=== PATIENT | female | born 1990 | race Hispanic/Latino ===

== ENCOUNTER 2018-01-01 11:51 | Emergency (ER) | payer OTHER, SELFPAY ==
--- NOTE | 2018-01-01 12:35 | EDPHYS ---
Physician Documentation [facility] Name: Gretel Nguyen Age: 27 yrs Sex: Female : 1990 Arrival Date: 01/01/2018 Time: 11:53 Bed 11 Private MD: None, None ED Physician Ganesh Pelaez HPI: 01/01 12:31 This 27 yrs old Female presents to ER via Ambulatory with complaints of Ear snw Pain. 12:31 The patient presents with pain, tenderness. The complaints affect the right ear. Onset: snw The symptoms/episode began/occurred suddenly, yesterday. Associated signs and symptoms: Pertinent positives: ear pain, sore throat. Severity of symptoms: At their worst the symptoms were moderate. The patient has not experienced similar symptoms in the past, but family has similar symptoms, daughter. The patient has not recently seen a physician. 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 - Social history:: Smoking status: unknown. - Ebola Screening: : Patient negative for fever greater than or equal to 101.5 degrees Fahrenheit, and additional compatible Ebola Virus Disease symptoms Patient denies exposure to infectious person Patient denies travel to an Ebola-affected area in the 21 days before illness onset No symptoms or risks identified at this time. ROS: 12:31 Constitutional: Negative for fever, chills, and weight loss, Eyes: Negative for injury, snw pain, redness, and discharge, Neck: Negative for injury, pain, and swelling, Cardiovascular: Negative for chest pain, palpitations, and edema, Respiratory: Negative for shortness of breath, cough, wheezing, and pleuritic chest pain, Abdomen/GI: Negative for abdominal pain, nausea, vomiting, diarrhea, and constipation, Back: Negative for injury and pain, : Negative for injury, bleeding, discharge, and swelling, MS/Extremity: Negative for injury and deformity, Skin: Negative for injury, rash, and discoloration, Neuro: Negative for headache, weakness, numbness, tingling, and seizure. 12:31 ENT: Positive for ear pain, sore throat. Exam: 12:29 Constitutional: This is a well developed, well nourished patient who is awake, alert, snw and in no acute distress. Head/Face: Normocephalic, atraumatic. Eyes: Pupils equal round and reactive to light, extra-ocular motions intact. Lids and lashes normal. Conjunctiva and sclera are non-icteric and not injected. Cornea within normal limits. Periorbital areas with no swelling, redness, or edema. Chest/axilla: Normal chest wall appearance and motion. Nontender with no deformity. No lesions are appreciated. Cardiovascular: Regular rate and rhythm with a normal S1 and S2. No gallops, murmurs, or rubs. Normal PMI, no JVD. No pulse deficits. Respiratory: Lungs have equal breath sounds bilaterally, clear to auscultation and percussion. No rales, rhonchi or wheezes noted. No increased work of breathing, no retractions or nasal flaring. Abdomen/GI: Soft, non-tender, with normal bowel sounds. No distension or tympany. No guarding or rebound. No evidence of tenderness throughout. Back: No spinal tenderness. No costovertebral tenderness. Full range of motion. Skin: Warm, dry with normal turgor. Normal color with no rashes, no lesions, and no evidence of cellulitis. MS/ Extremity: Pulses equal, no cyanosis. Neurovascular intact. Full, normal range of motion. Neuro: Awake and alert, GCS 15, oriented to person, place, time, and situation. Cranial nerves II-XII grossly intact. Motor strength 5/5 in all extremities. Sensory grossly intact. Cerebellar exam normal. Normal gait. 12:29 Psych: Awake, alert, with orientation to person, place and time. Behavior, mood, and affect are within normal limits. 12:29 ENT: Ear canal(s): are normal, TM's: are normal, Nose: is normal, Mouth: is normal, Posterior pharynx: Airway: normal, Tonsils: enlarged on the right, no trismus, Voice: is normal. 12:29 Neck: External neck: is normal, ROM/movement: pain, that is moderate, palpation of anterior cervical lymph nodes. limited range of motion, is not appreciated, Lymph nodes: lymphadenopathy is appreciated, anterior cervical nodes. Vital Signs: 11:55 BP 135 / 70; Pulse 92; Resp 16; Temp 98.9; Pulse Ox 99% on R/A; Weight 104.33 kg (R); sg Pain 6/10; MDM: 12:09 Patient medically screened. snw 12:35 Data reviewed: vital signs, nurses notes. Data interpreted: Pulse oximetry: on room air snw is 99 %. Interpretation: normal. Counseling: I had a detailed discussion with the patient and/or guardian regarding: the historical points, exam findings, and any diagnostic results supporting the discharge/admit diagnosis, the need for outpatient follow up, to return to the emergency department if symptoms worsen or persist or if there are any questions or concerns that arise at home. Special discussion: Based on the history and exam findings, there is no indication for further emergent testing or inpatient evaluation. I discussed with the patient/guardian the need to see the primary care provider for further evaluation of the symptoms. 01/01 12:29 Order name: Strep snw Administered Medications: 12:46 Drug: Decadron - Dexamethasone 10 mg {Note: PO.} Route: IVP; Site: Other; sg 12:47 Drug: Rocephin (cefTRIAXone) 1 grams {Note: L ventroglueteal.} Route: IM; Site: Other; 12:47 Drug: Benadryl 12.5 mg Route: PO; sg Disposition: 15:20 Co-signature as Attending Physician, Ganesh Pelaez MD I agree with the assessment and papo plan of care. Disposition: 01/01/18 12:34 Discharged to Home. Impression: Acute pharyngitis, unspecified. - Condition is Stable. - Discharge Instructions: Pharyngitis. - Prescriptions for Zithromax 500 mg Oral Tablet - take 1 tablet by ORAL route once daily for 5 days; 5 tablet. - Work release form, Medication Reconciliation Form, Thank You Letter, Antibiotic Education, Prescription Opioid Use form. - Follow up: Private Physician; When: 2 - 3 days; Reason: Recheck today's complaints, Continuance of care, Re-evaluation by your physician. Follow up: Emergency Department; When: As needed; Reason: Worsening of condition. Signatures: Dispatcher [employer] EDBebeto Reddy RN RN sg Anderson, Corey, MD MD papo German, Lorena, SECURITY OPERATIONS ANALYST-C SECURITY OPERATIONS ANALYST-Csnw Priti Nails RN RN ss Denise Vincent RN RN Corrections: (The following items were deleted from the chart) 12:52 12:34 01/01/2018 12:34 Discharged to Home. Impression: Acute pharyngitis, unspecified. ss Condition is Stable. Forms are Medication Reconciliation Form, Thank You Letter, Antibiotic Education, Prescription Opioid Use. Follow up: Private Physician; When: 2 - 3 days; Reason: Recheck today's complaints, Continuance of care, Re-evaluation by your physician. Follow up: Emergency Department; When: As needed; Reason: Worsening of condition. snw
--- NOTE | 2018-01-01 12:35 | ER ---
Nurse's Notes [facility] Name: Gretel Nguyen Age: 27 yrs Sex: Female : 1990 Arrival Date: 01/01/2018 Time: 11:53 Bed 11 Private MD: None, None Diagnosis: Acute pharyngitis, unspecified Presentation: 01/01 11:58 Transition of care: patient was not received from another setting of care. Onset of hb symptoms was January 01, 2018. Risk Assessment: Do you want to hurt yourself or someone else? Patient reports no desire to harm self or others. Initial Sepsis Screen: Does the patient meet any 2 criteria? No. Patient's initial sepsis screen is negative. Does the patient have a suspected source of infection? No. Patient's initial sepsis screen is negative. Care prior to arrival: None. 11:58 Acuity: DEREK 5 hb 11:58 Method Of Arrival: Ambulatory hb 12:09 Presenting complaint: Patient states: R ear pain that started yesterday, worsened over sg night, now reports pain in L ear as well with a sore throat, denies N/V/D or fever. Triage Assessment: 11:55 General: Appears in no apparent distress. comfortable, well groomed, well developed, sg well nourished, Behavior is calm, cooperative, appropriate for age. 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 - Social history:: Smoking status: unknown. - Ebola Screening: : Patient negative for fever greater than or equal to 101.5 degrees Fahrenheit, and additional compatible Ebola Virus Disease symptoms Patient denies exposure to infectious person Patient denies travel to an Ebola-affected area in the 21 days before illness onset No symptoms or risks identified at this time. Screenin:55 Abuse screen: Denies threats or abuse. Denies injuries from another. Nutritional sg screening: No deficits noted. Tuberculosis screening: No symptoms or risk factors identified. Never had TB. Fall Risk None identified. Assessment: 12:00 General: Appears in no apparent distress. comfortable, well groomed, well developed, sg well nourished, Behavior is calm, cooperative, appropriate for age. Pain: Complains of pain in right ear, left ear Quality of pain is described as aching. Neuro: Level of Consciousness is awake, alert, obeys commands, Oriented to person, place, time, Safety Leader are equal bilaterally Moves all extremities. Full function Gait is steady, Speech is normal. Cardiovascular: No deficits noted. Denies chest pain, diaphoresis, fatigue, lightheadedness, nausea, palpitations, shortness of breath, syncope, vomiting. Respiratory: Airway is patent Respiratory effort is even, unlabored, Respiratory pattern is regular, symmetrical. GI: No signs and/or symptoms were reported involving the gastrointestinal system. : No signs and/or symptoms were reported regarding the genitourinary system. EENT: Oral mucosa is moist. Good dentition noted. Throat is pink Reports pain in right ear, in left ear, sore throat. Derm: Skin is pink, warm \T\ dry. Musculoskeletal: No signs and/or symptoms reported regarding the musculoskeletal system. Vital Signs: 11:55 BP 135 / 70; Pulse 92; Resp 16; Temp 98.9; Pulse Ox 99% on R/A; Weight 104.33 kg (R); sg Pain 6/10; ED Course: 11:53 Patient arrived in ED. sb2 11:53 None, None is Private Physician. sb2 11:58 Arm band placed on. hb 11:59 Triage completed. hb 12:00 Patient has correct armband on for positive identification. Pulse ox on. NIBP on. sg 12:08 Lorena Porter FNP-C is PHCP. snw 12:08 Ganesh Pelaez MD is Attending Physician. snw 12:09 Bebeto Hassan RN is Primary Nurse. sg 12:45 No provider procedures requiring assistance completed. Patient did not have IV access sg during this emergency room visit. Administered Medications: 12:46 Drug: Decadron - Dexamethasone 10 mg {Note: PO.} Route: IVP; Site: Other; sg 12:47 Drug: Rocephin (cefTRIAXone) 1 grams {Note: L ventroglueteal.} Route: IM; Site: Other; sg 12:47 Drug: Benadryl 12.5 mg Route: PO; Outcome: 12:34 Discharge ordered by . snmyke 12:45 Discharged to home ambulatory, with family. 12:45 Condition: good 12:45 Discharge instructions given to patient, Instructed on discharge instructions, follow up and referral plans. no drinking with medication, medication usage, safety practices, Demonstrated understanding of instructions, follow-up care, medications, Prescriptions given X 1. 12:52 Patient left the ED. Signatures: Bebeto Hassan RN RN Lorena Porter, VIRTUAL CLASSROOM MANAGER-C VIRTUAL CLASSROOM MANAGER-Gunjanw Priti Nails RN RN Denise Vincent RN RN Karen Crenshaw sb2
[2018-01-01] MEDS ORDERED: LIDOCAINE 1% MPF 5 ML VIAL ONE (12:38)
[2018-01-01] MEDS ORDERED: DIPHENHYDRAMINE 12.5MG/5ML LIQ ONE (12:38)
[2018-01-01] MEDS ORDERED: CEFTRIAXONE 1000 MG/VIAL ONE (12:38)
[2018-01-01] MEDS ORDERED: DEXAMETHASONE 10 MG/ML VIAL ONE (12:38)
[2018-01-01 13:03] VITALS: BP 135/70; TEMP 98.9; O2SAT 99
== END 2018-01-01 12:52 | disposition home or self-care (01) ==
LOC: ER 11:51
DX: J02.9 Acute pharyngitis, unspecified (principal)
CPT/HCPCS: 87070; 87081; 96372; 96374; 99283; J1100

== ENCOUNTER 2018-10-14 07:12 | Emergency (ER) | payer SELFPAY ==
--- OUTSIDE RECORDS SUMMARY | 2018-10-14 07:15 | XMS REPORT ---
:1990 [facility] Address [address] [place] [address] [address] [place] [address] Care Team Providers Name Role Phone Unavailable Unavailable Unavailable Problems This patient has no known problems. Allergies, Adverse Reactions, Alerts This patient has no known allergies or adverse reactions. Medications This patient has no known medications.
[2018-10-14] MEDS ORDERED: NA CHLORIDE 0.9% 1,000 ML ONE (07:46)
[2018-10-14 08:10] LABS: Absolute Lymphocytes (CBC) 1.2 K/uL (0.7-4.9); Absolute Monocytes 0.6 K/uL (0.1-1.3); Absolute Neutrophil 8.9 K/uL (1.8-8.0); Basophils % 0.3 % (0-1.3); Eosinophils % 1.3 % (0-4.4); Hematocrit 38.2 % (36.0-45.0); Lymphocytes % 10.7 % (15.3-44.8); MPV 10.8 fL (7.6-11.3); Monocytes % 5.7 % (3.3-12.3); RBC Red Blood Cell Count 4.77 M/uL (3.86-4.86)
[2018-10-14 08:20] LABS: ALT/SGPT 21 U/L (12-78); AST/SGOT 9 U/L (15-37); Albumin 3.6 g/dL (3.4-5.0); Alkaline Phosphatase 82 U/L (45-117); BUN Blood Urea Nitrogen 13 mg/dL (7-18); Bicarbonate 22 mmol/L (21-32); Bilirubin Direct 0.1 mg/dL (0-0.2); Bilirubin Total 0.5 mg/dL (0.2-1.0); Glucose Level 101 mg/dL (74-106); Lipase 65 U/L (73-393); Potassium 3.9 mmol/L (3.5-5.1); Protein, Total 7.2 g/dL (6.4-8.2); Sodium Level 139 mmol/L (136-145)
[2018-10-14 09:23] LABS: Urine Blood NEGATIVE (NEG); Urine Glucose NEGATIVE (NEG); Urine Protein NEGATIVE (NEG); Urine Specific Gravity 1.025 (1.005-1.030); Urine pH 5.5 (5.0-7.0)
--- NOTE | 2018-10-14 09:45 | EDPHYS ---
Physician Documentation [facility] Name: Gretel Nguyen Age: 28 yrs Sex: Female : 1990 Arrival Date: 10/14/2018 Time: 07:15 Bed 14 Private MD: None, None ED Physician Ganesh Pelaez HPI: 10/14 08:25 This 28 yrs old Female presents to ER via Ambulatory with complaints of papo Abdominal Pain. 08:25 The patient presents with pelvic pain. Onset: The symptoms/episode began/occurred 2 papo day(s) ago. Modifying factors: The symptoms are alleviated by. Associated signs and symptoms: The patient has no apparent associated signs or symptoms. Severity of symptoms: At their worst the symptoms were. The estimated gestational age is 5 weeks. 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 - Social history:: Smoking status: Patient uses tobacco products, smokes one-half pack cigarettes per day. - Ebola Screening: : Patient denies exposure to infectious person Patient denies travel to an Ebola-affected area in the 21 days before illness onset. - Family history:: not pertinent. ROS: 08:25 Constitutional: Negative for fever, chills, and weight loss, Eyes: Negative for injury, papo pain, redness, and discharge, ENT: Negative for injury, pain, and discharge, Neck: Negative for injury, pain, and swelling, Cardiovascular: Negative for chest pain, palpitations, and edema, Respiratory: Negative for shortness of breath, cough, wheezing, and pleuritic chest pain, Back: Negative for injury and pain, : Negative for injury, bleeding, discharge, and swelling, MS/Extremity: Negative for injury and deformity, Skin: Negative for injury, rash, and discoloration, Neuro: Negative for headache, weakness, numbness, tingling, and seizure, Psych: Negative for depression, anxiety, suicide ideation, homicidal ideation, and hallucinations, Allergy/Immunology: Negative for hives, rash, and allergies, Endocrine: Negative for neck swelling, polydipsia, polyuria, polyphagia, and marked weight changes, Hematologic/Lymphatic: Negative for swollen nodes, abnormal bleeding, and unusual bruising. 08:25 Abdomen/GI: Positive for abdominal pain, of the right lower quadrant and left lower quadrant. Exam: 08:25 Constitutional: This is a well developed, well nourished patient who is awake, alert, papo and in no acute distress. Head/Face: Normocephalic, atraumatic. Eyes: Pupils equal round and reactive to light, extra-ocular motions intact. Lids and lashes normal. Conjunctiva and sclera are non-icteric and not injected. Cornea within normal limits. Periorbital areas with no swelling, redness, or edema. ENT: Nares patent. No nasal discharge, no septal abnormalities noted. Tympanic membranes are normal and external auditory canals are clear. Oropharynx with no redness, swelling, or masses, exudates, or evidence of obstruction, uvula midline. Mucous membranes moist. Neck: Trachea midline, no thyromegaly or masses palpated, and no cervical lymphadenopathy. Supple, full range of motion without nuchal rigidity, or vertebral point tenderness. No Meningismus. Chest/axilla: Normal chest wall appearance and motion. Nontender with no deformity. No lesions are appreciated. Cardiovascular: Regular rate and rhythm with a normal S1 and S2. No gallops, murmurs, or rubs. Normal PMI, no JVD. No pulse deficits. Respiratory: Lungs have equal breath sounds bilaterally, clear to auscultation and percussion. No rales, rhonchi or wheezes noted. No increased work of breathing, no retractions or nasal flaring. Back: No spinal tenderness. No costovertebral tenderness. Full range of motion. Skin: Warm, dry with normal turgor. Normal color with no rashes, no lesions, and no evidence of cellulitis. MS/ Extremity: Pulses equal, no cyanosis. Neurovascular intact. Full, normal range of motion. Neuro: Awake and alert, GCS 15, oriented to person, place, time, and situation. Cranial nerves II-XII grossly intact. Motor strength 5/5 in all extremities. Sensory grossly intact. Cerebellar exam normal. Normal gait. Psych: Awake, alert, with orientation to person, place and time. Behavior, mood, and affect are within normal limits. 08:25 Abdomen/GI: Inspection: abdomen appears normal, Bowel sounds: normal, Palpation: abdomen is soft and non-tender, Liver: no appreciated palpable abnormalities, Hernia: not appreciated. Vital Signs: 07:22 BP 125 / 73; Pulse 92; Resp 15; Temp 98.1(TE); Pulse Ox 98% on R/A; Weight 79.38 kg; ss Height 5 ft. 1 in. (154.94 cm); Pain 6/10; 08:22 BP 110 / 61; Pulse 91; Resp 16; Temp 98.(O); Pulse Ox 98% ; Pain 5/10; rb1 09:05 BP 105 / 62; Pulse 96; Resp 17; Temp 98.3(O); Pulse Ox 99% ; Pain 5/10; rb1 09:54 BP 102 / 65; Pulse 85; Resp 18; Temp 98.0(O); Pulse Ox 99% on R/A; Pain 4/10; rb1 07:22 Body Mass Index 33.07 (79.38 kg, 154.94 cm) ss MDM: 07:17 Patient medically screened. [facility] 08:27 Data reviewed: vital signs, nurses notes, lab test result(s), radiologic studies, papo ultrasound. 10/14 07:18 Order name: Basic Metabolic Panel; Complete Time: 08:23 [facility] 10/14 07:18 Order name: CBC with Diff; Complete Time: 08:23 [facility] 10/14 07:18 Order name: Creatinine for Radiology; Complete Time: 08:23 [facility] 10/14 07:18 Order name: Hepatic Function; Complete Time: 08:23 [facility] 10/14 07:18 Order name: Lipase; Complete Time: 08:23 [facility] 10/14 08:14 Order name: Urine Dipstick--Ancillary (enter results); Complete Time: 09:40 10/14 07:18 Order name: IV Saline Lock; Complete Time: 07:54 [facility] 10/14 07:18 Order name: Labs collected and sent; Complete Time: 07:54 [facility] 10/14 07:18 Order name: Urine Dipstick-Ancillary (obtain specimen); Complete Time: 08:24 [facility] 10/14 08:14 Order name: Urine --Ancillary (enter results); Complete Time: 09:40 10/14 08:23 Order name: Abo/rh Typing [facility] 10/14 08:23 Order name: HCG-Quantitative; Complete Time: 09:40 [facility] 10/14 08:23 Order name: US Transvaginal Ob [facility] 10/14 07:18 Order name: Urine Test (obtain specimen); Complete Time: 08:24 [facility] 10/14 08:23 Order name: NPO; Complete Time: 08:24 [facility] Administered Medications: 07:43 Drug: NS 0.9% 1000 ml Route: IV; Rate: 1 bolus; Site: right antecubital; rb1 09:02 Follow up: IV Status: Completed infusion rb1 Disposition: 10/14/18 09:44 Discharged to Home. Impression: related conditions, unspecified, first trimester, Abdominal tenderness. - Condition is Stable. - Discharge Instructions: Abdominal Pain During , First Trimester of , [id number], First Trimester of , Abdominal Pain During , [id number], Pelvic Rest. - Prescriptions for Vitamin 27- 0.8 mg Oral Tablet - take 1 tablet by ORAL route once daily; 30 tablet. - Medication Reconciliation Form, Thank You Letter, Antibiotic Education, Prescription Opioid Use, Family Work Release form. - Follow up: Private Physician; When: 2 - 3 days; Reason: Recheck today's complaints, Continuance of care, Re-evaluation by your physician. Follow up: Mini Rekhi; When: 2 - 3 days; Reason: Recheck today's complaints, Re-evaluation by your physician. - Problem is new. - Symptoms have improved. Signatures: Dispatcher [employer] EDMS Ganesh Pelaez MD MD cha Smirch, Shelby, RN RN ss Barber, Rebecca, RN RN rb1 Corrections: (The following items were deleted from the chart) 10:24 09:44 10/14/2018 09:44 Discharged to Home. Impression: related conditions, rb1 unspecified, first trimester; Abdominal tenderness. Condition is Stable. Discharge Instructions: Abdominal Pain During , First Trimester of , [id number], First Trimester of , Abdominal Pain During , [id number], Pelvic Rest. Prescriptions for Vitamin 27-0.8 mg Oral Tablet - take 1 tablet by ORAL route once daily; 30 tablet. and Forms are Medication Reconciliation Form, Thank You Letter, Antibiotic Education, Prescription Opioid Use. Follow up: Private Physician; When: 2 - 3 days; Reason: Recheck today's complaints, Continuance of care, Re-evaluation by your physician. Follow up: Crystal Jacinto; When: 2 - 3 days; Reason: Recheck today's complaints, Re-evaluation by your physician. Problem is new. Symptoms have improved. papo
--- NOTE | 2018-10-14 09:45 | ER ---
Nurse's Notes [facility] Name: Gretle Nguyen Age: 28 yrs Sex: Female : 1990 Arrival Date: 10/14/2018 Time: 07:15 Bed 14 Private MD: None, None Diagnosis: related conditions, unspecified, first trimester;Abdominal tenderness Presentation: 10/14 07:22 Presenting complaint: Patient states: lower abd pain that began yesterday with nausea ss and diarrhea. Transition of care: patient was not received from another setting of care. Onset of symptoms was October 13, 2018. Risk Assessment: Do you want to hurt yourself or someone else? Patient reports no desire to harm self or others. Initial Sepsis Screen: Does the patient meet any 2 criteria? No. Patient's initial sepsis screen is negative. Does the patient have a suspected source of infection? No. Patient's initial sepsis screen is negative. Care prior to arrival: None. 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 - Social history:: Smoking status: Patient uses tobacco products, smokes one-half pack cigarettes per day. - Ebola Screening: : Patient denies exposure to infectious person Patient denies travel to an Ebola-affected area in the 21 days before illness onset. - Family history:: not pertinent. Screenin:16 Abuse screen: Denies threats or abuse. Nutritional screening: No deficits noted. rb1 Tuberculosis screening: No symptoms or risk factors identified. Fall Risk None identified. Assessment: 07:16 General: Appears in no apparent distress. comfortable, Behavior is calm, cooperative, rb1 Reports chills for Denies fever. Pain: Complains of pain in abdomen Pain currently is 6 out of 10 on a pain scale. Neuro: Level of Consciousness is awake, alert, obeys commands, Oriented to person, place, time, situation. Cardiovascular: Capillary refill < 3 seconds is brisk in bilateral fingers. Respiratory: Airway is patent Respiratory effort is even, unlabored, Respiratory pattern is regular, symmetrical. GI: Bowel sounds present X 4 quads. Abd is soft Reports diarrhea, nausea. : No signs and/or symptoms were reported regarding the genitourinary system. Derm: Skin is pink, warm \T\ dry. 08:16 Reassessment: Patient appears in no apparent distress at this time. No changes from rb1 previously documented assessment. 09:03 Reassessment: Patient appears in no apparent distress at this time. Patient and/or rb1 family updated on plan of care and expected duration. Pain level reassessed. Patient is alert, oriented x 3, equal unlabored respirations, skin warm/dry/pink. Pt. just returned from US. Reminded pt. to not eat or drink anything at this time. 09:54 Reassessment: Patient appears in no apparent distress at this time. No changes from rb1 previously documented assessment. 09:58 Reassessment: Discharge pending due to the provider needing to speak with the pt. rb1 10:10 Reassessment: Provider waiting for final report on the US so he can speak with the pt. rb1 Vital Signs: 07:22 BP 125 / 73; Pulse 92; Resp 15; Temp 98.1(TE); Pulse Ox 98% on R/A; Weight 79.38 kg; ss Height 5 ft. 1 in. (154.94 cm); Pain 6/10; 08:22 BP 110 / 61; Pulse 91; Resp 16; Temp 98.(O); Pulse Ox 98% ; Pain 5/10; rb1 09:05 BP 105 / 62; Pulse 96; Resp 17; Temp 98.3(O); Pulse Ox 99% ; Pain 5/10; rb1 09:54 BP 102 / 65; Pulse 85; Resp 18; Temp 98.0(O); Pulse Ox 99% on R/A; Pain 4/10; rb1 07:22 Body Mass Index 33.07 (79.38 kg, 154.94 cm) ED Course: 07:15 Patient arrived in ED. mr 07:15 None, None is Private Physician. mr 07:16 Patient has correct armband on for positive identification. Bed in low position. Call rb1 light in reach. Side rails up X 1. Pulse ox on. NIBP on. 07:17 Ganesh Pelaez MD is Attending Physician. papo 07:22 Arm band placed on right wrist. ss 07:23 Triage completed. ss 07:30 Lakisha Leahy, RN is Primary Nurse. rb1 07:41 Inserted saline lock: 22 gauge in right antecubital area, using aseptic technique. rb1 Blood collected. 08:30 Radiology exam delayed due to lab results not completed at this time. (HCG). aa4 09:04 US Transvaginal Ob In Process Unspecified. EDMS 09:40 Crystal Jacinto MD is Referral Physician. papo 10:21 IV discontinued, intact, bleeding controlled, No redness/swelling at site. Pressure em1 dressing applied. 10:23 No provider procedures requiring assistance completed. rb1 10:23 IV discontinued, By DAVID Manning Tech. rb1 Administered Medications: 07:43 Drug: NS 0.9% 1000 ml Route: IV; Rate: 1 bolus; Site: right antecubital; rb1 09:02 Follow up: IV Status: Completed infusion rb1 Outcome: 09:44 Discharge ordered by . papo 10:23 Discharged to home ambulatory, with family. rb1 10:23 Condition: stable 10:23 Discharge instructions given to patient, Instructed on discharge instructions, follow up and referral plans. medication usage, Demonstrated understanding of instructions, follow-up care, medications, Prescriptions given X 1. 10:24 Patient left the ED. rb1 Signatures: Dispatcher [employer] [facility] Ganesh Pelaez MD MD cha Rivera, Veena mr Samson, Shira aaNigel Waters em1 Priti Nails, ANISA RN Lakisha Leahy, RN RN rb1
--- NOTE | 2018-10-14 10:33 | RAD REPORT ---
EXAM DESCRIPTION: US - Transvaginal OB - 10/14/2018 9:04 am CLINICAL HISTORY: Abdominal pain, pelvic pain, COMPARISON: None. FINDINGS: Mildly complex nabothian cysts are present not regarded as significant. Uterus measures 8. 0 x 4.4 x 4.4 cm. No myometrial mass. Endometrium is somewhat heterogeneous. No normal gestational sa c identified. No hematoma or discrete mass within the endometrial cavity. Right ovary is normal size. Doppler evaluation shows normal blood flow within the ovarian stroma. An 11 millimeter right ovarian or paraovarian cyst identified. No adnexal mass on the right. No fallopia n tube dilatation. Left ovary is more heterogeneous in appearance. Doppler evaluation shows blood flow within the stroma . No definitive left-sided ectopic or left adnexal mass. No left-sided fallopian tube dilat ation. IMPRESSION: No normal intrauterine gestational sac or sac remnant identifiable. No focal endometrial mass or hematoma. No ectopic is identifiable. No suspicious adnexal finding.
[2018-10-14 16:47] VITALS: O2SAT 99
[2018-10-14 16:48] VITALS: BP 102/65; TEMP 98
== END 2018-10-14 10:24 | disposition home or self-care (01) ==
LOC: ER 07:12
DX: O26.891 Other specified pregnancy related conditions, first trimester (principal); R10.2 Pelvic and perineal pain; Z3A.00 Weeks of gestation of pregnancy not specified; F17.210 Nicotine dependence, cigarettes, uncomplicated
CPT/HCPCS: 36415; 76817; 80048; 80076; 81003; 81025; 83690; 84702; 85025; 86900; 86901; 96360; 99284; J7030

== ENCOUNTER 2019-05-29 01:06 | Inpatient (IN) | payer OTHER ==
--- OUTSIDE RECORDS SUMMARY | 2019-05-29 01:09 | XMS REPORT ---
:1990 [facility] Address [address] [place] [address] Dr. Snell [address] [place] [id number] Care Team Providers Name Role Phone Unavailable Unavailable Unavailable Problems This patient has no known problems. Allergies, Adverse Reactions, Alerts This patient has no known allergies or adverse reactions. Medications This patient has no known medications.
[2019-05-29] MEDS ORDERED: BUTORPHANOL 1 MG/ML INJ IV PRN (02:07)
[2019-05-29] MEDS ORDERED: PROMETHAZINE INJ 25 MG/ML AMP IM PRN (02:07)
[2019-05-29] MEDS ORDERED: Ringers Lactate 1,000 ML IV PRN (02:07)
[2019-05-29 02:35] VITALS: BMI 36.1
[2019-05-29 02:37] LABS: Absolute Lymphocytes (CBC) 2.7 K/uL (0.7-4.9); Basophils % 0.2 % (0-1.3); Hematocrit 25.8 % (36.0-45.0); Lymphocytes % 27.3 % (15.3-44.8); MPV 10.5 fL (7.6-11.3); RBC Red Blood Cell Count 3.56 M/uL (3.86-4.86)
[2019-05-29 02:39] LABS: Urine Appearance CLOUDY; Urine Bilirubin NEGATIVE (NEG); Urine Blood 3+ (NEG); Urine Color YELLOW; Urine Glucose NEGATIVE (NEG); Urine Protein NEGATIVE (NEG); Urine Specific Gravity <=1.005 (1.005-1.030); Urine Urobilinogen 0.2 mg/dL (0.2-1.0)
[2019-05-29 02:57] LABS: Urine Microscopic Reflex ORDER UMIC
[2019-05-29 02:58] LABS: Urine Amorphous Sediment 1+ /HPF (NONE SEEN); Urine Bacteria 20-50 /HPF (<20); Urine Culture Reflex Order REFLEXED; Urine Mucus 1+ /HPF (NONE SEEN); Urine RBC 20-50 /HPF (NONE SEEN)
[2019-05-29] MEDS ORDERED: Ringers Lactate 1,000 ML IV SCH (03:00)
[2019-05-29] MEDS ORDERED: OXYTOCIN/LR 20 UNIT/1,000 ML BAG IV SCH (05:00)
[2019-05-29] MEDS ORDERED: LIDOCAINE 1% MPF 30 ML VIAL ONE (05:12)
--- NOTE | 2019-05-29 05:36 | PREOPHP ---
Date of Admission: 05/29/2019 28-year-old 4, para 2, 37 weeks. Has a history of premature labor with the last delivery at 35 weeks and 3-4 days. Had Celestone during this . Comes into Labor and Delivery in active labor. Was 4 cm on admission, is now 6.5 to 7 cm, 90% effaced, vertex, -1 station. Norma reg ularly. FHT is normal, reactive. Rupture of membranes, clear fluid. Rh positive, immune to Rubella . Negative beta strep screen. Anticipate delivery relatively soon. Full labor talk given. PILY/MODFina Voice ID: [id number]
[2019-05-29] MEDS ORDERED: DOCUSATE NA/SENNA CONC 1 TAB PO PRN ×2 (06:27→07:35)
[2019-05-29] MEDS ORDERED: ONDANSETRON 4 MG/2 ML VIAL IV PRN (06:27)
[2019-05-29] MEDS ORDERED: METHYLERGONOVINE 0.2MG/ML AMP IM PRN (06:27)
[2019-05-29] MEDS ORDERED: IBUPROFEN 200 MG TAB PO PRN (06:27)
[2019-05-29] MEDS ORDERED: Oxycodone HCl/Acetaminophen 1 TAB TAB PO PRN ×4 (06:27→07:35)
[2019-05-29] MEDS ORDERED: ACETAMINOPHEN 500 MG TAB PO PRN ×2 (06:27→07:35)
[2019-05-29] MEDS ORDERED: BISACODYL 10 MG RECTAL SUPP RECT PRN (07:35)
[2019-05-29] MEDS ORDERED: IBUPROFEN 600 MG TAB PO PRN (07:35)
[2019-05-29] MEDS ORDERED: DIPHENHYDRAMINE 25 MG TAB/CAP PO PRN (07:35)
[2019-05-29] MEDS ORDERED: INFLUENZA VACCINE (for 3y+) 0.5 ML DOSE IMVAC ONE (08:00)
--- NOTE | 2019-05-29 08:41 | OP ---
Surgeon: Dany Nguyễn MD A 28-year-old 4, para 2, AB1, 37 weeks. History of premature labor. Had received Celestone during this . Came in at 4 cm, went rapidly to complete. Second stage of 5 minutes. Spont aneous vaginal delivery of an estimated 6-pound male . Nuchal cord x2. Apgars 9 and 9. No ep isiotomy. No laceration. Schultze delivery of the placenta, which was inspected and noted to be int act and normal. 300 cc to 325 cc blood loss. Tolerated all procedures well. Final Diagnoses: Intrauterine , 37 weeks. Spontaneous labor. Vaginal delivery. Previous administration of Celestone. PILY/KARENL Voice ID: [id number] Report ID: [id number]
--- NOTE | 2019-05-29 08:44 | PN ---
Patient is doing quite well this morning. Lochia is normal. She is taking no analgesics. She will begin ambulation. Full talk given. She has had her Tdap shot already. Patient was not c ompliant during the as far as taking her vitamins and iron, was anemic during the and the anemia has apparently worsened. This is discussed with the patient. She can make an attemp t to take more iron in the period, but she did not do it antepartum, so we will see. We w ill check her hematocrit at the 6 weeks check. Full discussion. No complaints or problem s. PILY/MODL Voice ID: [id number] Report ID: [id number]
[2019-05-29] MEDS ORDERED: Ringers Lactate 1,000 ML IV ONE (16:39)
[2019-05-30 03:44] LABS: RPR (Rapid Plasma Reagin) NON-REACT (NON-REACT)
[2019-05-30 04:46] VITALS: TEMP 96
[2019-05-30 07:35] VITALS: BP 115/60
[2019-05-30] MEDS ORDERED: INFLUENZA VACCINE (for 3y+) 0.5 ML DOSE IMVAC ONE (07:45)
[2019-05-31 19:30] LABS: HBsAG Nonreactive (Nonreactive)
--- NOTE | 2019-06-01 09:41 | DS ---
Date of Discharge: 05/30/2019 28-year-old multiparous female, at 37 weeks' gestation, history of previous premature delivery, last had Celestone, during this , came in 4 cm and in early labor. Went into a more ac tive phase of labor and received Stadol IV, Phenergan IM. Spontaneous vaginal delivery of 6 pounds a nd 10 ounce male . Nuchal cord x2 loosely. Apgars 9 and 9. No episiotomy. No laceration. S chultze delivery of the placenta, which was inspected and noted to be intact and normal. 300 to 325 cc blood loss. Rh positive, immune to Rubella. Negative beta strep screen. She has had her Tdap im munizations during her . Dismissed and requires no analgesics. To report back to my office in 6 weeks for followup, to report any temperature elevation of 100 degrees or greater, severe pain, heavy bleeding, or any other type of abnormalities. She has been offered flu shots during the pregn keyla and again today. She has been anemic through the entire and has not been really compl iant in taking her iron, this is again discussed today. Final Diagnoses: Term intrauterine 37 weeks. Vaginal delivery. Pre-existing anemia. PILY/KARENL Voice ID: [id number] Report ID: [id number]
== END 2019-05-30 08:30 | disposition home or self-care (01) | DRG 807 ==
LOC: L&D 01:06 → 2ND-WCNRSY 01:55 → 2ND-WC 01:55 → UNDOADMIN 01:55 → 2ND-WCNRSY 05:20
PROVIDERS: ADMIT Specialist; ATTEND Specialist
PROC: 10E0XZZ Delivery of Products of Conception, External Approach (ICD-10-PCS; principal; 2019-05-29)
DX: O80 Encounter for full-term uncomplicated delivery (principal); Z37.0 Single live birth; Z3A.37 37 weeks gestation of pregnancy
CPT/HCPCS: 36415; 81003; 81015; 85025; 86592; 86901; 87086; 87088; 87340; 90471; J0595; J2550; J2590; J7120; Q2035

== ENCOUNTER 2023-09-30 18:56 | Emergency (ER) | payer OTHER ==
--- OUTSIDE RECORDS SUMMARY | 2023-09-30 19:03 | XMS REPORT | Continuity of Care Document ---
Author Name Unknown Address [address] [facility] [address] [place] [address] [facility] thconnect Address [address] 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 Name Role Phone Jacinda King Primary Care Physician + [phone] DEEPAK GIANG Attending Clinician Unavailab Dilia Bravo MD Attending Clinician [phone] LOKESH SERNA Attending Clinician Unavailable Lokesh Serna MD Attending Clinician [phone] DILIA ESCOBAR Attending Clinician Unavailable Terri Cuevas Attending Clinician + [phone] Scott Verde Attending Clinician [phone] SCOTT JOSEPH Attending Clinician Unavailable JACINDA BUI Attending Clinician Unavailable Shira Frazier MD Attending Clinician +[phone] SHIRA FRAZIER Attending Clinician Unavailable Unknown, Attending Attending Clinician Unavailab SHERRIE Salter Attending Clinician Unavailable SHERRIE CASILLAS Attending Clinician Unavailable 2, [facility] Attending Clinician Unavailable Jacinda King Attending Clinician [phone] Avis LANGE, Paola Ndiaye Attending Clinician Unavail able KHALIF RITTER Attending Clinician Unavailable Gregory Davila MD Attending Clinician [phone] Doctor Unassigned, [place] Attending Clinician U DONELL Rowley Attending Clinician Unavailable Arabella Larose MD Attending Clinician [phone] Donell Brunson PA-C Attending Clinician [phone] ILANA WARD Attending Clinician ILANA Hinkle Attending Clinician Danilo Roberts MD Attending Clinician [phone], [facility] Attending Clinician Unavailable Jorge Estrada Attending Clinician + [phone] Ultrasound, [facility] Attending Clinician Unavaila kayleigh Solo MD, Jesse Clifford Attending Clinician + JESSE SOLO Attending Clinician Unav ailable ARABELLA LAROSE Attending Clinician Unavailable Paola Wolf DO Attending Clinician [phone] Jeremiah Mcdaniel Attending Clinician [phone] JEREMIAH WOLF Attending Clinician UnavailMiguel Danielle MD Attending Clinician [phone] Risk, Tnq-Mwhik-Pa/High Attending Clinician Unav ailable Cheli Serrano Attending Clinician [phone] CHELI DONOHUE Attending Clinician UnavailJOSELYN Campos Attending Clinician Unavaila ble Provider, Ang-[facility] Temp Attending Clinician Miracle Joselyn Barry CNM Attending Clinician [phone] REGINALDO VASQUEZ Attending Clinician Unavailable REGINALDO VASQUEZ Attending Clinician Unavailable Benja Ahn MD Attending Clinician + [phone] Reginaldo Vasquez MD Attending Clinician [phone], [facility] Attending Clinician Unavaila ble Risk, Pea-Rmchp Provider/High Attending Clinicia n Unavailable Akinjose f Zach GOODEN Attending Clinician + ZACH CLARK Attending Clinician Unavail able NÉSTOR MORGAN Attending Clinician Unavailable NÉSTOR MORGAN Attending Clinician Unavailable ILANA WARD Admitting Clinician DILIA Parikh Admitting Clinician Unavailable BENJA AHN Admitting Clinician UnavailREGINALDO Duran Admitting Clinician Unavailable KHALIF RITTER Admitting Clinician Unavailable Arabella Larose MD Admitting Clinician [phone] ARABELLA LAROSE Admitting Clinician Unavailable Dilia Escobar MD Admitting Clinician Miguel Garcia MD Admitting Clinician MIGUEL GARCIA Admitting Clinician Unavailable Benja Ahn MD Admitting Clinician Payers Payer Name Policy Type Policy Number Effective Date Expirati on Date Source [facility] [id number] 2022 00:00:00 [place] [id number] 2018 00:00:00 [employer] 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 ON 9 [id number] 2023 00:00:00 [facility] [id number] 2022 00:00:00 MEDICAID PENDING PENDING 2020 00:00:00 Problems Condition Name Condition Details Condition Category Status Onset Date Resolution Date Last Treatment Date Treating Clinician Comments Source Acute recurrent frontal sinusitis Acute recurrent frontal sinusitis Disease Active 08-13 00:00: 00 Talya Seybold - Externa l Seasonal allergies Seasonal allergies Disease Active 08-13 00:00: 00 Talya Seybold - Externa l Splenomega ly Splenomega ly Disease Active 08-02 00:00: 00 [facility] Hyperbilir ubinemia Hyperbilir ubinemia Disease Active 08-02 00:00: 00 [facility] Acute biliary pancreatit is Acute biliary pancreatit is Disease Active 08-01 00:00: 00 [facility] Calculus of gallbladde r without biliary obstructio n Calculus of gallbladde r without biliary obstructio n Disease Active 3-01 00:00: 00 [facility] Nexplanon in place Nexplanon in place Disease Active 1-25 00:00: 00 [facility] Normal labor Normal labor Disease Active 1-03 00:00: 00 [facility] 37 weeks gestation of 37 weeks gestation of Disease Active 1-03 00:00: 00 [facility] Grand multiparit y in labor and delivery Grand multiparit y in labor and delivery Disease Active 1-03 00:00: 00 [facility] Liveborn , of sosa , born in hospital by vaginal delivery Liveborn , of sosa , born in hospital by vaginal delivery Disease Active 1-03 00:00: 00 [facility] contractio ns contractio ns Disease Active 1- 00:00: 00 [facility] Encounter for supervisio n of high risk with insufficie nt care, antepartum Encounter for supervisio n of high risk with insufficie nt care, antepartum Disease Active 9- 00:00: 00 [facility] H/O delivery, currently , third trimester H/O delivery, currently , third trimester Disease Active 2020-06 2-08 00:00: 00 [facility] Obesity in Obesity in Disease Active 2020-06 2-08 00:00: 00 [facility] Obesity (BMI 30-39.9) Obesity (BMI 30-39.9) Disease Active 2020-06 1-12 00:00: 00 [facility] Anemia of mother in , antepartum Anemia of mother in , antepartum Disease Active 8-24 00:00: 00 [facility] ASCUS of cervix with negative high risk HPV ASCUS of cervix with negative high risk HPV Disease Active 5-11 00:00: 00 [facility] Rubella non-immune status, antepartum Rubella non-immune status, antepartum Disease Active 10-20 00:00: 00 Overview: Formattin g of this note might be different from the original. Address [facility] Allergies, Adverse Reactions, Alerts Allergy Name Allergy Type Status Severity Reaction(s) Onset Date Inactive Date Treating Clinician Comments Source NO KNOWN ALLERGIE S Drug Class Active [facility] Social History Social Habit Start Date Stop Date Quantity Comments Source ASSERTION 2021-10-03 00:00:00 [facility] History SDOH Social Connections Get Together [facility] History SDOH Social Connections Alevism [facility] History SDOH Social Connections Membership [facility] History SDOH Social Connections Meetings [facility] Gender identity [facility] History of tobacco use Cigarette Smoker Talya lozoya - External Sexual orientation Armin Elkins - External History of Social function 2023-08-14 00:00:00 2023-08-14 00:00:00 Talya Elkins - External Alcohol intake 2023-07-23 00:00:00 2023-07-23 00:00:00 0 /d [facility] Exposure to SARS-CoV-2 (event) 2022-09-07 00:00:00 2022-09-17 10:45:00 Not sure [facility] History SDOH Alcohol Frequency 2022-08-02 00:00:00 2022-08-02 00:00:00 1 [facility] History SDOH Alcohol Std Drinks 2022-08-02 00:00:00 2022-08-02 00:00:00 0 [facility] History SDOH Alcohol Binge 2022-08-02 00:00:00 2022-08-02 00:00:00 1 [facility] History SDOH Social Connections Phone 2022-08-02 00:00:00 2022-08-02 00:00:00 5 [facility] History SDOH Social Connections Living 2022-08-02 00:00:00 2022-08-02 00:00:00 8 [facility] History SDOH Physical Activity DPW 2022-08-02 00:00:00 2022-08-02 00:00:00 0 [facility] History SDOH Physical Activity MPS 2022-08-02 00:00:00 2022-08-02 00:00:00 0 [facility] History SDOH Financial 2022-08-02 00:00:00 2022-08-02 00:00:00 5 [facility] History SDOH Food Worry 2022-08-02 00:00:00 2022-08-02 00:00:00 1 [facility] History SDOH Food Scarcity 2022-08-02 00:00:00 2022-08-02 00:00:00 1 [facility] History SDOH Transport Med 2022-08-02 00:00:00 2022-08-02 00:00:00 2 [facility] History SDOH Transport Non-Med 2022-08-02 00:00:00 2022-08-02 00:00:00 2 [facility] Cigarettes smoked current (pack per day) - Reported 2022-08-02 00:00:00 2022-08-02 00:00:00 [facility] Tobacco use and exposure 2022-08-02 00:00:00 2022-08-02 00:00:00 Smokeless tobacco non-user [facility] Sex Assigned At 1990 00:00:00 1990 00:00:00 Talya Ardon Smoking Status Start Date Stop Date Source Ex-smoker 2023-08-14 00:00:00 2023-08-14 00:00:00 Talya Ardon Occasional tobacco smoker 2022-08-02 00:00:00 [facility] Medications Ordered Medication Name Filled Medication Name Start Date Stop Date Current Medication? Ordering Clinician Indication Dosage Frequency Signature (SIG) Comments Components Source Cetirizine HCl 10 MG oral Capsule 08-13 00:00: 00 Yes [id number] 10mg Take 1 capsule (10 mg total) by mouth daily. Talya ndiaye Azithromyci n 250 MG oral Tablet 08-13 00:00: 00 08-19 04:59 :00 Yes [id number] Take 2 tablets by mouth on day 1 then 1 tablet by mouth daily for 4 days thereafter .. Talya Seybold - Externa l diclofenac 75 mg EC tablet 07-23 00:00: 00 Yes [id number] 75mg Take 1 tablet by mouth in the morning and 1 tablet in the evening. Take with meals. [facility] acetaminoph en (TYLENOL ARTHRITIS PAIN) 650 mg CR tablet 07-23 00:00: 00 Yes [id number] 650mg Take 1 tablet by mouth every 8 (eight) hours as needed for Pain. [facility] predniSONE 20 mg tablet 07-23 00:00: 00 Yes [id number] Take 2 tablets PO daily [facility] gabapentin (NEURONTIN) 100 mg capsule 07-23 00:00: 00 Yes [id number] 100mg Take 1 capsule by mouth in the morning and 1 capsule at noon and 1 capsule in the evening. [facility] tiZANidine 2 mg capsule 09-17 00:00: 00 Yes [id number] 2mg Take 1 capsule by mouth in the morning and 1 capsule at noon and 1 capsule in the evening. [facility] ibuprofen 600 mg tablet 09-17 00:00: 00 Yes [id number] 600mg Take 1 tablet by mouth every 6 (six) hours as needed for Pain (scale 4-6) or Pain (scale 1-3). [facility] benzonatate 100 mg capsule -14 00:00: 00 09-17 00:00 :00 No [id number] 200mg Take 2 capsules by mouth every 8 (eight) hours as needed for Cough. [facility] HYDROcodone -acetaminop hen (NORCO 5) 5-325 mg tablet 1 tablet - 00:06: 19 08-04 22:08 :20 No 1{tbl} 1 tablet, Oral, Q6HPRN, Starting on Sat08/03/22 at 1806, Until 08/04/22 at 1608, Routine, Pain (scale 4-6) [facility] HYDROcodone -acetaminop hen 5-325 mg tablet -04 00:00: 00 08-10 05:59 :00 No [id number] 1{tbl} Take 1 tablet by mouth every 6 (six) hours as needed for Pain (scale 4-6) for up to 5 days. Indication s: acute pain [facility] morpHINE (4 mg/mL) injection 4 mg 08-03 21:36: 38 08-04 22:08 :20 No 4mg 4 mg, Slow IV Push, Q2HPRN, Starting on Sat08/03/22 at 1536, Until 08/04/22 at 1608, Routine, Pain (scale 7-10) [facility] ketorolac (TORADOL) tablet 10 mg 08-03 21:36: 05 08-04 22:08 :20 No 10mg 10 mg, Oral, Q6HPRN, Starting on Sat08/03/22 at 1536, Until 08/04/22 at 1608, Routine, Pain (scale 1-3) [facility] iohexoL (OMNIPAQUE 300-50 mL)) injection 08-03 18:32: 00 08-03 22:34 :52 No PRN, Starting on Sat08/03/22 at 1232, Until Sat08/03/22 at 1634, Routine, Intra-op [facility] bupivacaine (preserv free) (SENSORCAIN E MPF) 0.25 % (2.5 mg/mL) injection 08-03 18:14: 00 08-03 22:34 :52 No PRN, Starting on Sat08/03/22 at 1214, Until Sat08/03/22 at 1634, Routine, Intra-op [facility] sodium chloride 0.9 % irrigation solution 08-03 18:14: 00 08-03 22:34 :52 No PRN, Starting on Sat08/03/22 at 1214, Until Sat08/03/22 at 1634, Intra-op [facility] magnesium sulfate in water 2 gram/50 mL (4 %) infusion 2 g 08-03 16:00: 00 08-03 17:07 :00 No 2g 2 g, IV Piggyback, Administer over 60 Minutes, ONCE, 1 dose, On Sat08/03/22 at 1000, Routine [facility] enoxaparin (LOVENOX) injection 40 mg 08-02 23:00: 00 08-04 22:08 :20 No 40mg 40 mg, Subcutaneo us, DAILY, First dose on Sat08/02/22 at 1700, Until Discontinu ed, Routine [facility] KCL (KLOR-CON M20) tablet 40 mEq 08-02 22:15: 00 08-02 21:32 :00 No 40meq 40 mEq, Oral, ONCE, 1 dose, On Sat08/02/22 at 1615, Routine [facility] lactated ringers IV infusion 1,000 mL 08-02 18:15: 00 08-03 21:38 :13 No 1000mL at 150 mL/hr, 1,000 mL, IV Infusion, CONTINUOUS , Starting on Sat08/02/22 at 1215, Until Sat08/03/22 at 1538, Routine [facility] calcium gluconate 2 g in NaCl 100 mL (ISO-OSM) RTU IV infusion 2 g 08-02 18:00: 00 08-02 19:37 :00 No 2g 2 g, IV Infusion, at 200 mL/hr Administer over 30 Minutes, ONCE, 1 dose, On Sat08/02/22 at 1200, Routine [facility] diphenhydrA MINE (BENADRYL) injection 25 mg 08-02 16:58: 41 08-04 22:08 :20 No 25mg 25 mg, Intravenou s, Q6HPRN, Starting on Sat08/02/22 at 1058, Until 08/04/22 at 1608, Routine, Itching [facility] D5W 0.9% NaCl (NS) IV infusion 1,000 mL 08-02 07:30: 00 08-02 13:26 :00 No 1000mL at 125 mL/hr, 1,000 mL, IV Infusion, ONCE, 1 dose, On Sat08/02/22 at 0130, Routine [facility] diphenhydrA MINE (BENADRYL) injection 12.5 mg 08-02 06:32: 58 08-02 16:58 :53 No 12.5mg 12.5 mg, Intravenou s, Q6HPRN, Starting on Sat08/02/22 at 0032, Until Sat08/02/22 at 1058, Routine, Itching [facility] ondansetron (ZOFRAN (PF)) injection 4 mg 08-02 06:29: 30 08-04 22:08 :20 No 4mg 4 mg, Slow IV Push, Q6HPRN, Starting on Xin 08/02/22 at 0029, Until 08/04/22 at 1608, Routine, Nausea and Vomiting (N/V) [facility] morpHINE (4 mg/mL) injection 4 mg 08-02 06:29: 25 08-03 06:28 :25 No 4mg 4 mg, Slow IV Push, Q4HPRN, Starting on Xin 08/02/22 at 0029, Until Sat08/03/22 at 0028, Routine, Pain (scale 7-10) [facility] ondansetron (ZOFRAN (PF)) injection 4 mg 08-02 05:30: 00 08-02 05:29 :00 No 4mg 4 mg, Slow IV Push, ONCE, 1 dose, On Sat08/01/22 at 2330, WEN [facility] morpHINE (4 mg/mL) injection 4 mg 08-02 05:30: 00 08-02 05:30 :00 No 4mg 4 mg, Slow IV Push, ONCE, 1 dose, On Sat08/01/22 at 2330, STAT [facility] piperacilli n-tazobacta m (ZOSYN) 3.375 g in NaCl 0.9% (NS) 100 mL MINI-BAG 08-02 03:45: 00 08-02 04:44 :00 No 3.375g 3.375 g, IV Piggyback, ONCE, 1 dose, On Sat08/01/22 at 2145, Administer over 30 Minutes, 100 mL
Reas on for Anti-Infec tive: Documented Infection< br>Documen lex Infection Site: Abdominal< br>Duratio n of Therapy: Other (see Comments) [facility] iopamidol (ISOVUE 370-500 mL) injection 80 mL 08-02 03:45: 00 08-02 03:45 :00 No [id number] 80mL 80 mL, Intravenou s, ONCE, 1 dose, On Sat08/01/22 at 2145, Routine [facility] FENTanyl PF (SUBLIMAZE (PF)) injection 75 mcg 08-02 02:45: 00 08-02 02:00 :00 No 75ug 75 mcg, Slow IV Push, ONCE, 1 dose, On Sat08/01/22 at 2045, STAT [facility] ondansetron (ZOFRAN (PF)) injection 4 mg 08-02 02:45: 00 08-02 01:59 :00 No 4mg 4 mg, Slow IV Push, ONCE, 1 dose, On Sat08/01/22 at 2045, WEN [facility] etonogestre L (NEXPLANON) implant 68 mg 06-27 19:45: 00 06-27 18:53 :00 No [id number] 68mg [facility] vitamin w/FA tablet 06-06 00:00: 00 09-17 00:00 :00 No [id number] 09 1{tbl} Take 1 tablet by mouth in the morning. [facility] ferrous sulfate 325 mg (65 mg iron) tablet 06-06 00:00: 00 09-17 00:00 :00 No [id number] 09 325mg Take 1 tablet by mouth in the morning and 1 tablet in the evening. [facility] docusate 100 mg capsule 06-06 00:00: 00 06-27 00:00 :00 No [id number] 09 200mg Take 2 capsules by mouth once daily as needed for Constipati on. [facility] ibuprofen 600 mg tablet 06-06 00:00: 00 06-27 00:00 :00 No [id number] 09 600mg Take 1 tablet by mouth every 6 (six) hours as needed (Pain). Take with food or milk. [facility] HYDROcodone -acetaminop hen (NORCO 5) 5-325 mg tablet 1 tablet 06-05 23:15: 04 Yes 1{tbl} 1 tablet, Oral, Q6HPRN, Starting on Sat06/05/22 at 1715, Until Discontinu ed, Routine, Pain (scale 7-10) [facility] ibuprofen (IBU) tablet 600 mg 06-05 23:15: 04 Yes 600mg 600 mg, Oral, Q6HPRN, Starting on Sat06/05/22 at 1715, Until Discontinu ed, Routine, Pain (scale 4-6) [facility] acetaminoph en (TYLENOL) tablet 650 mg 06-05 23:15: 04 Yes 650mg 650 mg, Oral, Q6HPRN, Starting on Sat06/05/22 at 1715, Until Discontinu ed, Routine, Pain (scale 1-3) [facility] diphenhydrA MINE (BENADRYL) tablet 25 mg 06-05 23:15: 04 Yes 25mg 25 mg, Oral, Q6HPRN, Starting on Sat06/05/22 at 1715, Until Discontinu ed, Routine, Sleep, Itching [facility] ondansetron (ZOFRAN (PF)) injection 4 mg 06-05 23:15: 04 Yes 4mg 4 mg, Slow IV Push, Q8HPRN, Starting on Sat06/05/22 at 1715, Until Discontinu ed, Routine, Nausea and Vomiting (N/V) [facility] simethicone (GAS RELIEF (SIMETHICON E)) chewable tablet 160 mg 06-05 23:15: 04 Yes 160mg 160 mg, Oral, PC+HSPRN, Starting on Sat06/05/22 at 1715, Until Discontinu ed, Routine, Gas [facility] docusate (COLACE) capsule 200 mg 06-05 23:15: 04 Yes 200mg 200 mg, Oral, QDAILYPRN, Starting on Sat06/05/22 at 1715, Until Discontinu ed, Routine, Constipati on [facility] magnesium hydroxide (MILK OF MAGNESIA) 400 mg/5 mL suspension 30 mL 06-05 23:15: 03 Yes 30mL 30 mL, Oral, QDAILYPRN, Starting on Sat06/05/22 at 1715, Until Discontinu ed, Routine, Constipati on [facility] benzocaine- menthol (DERMOPLAST ) 20-0.5 % topical spray 06-05 23:15: 03 Yes Topical, PRN, Starting on Sat06/05/22 at 1715, Until Discontinu ed, Routine, Perineum discomfort [facility] oxytocin (PITOCIN) 30 units in NS 500 mL IV infusion 06-05 18:42: 53 06-05 23:17 :04 No 2mU/min at 2-40 mL/hr, IV Infusion, TITRATE, Starting on Sat06/05/22 at 1242, Until Sat06/05/22 at 1717, Routine [facility] ondansetron (ZOFRAN (PF)) injection 4 mg 06-05 17:46: 06 06-05 23:17 :04 No 4mg 4 mg, Slow IV Push, Q6HPRN, Starting on Sat06/05/22 at 1146, Until Sat06/05/22 at 1717, Routine, Nausea and Vomiting (N/V) [facility] FENTanyl PF (SUBLIMAZE (PF)) injection 100 mcg 06-05 17:45: 57 06-05 23:17 :04 No 100ug 100 mcg, Slow IV Push, Q1HPRN, Starting on Sat06/05/22 at 1145, Until Sat06/05/22 at 1717, Routine, Pain (scale 4-6), Pain (scale 7-10) [facility] lactated ringers IV infusion 500 mL 06-05 17:42: 52 06-05 23:17 :04 No 500mL at 999 mL/hr, 500 mL, IV Infusion, PRN - SEE INSTRUCTIO NS, Starting on Sat06/05/22 at 1142, Until Sat06/05/22 at 1717, Routine [facility] D5W-LR IV infusion 1,000 mL 06-05 17:42: 52 06-05 23:17 :04 No 1000mL at 1-125 mL/hr, IV Infusion, TITRATE, Starting on Sat06/05/22 at 1142, Until Sat06/05/22 at 171, Routine [facility] fluconazole 200 mg tablet 06-04 00:00: 00 06-05 00:00 :00 No [id number] 200mg Take 1 tablet by mouth in the morning for 1 day. [facility] iron sucrose (VENOFER) 300 mg in NaCl 0.9% (NS) 250 mL infusion 2021-06 16:00: 00 04-18 18:07 :00 No 300mg 300 mg, IV Infusion, ONCE, Administer over 2.5 Hours, On Sat04/18/22 at 1000, For 1 dose [facility] acetaminoph en (TYLENOL) tablet 650 mg 2021-06 15:06: 40 Yes 650mg 650 mg, Oral, Q6HPRN, Starting on Sat04/18/22 at 0906, Until Discontinu ed, Routine, Pain (scale 1-3), Pain (scale 4-6) [facility] acetaminoph en (TYLENOL) tablet 650 mg 2021-06 20:27: 32 04-11 20:37 :00 No 650mg 650 mg, Oral, Q6HPRN, 1 dose, Starting on Sat04/11/22 at 1427, Until Sat04/11/22 at 1437, Routine, Pain (scale 4-6) [facility] iron sucrose (VENOFER) 300 mg in NaCl 0.9% (NS) 250 mL infusion 2021-06 15:45: 00 04-11 18:03 :00 No 300mg 300 mg, IV Infusion, ONCE, Administer over 2.5 Hours, On Sat04/11/22 at 0945, For 1 dose [facility] acetaminoph en (TYLENOL) tablet 650 mg 2021-06 00:45: 00 04-05 01:03 :00 No 650mg 650 mg, Oral, ONCE, 1 dose, On Sat04/04/22 at 1945, WEN [facility] iron sucrose (VENOFER) 300 mg in NaCl 0.9% (NS) 250 mL infusion 2021-06 15:45: 00 04-04 19:03 :00 No 300mg 300 mg, IV Infusion, ONCE, Administer over 2.5 Hours, On Sat04/04/22 at 1045, For 1 dose [facility] acetaminoph en (TYLENOL) tablet 650 mg 2021-06 0-16 04:00: 00 03-18 03:40 :00 No 650mg 650 mg, Oral, ONCE, 1 dose, On 03/17/22 at 2300, Routine [facility] acetaminoph en (TYLENOL) tablet 1,000 mg 02-18 02:00: 00 02-18 02:11 :00 No 1000mg 1,000 mg, Oral, ONCE NOW, 1 dose, On 02/17/22 at 2100, Routine [facility] ferrous sulfate (IRON, FERROUS SULFATE,) 325 mg (65 mg iron) tablet 02-02 00:00: 00 06-06 00:00 :00 No [id number] 325mg Take 1 tablet by mouth in the morning and 1 tablet in the evening. [facility] vitamin w/FA tablet 2020-06 00:00: 00 06-06 00:00 :00 No [id number] 1{tbl} Take 1 tablet by mouth daily. [facility] ferrous sulfate 325 mg (65 mg iron) tablet 2021-1 1-14 00:00: 00 04-19 00:00 :00 No [id number] 325mg Take 1 tablet by mouth 2 (two) times daily. [facility] Immunizations Ordered Immunization Name Filled Immunization Name Date Status Comments Source TD 2022-04-19 00:00:00 Completed [facility] TDAP 2022-04-19 00:00:00 Completed [facility] TDAP 2022-04-19 00:00:00 Completed [facility] TDAP 2022-04-19 00:00:00 Completed [facility] TDAP 2022-04-19 00:00:00 Completed [facility] TDAP 2022-04-19 00:00:00 Completed [facility] TDAP 2022-04-19 00:00:00 Completed [facility] TDAP 2022-04-19 00:00:00 Completed [facility] TDAP 2022-04-19 00:00:00 Completed [facility] TDAP 2022-04-19 00:00:00 Completed [facility] TDAP 2022-04-19 00:00:00 Completed [facility] TDAP 2022-04-19 00:00:00 Completed [facility] TDAP 2022-04-19 00:00:00 Completed [facility] TDAP 2022-04-19 00:00:00 Completed [facility] TDAP 2022-04-19 00:00:00 Completed [facility] TDAP 2022-04-19 00:00:00 Completed [facility] TDAP 2022-04-19 00:00:00 Completed [facility] TDAP 2022-04-19 00:00:00 Completed [facility] TDAP 2022-04-19 00:00:00 Completed [facility] TDAP 2022-04-19 00:00:00 Completed [facility] TDAP 2022-04-19 00:00:00 Completed [facility] TDAP 2022-04-19 00:00:00 Completed [facility] TDAP 2022-04-19 00:00:00 Completed [facility] TDAP 2022-04-19 00:00:00 Completed [facility] TDAP 2022-04-19 00:00:00 Completed [facility] TDAP 2022-04-19 00:00:00 Completed [facility] TDAP 2022-04-19 00:00:00 Completed [facility] TDAP 2022-04-19 00:00:00 Completed [facility] TDAP 2022-04-19 00:00:00 Completed [facility] TDAP 2022-04-19 00:00:00 Completed [facility] TDAP 2022-04-19 00:00:00 Completed [facility] TDAP 2022-04-19 00:00:00 Completed [facility] TDAP 2021-02-09 00:00:00 Completed [facility] TDAP 2021-02-09 00:00:00 Completed [facility] TDAP 2021-02-09 00:00:00 Completed [facility] TDAP 2021-02-09 00:00:00 Completed [facility] TDAP 2021-02-09 00:00:00 Completed [facility] TDAP 2021-02-09 00:00:00 Completed [facility] TDAP 2021-02-09 00:00:00 Completed [facility] TDAP 2021-02-09 00:00:00 Completed [facility] TDAP 2021-02-09 00:00:00 Completed [facility] TDAP 2021-02-09 00:00:00 Completed [facility] TDAP 2021-02-09 00:00:00 Completed [facility] TDAP 2021-02-09 00:00:00 Completed [facility] TDAP 2021-02-09 00:00:00 Completed [facility] TDAP 2021-02-09 00:00:00 Completed [facility] TDAP 2021-02-09 00:00:00 Completed [facility] TDAP 2021-02-09 00:00:00 Completed [facility] TDAP 2021-02-09 00:00:00 Completed [facility] TDAP 2021-02-09 00:00:00 Completed [facility] TDAP 2021-02-09 00:00:00 Completed [facility] TDAP 2021-02-09 00:00:00 Completed [facility] TDAP 2021-02-09 00:00:00 Completed [facility] TDAP 2021-02-09 00:00:00 Completed [facility] TDAP 2021-02-09 00:00:00 Completed [facility] TDAP 2021-02-09 00:00:00 Completed [facility] TDAP 2021-02-09 00:00:00 Completed [facility] TDAP 2021-02-09 00:00:00 Completed [facility] TDAP 2021-02-09 00:00:00 Completed [facility] TDAP 2021-02-09 00:00:00 Completed [facility] TDAP 2021-02-09 00:00:00 Completed [facility] TDAP 2021-02-09 00:00:00 Completed [facility] TDAP 2021-02-09 00:00:00 Completed [facility] TDAP 2021-02-09 00:00:00 Completed [facility] TDAP 2021-02-09 00:00:00 Completed [facility] TDAP 2021-02-09 00:00:00 Completed [facility] TDAP 2021-02-09 00:00:00 Completed [facility] TDAP 2021-02-09 00:00:00 Completed [facility] TDAP 2021-02-09 00:00:00 Completed [facility] TDAP 2021-02-09 00:00:00 Completed [facility] TDAP 2021-02-09 00:00:00 Completed [facility] TDAP 2021-02-09 00:00:00 Completed [facility] TDAP 2021-02-09 00:00:00 Completed [facility] TDAP 2021-02-09 00:00:00 Completed [facility] TDAP 2021-02-09 00:00:00 Completed [facility] TDAP 2021-02-09 00:00:00 Completed [facility] TDAP 2021-02-09 00:00:00 Completed [facility] TDAP 2021-02-09 00:00:00 Completed [facility] TDAP 2021-02-09 00:00:00 Completed [facility] TDAP 2021-02-09 00:00:00 Completed [facility] TDAP 2021-02-09 00:00:00 Completed [facility] TDAP 2021-02-09 00:00:00 Completed [facility] TDAP 2021-02-09 00:00:00 Completed [facility] TDAP 2021-02-09 00:00:00 Completed [facility] TDAP 2021-02-09 00:00:00 Completed [facility] TDAP 2021-02-09 00:00:00 Completed [facility] TDAP 2021-02-09 00:00:00 Completed [facility] TDAP 2021-02-09 00:00:00 Completed [facility] TDAP 2021-02-09 00:00:00 Completed [facility] TDAP 2013-01-01 00:00:00 Completed [facility] TDAP 2013-01-01 00:00:00 Completed [facility] TDAP 2013-01-01 00:00:00 Completed [facility] TDAP 2013-01-01 00:00:00 Completed [facility] TDAP 2013-01-01 00:00:00 Completed [facility] TDAP 2013-01-01 00:00:00 Completed [facility] TDAP 2013-01-01 00:00:00 Completed [facility] TDAP 2013-01-01 00:00:00 Completed [facility] TDAP 2013-01-01 00:00:00 Completed [facility] TDAP 2013-01-01 00:00:00 Completed [facility] TDAP 2013-01-01 00:00:00 Completed [facility] TDAP 2013-01-01 00:00:00 Completed [facility] TDAP 2013-01-01 00:00:00 Completed [facility] TDAP 2013-01-01 00:00:00 Completed [facility] TDAP 2013-01-01 00:00:00 Completed [facility] TDAP 2013-01-01 00:00:00 Completed [facility] TDAP 2013-01-01 00:00:00 Completed [facility] TDAP 2013-01-01 00:00:00 Completed [facility] TDAP 2013-01-01 00:00:00 Completed [facility] TDAP 2013-01-01 00:00:00 Completed [facility] TDAP 2013-01-01 00:00:00 Completed [facility] TDAP 2013-01-01 00:00:00 Completed [facility] TDAP 2013-01-01 00:00:00 Completed [facility] TDAP 2013-01-01 00:00:00 Completed [facility] TDAP 2013-01-01 00:00:00 Completed [facility] TDAP 2013-01-01 00:00:00 Completed [facility] TDAP 2013-01-01 00:00:00 Completed [facility] TDAP 2013-01-01 00:00:00 Completed [facility] TDAP 2013-01-01 00:00:00 Completed [facility] TDAP 2013-01-01 00:00:00 Completed [facility] TDAP 2013-01-01 00:00:00 Completed [facility] TDAP 2013-01-01 00:00:00 Completed [facility] TDAP 2013-01-01 00:00:00 Completed [facility] TDAP 2013-01-01 00:00:00 Completed [facility] TDAP 2013-01-01 00:00:00 Completed [facility] TDAP 2013-01-01 00:00:00 Completed [facility] TDAP 2013-01-01 00:00:00 Completed [facility] TDAP 2013-01-01 00:00:00 Completed [facility] TDAP 2013-01-01 00:00:00 Completed [facility] TDAP 2013-01-01 00:00:00 Completed [facility] TDAP 2013-01-01 00:00:00 Completed [facility] TDAP 2013-01-01 00:00:00 Completed [facility] TDAP 2013-01-01 00:00:00 Completed [facility] TDAP 2013-01-01 00:00:00 Completed [facility] TDAP 2013-01-01 00:00:00 Completed [facility] TDAP 2013-01-01 00:00:00 Completed [facility] TDAP 2013-01-01 00:00:00 Completed [facility] TDAP 2013-01-01 00:00:00 Completed [facility] TDAP 2013-01-01 00:00:00 Completed [facility] TDAP 2013-01-01 00:00:00 Completed [facility] TDAP 2013-01-01 00:00:00 Completed [facility] TDAP 2013-01-01 00:00:00 Completed [facility] TDAP 2013-01-01 00:00:00 Completed [facility] TDAP 2013-01-01 00:00:00 Completed [facility] TDAP 2013-01-01 00:00:00 Completed [facility] TDAP 2013-01-01 00:00:00 Completed [facility] TDAP 2013-01-01 00:00:00 Completed [facility] 2012-08-13 00:00:00 Completed [facility] 2012-08-13 00:00:00 Completed [facility] 2012-08-13 00:00:00 Completed [facility] 2012-08-13 00:00:00 Completed [facility] 2012-08-13 00:00:00 Completed [facility] 2012-08-13 00:00:00 Completed [facility] 2012-08-13 00:00:00 Completed [facility] 2012-08-13 00:00:00 Completed [facility] 2012-08-13 00:00:00 Completed [facility] 2012-08-13 00:00:00 Completed [facility] 2012-08-13 00:00:00 Completed [facility] 2012-08-13 00:00:00 Completed [facility] 2012-08-13 00:00:00 Completed [facility] 2012-08-13 00:00:00 Completed [facility] 2012-08-13 00:00:00 Completed [facility] 2012-08-13 00:00:00 Completed [facility] 2012-08-13 00:00:00 Completed [facility] 2012-08-13 00:00:00 Completed [facility] 2012-08-13 00:00:00 Completed [facility] 2012-08-13 00:00:00 Completed [facility] 2012-08-13 00:00:00 Completed [facility] 2012-08-13 00:00:00 Completed [facility] 2012-08-13 00:00:00 Completed [facility] 2012-08-13 00:00:00 Completed [facility] 2012-08-13 00:00:00 Completed [facility] 2012-08-13 00:00:00 Completed [facility] 2012-08-13 00:00:00 Completed [facility] 2012-08-13 00:00:00 Completed [facility] 2012-08-13 00:00:00 Completed [facility] 2012-08-13 00:00:00 Completed [facility] 2012-08-13 00:00:00 Completed [facility] 2012-08-13 00:00:00 Completed [facility] 2012-08-13 00:00:00 Completed [facility] 2012-08-13 00:00:00 Completed [facility] 2012-08-13 00:00:00 Completed [facility] 2012-08-13 00:00:00 Completed [facility] 2012-08-13 00:00:00 Completed [facility] 2012-08-13 00:00:00 Completed [facility] 2012-08-13 00:00:00 Completed [facility] 2012-08-13 00:00:00 Completed [facility] 2012-08-13 00:00:00 Completed [facility] 2012-08-13 00:00:00 Completed [facility] 2012-08-13 00:00:00 Completed [facility] 2012-08-13 00:00:00 Completed [facility] 2012-08-13 00:00:00 Completed [facility] 2012-08-13 00:00:00 Completed [facility] 2012-08-13 00:00:00 Completed [facility] 2012-08-13 00:00:00 Completed [facility] 2012-08-13 00:00:00 Completed [facility] 2012-08-13 00:00:00 Completed [facility] 2012-08-13 00:00:00 Completed [facility] 2012-08-13 00:00:00 Completed [facility] 2012-08-13 00:00:00 Completed [facility] 2012-08-13 00:00:00 Completed [facility] 2012-08-13 00:00:00 Completed [facility] 2012-08-13 00:00:00 Completed [facility] 2012-08-13 00:00:00 Completed [facility] Unknown Completed [facility] TDAP Unknown Completed [facility] TDAP Unknown Completed [facility] TDAP Unknown Completed [facility] Unknown Completed [facility] TDAP Unknown Completed [facility] TDAP Unknown Completed [facility] TDAP Unknown Completed [facility] Unknown Completed [facility] TDAP Unknown Completed [facility] TDAP Unknown Completed [facility] TDAP Unknown Completed [facility] Unknown Completed Talya Mcgrath bold - External Tdap- (Boostrix, Adacel) Unknown Completed Talya Seybold - External Tdap- (Boostrix, Adacel) Unknown Completed Talya Seybold - External Tdap- (Boostrix, Adacel) Unknown Completed Talya Seybold - External Vital Signs Vital Name Observation Time Observation Value Comments S ource Systolic blood pressure 2023-08-14 19:06:00 110 mm[Hg] Talya Rockwello ld - External Diastolic blood pressure 2023-08-14 19:06:00 64 mm[Hg] Talya Hartleyybo ld - External Heart rate 2023-08-14 19:06:00 78 /min Deanna y Seybold - External Body temperature 2023-08-14 19:06:00 36.56 Ness Talya Hartleyybold - External Respiratory rate 2023-08-14 19:06:00 16 /min Talya Hartleyybold - External Body height 2023-08-14 19:06:00 154.9 cm Casandra bean Seybold - External Body weight 2023-08-14 19:06:00 95.255 kg Casandra ey Seybold - External BMI 2023-08-14 19:06:00 39.68 kg/m2 Casandra ey Seybold - External Systolic blood pressure 2023-07-24 02:43:00 125 mm[Hg] [facility] Diastolic blood pressure 2023-07-24 02:43:00 80 mm[Hg] [facility] Heart rate 2023-07-24 02:43:00 86 /min [facility] Body temperature 2023-07-24 02:43:00 37 Ness [facility] Respiratory rate 2023-07-24 02:43:00 18 /min [facility] Body height 2023-07-24 02:43:00 154.9 cm [facility] Body weight 2023-07-24 02:43:00 97.07 kg [facility] BMI 2023-07-24 02:43:00 40.43 kg/m2 [facility] Oxygen saturation in Arterial blood by Pulse oximetry 2023-07-24 02:43:00 98 /min [facility] Systolic blood pressure 2022-12-23 21:00:00 106 mm[Hg] [facility] Diastolic blood pressure 2022-12-23 21:00:00 75 mm[Hg] [facility] Heart rate 2022-12-23 21:00:00 86 /min [facility] Body temperature 2022-12-23 21:00:00 36.89 Ness [facility] Respiratory rate 2022-12-23 21:00:00 14 /min [facility] Body height 2022-12-23 21:00:00 154.9 cm [facility] Body weight 2022-12-23 21:00:00 89.631 kg [facility] BMI 2022-12-23 21:00:00 37.34 kg/m2 [facility] Oxygen saturation in Arterial blood by Pulse oximetry 2022-12-23 21:00:00 96 /min [facility] Systolic blood pressure 2022-09-17 15:56:00 110 mm[Hg] [facility] Diastolic blood pressure 2022-09-17 15:56:00 73 mm[Hg] [facility] Heart rate 2022-09-17 15:56:00 67 /min Un[facility] Body temperature 2022-09-17 15:56:00 35.56 Ness [facility] Body height 2022-09-17 15:56:00 154.9 cm [facility] Body weight 2022-09-17 15:56:00 88.542 kg [facility] BMI 2022-09-17 15:56:00 36.88 kg/m2 [facility] Oxygen saturation in Arterial blood by Pulse oximetry 2022-09-17 15:56:00 99 /min [facility] Systolic blood pressure 2022-09-15 01:10:00 124 mm[Hg] [facility] Diastolic blood pressure 2022-09-15 01:10:00 86 mm[Hg] [facility] Heart rate 2022-09-15 01:10:00 85 /min Unive [facility] Body temperature 2022-09-15 01:10:00 37 Ness [facility] Respiratory rate 2022-09-15 01:10:00 18 /min [facility] Body height 2022-09-15 01:10:00 154.9 cm [facility] Body weight 2022-09-15 01:10:00 89.018 kg [facility] BMI 2022-09-15 01:10:00 37.08 kg/m2 [facility] Oxygen saturation in Arterial blood by Pulse oximetry 2022-09-15 01:10:00 98 /min [facility] Systolic blood pressure 2022-08-13 14:43:00 127 mm[Hg] [facility] Diastolic blood pressure 2022-08-13 14:43:00 69 mm[Hg] [facility] Heart rate 2022-08-13 14:43:00 71 /min Unive [facility] Body temperature 2022-08-13 14:43:00 36.72 Ness [facility] Respiratory rate 2022-08-13 14:43:00 18 /min [facility] Body height 2022-08-13 14:43:00 154.9 cm [facility] Body weight 2022-08-13 14:43:00 86.183 kg [facility] BMI 2022-08-13 14:43:00 35.90 kg/m2 [facility] Oxygen saturation in Arterial blood by Pulse oximetry 2022-08-13 14:43:00 95 /min [facility] Systolic blood pressure 2022-08-04 17:16:00 130 mm[Hg] [facility] Diastolic blood pressure 2022-08-04 17:16:00 75 mm[Hg] [facility] Body temperature 2022-08-04 17:16:00 36.44 Ness [facility] Respiratory rate 2022-08-04 17:16:00 20 /min [facility] Oxygen saturation in Arterial blood by Pulse oximetry 2022-08-04 17:16:00 100 /min [facility] Heart rate 2022-08-04 10:00:00 85 /min Un[facility] Body weight 2022-08-04 10:00:00 86.637 kg [facility] BMI 2022-08-04 10:00:00 36.09 kg/[facility]2 [facility] 2022-08-02 06:52:00 154.9 cm [facility] Systolic blood pressure 2022-08-03 21:16:00 106 mm[Hg] [facility] Diastolic blood pressure 2022-08-03 21:16:00 50 mm[Hg] [facility] Heart rate 2022-08-03 21:16:00 84 /min Un[facility] Respiratory rate 2022-08-03 21:16:00 13 /min [facility] Oxygen saturation in Arterial blood by Pulse oximetry 2022-08-03 21:16:00 95 /min [facility] Body temperature 2022-08-03 21:11:00 36.56 Ness [facility] Body weight 2022-08-03 09:58:00 86.637 kg [facility] BMI 2022-08-03 09:58:00 36.09 kg/m2 [facility] Body height 2022-08-02 06:52:00 154.9 cm [facility] Systolic blood pressure 2022-06-27 17:35:00 115 mm[Hg] [facility] Diastolic blood pressure 2022-06-27 17:35:00 70 mm[Hg] [facility] Heart rate 2022-06-27 17:35:00 75 /min Un[facility] Body temperature 2022-06-27 17:35:00 36.5 Ness [facility] Body height 2022-06-27 17:35:00 154.9 cm [facility] Body weight 2022-06-27 17:35:00 81.557 kg [facility] BMI 2022-06-27 17:35:00 33.97 kg/m2 [facility] Systolic blood pressure 2022-06-06 13:45:00 115 mm[Hg] [facility] Diastolic blood pressure 2022-06-06 13:45:00 74 mm[Hg] [facility] Heart rate 2022-06-06 13:45:00 76 /min Un[facility] Body temperature 2022-06-06 13:45:00 36.56 Ness [facility] Respiratory rate 2022-06-06 13:45:00 17 /min [facility] Oxygen saturation in Arterial blood by Pulse oximetry 2022-06-05 23:45:00 97 /min [facility] Body height 2022-06-05 18:06:00 154.9 cm [facility] Body weight 2022-06-05 18:06:00 85.276 kg [facility] BMI 2022-06-05 18:06:00 35.52 kg/m2 [facility] Systolic blood pressure 2022-06-04 22:00:00 115 mm[Hg] [facility] Diastolic blood pressure 2022-06-04 22:00:00 75 mm[Hg] [facility] Heart rate 2022-06-04 22:00:00 80 /min [facility] Body temperature 2022-06-04 22:00:00 36.78 Ness [facility] Respiratory rate 2022-06-04 22:00:00 18 /min [facility] Body height 2022-06-04 22:00:00 154.9 cm [facility] Body weight 2022-06-04 22:00:00 85.276 kg [facility] BMI 2022-06-04 22:00:00 35.52 kg/m2 [facility] Heart rate 2022-06-03 22:39:00 84 /min [facility] Oxygen saturation in Arterial blood by Pulse oximetry 2022-06-03 22:39:00 100 /min [facility] Systolic blood pressure 2022-06-03 22:24:00 108 mm[Hg] [facility] Diastolic blood pressure 2022-06-03 22:24:00 64 mm[Hg] [facility] Body temperature 2022-06-03 22:24:00 36.94 Ness [facility] Respiratory rate 2022-06-03 22:24:00 18 /min [facility] Body height 2022-06-03 22:24:00 154.9 cm [facility] Body weight 2022-06-03 22:24:00 85.276 kg [facility] BMI 2022-06-03 22:24:00 35.52 kg/m2 [facility] Heart rate 2022-06-03 04:30:00 85 /min [facility] Oxygen saturation in Arterial blood by Pulse oximetry 2022-06-03 04:30:00 98 /min [facility] Systolic blood pressure 2022-06-03 03:40:00 126 mm[Hg] [facility] Diastolic blood pressure 2022-06-03 03:40:00 68 mm[Hg] [facility] Body temperature 2022-06-03 03:40:00 36.61 Ness [facility] Body height 2022-06-03 03:40:00 154.9 cm [facility] Body weight 2022-06-03 03:40:00 86.093 kg [facility] BMI 2022-06-03 03:40:00 35.86 kg/m2 [facility] Systolic blood pressure 2022-05-31 22:11:00 118 mm[Hg] [facility] Diastolic blood pressure 2022-05-31 22:11:00 73 mm[Hg] [facility] Heart rate 2022-05-31 22:11:00 66 /min [facility] Body temperature 2022-05-31 22:11:00 36.56 Ness [facility] Respiratory rate 2022-05-31 22:11:00 18 /min [facility] Body height 2022-05-31 22:11:00 154.9 cm [facility] Body weight 2022-05-31 22:11:00 86.183 kg [facility] BMI 2022-05-31 22:11:00 35.90 kg/m2 [facility] Systolic blood pressure 2022-05-17 22:24:00 105 mm[Hg] [facility] Diastolic blood pressure 2022-05-17 22:24:00 68 mm[Hg] [facility] Heart rate 2022-05-17 22:24:00 76 /min Un[facility] Body temperature 2022-05-17 22:24:00 37.06 Ness [facility] Body height 2022-05-17 22:24:00 154.9 cm [facility] Body weight 2022-05-17 22:24:00 85.367 kg [facility] BMI 2022-05-17 22:24:00 35.56 kg/m2 [facility] Heart rate 2022-05-06 03:00:00 82 /min [facility] Body temperature 2022-05-06 03:00:00 37 Ness [facility] Respiratory rate 2022-05-06 03:00:00 18 /min [facility] Body height 2022-05-06 03:00:00 154.9 cm [facility] Body weight 2022-05-06 03:00:00 85.095 kg [facility] BMI 2022-05-06 03:00:00 35.45 kg/m2 [facility] Oxygen saturation in Arterial blood by Pulse oximetry 2022-05-06 03:00:00 100 /min [facility] Systolic blood pressure 2022-05-03 16:43:00 108 mm[Hg] [facility] Diastolic blood pressure 2022-05-03 16:43:00 69 mm[Hg] [facility] Heart rate 2022-05-03 16:43:00 80 /min Unive [facility] Body temperature 2022-05-03 16:43:00 36.44 Ness [facility] Respiratory rate 2022-05-03 16:43:00 18 /min [facility] Body height 2022-05-03 16:43:00 154.9 cm [facility] Body weight 2022-05-03 16:43:00 84.278 kg [facility] BMI 2022-05-03 16:43:00 35.11 kg/m2 [facility] Systolic blood pressure 2022-04-19 19:13:00 110 mm[Hg] [facility] Diastolic blood pressure 2022-04-19 19:13:00 62 mm[Hg] [facility] Heart rate 2022-04-19 19:13:00 98 /min Unive [facility] Body temperature 2022-04-19 19:13:00 36.83 Ness [facility] Respiratory rate 2022-04-19 19:13:00 18 /min [facility] Body height 2022-04-19 19:13:00 154.9 cm [facility] Body weight 2022-04-19 19:13:00 84.369 kg [facility] BMI 2022-04-19 19:13:00 35.14 kg/m2 [facility] Systolic blood pressure 2022-04-18 18:00:00 112 mm[Hg] [facility] Diastolic blood pressure 2022-04-18 18:00:00 61 mm[Hg] [facility] Heart rate 2022-04-18 18:00:00 84 /min Unive [facility] Oxygen saturation in Arterial blood by Pulse oximetry 2022-04-18 18:00:00 99 /min [facility] Body temperature 2022-04-18 15:20:00 36.83 Ness [facility] Respiratory rate 2022-04-18 15:20:00 18 /min [facility] Body weight 2022-04-18 15:08:00 83.915 kg [facility] BMI 2022-04-18 15:08:00 34.96 kg/m2 [facility] Systolic blood pressure 2022-04-11 20:30:00 126 mm[Hg] [facility] Diastolic blood pressure 2022-04-11 20:30:00 71 mm[Hg] [facility] Heart rate 2022-04-11 20:30:00 94 /min Unive [facility] Respiratory rate 2022-04-11 20:30:00 18 /min [facility] Oxygen saturation in Arterial blood by Pulse oximetry 2022-04-11 20:30:00 99 /min [facility] Body temperature 2022-04-11 15:00:00 36.72 Ness [facility] Heart rate 2022-04-05 02:30:00 82 /min Unive [facility] Oxygen saturation in Arterial blood by Pulse oximetry 2022-04-05 02:30:00 100 /min [facility] Systolic blood pressure 2022-04-05 02:00:00 105 mm[Hg] [facility] Diastolic blood pressure 2022-04-05 02:00:00 51 mm[Hg] [facility] Body temperature 2022-04-05 02:00:00 36.83 Ness [facility] Respiratory rate 2022-04-05 02:00:00 18 /min [facility] Systolic blood pressure 2022-04-05 01:00:00 110 mm[Hg] [facility] Diastolic blood pressure 2022-04-05 01:00:00 73 mm[Hg] [facility] Heart rate 2022-04-05 01:00:00 89 /min Unive [facility] Respiratory rate 2022-04-05 01:00:00 23 /min [facility] Oxygen saturation in Arterial blood by Pulse oximetry 2022-04-05 01:00:00 98 /min [facility] Body temperature 2022-04-05 00:04:00 36.83 Ness [facility] Body height 2022-04-05 00:04:00 154.9 cm [facility] Body weight 2022-04-05 00:04:00 82.101 kg [facility] BMI 2022-04-05 00:04:00 34.20 kg/m2 [facility] Systolic blood pressure 2022-04-04 20:15:00 118 mm[Hg] [facility] Diastolic blood pressure 2022-04-04 20:15:00 64 mm[Hg] [facility] Heart rate 2022-04-04 19:30:00 87 /min Unive [facility] Oxygen saturation in Arterial blood by Pulse oximetry 2022-04-04 19:30:00 98 /min [facility] Body temperature 2022-04-04 14:30:00 36.44 Ness [facility] Respiratory rate 2022-04-04 14:30:00 18 /min [facility] Body height 2022-04-04 14:10:00 154.9 cm [facility] Body weight 2022-04-04 14:10:00 82.373 kg [facility] BMI 2022-04-04 14:10:00 34.31 kg/m2 [facility] Systolic blood pressure 2022-03-29 15:35:00 106 mm[Hg] [facility] Diastolic blood pressure 2022-03-29 15:35:00 69 mm[Hg] [facility] Heart rate 2022-03-29 15:35:00 75 /min Unive [facility] Body temperature 2022-03-29 15:35:00 36.61 Ness [facility] Respiratory rate 2022-03-29 15:35:00 18 /min [facility] Body height 2022-03-29 15:35:00 154.9 cm [facility] Body weight 2022-03-29 15:35:00 82.827 kg [facility] BMI 2022-03-29 15:35:00 34.50 kg/m2 [facility] Systolic blood pressure 2022-03-18 02:13:00 111 mm[Hg] [facility] Diastolic blood pressure 2022-03-18 02:13:00 56 mm[Hg] [facility] Heart rate 2022-03-18 02:13:00 82 /min Unive [facility] Body temperature 2022-03-18 02:13:00 36.89 Ness [facility] Respiratory rate 2022-03-18 02:13:00 18 /min [facility] Body weight 2022-03-18 02:13:00 82.872 kg [facility] BMI 2022-03-18 02:13:00 34.52 kg/m2 [facility] Oxygen saturation in Arterial blood by Pulse oximetry 2022-03-18 02:13:00 99 /min [facility] Body height 2022-03-18 01:54:00 154.9 cm [facility] Systolic blood pressure 2022-03-01 16:14:00 99 mm[Hg] [facility] Diastolic blood pressure 2022-03-01 16:14:00 66 mm[Hg] [facility] Heart rate 2022-03-01 16:14:00 82 /min [facility] Body temperature 2022-03-01 16:14:00 36.78 Ness [facility] Respiratory rate 2022-03-01 16:14:00 18 /min [facility] Body height 2022-03-01 16:14:00 154.9 cm [facility] Body weight 2022-03-01 16:14:00 80.559 kg [facility] BMI 2022-03-01 16:14:00 33.58 kg/m2 [facility] Systolic blood pressure 2022-02-18 02:58:00 103 mm[Hg] [facility] Diastolic blood pressure 2022-02-18 02:58:00 70 mm[Hg] [facility] Heart rate 2022-02-18 02:58:00 83 /min [facility] Body temperature 2022-02-18 02:58:00 36.94 Ness [facility] Respiratory rate 2022-02-18 02:58:00 16 /min [facility] Oxygen saturation in Arterial blood by Pulse oximetry 2022-02-18 02:58:00 100 /min [facility] Body height 2022-02-18 01:10:00 154.9 cm 5' 1" [facility] Body weight 2022-02-18 01:10:00 80.468 kg 177lb 6.4oz [facility] BMI 2022-02-18 01:10:00 33.54 kg/m2 [facility] Procedures Procedure Date / Time Performed Performing Clinician Source NOTICE OF PRIVACY PRACTICES 2023-07-24 02:35:29 Doctor Unassigned, [place] [facility] CONSENT/REFUSAL FOR DIAGNOSIS AND TREATMENT 2023-07-24 02:35:09 Doctor Unassigned, [place] [facility] POCT MOLECULAR STREP 2022-12-23 21:07:00 Scott Joseph [facility] XR SHOULDER 2+ VW LEFT 2022-09-17 16:40:00 Maribel Frazier [facility] XR SHOULDER 2+ VW LEFT 2022-09-17 16:40:00 Maribel Frazier [facility] POCT SARS-COV-2 ANTIGEN (BINAX NOW) 2022-09-15 01:24:00 Radha Cordova [facility] POCT MOLECULAR FLU 2022-09-15 01:23:00 Unknown, Attend ing [facility] POCT MOLECULAR STREP 2022-09-15 01:19:00 Unknown, Atte radha [facility] MAGNESIUM 2022-08-04 10:39:00 Leonard Moore [facility] HEPATIC FUNCTION PANEL (57667) (ALB,T.PRO,BILI T,BU/BC,ALT,AST,ALK PHOS) 2022-08-04 10:39:00 Oscar [facility] BASIC METABOLIC PANEL (NA, K, CL, CO2, GLUCOSE, BUN, CREATININE, CA) 2022-08-04 10:39:00 Oscar [facility] CBC WITH DIFF 2022-08-04 10:39:00 [place] [facility] 2022-08-04 10:39:00 [place] [facility] LIPASE 2022-08-04 10:39:00 Khalif Ritter [facility] MAGNESIUM 2022-08-04 10:39:00 Oscar [facility] HEPATIC FUNCTION PANEL (33215) (ALB,T.PRO,BILI T,BU/BC,ALT,AST,ALK PHOS) 2022-08-04 10:39:00 Oscar [facility] BASIC METABOLIC PANEL (NA, K, CL, CO2, GLUCOSE, BUN, CREATININE, CA) 2022-08-04 10:39:00 Oscar [facility] CBC WITH DIFF 2022-08-04 10:39:00 Oscar [place] [facility] PHOSPHORUS 2022-08-04 10:39:00 Oscar [facility] LIPASE 2022-08-04 10:39:00 Khalif Ritter [facility] FL TIME OR (NON-REPORTABLE) 2022-08-03 20:15:00 Sherrie Casillas [facility] FL TIME OR (NON-REPORTABLE) 2022-08-03 20:15:00 Casillas, [facility] LAPAROSCOPIC CHOLECYSTECTOMY 2022-08-03 17:30:00 Casillas, [facility] INTRAOPERATIVE CHOLANGIOGRAM 2022-08-03 17:30:00 Casillas, [facility] PHOSPHORUS 2022-08-03 09:56:00 Oscar [facility] LACTATE DEHYDROGENASE 2022-08-03 09:56:00 Tra Moore [facility] MAGNESIUM 2022-08-03 09:56:00 Oscar [facility] HEPATIC FUNCTION PANEL (67714) (ALB,T.PRO,BILI T,BU/BC,ALT,AST,ALK PHOS) 2022-08-03 09:56:00 Oscar [facility] BASIC METABOLIC PANEL (NA, K, CL, CO2, GLUCOSE, BUN, CREATININE, CA) 2022-08-03 09:56:00 Oscar [facility] CBC WITH DIFF 2022-08-03 09:56:00 Leonard Moore [facility] PHOSPHORUS 2022-08-03 09:56:00 Leonard Moore [facility] LACTATE DEHYDROGENASE 2022-08-03 09:56:00 Tra Moore [facility] MAGNESIUM 2022-08-03 09:56:00 Oscar [facility] HEPATIC FUNCTION PANEL (64601) (ALB,T.PRO,BILI T,BU/BC,ALT,AST,ALK PHOS) 2022-08-03 09:56:00 Oscar [facility] BASIC METABOLIC PANEL (NA, K, CL, CO2, GLUCOSE, BUN, CREATININE, CA) 2022-08-03 09:56:00 Oscar [facility] CBC WITH DIFF 2022-08-03 09:56:00 Oscar [facility] LIPASE 2022-08-03 09:52:00 Khalif Ritter [facility] LIPID PANEL (35392)(TOTAL CHOLESTEROL, TRIGLYCERIDES, HDL) 2022-08-03 09:52:00 Khalif Ritter [facility] LIPASE 2022-08-03 09:52:00 Khalif Ritter [facility] LIPID PANEL (16147)(TOTAL CHOLESTEROL, TRIGLYCERIDES, HDL) 2022-08-03 09:52:00 Stone [facility] LIPASE 2022-08-02 10:57:00 Khalif Ritter [facility] MAGNESIUM 2022-08-02 10:57:00 [facility] COMP. METABOLIC PANEL (85042) 2022-08-02 10:57:00 Stone [facility] LIPASE 2022-08-02 10:57:00 Khalif Ritter [facility] MAGNESIUM 2022-08-02 10:57:00 Flaco [facility] COMP. METABOLIC PANEL (29909) 2022-08-02 10:57:00 Khalif Ritter [facility] US GALL BLADDER 2022-08-02 05:07:27 [facility] 2022-08-02 05:07:27 [facility] ABDOMEN PELVIS W CONTRAST 2022-08-02 02:52:26 Gregory Davila [facility] CT ABDOMEN PELVIS W CONTRAST 2022-08-02 02:52:26 Gregory Davila [facility] POCT TEST 2022-08-02 02:09:00 Karen Davila [facility] POCT TEST 2022-08-02 02:09:00 Karen Davila [facility] LIPASE 2022-08-02 01:53:00 Gregory Davila [facility] BILI UNCONJUGATED/BILI CONJUG 2022-08-02 01:53:00 Yeni [facility] TROPONIN I 2022-08-02 01:53:00 Gregory Davila [facility] COMP. METABOLIC PANEL ([id number]) 2022-08-02 01:53:00 Gregory Davila [facility] SALICYLATE 2022-08-02 01:53:00 Gregory Davila [facility] CBC WITH DIFF 2022-08-02 01:53:00 Gregory Davila [facility] PROTHROMBIN TIME / INR 2022-08-02 01:53:00 Teodoro Davila [facility] ACTIVATED PARTIAL THRMPLAS LESLEY 2022-08-02 01:53:00 Gregory Davila [facility] URINALYSIS 2022-08-02 01:53:00 [facility] N-TERMINAL PRO-BNP 2022-08-02 01:53:00 [facility] (IMMUNOASSAY) - COMPREHENSIVE DRUG SCREEN W/O REFLEX 2022-08-02 01:53:00 Gregory Davila [facility] LIPASE 2022-08-02 01:53:00 Gregory Davila [facility] BILI UNCONJUGATED/BILI CONJUG 2022-08-02 01:53:00 Yeni [facility] TROPONIN I 2022-08-02 01:53:00 Gregory Davila [facility] COMP. METABOLIC PANEL (56576) 2022-08-02 01:53:00 Gregory Davila [facility] SALICYLATE 2022-08-02 01:53:00 Gregory [facility] CBC WITH DIFF 2022-08-02 01:53:00 Gregory Davila [facility] PROTHROMBIN TIME / INR 2022-08-02 01:53:00 Teodoro Davila [facility] ACTIVATED PARTIAL THRMPLAS LESLEY 2022-08-02 01:53:00 [facility] 2022-08-02 01:53:00 Gregory [facility] N-TERMINAL PRO-BNP 2022-08-02 01:53:00 [facility] (IMMUNOASSAY) - COMPREHENSIVE DRUG SCREEN W/O REFLEX 2022-08-02 01:53:00 [facility] AC PANEL 21 + LACTIC ACID 2022-08-02 01:51:00 [facility]EL 21 + LACTIC ACID 2022-08-02 01:51:00 Gregory Davila [facility] NOTICE OF PRIVACY PRACTICES 2022-08-02 00:48:43 Doctor Unassigned, [place] [facility] NOTICE OF PRIVACY PRACTICES 2022-08-02 00:48:43 Doctor Unassigned, [place] [facility] HOSPITAL ADMISSION 2022-08-01 06:01:00 Doctor Un assigned, [place] [facility] DISABILITY/FMLA 2022-07-27 06:01:00 Doctor Unass igned, [place] [facility] CONSENT FOR CONTRACEPTION 2022-06-27 06:01:00 Do ctor Unassigned, [place] [facility] POCT TEST 2022-06-27 00:00:00 Dilia Escobar [facility] DISABILITY/FMLA 2022-06-08 06:01:00 Doctor Unass igned, [place] [facility] CBC WITH DIFF 2022-06-06 09:47:00 Adum, Arabella Solano [facility] CBC WITH DIFF 2022-06-05 18:12:00 Adum, Arabella Solano [facility] HEPATITIS B SURFACE ANTIGEN 2022-06-05 18:12:00 Adum, Arabella Ndiaye [facility] ADC OR TATYANA ONLY - RPR 2022-06-05 18:12:00 Adum, Samir Ndiaye [facility] HIV 1/2 AG-AB WITH REFLEX 2022-06-05 18:12:00 Adum, Samir Ndiaye [facility] HB ABO GROUPING 2022-06-05 18:08:00 Adum, Arabella Philip [facility] ASSIGNMENT OF BENEFITS 2022-06-05 16:59:34 Docto r Unassigned, [place] [facility] CONSENT/REFUSAL FOR DIAGNOSIS AND TREATMENT 2022-06-03 21:55:56 Doctor Unassigned, [place] [facility] ASSIGNMENT OF BENEFITS 2022-06-03 03:25:22 Docto r Unassigned, [place] [facility] ASSIGNMENT OF BENEFITS 2022-05-31 23:02:03 Docto r Unassigned, [place] [facility] CONSENT/REFUSAL FOR DIAGNOSIS AND TREATMENT 2022-05-31 23:01:51 Doctor Unassigned, [place] [facility] >14 WEEKS US LIMITED 2022-05-31 22:53:41 Dilia Escobar [facility] POCT URINALYSIS W/O SPECIFIC GRAVITY 2022-05-31 00:00:00 Dilia Escobar [facility] POCT URINALYSIS W/O SPECIFIC GRAVITY 2022-05-17 00:00:00 Dilia Escobar [facility] URINALYSIS 2022-05-06 04:33:00 Ilana Ward [facility] ADC CLC OR LCC ONLY - WET PREP 2022-05-06 03:27:00 Shauna Wardsol [facility] ASSIGNMENT OF BENEFITS 2022-05-06 02:47:09 Docto r Unassigned, [place] [facility] CONSENT/REFUSAL FOR DIAGNOSIS AND TREATMENT 2022-05-06 02:45:20 Doctor Unassigned, [place] [facility] POCT URINALYSIS W/O SPECIFIC GRAVITY 2022-05-03 00:00:00 Donell Brunson [facility] TDAP VACCINE, >11 YRS, IM 2022-04-19 19:19:11 Nagi Escobar [facility] POCT URINALYSIS W/O SPECIFIC GRAVITY 2022-04-19 19:15:00 Dilia Escobar [facility] 1 HR GLUCOSE TOLERANCE TEST 2022-04-05 14:26:00 Dilia Escobar [facility] GLUCOSE FASTING 2022-04-05 13:19:00 Dilia Escobar [facility] CBC WITH DIFF 2022-04-05 13:19:00 Jeremiah Wolf [facility] CONSENT/REFUSAL FOR DIAGNOSIS AND TREATMENT 2022-04-04 23:41:16 Doctor Unassigned, [place] [facility] IRON PANEL 2022-04-04 15:23:00 Dilia Escobar [facility] STERILIZATION CONSENT FORM 2022-03-29 05:01:00 D ted Unassigned, [place] [facility] POCT URINALYSIS W/O SPECIFIC GRAVITY 2022-03-29 00:00:00 Dilia Escobar [facility] URINALYSIS 2022-03-18 03:24:00 Dilia Escobar [facility] ADC CLC OR LCC ONLY - WET PREP 2022-03-18 03:24:00 Dilia Escobar [facility] NOTICE OF PRIVACY PRACTICES 2022-03-18 01:50:59 Doctor Unassigned, [place] [facility] ASSIGNMENT OF BENEFITS 2022-03-18 01:50:20 Docto r Unassigned, [place] [facility] POCT URINALYSIS W/O SPECIFIC GRAVITY 2022-03-01 16:25:00 Donell Brunson [facility] INSURANCE CORRESPONDENCE 2022-03-01 05:01:00 Doc tor Unassigned, [place] [facility] EMERGENCY DEPARTMENT DOCUMENTS 2022-02-17 05:01:00 Doctor Unassigned, [place] [facility] L&D VISIT (NON-DELIVERED) 2022-02-17 05:01:00 Do ctor Unassigned, [place] [facility] Encounters Start Date/Time End Date/Time Encounter Type Admission Type Attending Clinicians Care Facility Care Department Encounter ID Source 2022-06-02 23:00:50 Outpatient X [facility] [id number] [facility] 2022-04-04 15:33:04 Outpatient P [facility] [id number] [facility] 2021-04-04 09:36:18 Emergency [facility] [id number] [facility] 2021-04-03 17:23:54 Outpatient X [facility] [id number] [facility] 2021-04-03 05:42:59 Outpatient X [facility] [id number] [facility] 2021-04-03 05:10:21 Emergency [facility] [id number] [facility] 2021-03-30 22:[id number] 2023-10-03 16:00:00 2023-10-03 16:00:00 Outpatient DEEPAK GIANG [id number] [facility] 2023-09-30 00:00:00 2023-09-30 00:00:00 Telephone Dilia Escobar [facility] [id number] 350.1.13.10 4.2.7.2.686 [id number] [facility] 2023-09-10 00:00:00 2023-09-10 00:00:00 Outpatient DEEPAK GIANG TALYA BUTLER [id number] [facility] 2023-08-14 14:00:00 2023-08-14 14:00:00 Outpatient RAHAT DEEPAK BUTLER [id number] [facility] 2023-07-23 20:48:00 2023-07-23 21:07:00 Emergency X STEVIE LOKESH [facility] ERT [id number] [facility] 2023-07-23 20:48:00 2023-07-23 21:07:00 Emergency Gabriel Sernas [facility] [id number] 350.1.13.10 4.2.7.2.686 [id number] [facility] 2023-02-18 13:30:00 2023-02-18 13:30:00 Outpatient Bradford LUZ DILIA [facility] [id number] [facility] 2022-12-23 15:40:00 2022-12-23 16:00:00 Urgent Care [facility] [id number] 350.1.13.10 4.2.7.2.686 [id number] [facility] 2022-12-23 15:40:00 2022-12-23 15:40:00 Outpatient SCOTT LOUISE [facility] [id number] [facility] 2022-11-13 10:00:00 2022-11-13 10:00:00 Outpatient JACINDA SNEED [facility] [id number] [facility] 2022-09-17 11:11:23 2022-09-17 23:59:00 Hospital Encounter Shira Frazier [facility] [id number] 350.1.13.10 4.2.7.2.686 [id number] [facility] 2022-09-17 11:11:23 2022-09-17 23:59:00 Hospital En[facility] [id number] 350.1.13.10 4.2.7.2.686 [id number] [facility] 2022-09-17 11:11:22 2022-09-17 23:59:00 Outpatient R FREDDIE SHIRA [facility] [id number] [facility] 2022-09-17 11:11:22 2022-09-17 23:59:00 [facility] 1.840.114 350.1.13.10 4.2.7.2.686 [id number] [facility] 2022-09-17 11:00:00 2022-09-17 11:20:00 Urgent Care [facility] 1..840.114 350.1.13.10 4.2.7.2.686 [id number] [facility] 2022-09-17 00:00:00 2022-09-17 00:00:00 Letter (Out) Shira Frazier [facility] [id number] 350.1.13.10 4.2.7.2.686 [id number] [facility] 2022-09-14 20:20:00 2022-09-14 20:43:08 Outpatient R SHIRA FRAZIER [facility] [id number] [facility] 2022-09-14 20:20:00 2022-09-14 20:40:00 Urgent Care Shira Frazier Unknown, Attending [facility] 1..840.114 350.1.13.10 4.2.7.2.686 [id number] [facility] 2022-08-27 13:45:00 2022-08-27 13:45:00 [facility] [id number] [facility] 2022-08-20 15:30:00 2022-08-20 15:30:00 Outpatient R SHERRIE CASILLAS [facility] [id number] [facility] 2022-08-20 13:30:00 2022-08-20 13:30:00 Outpatient R [facility] [id number] [facility] 2022-08-13 10:30:00 2022-08-13 10:45:00 Web Producer Visit 2, Ad[facility] Josette Buissica [facility] 1..840.114 350.1.13.10 4.2.7.2.686 [id number] [facility] 2022-08-13 09:30:00 2022-08-13 10:29:02 Outpatient R JOSETTE BUISSICA [facility] [id number] [facility] 2022-08-13 09:30:00 2022-08-13 10:29:02 [facility]..840.114 350.1.13.10 4.2.7.2.686 [id number] [id number] [facility] 2022-08-07 00:00:00 2022-08-07 00:00:00 Transition of Care Paola Albarran 1..840.114 350.1.13.10 4.2.7.2.686 [id number] [facility] 2022-08-01 19:12:00 2022-08-04 14:08:00 Inpatient X KHALIF RITTER [facility] PRATEEK [id number] [facility] 2022-08-01 19:12:00 2022-08-04 14:08:00 Hospital Encounter Gregory Davila Joseph [facility] 1.2.840.114 350.1.13.10 4.2.7.2.686 [id number] [id number] [facility] 2022-08-03 12:14:00 2022-08-03 15:16:00 Surgery Sherrie Casillas [facility] 1.2.840.114 350.1.13.10 4.2.7.2.686 [id number] [facility] 2022-08-02 00:00:00 2022-08-02 00:00:00 Patient Secure Msg Doctor Unassigned, [place] [facility] 1.2.840.114 350.1.13.10 4.2.7.2.686 [id number] [facility] 2022-07-31 00:00:00 2022-07-31 00:00:00 Telephone Dilia Escobar [facility] 1.2.840.114 350.1.13.10 4.2.7.2.686 [id number] [facility] 2022-07-27 00:00:00 2022-07-27 00:00:00 Orders Only Doctor Unassigned, [place] [facility] 1.2.840.114 350.1.13.10 4.2.7.2.686 [id number] [id number] [facility] 2022-07-20 00:00:00 2022-07-20 00:00:00 Telephone Dilia Escobar [facility] 1.2840.114 350.1.13.10 4.2.7.2.686 [id number] 134 [id number] [facility] 2022-06-27 11:15:00 2022-06-27 12:14:57 Outpatient R DILIA ESCOBAR [facility] [id number] [facility] 2022-06-27 11:15:00 2022-06-27 12:14:57 Routine Visit Dilia Escobar [facility] 1.2.840.114 350.1.13.10 4.2.7.2.686 [id number] 134 [id number] [facility] 2022-06-27 00:00:00 2022-06-27 00:00:00 Orders Only Doctor Unassigned, [place] [facility] 1.2.840.114 350.1.13.10 4.2.7.2.686 [id number] [id number] [facility] 2022-06-08 00:00:00 2022-06-08 00:00:00 Orders Only Doctor Unassigned, [place] [facility] 1.2.840.114 350.1.13.10 4.2.7.2.686 [id number] [facility] 2022-06-07 10:00:00 2022-06-07 10:00:00 Outpatient DONELL DUMONT [facility] [id number] [facility] 2022-06-05 11:02:00 2022-06-06 19:55:00 Hospital Encounter Dilia Escobar Arabella Larose [facility] 1.2.840.114 350.1.13.10 4.2.7.2.686 [id number] 083 [id number] [facility] 2022-06-05 00:00:00 2022-06-05 00:00:00 Orders Only Doctor Unassigned, [place] [facility] 1..114 350.1.13.10 4.2.7.2.686 [id number] [facility] 2022-06-04 15:45:00 2022-06-04 16:11:05 Outpatient DONELL DUMONT [facility] [id number] [facility] 2022-06-04 15:45:00 2022-06-04 16:11:05 Routine Visit Donell Brunson [facility] 1..114 350.1.13.10 4.2.7.2.686 [id number] 134 [id number] [facility] 2022-06-04 15:45:00 2022-06-04 16:11:05 Outpatient Bradford BRUNSON [facility] ALTAGRACIA [id number] [facility] 2022-06-03 16:08:00 2022-06-03 17:50:00 Outpatient X RICHARD-MALCOM S, ILANA RICHARD-MALCOM S, ILANA [facility] ALTAGRACIA [id number] [facility] 2022-06-03 16:08:00 2022-06-03 17:50:00 Emergency Danilo Diallo E Richard-Malcom s, Ilana [facility] 1..114 350.1.13.10 4.2.7.2.686 [id number] [facility] 2022-06-02 21:28:00 2022-06-02 22:39:00 Outpatient X RICHARD-MALCOM S, ILANA RICHARD-MALCOM S, ILANA [facility] ALTAGRACIA [id number] [facility] 2022-06-02 21:28:00 2022-06-02 22:39:00 Emergency Richard-Malcom s, Ilana [facility] 1..114 350.1.13.10 4.2.7.2.686 [id number] 083 [id number] [facility] 2022-05-31 16:00:00 2022-05-31 16:48:49 Outpatient R DILIA ESCOBAR [facility] [id number] [facility] 2022-05-31 16:00:00 2022-05-31 16:48:49 Routine Visit Dilia Escobar [facility] 1.2.840.114 350.1.13.10 4.2.7.2.686 [id number] 134 [id number] [facility] 2022-05-31 10:15:00 2022-05-31 10:30:00 Web Producer Visit 1, Adc Lab Dilia Escobar [facility] 1.2.840.114 350.1.13.10 4.2.7.2.686 [id number] [facility] 2022-05-31 00:00:00 2022-05-31 00:00:00 Orders Only Doctor Unassigned, [place] [facility] 1.2840.114 350.1.13.10 4.2.7.2.686 [id number] 009 [id number] [facility] 2022-05-17 16:15:00 2022-05-17 16:36:14 Outpatient R DILIA ESCOBAR [facility] [id number] [facility] 2022-05-17 16:15:00 2022-05-17 16:36:14 Routine Visit Dilia Escobar [facility] BUILDING 1.2.840.114 350.1.13.10 4.2.7.2.686 [id number] 134 [id number] [facility] 2022-05-05 20:52:00 2022-05-05 23:05:00 Outpatient P RICHARD-MALCOM S, ILANA RICHARD-MALCOM S, ILANA [facility] ALTAGRACIA [id number] [facility] 2022-05-05 20:52:00 2022-05-05 23:05:00 Hospital Encounter Ilana Hill [facility] 1.20.114 350.1.13.10 4.2.7.2.686 [id number] [facility] 2022-05-03 11:00:00 2022-05-03 11:00:00 Routine Visit [facility] 1.20.114 350.1.13.10 4.2.7.2.686 [id number] 134 [id number] [facility] 2022-05-03 11:00:00 2022-05-03 10:57:45 [facility] [id number] [facility] 2022-04-19 13:15:00 2022-04-19 13:22:27 Outpatient R ESCOBARDILIA [facility] [id number] [facility] 2022-04-19 13:15:00 2022-04-19 13:22:27 Routine Visit Dilia Escobar [facility] 1.284.114 350.1.13.10 4.2.7.2.686 [id number] [facility] 2022-04-18 08:59:00 2022-04-18 14:40:00 [facility] [id number] [facility] 2022-04-18 08:59:00 2022-04-18 14:40:00 Hospital Encounter Dilia Escobar [facility] 1.2.114 350.1.13.10 4.2.7.2.686 [id number] [facility] 2022-04-13 00:00:00 2022-04-13 00:00:00 Telephone Dilia Escobar [facility] 1.2840.114 350.1.13.10 4.2.7.2.686 [id number] 134 [id number] [facility] 2022-04-11 08:48:00 2022-04-11 14:55:00 Outpatient P DILIA ESCOBAR [facility] ALTAGRACIA [id number] [facility] 2022-04-11 08:48:00 2022-04-11 14:55:00 Hospital Encounter Dilia Escobar [facility] 1.84.114 350.1.13.10 4.2.7.2.686 [id number] [id number] [facility] 2022-04-05 08:30:00 2022-04-05 08:45:00 Web Producer Visit 2, Adc Lab Dilia Escobar [facility] 1.84.114 350.1.13.10 4.2.7.2.686 [id number] [facility] 2022-04-05 08:30:00 2022-04-05 08:30:00 Outpatient R DILIA ESCOBAR [facility] [id number] [facility] 2022-04-04 19:14:00 2022-04-04 21:37:00 Outpatient X DILIA ESCOBAR [facility] ALTAGRACIA [id number] [facility] 2022-04-04 19:14:00 2022-04-04 21:37:00 Emergency [place], Jorge Diallo, Danilo Christianson Dilia Escobar [facility] 1.2840.114 350.1.13.10 4.2.7.2.686 [id number] [facility] 2022-04-04 09:02:00 2022-04-04 15:30:00 Outpatient P DILIA ESCOBAR [facility] ALTAGRACIA [id number] [facility] 2022-04-04 09:02:00 2022-04-04 15:30:00 Hospital Encounter Dilia Escobar [facility] 1.2840.114 350.1.13.10 4.2.7.2.686 [id number] [facility] 2022-04-02 00:00:00 2022-04-02 00:00:00 Telephone Dilia Escobar [facility] 1.2.840.114 350.1.13.10 4.2.7.2.686 [id number] 134 [id number] [facility] 2022-03-30 08:30:00 2022-03-30 08:45:00 Web Producer Visit 2, Adc Lab Dilia Escobar [facility] BUILDING 1.284.114 350.1.13.10 4.2.7.2.686 [id number] [facility] 2022-03-30 08:30:00 2022-03-30 08:30:00 Outpatient R DILIA ESCOBAR [facility] [id number] [facility] 2022-03-30 00:00:00 2022-03-30 00:00:00 Case Management Dilia Escobar [facility]ILDING 1.284.114 350.1.13.10 4.2.7.2.686 [id number] 134 [id number] [facility] 2022-03-29 10:45:00 2022-03-29 11:19:40 Outpatient R DILIA ESCOBAR [facility] [id number] [facility] 2022-03-29 10:45:00 2022-03-29 11:19:40 Routine Visit Dilia Escobar [facility]ILDING 1.284.114 350.1.13.10 4.2.7.2.686 [id number] 134 [id number] [facility] 2022-03-29 00:00:00 2022-03-29 00:00:00 Orders Only Doctor Unassigned, [place] [facility] 1.2.840.114 350.1.13.10 4.2.7.2.686 [id number] [facility] 2022-03-17 20:58:00 2022-03-18 00:00:00 Outpatient X SAMIR ESCOBAREN [facility] ALTAGRACIA [id number] [facility] 2022-03-17 20:58:00 2022-03-18 00:00:00 Emergency Dilia Escobar [facility] 1.2.840.114 350.1.13.10 4.2.7.2.686 [id number] [facility] 2022-03-17 00:00:00 2022-03-17 00:00:00 Orders Only Doctor Unassigned, [place] [facility] 1.2840.114 350.1.13.10 4.2.7.2.686 [id number] [facility] 2022-03-08 11:00:00 2022-03-08 12:00:00 Web Producer Visit Ultrasound, Jesse Davis [facility] [employer] [facility] 1.2840.114 350.1.13.10 4.2.7.2.686 [id number] [facility] 2022-03-08 11:00:00 2022-03-08 11:00:00 Outpatient P [facility] [id number] [facility] 2022-03-08 11:00:00 2022-03-08 11:00:00 Outpatient P JESSE SOLO [facility] [id number] [facility] 2022-03-02 11:00:00 2022-03-02 11:00:00 Outpatient P [facility] [id number] [facility] 2022-03-02 11:00:00 2022-03-02 11:00:00 Outpatient P [facility] [id number] [facility] 2022-03-02 00:00:00 2022-03-02 00:00:00 Telephone Dilia Escobar [facility] 1.2.840.114 350.1.13.10 4.2.7.2.686 [id number] 134 [id number] [facility] 2022-03-01 11:15:00 2022-03-01 11:43:49 Outpatient R JACKELINHEATHERSHANE DAVENPORTCY [facility] [id number] [facility] 2022-03-01 11:15:00 2022-03-01 11:43:49 Routine Visit Donell Brunson [facility] 1.2.840.114 350.1.13.10 4.2.7.2.686 [id number] 134 [id number] [facility] 2022-03-01 00:00:00 2022-03-01 00:00:00 Telephone Dilia Escobar [facility] 1.2.840.114 350.1.13.10 4.2.7.2.686 [id number] 134 [id number] [facility] 2022-03-01 00:00:00 2022-03-01 00:00:00 Orders Only Doctor Unassigned, [place] [facility] 1.2.840.114 350.1.13.10 4.2.7.2.686 [id number] [facility] 2022-02-26 00:00:00 2022-02-26 00:00:00 Telephone Arabella Larose [facility] 1.2.840.114 350.1.13.10 4.2.7.2.686 [id number] 134 [id number] [facility] 2022-02-17 19:48:00 2022-02-17 22:10:00 Outpatient X ARABELLA LAROSE [facility] ALTAGRACIA [id number] [facility] 2022-02-17 19:48:00 2022-02-17 22:10:00 Emergency Paola Wolf Vivian L [facility] 1.2.840.114 350.1.13.10 4.2.7.2.686 [id number] [facility] 2022-02-16 00:00:00 2022-02-16 00:00:00 Telephone Donell Brunson [facility] 1.2.840.114 350.1.13.10 4.2.7.2.686 [id number] 134 [id number] [facility] 2022-02-16 00:00:00 2022-02-16 00:00:00 Telephone Donell Brunson [facility] 1.2.840.114 350.1.13.10 4.2.7.2.686 [id number] 134 [id number] [facility] 2022-02-13 00:00:00 2022-02-13 00:00:00 Telephone Dilia Escobar [facility] 1.2.840.114 350.1.13.10 4.2.7.2.686 [id number] 134 [id number] [facility] 2022-02-13 00:00:00 2022-02-13 00:00:00 Telephone Dilia Escobar [facility] 1.2.840.114 350.1.13.10 4.2.7.2.686 [id number] 134 [id number] [facility] 2022-02-08 00:00:00 2022-02-08 00:00:00 Telephone Donell Brunson [facility] 1.2.840.114 350.1.13.10 4.2.7.2.686 [id number] 134 [id number] [facility] 2022-02-07 00:00:00 2022-02-07 00:00:00 Jeremiah Carranza [facility] [employer] [facility] 1.2840.114 350.1.13.10 4.2.7.2.686 [id number] [facility] 2022-02-06 00:00:00 2022-02-06 00:00:00 Case Management Boy Donell [facility] 1.2840.114 350.1.13.10 4.2.7.2.686 [id number] 134 [id number] [facility] 2022-02-03 00:00:00 2022-02-03 00:00:00 Case Management Donell Brun[facility] 1.2840.114 350.1.13.10 4.2.7.2.686 [id number] [facility] 2022-02-02 08:45:00 2022-02-02 09:00:00 Web Producer Visit 2, Adc Lab Dilia Escobar [facility] 1.2840.114 350.1.13.10 4.2.7.2.686 [id number] [facility] 2022-02-02 08:45:00 2022-02-02 08:45:00 Outpatient R DILIA ESCOBAR [facility] [id number] [facility] 2022-02-02 00:00:00 2022-02-02 00:00:00 Case Management EscobarDilia [facility] 1.2840.114 350.1.13.10 4.2.7.2.686 [id number] 134 [id number] [facility] 2022-02-01 14:00:00 2022-02-01 15:00:03 Initial Visit Dilia Escobar [facility]ILD[facility] 1.2840.114 350.1.13.10 4.2.7.2.686 [id number] 134 [id number] [facility] 2022-02-01 14:00:00 2022-02-01 15:00:03 Outpatient R DILIA ESCOBAR [facility] [id number] [facility] 2022-02-01 00:00:00 2022-02-01 00:00:00 Orders Only Doctor Unassigned, [place] [facility] 1.2840.114 350.1.13.10 4.2.7.2.686 [id number] [facility] 2021-05-30 10:15:00 2021-05-30 10:15:00 Outpatient R JEREMIAH WOLF [facility] [id number] [facility] 2021-05-10 00:00:00 2021-05-10 00:00:00 Orders Only Doctor Unassigned, [place] [facility] 1.2840.114 350.1.13.10 4.2.7.2.686 [id number] [facility] 2021-05-05 11:00:00 2021-05-05 11:37:32 Outpatient R JEREMIAH WOLF [facility] [id number] [facility] 2021-05-05 10:53:11 2021-05-05 11:37:32 Routine Visit Jeremiah Wolf [facility] [employer] [facility] 1.840.114 350.1.13.10 4.2.7.2.686 [id number] 107 [id number] [facility] 2021-04-14 21:03:00 2021-04-16 19:10:00 Hospital Encounter JoseMiguel [facility] 1..114 350.1.13.10 4.2.7.2.686 [id number] 134 [id number] [facility] 2021-04-13 10:01:27 2021-04-13 16:30:59 Routine Visit Risk, Ang-Rmchp-N p/High Cheli Donohue [facility] [employer] [facility] MATERNAL & CHILD [facility] 1..840.114 350.1.13.10 4.2.7.2.686 [id number] 107 [id number] [facility] 2021-04-13 10:00:00 2021-04-13 16:30:59 Outpatient R DONOHUEJENNY MORENOEN [facility] ALTAGRACIA [id number] [facility] 2021-04-13 10:00:00 2021-04-13 10:00:00 Outpatient R [facility] [id number] [facility] 2021-04-13 10:00:00 2021-04-13 10:00:00 Outpatient R DONOHUE, CHELI [facility] [id number] [facility] 2021-04-07 19:02:00 2021-04-07 20:36:00 Outpatient X YUMIKOARABELLA GIFFORD [facility] ALTAGRACIA [id number] [facility] 2021-04-07 19:02:00 2021-04-07 20:36:00 Hospital Encounter Arabella Larose [facility] 1..840.114 350.1.13.10 4.2.7.2.686 [id number] [facility] 2021-04-06 09:15:00 2021-04-06 09:31:52 Outpatient R JOSELYN WATKINS [facility] [id number] [facility] 2021-04-06 08:52:24 2021-04-06 09:31:52 Routine Visit Provider, Jarred-Rmchp Joselyn Cates [facility] [employer] [facility]NAL [facility]ILD [facility] 1..840.114 350.1.13.10 4.2.7.2.686 [id number] 107 [id number] [facility] 2021-04-01 19:08:00 2021-04-03 17:20:00 Inpatient X REGINALDO VASQUEZ SANGEETA [facility] ALTAGRACIA [id number] [facility] 2021-04-01 19:08:00 2021-04-03 17:20:00 Hospital Encounter Miguel Garcia, Benja Vasquez, Reginaldo [facility] 1..114 350.1.13.10 4.2.7.2.686 [id number] 135 [id number] [facility] 2021-04-03 13:49:47 2021-04-03 14:19:47 Web Producer Visit 5, [facility] Us Room Víctordameonjenna, Benja Solo, [facility] 1.114 350.1.13.10 4.2.7.2.686 [id number] [facility] 2021-04-03 11:00:00 2021-04-03 11:00:00 Outpatient P [facility] [id number] [facility] 2021-04-01 00:00:00 2021-04-01 00:00:00 Orders Only Doctor Unassigned, [place] [facility] 1.114 350.1.13.10 4.2.7.2.686 [id number] [facility] 2021-03-31 09:45:00 2021-03-31 11:21:03 Outpatient CHELI MENDEZ [facility] [id number] [facility] 2021-03-31 09:45:00 2021-03-31 11:21:03 Outpatient CHELI MENDEZ [facility] [id number] [facility] 2021-03-31 09:24:13 2021-03-31 11:21:03 Routine Visit Risk, Pea-Rmchp Provider/Hi Cheli Figueroa [facility] [employer] [facility] 1..114 350.1.13.10 4.2.7.2.686 [id number] [facility] 2021-03-27 19:37:00 2021-03-27 22:24:00 Emergency Escobar, Dilia Ricketts [facility] 1.2840.114 350.1.13.10 4.2.7.2.686 [id number] [facility] 2021-03-24 00:00:00 2021-03-24 00:00:00 Orders Only Doctor Unassigned, [place] [facility] 1.2840.114 350.1.13.10 4.2.7.2.686 [id number] [facility] 2021-03-23 15:50:59 2021-03-23 16:13:30 Routine Visit Jeremiah Wolf [facility] [employer] [place] [facility] 1.840.114 350.1.13.10 4.2.7.2.686 [id number] 107 [id number] [facility] 2021-03-23 16:00:00 2021-03-23 16:00:00 Outpatient R JEREMIAH WOLF [facility] [id number] [facility] 2021-03-10 09:53:16 2021-03-10 10:14:28 Routine Visit Jeremiah Wolf [facility] [employer] [facility] MATERNAL & CHILD [facility] 1.840.114 350.1.13.10 4.2.7.2.686 [id number] 107 [id number] [facility] 2021-03-10 09:30:00 2021-03-10 09:30:00 Outpatient R JEREMIAH WOLF [facility] [id number] [facility] 2021-02-23 10:29:34 2021-02-23 10:58:40 Routine Visit Jeremiah Wolf [facility] [employer] [place] [facility] 1.840.114 350.1.13.10 4.2.7.2.686 [id number] 107 [id number] [facility] 2021-02-23 10:45:00 2021-02-23 10:45:00 Outpatient R JEREMIAH WOLF [facility] [id number] [facility] 2021-02-09 07:58:58 2021-02-09 09:03:46 Routine Visit Zach Clark [facility] [employer] [facility] MATERNAL & CHILD [facility] 1.2.840.114 350.1.13.10 4.2.7.2.686 [id number] 107 [id number] [facility] 2021-02-09 08:00:00 2021-02-09 08:00:00 Outpatient R ZACH CLARK [facility] [id number] [facility] 2021-01-24 00:00:00 2021-01-24 00:00:00 Telephone Jeremiah Wolf [facility] [employer] [place] [facility] [id number] [facility] 2021-01-23 16:00:00 2021-01-23 16:00:00 Outpatient R ZACH [facility] [id number] [facility] 2021-01-17 14:30:00 2021-01-17 14:30:00 Outpatient R [facility] [id number] [facility] 2021-01-10 10:45:00 2021-01-10 10:45:00 Outpatient R ZACH CLARK [facility] [id number] [facility] 2021-01-04 10:30:00 2021-01-04 10:30:00 Outpatient R [facility] [id number] [facility] 2020-12-28 10:00:00 2020-12-28 10:00:00 Outpatient R [facility] [id number] [facility] 2020-12-26 08:30:00 2020-12-26 08:30:00 Outpatient P [facility] [id number] [facility] 2020-12-21 09:30:00 2020-12-21 09:30:00 Outpatient R [facility] [id number] [facility] 2020-12-20 11:00:00 2020-12-20 11:00:00 Outpatient R JEREMIAH WOLF [facility] [id number] [facility] 2020-12-14 13:30:00 2020-12-14 13:30:00 Outpatient R [facility] [id number] [facility] 2020-12-13 15:30:00 2020-12-13 15:30:00 Outpatient R ZACH CLARK [facility] [id number] [facility] 2020-12-06 13:30:00 2020-12-06 13:30:00 Outpatient R [facility] [id number] [facility] 2020-11-30 08:00:00 2020-11-30 08:00:00 Outpatient R [facility] [id number] [facility] 2020-11-23 10:00:00 2020-11-23 10:00:00 Outpatient P [facility] [id number] [facility] 2020-11-22 10:45:00 2020-11-22 10:45:00 Outpatient R JEREMIAH WOLF [facility] [id number] [facility] 2020-11-16 10:00:00 2020-11-16 10:00:00 Outpatient P [facility] [id number] [facility] 2020-11-09 11:30:00 2020-11-09 11:30:00 Outpatient R NÉSTOR MORGAN SHANNON [facility] [id number] [facility] 2020-10-25 11:00:00 2020-10-25 11:00:00 Outpatient R JEREMIAH WOLF [facility] [id number] [facility] 2020-10-20 09:30:00 2020-10-20 09:30:00 Outpatient JEREMIAH MEANS [facility] [id number] [facility] 2020-09-20 14:00:00 2020-09-20 14:00:00 Outpatient JEREMIAH MEANS [facility] [id number] [facility] Results Test Description Test Time Test Comments Results Result Co mments Source [facility] MOLECULAR [id number] 21:15:18* Test Item Value Reference Range Interpretation Comme nts POCT Molecular Strep (test c ode = 83193-0) Negative Negative Lab Interpretation (test cod e = 56103-8) Normal [facility] MOLECULAR [id number] 01:34:47* Test Item Value Reference Range Interpretation Comme nts POCT Molecular FluA (test co de = 53761-1) Negative Negative POCT Molecular FluB (test co de = 04960-0) Negative Negative Lab Interpretation (test cod e = 78817-4) Normal [facility] MOLECULAR [id number] 01:27:22* Test Item Value Reference Range Interpretation Comme nts POCT Molecular Strep (test c ode = 38008-4) Negative Negative Lab Interpretation (test cod e = 88061-1) Normal [facility] SARS-COV-2 ANTIGEN (BINAX NOW)2022-09-15 01:24:00* Test Item Value Reference Range Interpretation Comme nts POCT SARS-COV-2 ANTIGEN (test code = 54064-2) Not Detected Not Detected On board controls acceptable with C Line (test code = 3574) Yes ADDIE (test code = ADDIE) accurate developme nt and interpretation of all internal controls Lab Interpretation (test code = 06684-9) Normal [facility] UNCONJUGATED/BILI [id number] 04:04:10* Test Item Value Reference Range Interpretation Comme nts BILI CONJ (test code = 0602882556) 2.0 mg/dL 0.0-0.3 H BILI UNCON (test code = 9245699515) 1.1 mg/dL 0.1-1.1 Lab Interpretation (test cod e = 30951-8) Abnormal [facility] UNCONJUGATED/BILI [id number] 04:04:10* Test Item Value Reference Range Interpretation Comme nts BILI CONJ (test code = 4126981888) 2.0 mg/dL 0.0-0.3 H BILI UNCON (test code = 6820435718) 1.1 mg/dL 0.1-1.1 Lab Interpretation (test cod e = 55109-1) [facility]* Test Item Value Reference Range Interpretation Comme nts LIPASE (test code = 7140784501) 0-220 H Lab Interpretation (test cod e = 01891-5) [facility] 03:17:08* Test Item Value Reference Range Interpretation Comme nts LIPASE (test code = 8100403680) 0-220 H Lab Interpretation (test cod e = 46809-7) [facility]normal [facility]AL[facility]ATE20[facility]-02 02:52:18 SALICYLATE<10mg/L08/01/2022 8:52 PM [facility]: ? Analgesic and Antipyretic Use ? 20- 100 mg/L ? ? Anti-Inflammatory Use ? 100-250 mg/L Toxic Range: ? Greater than 300 mg/[facility]SALICYLATE2023-03-02 02:52:18SALICYLATE<10mg/L08/01/2022 8:52 PM [facility]: ? Analgesic and Antipyretic Use ? 20-100 mg/L ? ? Anti-Inflammatory Use ? 100-250 mg/L Toxic Range: ? Greater than 300 mg/L [facility]ACETAMINOPHEN2023-03-02 02:52:08* Test Item Value Reference Range Interpretation Comme nts ACETAMINOP (test code = 4967406060) 10.0-30.0 L ADDIE (test code = ADDIE) Toxic: Greater huey n 200 ug/mL @ 4 hour post ingestion or greater than 50 ug/mL @ 12 hour post ingestion Lab Interpretation (test code = 42821-1) [facility]normal [facility]ACET[facility]INOPHEN2023-03-02 02:52:08* Test Item Value Reference Range Interpretation Comme nts ACETAMINOP (test code = 6268002103) 10.0-30.0 L ADDIE (test code = ADDIE) Toxic: Greater huey n 200 ug/mL @ 4 hour post ingestion or greater than 50 ug/mL @ 12 hour post ingestion Lab Interpretation (test code = 31115-3) Abnormal [facility] [id number] 02:37:39* Test Item Value Reference Range Interpretation Comme nts TROPONIN I (test code = 5095779527) 0.003 ng/mL <=0.034 ADDIE (test code = ADDIE) Reference (Normal) Range (defined by the 99th percentile reference limit): <= 0.034 ng/mL Note: Cardiac troponin begins to rise 3-4 hours after the onset of ischemia. Repeat in 4-6 hours if the sample was drawn within 3-4 hours of the onset of the symptom and found normal. Diagnosis of myocardial injury is made with acute changes in cTn concentrations with at least one serial sample above the 99th percentile upper reference limit (URL), taken together with the patient's clinical presentation. Biotin has been reported to cause a negative bias, interpret results relative to patient's use of biotin. Lab Interpretation (test code = 71257-9) Normal [facility] [id number] 02:37:39* Test Item Value Reference Range Interpretation Comme nts TROPONIN I (test code = 6130319421) 0.003 ng/mL <=0.034 ADDIE (test code = ADDIE) Reference (Normal) Range (defined by the 99th percentile reference limit): <= 0.034 ng/mL Note: Cardiac troponin begins to rise 3-4 hours after the onset of ischemia. Repeat in 4-6 hours if the sample was drawn within 3-4 hours of the onset of the symptom and found normal. Diagnosis of myocardial injury is made with acute changes in cTn concentrations with at least one serial sample above the 99th percentile upper reference limit (URL), taken together with the patient's clinical presentation. Biotin has been reported to cause a negative bias, interpret results relative to patient's use of biotin. Lab Interpretation (test code = 40735-2) Normal [facility] [id number] 02:34:00* Test Item Value Reference Range Interpretation Comme nts NT-proBNP (test code = 9109679097) 75 pg/mL <=125 ADDIE (test code = ADDIE) Biotin has been reported to cause a negative bias, interpret results relative to patient's use of biotin. Lab Interpretation (test code = 87762-4) Normal [facility]MINAL [id number] 02:34:00* Test Item Value Reference Range Interpretation Comme nts NT-proBNP (test code = 4471838487) 75 pg/mL <=125 ADDIE (test code = ADDIE) Biotin has been reported to cause a negative bias, interpret results relative to patient's use of biotin. Lab Interpretation (test code = 36479-1) Normal [facility] CenterACTIV[facility] PARTIAL THRMPLAS [id number] 02:30:38* Test Item Value Reference Range Interpretation Comme nts APTT Patient (test code = 3173-2) 27 See_Comment [Automated message] The system which generated this result transmitted reference range: 23 - 38 Seconds. The reference range was not used to interpret this result as normal/abnormal. ADDIE (test code = ADDIE) The [facility] patient population mean normal value for aPTT is 30 seconds. Lab Interpretation (test code = 00085-5) Normal [facility] CenterACT[facility] THRMPLAS [id number] 02:30:38* Test Item Value Reference Range Interpretation Comme nts APTT Patient (test code = 3173-2) 27 See_Comment [Automated message] The system which generated this result transmitted reference range: 23 - 38 Seconds. The reference range was not used to interpret this result as normal/abnormal. ADDIE (test code = ADDIE) The [facility] patient population mean normal value for aPTT is 30 seconds. Lab Interpretation (test code = 68987-8) Normal [facility] CenterPROTHROMBIN TIME / [id number] 02:28:42* Test Item Value Reference Range Interpretation Comme nts PROTIME PATIENT (test code = 5964-2) 12.8 See_Comment [Automated InfraSearcha ge] The system which generated this result transmitted reference range: 12.0 - 14.7 Seconds. The reference range was not used to interpret this result as normal/abnormal. INR (test code = 6301-6) 1.0 Normal INR <1.1; Warfarin Therapeutic range 2.0 to 3.0 or 2.5 to 3.5, depending upon the indications. Lab Interpretation (test code = 28843-0) Normal [facility] CenterPROTHROMBIN TIME / [id number] 02:28:42* Test Item Value Reference Range Interpretation Comme nts PROTIME PATIENT (test code = 5964-2) 12.8 See_Comment [Automated InfraSearcha ge] The system which generated this result transmitted reference range: 12.0 - 14.7 Seconds. The reference range was not used to interpret this result as normal/abnormal. INR (test code = 6301-6) 1.0 Normal INR <1.1; Warfarin Therapeutic range 2.0 to 3.0 or 2.5 to 3.5, depending upon the indications. Lab Interpretation (test code = 11828-3) Normal [facility] CenterCOMP. METABOLIC PANEL (23782)2022-08-02 02:25:20* Test Item Value Reference Range Interpretation Comme nts NA (test code = 9937129371) 140 mmol/L 135-145 K (test code = 6844267018) 3.8 mmol/L 3.5-5.0 CL (test code = 9691123142) 103 mmol/L 98-108 CO2 TOTAL (test code = 1778459252) 27 mmol/L 23-31 AGAP (test code = 2844283755) 10 2-16 BUN (test code = 9024931590) 10 mg/dL 7-23 GLUCOSE (test code = 0958298912) 89 mg/dL 70-110 CREATININE (test code = 2123679974) 0.73 mg/dL 0.50-1.04 TOTAL BILI (test code = 2977718749) 4.9 mg/dL 0.1-1.1 H CALCIUM (test code = 7737073233) 8.2 mg/dL 8.6-10.6 L T PROTEIN (test code = 2942847239) 7.0 g/dL 6.3-8.2 ALBUMIN (test code = 7799435238) 4.1 g/dL 3.5-5.0 ALK PHOS (test code = 1386180370) 270 U/L 34-122 H ALTv (test code = 1742-6) 204 U/L 5-35 H AST(SGOT) (test code = 2621549941) 93 U/L 13-40 H eGFR (test code = 6291481221) 94.3 mL/min/1.73m2 ADDIE (test code = ADDIE) Association of Glomerular Filtration Rate (GFR) and Staging of Kidney Disease* + --+ --+ ------+| GFR (mL/min/1.73 m2) ?| With Kidney Damage ?| ?Without Kidney Damage+ --------+ --------+ +| ?>90 ?| ?Stage one ?| ? Normal ?+ ---+ ---+ -------+| ?60-89 ?| ?Stage two ?| ? Decreased GFR ? + --+ --+ ------+| ?30-59 ?| ?Stage three ?| ? Stage three ? + --+ --+ ------+| ?15-29 ?| ?Stage four ? | ? Stage four ?+ ---+ ---+ -------+| ?<15 (or dialysis) ? ?| ?Stage five ? | ? Stage five ?+ ---+ ---+ -------+ *Each stage assumes the associated GFR level has been in effect for at least three months. ?Stages 1 to 5, with or without kidney disease, indicate chronic kidney disease. Notes: Determination of stages one and two (with eGFR >59mL/min/1.73 m2) requires estimation of kidney damage for at least three months as defined by structural or functional abnormalities of the kidney, manifested by either:Pathological abnormalities or Markers of kidney damage (including abnormalities in the composition of the blood or urine or abnormalities in imaging tests). Lab Interpretation (test code = 31614-2) Abnormal [facility]. METABOLIC PANEL (17513)2022-08-02 02:25:20* Test Item Value Reference Range Interpretation Comme nts NA (test code = 8987729073) 140 mmol/L 135-145 K (test code = 4020739040) 3.8 mmol/L 3.5-5.0 CL (test code = 9960707798) 103 mmol/L 98-108 CO2 TOTAL (test code = 1860731493) 27 mmol/L 23-31 AGAP (test code = 2309174250) 10 2-16 BUN (test code = 8842028011) 10 mg/dL 7-23 GLUCOSE (test code = 1939848579) 89 mg/dL 70-110 CREATININE (test code = 0445312996) 0.73 mg/dL 0.50-1.04 TOTAL BILI (test code = 1357649743) 4.9 mg/dL 0.1-1.1 H CALCIUM (test code = 8484638263) 8.2 mg/dL 8.6-10.6 L T PROTEIN (test code = 1219080110) 7.0 g/dL 6.3-8.2 ALBUMIN (test code = 6305017790) 4.1 g/dL 3.5-5.0 ALK PHOS (test code = 0078030387) 270 U/L 34-122 H ALTv (test code = 1742-6) 204 U/L 5-35 H AST(SGOT) (test code = 3008194077) 93 U/L 13-40 H eGFR (test code = 8923024152) 94.3 mL/min/1.73m2 ADDIE (test code = ADDIE) Association of Glomerular Filtration Rate (GFR) and Staging of Kidney Disease* + --+ --+ ------+| GFR (mL/min/1.73 m2) ?| With Kidney Damage ?| ?Without Kidney Damage+ --------+ --------+ +| ?>90 ?| ?Stage one ?| ? Normal ?+ ---+ ---+ -------+| ?60-89 ?| ?Stage two ?| ? Decreased GFR ? + --+ --+ ------+| ?30-59 ?| ?Stage three ?| ? Stage three ? + --+ --+ ------+| ?15-29 ?| ?Stage four ? | ? Stage four ?+ ---+ ---+ -------+| ?<15 (or dialysis) ? ?| ?Stage five ? | ? Stage five ?+ ---+ ---+ -------+ *Each stage assumes the associated GFR level has been in effect for at least three months. ?Stages 1 to 5, with or without kidney disease, indicate chronic kidney disease. Notes: Determination of stages one and two (with eGFR >59mL/min/1.73 m2) requires estimation of kidney damage for at least three months as defined by structural or functional abnormalities of the kidney, manifested by either:Pathological abnormalities or Markers of kidney damage (including abnormalities in the composition of the blood or urine or abnormalities in imaging tests). Lab Interpretation (test code = 09602-5) Abnormal [facility] WITH [id number] 02:10:40* Test Item Value Reference Range Interpretation Comme nts WBC (test code = 6690-2) 7.08 See_Comment [Automated InfraSearcha ge] The system which generated this result transmitted reference range: 4.30 - 11.10 10*3/?L. The reference range was not used to interpret this result as normal/abnormal. RBC (test code = 789-8) 4.31 See_Comment [Automated InfraSearcha ge] The system which generated this result transmitted reference range: 3.93 - 5.25 10*6/?L. The reference range was not used to interpret this result as normal/abnormal. HGB (test code = 718-7) 11.8 g/dL 11.6-15.0 HCT (test code = 4544-3) 36.1 % 35.7-45.2 MCV (test code = 787-2) 83.8 fL 80.6-95.5 MCH (test code = 785-6) 27.4 pg 25.9-32.8 MCHC (test code = 786-4) 32.7 g/dL 31.6-35.1 RDW-SD (test code = 58187-8) 49.3 fL 39.0-49.9 RDW-CV (test code = 788-0) 16.2 % 12.0-15.5 H PLT (test code = 777-3) 249 See_Comment [Automated InfraSearcha ge] The system which generated this result transmitted reference range: 166 - 358 10*3/?L. The reference range was not used to interpret this result as normal/abnormal. MPV (test code = 53822-3) 11.9 fL 9.5-12.9 NRBC/100 WBC (test code = 0074576377) 0.0 See_Comment [Automated Visible Measures ssage] The system which generated this result transmitted reference range: 0.0 - 10.0 /100 WBCs. The reference range was not used to interpret this result as normal/abnormal. NRBC x10^3 (test code = 5409957066) See_Comment [Automated messa ge] The system which generated this result transmitted reference range: 10*3/?L. The reference range was not used to interpret this result as normal/abnormal. GRAN MAT (NEUT) % (test code = 770-8) 65.1 % IMM GRAN % (test code = 8699613954) 0.10 % LYMPH % (test code = 736-9) 24.0 % MONO % (test code = 5905-5) 5.5 % EOS % (test code = 713-8) 4.7 % BASO % (test code = 706-2) 0.6 % GRAN MAT x10^3(ANC) (test code = 7299653041) 4.61 10*3/uL 1.88-7.09 IMM GRAN x10^3 (test code = 1171709470) 0.00-0.06 LYMPH x10^3 (test code = 731-0) 1.70 10*3/uL 1.32-3.29 MONO x10^3 (test code = 742-7) 0.39 10*3/uL 0.33-0.92 EOS x10^3 (test code = 711-2) 0.33 10*3/uL 0.03-0.39 BASO x10^3 (test code = 704-7) 0.04 10*3/uL 0.01-0.07 Lab Interpretation (test code = 24386-5) Abnormal [facility] WITH [id number] 02:10:40* Test Item Value Reference Range Interpretation Comme nts WBC (test code = 6690-2) 7.08 See_Comment [Automated messa ge] The system which generated this result transmitted reference range: 4.30 - 11.10 10*3/?L. The reference range was not used to interpret this result as normal/abnormal. RBC (test code = 789-8) 4.31 See_Comment [Automated messa ge] The system which generated this result transmitted reference range: 3.93 - 5.25 10*6/?L. The reference range was not used to interpret this result as normal/abnormal. HGB (test code = 718-7) 11.8 g/dL 11.6-15.0 HCT (test code = 4544-3) 36.1 % 35.7-45.2 MCV (test code = 787-2) 83.8 fL 80.6-95.5 MCH (test code = 785-6) 27.4 pg 25.9-32.8 MCHC (test code = 786-4) 32.7 g/dL 31.6-35.1 RDW-SD (test code = 43221-9) 49.3 fL 39.0-49.9 RDW-CV (test code = 788-0) 16.2 % 12.0-15.5 H PLT (test code = 777-3) 249 See_Comment [Automated messa ge] The system which generated this result transmitted reference range: 166 - 358 10*3/?L. The reference range was not used to interpret this result as normal/abnormal. MPV (test code = 50979-5) 11.9 fL 9.5-12.9 NRBC/100 WBC (test code = 8449736919) 0.0 See_Comment [Automated Visible Measures ssage] The system which generated this result transmitted reference range: 0.0 - 10.0 /100 WBCs. The reference range was not used to interpret this result as normal/abnormal. NRBC x10^3 (test code = 4227931011) See_Comment [Automated messa ge] The system which generated this result transmitted reference range: 10*3/?L. The reference range was not used to interpret this result as normal/abnormal. GRAN MAT (NEUT) % (test code = 770-8) 65.1 % IMM GRAN % (test code = 4283107522) 0.10 % LYMPH % (test code = 736-9) 24.0 % MONO % (test code = 5905-5) 5.5 % EOS % (test code = 713-8) 4.7 % BASO % (test code = 706-2) 0.6 % GRAN MAT x10^3(ANC) (test code = 6669914156) 4.61 10*3/uL 1.88-7.09 IMM GRAN x10^3 (test code = 8537848151) 0.00-0.06 LYMPH x10^3 (test code = 731-0) 1.70 10*3/uL 1.32-3.29 MONO x10^3 (test code = 742-7) 0.39 10*3/uL 0.33-0.92 EOS x10^3 (test code = 711-2) 0.33 10*3/uL 0.03-0.39 BASO x10^3 (test code = 704-7) 0.04 10*3/uL 0.01-0.07 Lab Interpretation (test code = 82903-3) Abnormal [facility] [id number] 02:09:00* Test Item Value Reference Range Interpretation Comme nts POCT PREG (test code = 1605) negative On board controls acceptable with C Line (test code = 3574) present POCT PREG LOT # (test code = 3575) [id number] POCT PREG TEST DATE ( test code = 3576) 2023-09-01 Lab Interpretation (test cod e = 87260-6) Normal [facility] [id number] 02:09:00* Test Item Value Reference Range Interpretation Comme nts POCT PREG (test code = 1605) negative On board controls acceptable with C Line (test code = 3574) present POCT PREG LOT # (test code = 3575) [id number] POCT PREG TEST DATE ( test code = 3576) 2023-09-01 Lab Interpretation (test cod e = 79629-7) Normal [facility] [id number] 19:04:00* Test Item Value Reference Range Interpretation Comme nts POCT PREG (test code = 1605) Negative On board controls acceptable with C Line (test code = 3574) Yes POCT PREG LOT # (test code = 3575) POCT PREG TEST DATE ( test code = 3576) [facility] with Kxpopfqeibfw5415-43-03 11:28:52* Test Item Value Reference Range Interpretation Comme nts WBC (test code = 6690-2) See_Comment H [Automated messa ge] The system which generated this result transmitted reference range: 4.30 - 11.10 10*3/?L. The reference range was not used to interpret this result as normal/abnormal. RBC (test code = 789-8) See_Comment L [Automated InfraSearcha ge] The system which generated this result transmitted reference range: 3.93 - 5.25 10*6/?L. The reference range was not used to interpret this result as normal/abnormal. HGB (test code = 718-7) 9.2 g/dL 11.6-15.0 L HCT (test code = 4544-3) 29.6 % 35.7-45.2 L MCV (test code = 787-2) 84.3 fL 80.6-95.5 MCH (test code = 785-6) 26.2 pg 25.9-32.8 MCHC (test code = 786-4) 31.1 g/dL 31.6-35.1 L RDW-SD (test code = 12827-3) 61.5 fL 39.0-49.9 H RDW-CV (test code = 788-0) 20.1 % 12.0-15.5 H PLT (test code = 777-3) See_Comment L [Automated InfraSearcha ge] The system which generated this result transmitted reference range: 166 - 358 10*3/?L. The reference range was not used to interpret this result as normal/abnormal. MPV (test code = 05237-8) 12.3 fL 9.5-12.9 IPF % (test code = 7928524298) 10.3 % 1.3-7.7 H Platelet count measured by fluorescence method. NRBC/100 WBC (test code = 0120804533) See_Comment [Automated Visible Measures ssage] The system which generated this result transmitted reference range: 0.0 - 10.0 /100 WBCs. The reference range was not used to interpret this result as normal/abnormal. NRBC x10^3 (test code = 6538749759) See_Comment [Automated InfraSearcha ge] The system which generated this result transmitted reference range: 10*3/?L. The reference range was not used to interpret this result as normal/abnormal. GRAN MAT (NEUT) % (test code = 770-8) 73.1 % IMM GRAN % (test code = 3915018404) 0.60 % LYMPH % (test code = 736-9) 17.3 % MONO % (test code = 5905-5) 7.5 % EOS % (test code = 713-8) 1.1 % BASO % (test code = 706-2) 0.4 % GRAN MAT x10^3(ANC) (test code = 4924282838) 9.02 10*3/uL 1.88-7.09 H IMM GRAN x10^3 (test code = 2930993841) 0.07 10*3/uL 0.00-0.06 H LYMPH x10^3 (test code = 731-0) 2.14 10*3/uL 1.32-3.29 MONO x10^3 (test code = 742-7) 0.93 10*3/uL 0.33-0.92 H EOS x10^3 (test code = 711-2) 0.13 10*3/uL 0.03-0.39 BASO x10^3 (test code = 704-7) 0.05 10*3/uL 0.01-0.07 Lab Interpretation (test code = 13846-7) [facility] - [id number] 07:46:31* Test Item Value Reference Range Interpretation Comme nts RPR (Qualitative) (test code = 23444-3) Nonreactive Nonreactive Lab Interpretation (test cod e = 58293-0) Normal [facility] CenterHepatitis B Surface [id number] 21:40:59 * Test Item Value Reference Range Interpretation Comme nts HBsAg Semi-Quantitative (rashad t code = 5195-3) Negative Negative [facility] AG-AB WITH [id number] 20:00:41* Test Item Value Reference Range Interpretation Comme nts HIV Semi-quantitative (test code = 45151-2) Negative Negative ADDIE (test code = ADDIE) Non-reactive for HIV-1 antigen and HIV-1/HIV-2 antibodies. ?No laboratory evidence of HIV infection. ?Repeat in 2-4 weeks if acute HIV infection is suspected. [facility] CenterType and Screen - ONCE [id number] 19:34:10 * Test Item Value Reference Range Interpretation Comme nts ABO & RH (test code = 20) A Positive Performed at [facility] Laboratory [facility] Blood [address] [id number] Free: [phone] No. [id number] IAT (test code = 1185) Negative Performed at [facility] Laboratory [facility] Blood [address] [id number] Free: [phone] No. [id number] [facility] CenterCBC with Tglyswlkduqb7766-84-53 18:52:59* Test Item Value Reference Range Interpretation Comme nts WBC (test code = 6690-2) See_Comment H [Automated messa ge] The system which generated this result transmitted reference range: 4.30 - 11.10 10*3/?L. The reference range was not used to interpret this result as normal/abnormal. RBC (test code = 789-8) See_Comment [Automated messa ge] The system which generated this result transmitted reference range: 3.93 - 5.25 10*6/?L. The reference range was not used to interpret this result as normal/abnormal. HGB (test code = 718-7) 10.4 g/dL 11.6-15.0 L HCT (test code = 4544-3) 32.7 % 35.7-45.2 L MCV (test code = 787-2) 82.8 fL 80.6-95.5 MCH (test code = 785-6) 26.3 pg 25.9-32.8 MCHC (test code = 786-4) 31.8 g/dL 31.6-35.1 RDW-SD (test code = 34624-0) 59.7 fL 39.0-49.9 H RDW-CV (test code = 788-0) 20.1 % 12.0-15.5 H PLT (test code = 777-3) See_Comment [Automated messa ge] The system which generated this result transmitted reference range: 166 - 358 10*3/?L. The reference range was not used to interpret this result as normal/abnormal. MPV (test code = 57733-6) 11.9 fL 9.5-12.9 IPF % (test code = 7147987544) 10.1 % 1.3-7.7 H Platelet count measured by fluorescence method. NRBC/100 WBC (test code = 6806774034) See_Comment [Automated me ssage] The system which generated this result transmitted reference range: 0.0 - 10.0 /100 WBCs. The reference range was not used to interpret this result as normal/abnormal. NRBC x10^3 (test code = 4684232465) See_Comment [Automated messa ge] The system which generated this result transmitted reference range: 10*3/?L. The reference range was not used to interpret this result as normal/abnormal. GRAN MAT (NEUT) % (test code = 770-8) 77.5 % IMM GRAN % (test code = 6729625634) 0.50 % LYMPH % (test code = 736-9) 13.6 % MONO % (test code = 5905-5) 6.7 % EOS % (test code = 713-8) 1.4 % BASO % (test code = 706-2) 0.3 % GRAN MAT x10^3(ANC) (test code = 7409848321) 9.78 10*3/uL 1.88-7.09 H IMM GRAN x10^3 (test code = 8604362763) 0.06 10*3/uL 0.00-0.06 LYMPH x10^3 (test code = 731-0) 1.71 10*3/uL 1.32-3.29 MONO x10^3 (test code = 742-7) 0.84 10*3/uL 0.33-0.92 EOS x10^3 (test code = 711-2) 0.18 10*3/uL 0.03-0.39 BASO x10^3 (test code = 704-7) 0.04 10*3/uL 0.01-0.07 Lab Interpretation (test code = 13487-7) Abnormal [facility] URINALYSIS W/O SPECIFIC [id number] 22:08:00* Test Item Value Reference Range Interpretation Comme nts POCT PH U (test code = 3254) n/a 5-8 POCT U LEUK EST (test code = 3263) n/a Negative - Negative POCT U NIT (test code = 3262) n/a Negative - Negati ve POCT U PROT (test code = 3259) negative Negative - Negat shell POCT U GLU (test code = 3256) negative Negative - Negati ve POCT U KETONE (test code = 3258) n/a Negative - Neg ative POCT U BLD (test code = 3257) n/a Negative - Negati ve [facility] URINALYSIS W/O SPECIFIC [id number] 22:22:00* Test Item Value Reference Range Interpretation Comme nts POCT PH U (test code = 3254) 5 mg/dl 5-8 POCT U LEUK EST (test code = 3263) Negative Negative - Negative POCT U NIT (test code = 3262) Negative Negative - Negati ve POCT U PROT (test code = 3259) Negative Negative - Negat shell POCT U GLU (test code = 3256) Normal Negative - Negati ve POCT U KETONE (test code = 3258) Negative Negative - Neg ative POCT U BLD (test code = 3257) Negative Negative - Negati ve [facility] URINALYSIS W/O SPECIFIC [id number] 16:45:00* Test Item Value Reference Range Interpretation Comme nts POCT PH U (test code = 3254) n/a 5-8 POCT U LEUK EST (test code = 3263) n/a Negative - N egative POCT U NIT (test code = 3262) n/a Negative - Negati ve POCT U PROT (test code = 3259) neg Negative - Negat shell POCT U GLU (test code = 3256) neg Negative - Negati ve POCT U KETONE (test code = 3258) n/a Negative - Neg ative POCT U BLD (test code = 3257) n/a Negative - Negati ve [facility] URINALYSIS W/O SPECIFIC [id number] 19:15:00* Test Item Value Reference Range Interpretation Comme nts POCT PH U (test code = 3254) N/A 5-8 POCT U LEUK EST (test code = 3263) N/A Negative - N egative POCT U NIT (test code = 3262) N/A Negative - Negati ve POCT U PROT (test code = 3259) NEG Negative - Negat shell POCT U GLU (test code = 3256) NEG Negative - Negati ve POCT U KETONE (test code = 3258) N/A Negative - Neg ative POCT U BLD (test code = 3257) N/A Negative - Negati ve [facility] URINALYSIS W/O SPECIFIC [id number] 15:32:00* Test Item Value Reference Range Interpretation Comme nts POCT PH U (test code = 3254) n/a 5-8 POCT U LEUK EST (test code = 3263) n/a Negative - Negative POCT U NIT (test code = 3262) n/a Negative - Negati ve POCT U PROT (test code = 3259) negative Negative - Negat shell POCT U GLU (test code = 3256) negative Negative - Negati ve POCT U KETONE (test code = 3258) n/a Negative - Neg ative POCT U BLD (test code = 3257) n/a Negative - Negati ve [facility] URINALYSIS W/O SPECIFIC [id number] 16:25:00* Test Item Value Reference Range Interpretation Comme nts POCT PH U (test code = 3254) n/a 5-8 POCT U LEUK EST (test code = 3263) n/a Negative - Negative POCT U NIT (test code = 3262) n/a Negative - Negati ve POCT U PROT (test code = 3259) trace Negative - Negat shell POCT U GLU (test code = 3256) negative Negative - Negati ve POCT U KETONE (test code = 3258) n/a Negative - Neg ative POCT U BLD (test code = 3257) n/a Negative - Negati ve [facility] URINALYSIS W/O SPECIFIC [id number] 16:25:00* Test Item Value Reference Range Interpretation Comme nts POCT PH U (test code = 3254) n/a 5-8 POCT U LEUK EST (test code = 3263) n/a Negative - Negative POCT U NIT (test code = 3262) n/a Negative - Negati ve POCT U PROT (test code = 3259) trace Negative - Negat shell POCT U GLU (test code = 3256) negative Negative - Negati ve POCT U KETONE (test code = 3258) n/a Negative - Neg ative POCT U BLD (test code = 3257) n/a Negative - Negati ve [facility] Notes Date/Time Note Provider Source 2023-09-30 16:35:46 FZI4BN95nDNZprylEFKYGEfPVqFtik/5WLXsjf JDT1lhUp9SHmuiM75VpnHxAgJR5569-92-60W8 6:35:46 Name and verified. Pt stated that she started spotting and now menstrual cycle in August. Has been bleeding since then. Bleeding getting wore. Wearing Ultra Tampon with pad and having to change every 1-2 hrs. Fatigue, SOB. Does have a cough. Was sent home today from work. Has Nexplanon- inserted 07/26. Did not have a period until 08/24. Instructed pt to go to ER to be evaluated. Verbalized understanding.MEGHANA PACHECO RN 09/30/2023 4:38 PM 88566-0Hygjnpiit encounter KbcnKH5346-61-45N66:38:49Telephone encounter NoteTXT1.2.840.310451.1.13.104.2.7.2.7 74151|[id number] for patient ugsi37347-2AzuwCXUGNFVKJWAToffjvhxb C-CDA narrative [id number] Pacheco RN[address] OwldKyxtywswrNycqwdypvANMU4099218876RV LNIJZUFMUYBTLSTDAMWG2972-10-20W20:38:4 91.2.840.251630.1.72.3.15|1.2.840.1143 50.1.13.104.2.7.2.727879_[id number] Meghana Pacheco RN [facility] 2023-09-30 16:02:38 p/fIeVqCUwVjM0wQEelKtk/fNqExUSqwHiU9c9 /viXTFT1A50d42FGIn4TjrzO6B4905-98-02L6 6:02:38 Pt says her cycle been heavy and been bleeding for a month now, offered appt her insurance is out of network so want to speak to nurse first. She thinks may have something to do with her control implant. 07706-2Noxssngiu encounter YmnxQA3758-22-58N31:03:51Telephone encounter NoteTXT1.2.840.831211.1.13.104.2.7.2.7 52773|[id number] for patient piki57838-6HhcgISLMUNTHMRPHydwzmdmd C-CDA narrative [id number] Jose Ramon[address]Et[id number] IYGWCSQRURLFGIFPNAJK6751-98-54W80:03:5 11.2.840.050212.1.72.3.15|1.2.840.1143 50.1.13.104.2.7.2.727879_[id number] Charlene Albright [facility] 2023-08-14 14:12:37 J3N434wAhF1B9qNynY5IMkdx/1dvRSPrKjguGK enmpQtItK1f4jpfATIwZtNLpd84337-45-25C3 4:12:37 Chief ComplaintPatient presents withNew PatientCongestionGreen mucus, headache, cough mainly at night. Symptoms since SaturdayHeadachePaula NHUNG ZafarN 18586-7Epepb MisrFD3867-52-13G23:32:47Nurse NoteTXT1.2.840.242020.1.13.131.2.7.2.7 32197|[id number] for patient cagh02891-1Gzjqo NoteLNNARRATIVEFormatted C-CDA narrative textAurora Health Center[address] [facility][id number] 813-47-87Z25:32:471.2.840.628860.1.72. 3.15|1.2.840.218959.1.13.131.2.7.2.727 879_[id number] [facility] 2023-07-23 20:58:17 UFbdE87vRMy5zoJll11ppXiWeWxgE6kfuVEnsT T/wllT0cXLZQAkCLEO+vIgCX2O3979-82-83L3 0:58:17 Pt given printed and verbal discharge instructions regarding arthralgia of right temporomandibular jointPrescriptions providedPt verbalized understanding of instructions, pt awake alert oriented, resp reg unlabored, skin w/d, color appropriate for race, moves all ext well,pt encouraged to follow up with pcpAdvised to seek medical attention for new/prolonged/worsening of symptomsAwake, alert oriented, resp reg unlabored, skin w/d, pt leaving amb with steady gait, in no apparent distress 40763-4Ywdswrayw department GrqvAC0866-80-42N80:59:00Emergency department NoteTXT1.2.840.514243.1.13.104.2.7.2.7 45371|[id number] for patient fyqx27440-1LbbrRJGQJEAFWALDmemsvhvj C-CDA narrative [id number] A Diaz RNUTMBUT - [address]ZaecWlzjgiizpWzcbuncyvVNCM4705629841WZ NVFOLQFEKQRHUVWEIBJR5643-98-81X48:59:0 01.2.840.217041.1.72.3.15|1.2.840.1143 50.1.13.104.2.7.2.727879_[id number] Joleen Rodríguez RN [facility] 2023-07-23 20:41:27 vMTCo/fvy3zkcLuWbPe9oZfTA5MnADZQQpxPr1 evClbBmaaetg0YXc4+WBN9ZRl10168-33-23E5 0:41:27 Pt arrives ambulatory to ED reporting right side ear pain that started today. 71357-2Ovinurljt department Triage tvyiDB9247-02-07R37:41:51[facility] Triage noteTXT1.2.840.968041.1.13.104.2.7.2.7 45992|[id number] for patient szxb48049-3Kbsmbjerc department NoteLNNARRATIVEFormatted C-CDA narrative [id number] L Williams RN[address] YsgiTxfztqzuzQnpoisvshGDUB2699932713XK NTCIHBPNGNGDCXPOQTTA7279-93-70P91:41:5 11.2.840.954692.1.72.3.15|1.2.840.1143 50.1.13.104.2.7.2.727879_[id number] Shira Wolf RN [facility] 2023-07-23 20:35:00 ALknQnsNlI9xsRqMeuunApbDsbeFJOFitJAQCH 76fuZJT17eL3Ot3o4ATtE679X11276-89-32T5 0:35:00 Images from the original note were not included.[facility] Emergency Department NotePatient Name: Gretel Mendoza of : 1990 32 year old femaleTreatment Room: Room/bed info not foundMedical Record Number: [id number] Care Physician: Jacinda BuiPatient Escorted by: Family [5]Mode of Arrival: Personal means [1]EMS Treatment Prior to ED Arrival:FRUIT WASHER treatment: NoneTravel and Exposure Screening:SymptomsDoes patient have any of these symptoms?: (not recorded)Exposure ScreeningHas patient had contact with someone with a communicable disease in the last month?: (not recorded)Diseases exposed to:: (not recorded)Is Patient ?: (not recorded)Exposure Date: (not recorded)Chief Complaint:Chief ComplaintPatient presents withEar PainHistory of Present Illness:32 yo female resenting to the ED with acute onset of Right TMJ pain, 8/10 in intensity, radiating down to her face and to her ear, patient denies fever, denies trauma, denies dental pain or facial rash, no other symptoms or complaints.History provided by: PatientLanguage ruby engineer used: NoPast Medical History/Immunizations:Past Medical History:Diagnosis DateAbsence of menstruation 06/28/2016Acute biliary pancreatitis 08/01/2022nemiaDuring , not on medsChlamydiaChlamydia trachomatis infection of lower genitourinary sites 2013treatedDepression 09/01/2006resolvedGonorrhea 2012gonorrhea, treatedSplenomegaly 08/02/2022Tetanus received in last 5 years: NoAllergies:No Known AllergiesPast Social History:Tobacco UseSome Days; Cigarettes: Started 2014; Last attempted to quit 05/2020; 0.50 packs/daySmokeless Tobacco: Never used smokeless tobacco.Vaping UseNever usedAlcohol UseNo.Drug UseNo.Sexual ActivitySexually active; Partners: Male; Control/Protection: None.Past Surgical History:Past Surgical History:Procedure Laterality DateINTRAOPERATIVE CHOLANGIOGRAM N/A 08/03/2022Surgeon: Sherrie Casillas MD; [facility] N/A 12/01/2020urgeon: Galen Hewitt MD; [facility]LECYSTECTOMY N/A 08/03/2022Surgeon: Sherrie Casillas MD; [facility]:Review of SystemsConstitutional: Negative for activity change, appetite change, chills, diaphoresis, fatigue and fever.HENT: Negative for congestion, ear discharge, ear pain, rhinorrhea, sore throat and trouble swallowing.Eyes: Negative for photophobia, pain, discharge and redness.Respiratory: Negative for cough, chest tightness, shortness of breath and wheezing.Cardiovascular: Negative for chest pain, palpitations and leg swelling.Gastrointestinal: Negative for abdominal distention, abdominal pain, blood in stool, constipation, nausea and vomiting.Genitourinary: Negative for dysuria, urgency, polyuria, frequency, hematuria and flank pain.Musculoskeletal: Negative for arthralgias, joint swelling, myalgias and neck stiffness.Skin: Negative for color change, rash and wound.Neurological: Negative for dizziness, seizures, syncope, facial asymmetry, weakness, light-headedness, numbness and headaches.Psychiatric/Behavioral: Negative for agitation, confusion, hallucinations and self-injury. The patient is not nervous/anxious.Hematological: Negative for adenopathy and cold intolerance. Does not bruise/bleed easily.Endocrine: Negative for cold intolerance, polydipsia and polyuria.Physical Exam:ED Triage Vitals [07/23/232042]Weight 97.1 kg (214 lb)Actual or estimated Estimated by patient/family reportHeight 1.549 m (5' 1")BP 125/80Pulse 86Resp 18Temp 37 ?C (98.6 ?F)Temp srcSpO2 98 %Measured on Room airPhysical ExamVitals and nursing note reviewed.Constitutional:General: She is awake. She is not in acute distress.Appearance: She is well-developed and well-groomed. She is not ill-appearing, toxic-appearing or diaphoretic.HENT:Head: Normocephalic and atraumatic.Jaw: Tenderness, pain on movement and malocclusion present. No trismus or swelling.Right Ear: External ear normal.Left Ear: External ear normal.Nose: Nose normal.Mouth/Throat:Pharynx: No oropharyngeal exudate.Eyes:General: No scleral icterus.Right eye: No discharge.Left eye: No discharge.Conjunctiva/sclera: Conjunctivae normal.Pupils: Pupils are equal, round, and reactive to light.Neck:Thyroid: No thyromegaly.Vascular: No JVD.Trachea: No tracheal deviation.Cardiovascular:Rate and Rhythm: Normal rate and regular rhythm.Heart sounds: Normal heart sounds. No murmur heard.No friction rub. No gallop.Pulmonary:Effort: Pulmonary effort is normal. No respiratory distress.Breath sounds: Normal breath sounds. No stridor. No wheezing or rales.Chest:Chest wall: No tenderness.Abdominal:General: Bowel sounds are normal. There is no distension.Palpations: Abdomen is soft. There is no mass.Tenderness: There is no abdominal tenderness. There is no guarding or rebound.Musculoskeletal:General: No tenderness or deformity. Normal range of motion.Cervical back: Normal range of motion and neck supple.Lymphadenopathy:Cervical: No cervical adenopathy.Skin:General: Skin is warm and dry.Coloration: Skin is not pale.Findings: No erythema or rash.Neurological:Mental Status: She is alert and oriented to person, place, and time.Cranial Nerves: No cranial nerve deficit.Motor: No abnormal muscle tone.Coordination: Coordination normal.Deep Tendon Reflexes: Reflexes are normal and symmetric. Reflexes normal.Psychiatric:Behavior: Behavior normal. Behavior is cooperative.Thought Content: Thought content normal.Judgment: Judgment normal.Radiology:No orders to displayLab Results:Lab Results - No data to displayEKG:If EKG completed, see Procedure Note.Orders and Treatments:No orders of the defined types were placed in this encounter.Orders Placed This EncounterMedicationsdiclofenac 75 mg EC tabletacetaminophen (TYLENOL ARTHRITIS PAIN) 650 mg CR tabletpredniSONE 20 mg tabletgabapentin (NEURONTIN) 100 mg capsuleFirst Provider Eval:ED EventsDate/Time Event User Annxldvx09/20/242043 Medical Screening Begins LOKESH SERNA MD --07/23/232043 First Provider Evaluation LOKESH SERNA MD --ED COURSEDiagnosis/Impression as of 07/23/23rthralgia of right temporomandibular jointPatient's condition stable findings consistent with TMJ Pain, will address her issues and will DC Her home with adequate medications to treat her condition.Procedures:ProceduresMDM:Med ical Decision MakingProblems Addressed:Arthralgia of right temporomandibular joint: complicated acute illness or injury with systemic symptomsAmount and/or Complexity of Data ReviewedIndependent Historian:Details: at bed side provided additional data regarding her caseRiskOTC drugs.Prescription drug management.Flowsheet Documentation:Scoring Tools:No data recordedDisposition/Condition:ED DispositionED DispositionDisch - HomeConditionStableComment--Discharge Medications:Patient's MedicationsSTART taking these medicationsACETAMINOPHEN (TYLENOL ARTHRITIS PAIN) 650 MG CR TABLET Take 1 tablet by mouth every 8 (eight) hours as needed for Pain.DICLOFENAC 75 MG EC TABLET Take 1 tablet by mouth in the morning and 1 tablet in the evening. Take with meals.GABAPENTIN (NEURONTIN) 100 MG CAPSULE Take 1 capsule by mouth in the morning and 1 capsule at noon and 1 capsule in the evening.PREDNISONE 20 MG TABLET Take 2 tablets PO dailyCONTINUE taking these medications which have NOT CHANGEDIBUPROFEN 600 MG TABLET Take 1 tablet by mouth every 6 (six) hours as needed for Pain (scale 4-6) or Pain (scale 1-3).TIZANIDINE 2 MG CAPSULE Take 1 capsule by mouth in the morning and 1 capsule at noon and 1 capsule in the evening.START taking Modified Medications as PrescribedNo medications on fileSTOP taking these medicationsNo medications on fileFollow-up:Contact information for follow-upJacinda Bui FNPSpecialty: RUBBISH COLLECTOR-FAMILYRelationship: PCP - [facility] SVWFPRW[address] [place] [address] [place] [address]Rfrnv: [phone]: If symptoms worsenElectronically signed by:Lokesh Serna MD07/23/232051 35557-1Sbndlstor Emergency department IynwXG2972-37-79D07:52:12Physician Emergency department NoteTXT1.2.840.528490.1.13.104.2.7.2.7 02545|[id number] for patient pcat26250-1Bzebrrusb department NoteLNNARRATIVEFormatted C-CDA narrative textJACOBS MED[facility] - [address]co [id number] VINWZLBLOQGOPMYNFRYM3512-61-63E81:52:1 21.2.840.079291.1.72.3.15|1.2.840.1143 50.1.13.104.2.7.2.727879_[id number] [facility]
[2023-09-30 20:20] LABS: Absolute Eosinophils 0.3 K/uL (0-0.5); Absolute Lymphocytes (CBC) 2.6 K/uL (0.7-4.9); Absolute Monocytes 0.6 K/uL (0.1-1.3); Absolute Neutrophil 4.7 K/uL (1.8-8.0); Basophils % 0.6 % (0-1.3); Eosinophils % 3.7 % (0-4.4); Hematocrit 35.7 % (36.0-45.0); Hemoglobin 12.4 g/dL (12.0-15.0); Lymphocytes % 31.5 % (15.3-44.8); MCH 28.5 pg (27.0-35.0); MCHC 34.6 g/dL (32.0-36.0); MCV 82.2 fL (80-100); MPV 10.4 fL (7.6-11.3); Monocytes % 7.1 % (3.3-12.3); Neutrophils % 57.1 % (41.7-73.7); Platelets 231 thou/uL (152-406); RBC Red Blood Cell Count 4.34 M/uL (3.86-4.86)
[2023-09-30 20:25] LABS: Specific Gravity > 1.030 (1.005-1.030); Sqamous Epithelial <5 /HPF (None Seen); Urine Bacteria None Seen /HPF (<20); Urine Bilirubin NEGATIVE (Negative); Urine Blood Trace (Negative); Urine Clarity Clear (Clear); Urine Color Yellow (Yellow); Urine Culture Reflex Order NOT NEEDED; Urine Glucose NEGATIVE (Negative); Urine Ketones NEGATIVE (Negative); Urine Micro Reflex YN NO BILL MICROSCOPIC; Urine Mucus 3+ /HPF (None Seen); Urine Nitrite NEGATIVE (Negative); Urine Protein TRACE (Negative); Urine RBC <5 /HPF (None Seen); Urine Urobilinogen 1+ (Normal); Urine WBC <5 /HPF (<5)
[2023-09-30 20:31] LABS: PT Prothrombin Time 11.9 SECONDS (9.5-12.5); PTT, Activated Partial Thromb 26.7 SECONDS (24.3-36.9); Protime INR 1.08
[2023-09-30 20:39] LABS: ALT/SGPT 20 U/L (13-56); AST/SGOT 7 U/L (15-37); Albumin 3.2 g/dL (3.4-5.0); Albumin/Globulin Ratio 0.9 (1.1-1.8); Alkaline Phosphatase 94 U/L (45-117); Anion Gap 6.9 mEq/L (5.0-15.0); BUN Blood Urea Nitrogen 12 mg/dL (7-18); Bicarbonate 27 mEq/L (21-32); Bilirubin Total 0.3 mg/dL (0.2-1.0); Globulin 3.6 g/dL (2.3-3.5); Glomerular Filtration Rate 119 ml/min (=/>90); Glucose Level 95 mg/dL (74-106); Magnesium 1.9 mg/dL (1.6-2.4); Potassium 3.9 mEq/L (3.5-5.1); Protein, Total 6.8 g/dL (6.4-8.2); Sodium Level 138 mEq/L (136-145)
[2023-09-30 20:59] LABS: Bilirubin Direct < 0.1 mg/dL (0-0.2); Bilirubin Indirect, Calculated ND mg/dL (0.2-0.8)
--- NOTE | 2023-09-30 21:18 | RAD REPORT ---
EXAM DESCRIPTION: US - Transvaginal Study Probe - 09/30/2023 8:26 pm CLINICAL HISTORY: VAGINAL BLEEDING COMPARISON: No comparisons TECHNIQUE: Sonographic grayscale and color flow images of the pelvis were obtained. FINDINGS: The uterus is normal in size, shape and echotexture. The uterus measures 8.5 cm in length. The endometrial stripe measures 7 mm, within normal. Both ovaries are normal in size, shape and echotexture. The right ovary measures 4.9 x 3.7 x 3.9 cm. A contains a dominant cyst with marginal locules/daughter cysts, measuring 3.9 x 3.2 x 3.3 cm. The l eft ovary measures 3.3 x 1.7 x 2.6 cm. No ovarian or parovarian lesions. No adnexal masses. Normal Doppler blood flow was demonstrated to both ovaries. No significant pelvic ascites. IMPRESSION: Dominant right ovarian 3.9 cm cyst, likely physiologic. No other acute findings. No evidence of torsion.
--- NOTE | 2023-09-30 21:34 | RAD REPORT ---
EXAM DESCRIPTION: Scar Single View09/30/2023 8:39 pm CLINICAL HISTORY: COUGH COMPARISON: No comparisons TECHNIQUE: Portable AP view of the chest. FINDINGS: The lungs are clear. No pneumothorax or effusion. The cardiomediastinal contours are unre markable. IMPRESSION: No acute cardiopulmonary process.
[2023-09-30] MEDS ORDERED: DIPHENHYDRAMINE 50 MG/ML VIAL ONE (22:57)
[2023-09-30] MEDS ORDERED: KETOROLAC 30 MG/ML INJ ONE (22:57)
[2023-09-30] MEDS ORDERED: NA CHLORIDE 0.9% 500 ML ONE (22:58)
[2023-09-30] MEDS ORDERED: METOCLOPRAMIDE 10 MG/2mL INJ ONE (22:58)
--- NOTE | 2023-10-01 00:43 | EDPHYS ---
Physician Documentation [facility] Name: Gretel Nguyen Age: 33 yrs Sex: Female : 1990 Arrival Date: 09/30/2023 Time: 18:56 Bed 5 Private MD: ED Physician Ganesh Pelaez HPI: 09/29 19:30 This 33 yrs old Female presents to ER via Ambulatory with complaints of cp Vaginal Bleeding, Back Pain, Cough, Shortness Of Breath. 19:30 The patient presents with vaginal bleeding that is since August that has become heavy cp over past 2 weeks. Associated signs and symptoms: Pertinent positives: cough, shortness of breath, back pain. 19:30 Severity of symptoms: in the emergency department the symptoms are unchanged, despite cp home interventions. 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 Flu vaccine is not up to date. - Infectious Disease History:: Denies. - Social history:: Smoking status: Reported history of juuling and/or vaping. ROS: 19:35 Constitutional: Negative for body aches, chills, fever, poor PO intake, cp 19:35 Respiratory: Positive for cough, shortness of breath, cp 19:35 Eyes: Negative for injury, pain, redness, and discharge, cp 19:35 ENT: Negative for drainage from ear(s), ear pain, sore throat, difficulty swallowing, difficulty handling secretions, 19:35 Cardiovascular: Negative for chest pain, edema, palpitations, 19:35 Abdomen/GI: Positive for abdominal pain, Negative for vomiting, diarrhea, constipation, 19:35 Back: Positive for pain at rest, pain with movement, 19:35 : Positive for vaginal bleeding, Negative for urinary symptoms, 19:35 Neuro: Negative for altered mental status, headache, syncope, near syncope, weakness, cp 19:35 All other systems are negative, Exam: 19:40 Constitutional: The patient appears in no acute distress, alert, awake, non-toxic, well cp developed, well nourished, obese, 19:40 Head/Face: Normocephalic, atraumatic. cp 19:40 Eyes: Periorbital structures: appear normal, Conjunctiva: normal, no exudate, no injection, Sclera: no appreciated abnormality, Lids and lashes: appear normal, bilaterally, 19:40 ENT: External ear(s): are unremarkable, Nose: is normal, Mouth: Lips: moist, Oral mucosa: pink and intact, moist, Posterior pharynx: Airway: no evidence of obstruction, patent, Tonsils: no enlargement, no erythema, no exudate, erythema, is not appreciated, exudate, is not appreciated, 19:40 Neck: ROM/movement: is normal, is supple, without pain, no range of motions limitations, 19:40 Chest/axilla: Inspection: normal, 19:40 Cardiovascular: Rate: normal, Rhythm: regular, Edema: is not appreciated, JVD: is not appreciated, 19:40 Respiratory: the patient does not display signs of respiratory distress, Respirations: normal, no use of accessory muscles, no retractions, labored breathing, is not present, Breath sounds: are clear throughout, no decreased breath sounds, no stridor, no wheezing, 19:40 Abdomen/GI: Inspection: abdomen appears normal, Bowel sounds: active, all quadrants, Palpation: soft, in all quadrants, mild abdominal tenderness, in the right lower quadrant and left lower quadrant, 19:40 Back: pain, that is mild, ROM is normal, CVA tenderness, is absent, 19:40 Neuro: Orientation: to person, place \T\ time. Mentation: is normal, Motor: moves all fours, strength is normal, Sensation: is normal, 21:55 ECG was reviewed by the Attending Physician. cp Vital Signs: 19:17 Pulse 78; Resp 18; Temp 98.1; Pulse Ox 100% ; Weight 95.25 kg; Height 5 ft. 1 in. ; vc1 Pain 9/10; 19:22 BP 134 / 82; vc1 22:00 BP 143 / 98; Pulse 71; Resp 18 S; Pulse Ox 100% ; ha1 23:00 BP 139 / 95; Pulse 78; Resp 17 S; Pulse Ox 98% on R/A; ha1 0430 00:00 BP 135 / 75; Pulse 77; Resp 17 S; Pulse Ox 98% on R/A; ha1 00:30 BP 134 / 76; Pulse 77; Resp 17 S; Pulse Ox 100% on R/A; ha1 09/29 19:17 Body Mass Index 39.68 (95.25 kg, 154.94 cm) vc1 09/29 19:17 Pain Scale: Adult vc1 MDM: 09/29 19:22 Patient medically screened. [facility] 09/30 00:41 Data reviewed: vital signs, nurses notes, lab test result(s), EKG, radiologic studies, cp plain films, ultrasound, and as a result, I will discharge patient. 00:41 Differential diagnosis: dysmenorrhea, ectopic , endometriosis, cp menometrorrhagia, molar preganancy, Neoplasm ovarian cyst. I considered the following discharge prescriptions or medication management in the emergency department Medications were administered in the Emergency Department. See MAR. Counseling: I had a detailed discussion with the patient and/or guardian regarding the historical points, exam findings, and any diagnostic results supporting the discharge/admit diagnosis, lab results, radiology results, the need for outpatient follow up, an OB/Gyne specialist, to return to the emergency department if symptoms worsen or persist or if there are any questions or concerns that arise at home. Response to treatment: the patient's symptoms have markedly improved after treatment, and as a result, I will discharge patient. 09/29 19:31 Order name: Basic Metabolic Panel; Complete Time: 21:34 cp 09/29 22:41 Interpretation: Normal except: CL 108. cp 09/29 19:31 Order name: CBC with Diff; Complete Time: 21:34 cp 09/29 22:41 Interpretation: Normal except: HCT 35.7. cp 09/29 19:31 Order name: LFT's; Complete Time: 21:34 cp 09/29 22:41 Interpretation: Normal except: AST 7; ALB 3.2; GLOB 3.6; A/G 0.9. 09/29 19:31 Order name: Magnesium; Complete Time: 21:34 cp 09/29 19:31 Order name: PT-INR; Complete Time: 21:34 cp 09/29 19:31 Order name: Type And Screen; Complete Time: 21:34 cp 09/29 19:31 Order name: Ptt, Activated; Complete Time: 21:34 cp 09/29 19:32 Order name: Test, Serum; Complete Time: 21:34 cp 09/29 19:32 Order name: Urinalysis W/Microscopic; Complete Time: 21:34 cp 09/29 22:41 Interpretation: Normal except: Urine SG > 1.030; UBLD Trace; UPROT TRACE; UUROB 1+; cp MUCUS 3+. 09/29 22:46 Order name: Strep 09/30 00:35 Order name: Throat Culture EDMS 09/29 19:31 Order name: XRAY Chest (1 view); Complete Time: 22:40 09/29 22:40 Interpretation: Report review. 09/29 19:58 Order name: US Transvaginal Study (Probe); Complete Time: 21:34 cp 09/29 22:43 Interpretation: Reviewed report. 09/29 19:31 Order name: Cardiac monitoring; Complete Time: 21:51 09/29 19:31 Order name: EKG - Nurse/Tech; Complete Time: 21:51 09/29 19:31 Order name: IV Saline Lock; Complete Time: 20:13 09/29 19:31 Order name: Labs collected and sent; Complete Time: 20:13 09/29 19:31 Order name: O2 Per Protocol; Complete Time: 20:13 09/29 19:31 Order name: O2 Sat Monitoring; Complete Time: 20:13 cp EC/29 21:55 Rate is 76 beats/min. Rhythm is regular. MS interval is normal. QRS interval is normal. cp QT interval is normal. T waves are Inverted in lead aVR. Interpreted by me. Reviewed by me. Administered Medications: 22:58 Drug: Ketorolac IVP 15 mg IVP once Route: IVP; Site: right antecubital; ha1 23:30 Follow up: Response: No adverse reaction; Marked relief of symptoms 23:00 Drug: NS 0.9% IV 500 ml IV at bolus once Route: IV; Rate: bolus; Site: right ha1 antecubital; 09/30 00:57 Follow up: Response: No adverse reaction; IV Status: Completed infusion; IV Intake: ha1 500ml 09/29 23:00 Drug: diphenhydrAMINE IVP 25 mg IVP once Route: IVP; Site: right antecubital; ha1 23:30 Follow up: Response: No adverse reaction; Marked relief of symptoms ha1 23:02 Drug: metoCLOPramide IVP 10 mg IVP once; over 1 to 2 minutes Route: IVP; Site: right ha1 antecubital; 23:30 Follow up: Response: No adverse reaction; Marked relief of symptoms ha1 Disposition: 09/30 22:11 Co-signature as Attending Physician, Ganesh Pelaez MD I agree with the assessment and papo plan of care. Disposition Summary: 10/01/23 00:42 Discharge Ordered Notes: Location: Home cp Problem: new cp Symptoms: have improved cp Condition: Stable cp Diagnosis - Cough cp - Acute pharyngitis, unspecified cp - Abnormal uterine and vaginal bleeding, unspecified cp - Other ovarian cysts cp Followup: cp - With: Private Physician - When: 2 - 3 days - Reason: Recheck today's complaints Discharge Instructions: - Discharge Summary Sheet cp - Ovarian Cyst cp - Pharyngitis cp - Sore Throat cp - Cough, Adult cp Forms: - Medication Reconciliation Form cp - Antibiotic Education cp - Prescription Opioid Use cp - Patient Portal Instructions cp - Leadership Thank You Letter cp Prescriptions: - Ibuprofen 800 mg Oral Tablet - take 1 tablet ORAL route every 8 hours As needed take with food; 30 tablet; cp Refills: 0, Product Selection Permitted Signatures: Dispatcher [employer] EDMS Ganesh Pelaez MD MD cha Page, Corey, PA PA cp Dinah Pierre, RN RN 1 Agatha Mcallister RN RN ha1 Corrections: (The following items were deleted from the chart) 09/29 19:32 19:32 Chest Single View+RAD.RAD.BRZ ordered. EDNH EDMS 19:58 19:58 Transvaginal Study (Probe)+US.RAD.BRZ ordered. EDNH EDMS 10/01 00:42 09/29 19:30 Associated signs and symptoms: Pertinent positives: cough, shortness of cp breath, cp
--- NOTE | 2023-10-01 00:43 | ER ---
Nurse's Notes [facility] Name: Gretel Nguyen Age: 33 yrs Sex: Female : 1990 Arrival Date: 09/30/2023 Time: 18:56 Bed 5 Private MD: Diagnosis: Cough;Acute pharyngitis, unspecified;Abnormal uterine and vaginal bleeding, unspecified;Other ovarian cysts Presentation: 09/29 19:17 Chief complaint: Patient states: heavy vaginal bleeding last 2 weeks, bleeding since vc01 august. Coronavirus screen: Client denies travel out of the [place] in the last 14 days. Ebola Screen: Patient negative for fever greater than or equal to 101.5 degrees Fahrenheit, and additional compatible Ebola Virus Disease symptoms Patient denies exposure to infectious person. Patient denies travel to an Ebola-affected area in the 21 days before illness onset. No symptoms or risks identified at this time. Initial Sepsis Screen: Does the patient meet any 2 criteria? No. Patient's initial sepsis screen is negative. Does the patient have a suspected source of infection? No. Patient's initial sepsis screen is negative. Risk Assessment: Do you want to hurt yourself or someone else? Patient reports no desire to harm self or others. Onset of symptoms was September 30, 2023. 19:17 Method Of Arrival: Ambulatory vc1 19:17 Acuity: DEREK 3 vc1 Triage Assessment: 19:20 General: Appears in no apparent distress. uncomfortable, Behavior is calm, cooperative, vc1 appropriate for age. Pain: Complains of pain in low back area Pain does not radiate. Pain currently is 9 out of 10 on a pain scale. Quality of pain is described as sharp, stabbing, Pain began couple of weeks Is continuous, Aggravated by increased activity, repositioning, weight bearing. Neuro: Level of Consciousness is awake, alert, obeys commands, Oriented to person, place, time, situation, Appropriate for age. Cardiovascular: Reports shortness of breath. Respiratory: Airway is patent Respiratory effort is even, unlabored, Respiratory pattern is regular, symmetrical. Respiratory: Reports shortness of breath cough that is. : Reports urinary frequency, vaginal bleeding that is bright red, heavy flow. 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 Flu vaccine is not up to date. - Infectious Disease History:: Denies. - Social history:: Smoking status: Reported history of juuling and/or vaping. Screenin/30 00:55 [facility] ED Fall Risk Assessment (Adult) History of falling in the last 3 months, ha1 including since admission No falls in past 3 months (0 pts) Confusion or Disorientation No (0 pts) Intoxicated or Sedated No (0 pts) Impaired Gait No (0 pts) Mobility Assist Device Used No (0 pt) Altered Elimination No (0 pt) Score/Fall Risk Level 0 - 2 = Low Risk Oriented to surroundings, Maintained a safe environment, Educated pt \T\ family on fall prevention, incl call for assistance when getting out of bed, Hourly rounding (assess needs \T\ fall precautionary measures) done. Abuse screen: Denies threats or abuse. Denies injuries from another. Nutritional screening: No deficits noted. Tuberculosis screening: No symptoms or risk factors identified. Assessment: 09/29 21:00 General: Appears comfortable, Behavior is calm, cooperative. Pain: Complains of pain in ha1 chest pain when coughing Pain does not radiate. Pain currently is 2 out of 10 on a pain scale. 21:00 Neuro: Level of Consciousness is awake, alert, obeys commands, Oriented to person, ha1 place, time, situation. Cardiovascular: Capillary refill < 3 seconds Patient's skin is warm and dry. Respiratory: Airway is patent Respiratory effort is even, unlabored, Respiratory pattern is regular, symmetrical. 21:00 Respiratory: Reports cough that is non-productive, dry, persistent Breath sounds are ha1 clear bilaterally. GI: No signs and/or symptoms were reported involving the gastrointestinal system. : Reports vaginal bleeding that is bright red, moderate flow. Musculoskeletal: Circulation, motion, and sensation intact. Range of motion: intact in all extremities. 22:00 Reassessment: Patient and/or family updated on plan of care and expected duration. Pain ha1 level reassessed. Patient is alert, oriented x 3, equal unlabored respirations, skin warm/dry/pink. 23:00 Reassessment: Patient and/or family updated on plan of care and expected duration. Pain ha1 level reassessed. Patient is alert, oriented x 3, equal unlabored respirations, skin warm/dry/pink. 09/30 00:52 Reassessment: Patient and/or family updated on plan of care and expected duration. Pain ha1 level reassessed. Patient is alert, oriented x 3, equal unlabored respirations, skin warm/dry/pink. Patient denies pain at this time. Patient states feeling better. Patient states symptoms have improved. Vital Signs: 09/29 19:17 Pulse 78; Resp 18; Temp 98.1; Pulse Ox 100% ; Weight 95.25 kg; Height 5 ft. 1 in. ; vc1 Pain 9/10; 19:22 BP 134 / 82; vc1 22:00 BP 143 / 98; Pulse 71; Resp 18 S; Pulse Ox 100% ; ha1 23:00 BP 139 / 95; Pulse 78; Resp 17 S; Pulse Ox 98% on R/A; ha1 09/30 00:00 BP 135 / 75; Pulse 77; Resp 17 S; Pulse Ox 98% on R/A; ha1 00:30 BP 134 / 76; Pulse 77; Resp 17 S; Pulse Ox 100% on R/A; ha1 09/29 19:17 Body Mass Index 39.68 (95.25 kg, 154.94 cm) vc1 09/29 19:17 Pain Scale: Adult vc1 ED Course: 09/29 18:58 Patient arrived in ED. mr 19:14 [facility] cp 19:14 Ganesh Pelaez MD is Attending Physician. cp 19:19 Triage completed. vc1 19:20 Arm band placed on right wrist. vc1 20:05 Radiology exam delayed due to pt called for in ER lobby and no answer. rs4 20:13 Urinalysis W/Microscopic Sent. bc6 20:13 Test, Serum Sent. bc6 20:13 Ptt, Activated Sent. bc6 20:13 Type And Screen Sent. bc6 20:13 Basic Metabolic Panel Sent. bc6 20:13 CBC with Diff Sent. bc6 20:13 LFT's Sent. bc6 20:13 Magnesium Sent. bc6 20:13 PT-INR Sent. bc6 20:13 Initial lab(s) drawn, by me, sent to lab. Missed attempt(s): 20 gauge in left bc6 antecubital area. 20:28 US Transvaginal Study (Probe) In Process Unspecified. EDMS 20:35 XRAY Chest (1 view) In Process Unspecified. EDMS 21:30 No provider procedures requiring assistance completed. Inserted saline lock: 22 gauge ha1 in right antecubital area, using aseptic technique. 21:38 Bed in low position. Call light in reach. Side rails up X 1. Client placed on as6 continuous cardiac and pulse oximetry monitoring. NIBP monitoring applied. Warm blanket given. 21:50 EKG done, by ED staff, reviewed by Ganesh MUNGUIA. oe 22:34 Agatha Mcallister, RN is Primary Nurse. ha1 09/30 00:56 Provided Education on: medication administration . ha1 00:56 IV discontinued, intact, bleeding controlled, No redness/swelling at site. Pressure ha1 dressing applied. Administered Medications: 09/29 22:58 Drug: Ketorolac IVP 15 mg IVP once Route: IVP; Site: right antecubital; ha1 23:30 Follow up: Response: No adverse reaction; Marked relief of symptoms ha1 23:00 Drug: NS 0.9% IV 500 ml IV at bolus once Route: IV; Rate: bolus; Site: right ha1 antecubital; 09/30 00:57 Follow up: Response: No adverse reaction; IV Status: Completed infusion; IV Intake: ha1 500ml 09/29 23:00 Drug: diphenhydrAMINE IVP 25 mg IVP once Route: IVP; Site: right antecubital; ha1 23:30 Follow up: Response: No adverse reaction; Marked relief of symptoms ha1 23:02 Drug: metoCLOPramide IVP 10 mg IVP once; over 1 to 2 minutes Route: IVP; Site: right ha1 antecubital; 23:30 Follow up: Response: No adverse reaction; Marked relief of symptoms ha1 Medication: 09/30 00:56 VIS not applicable for this client. ha1 Intake: 00:57 IV: 500ml; Total: 500ml. ha1 Outcome: 00:42 Discharge ordered by . dg 00:56 Discharged to home ambulatory, ha1 00:56 Condition: stable 00:56 Discharge instructions given to patient, Instructed on discharge instructions, follow up and referral plans. medication usage, Demonstrated understanding of instructions, follow-up care, medications, Prescriptions given X 1, 00:58 Patient left the ED. ha1 Signatures: Dispatcher [employer] EDMS Veena Pedroza, Reg Reg mr Ganesh Burrell, Jet Guzman cp, Ashby, RN RN as6 Dinah Pierre RN RN vc1 Agatha Mcallister RN RN ha1 Ophelia Caballero rs4 Paulina Martínez 6 Corrections: (The following items were deleted from the chart) 00:58 00:52 Reassessment: Patient and/or family updated on plan of care and expected ha1 duration. Pain level reassessed. Patient is alert, oriented x 3, equal unlabored respirations, skin warm/dry/pink. ha1
[2023-10-01 01:20] VITALS: BP 134/76; TEMP 98.1; O2SAT 100
--- NOTE | 2023-10-02 13:12 | EKG ---
Test Date: 2023-09-30 Test Time: 21:48:14 Mash Grinder: LIZ MEASUREMENT RESULTS: Intervals: Rate: 76 IA: 160 QRSD: 80 QT: 376 QTc: 423 [place]: P: 50 IA: 160 QRS: 58 T: 48 INTERPRETIVE STATEMENTS: Normal sinus rhythm Cannot rule out Anterior infarct, age undetermined Abnormal ECG No previous ECG available for comparison Electronically Signed On 10-02-23 13:07:24 CDT by Gamaliel Potts
== END 2023-10-01 00:58 | disposition home or self-care (01) ==
LOC: ER 18:56
DX: N83.299 Other ovarian cyst, unspecified side (principal); R05.9 Cough, unspecified; J02.9 Acute pharyngitis, unspecified; Z28.310 Unvaccinated for COVID-19
CPT/HCPCS: 96361; 93005; 87070; 85025; 81001; 80048; 36415; 86900; 83735; 86850; 84703; 85610; 86901; 80076; 87081; 85730; 71045; 76830; 96375; 96374; 99284; J2765; J1200; J7040

== ENCOUNTER 2024-05-05 19:58 | Emergency (ER) | payer OTHER, SELFPAY ==
--- OUTSIDE RECORDS SUMMARY | 2024-05-05 20:04 | XMS REPORT | Continuity of Care Document ---
Author Name Unknown Address [address] [facility] [address] [place] [address] [facility] thconnect Address [address] [facility] [address] [place] [address] Care Team Providers Care Gut Sorter Name Role Phone JACINDA BUI Primary Care Physician Unavailab ILANA Kong Attending Clinician ILANA Hinkle Attending Clinician DEEPAK Au Attending Clinician Unavailab Dilia Bravo MD Attending Clinician [phone] LOKESH SERNA Attending Clinician Unavailable Lokesh Serna MD Attending Clinician [phone] DILIA ESCOBAR Attending Clinician Unavailable Terri Cuevas Attending Clinician + [phone] Scott Verde Attending Clinician [phone] SCOTT JOSEPH Attending Clinician Unavailable JACINDA BUI Attending Clinician Unavailable Shira Frazier MD Attending Clinician [phone] SHIRA FRAZIER Attending Clinician Unavailable Unknown, Attending Attending Clinician Unavailab SHERRIE Salter Attending Clinician Unavailable SHERRIE CASILLAS Attending Clinician Unavailable 2, [facility] Attending Clinician Unavailable Bui RELIGIOUS EDUCATION COORDINATOR, Jacinda Attending Clinician + [phone] Avis LANGE, Paola Ndiaye Attending Clinician Unavail able KHALIF RITTER Attending Clinician Unavailable Gregory Davila MD Attending Clinician [phone] Doctor Unassigned, [place] Attending Clinician U shirleneailable DONELL BRUNSON Attending Clinician Unavailable Arabella Larose MD Attending Clinician [phone] Donell Brunson PA-C Attending Clinician + [phone] Danilo Diallo MD Attending Clinician [phone], [facility] Attending Clinician Unavailable Jorge Estrada Attending Clinician + [phone] Ultrasound, [facility] Attending Clinician Unavailtra Solo MD, Jesse Clifford Attending Clinician + JESSE SOLO Attending Clinician Unav ailable ARABELLA LAROSE Attending Clinician Unavailable Paola Wolf DO Attending Clinician [phone] Kip WHEELERP, Jeremiah Bridges Attending Clinician [phone] JEREMIAH WOLF Attending Clinician UnavailMiguel Danielle MD Attending Clinician [phone] Risk, Cju-Lnnnd-Pw/High Attending Clinician Unav ailable Cheli Serrano Attending Clinician +[phone] CHELI DONOHUE Attending Clinician UnavailJOSELYN Campos Attending Clinician Unavaila ble Provider, Ang-Rmchp Temp Attending Clinician Miracle Joselyn Barry CNM Attending Clinician [phone] REGINALDO VASQUEZ Attending Clinician Unavailable REGINALDO VASQUEZ Attending Clinician Unavailable Benja Ahn MD Attending Clinician + [phone] Reginaldo Vasquez MD Attending Clinician +[phone] , [facility] Room Attending Clinician Unavaila ble Risk, Pea-Rmchp Provider/High Attending Clinicpablo n Unavailable Zach Sandoval Attending Clinician + ZACH CLARK Attending Clinician Unavail able NÉSTOR MORGAN Attending Clinician Unavailable NÉSTOR MORGNA Attending Clinician Unavailable Armin MARTINEZ Attending Clinician Unavailable Armin MARTINEZ Attending Clinician Unavailable ILANA WARD Admitting Clinician DILIA Parikh Admitting Clinician Unavailable BENJA AHN Admitting Clinician UnavailREGINALDO Duran Admitting Clinician Unavailable KHALIF RITTER Admitting Clinician Unavailable Arabella Larose MD Admitting Clinician [phone] ARABELLA LAROSE Admitting Clinician Unavailable uLz KNOTT, Dilia Ricketts Admitting Clinician [phone] Miguel Garcia MD Admitting Clinician MIGUEL GARCIA Admitting Clinician Unavailable Benja Ahn MD Admitting Clinician [phone] Payers Payer Name Policy Type Policy Number Effective Date Expirati on Date Source [facility] [id number] 2022 00:00:00 [employer] [id number] 2024 00:00:00 [employer] S[employer] 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 9 [id number] 2023 00:00:00 [facility] [id number] 2022 00:00:00 MED[place]ID [place] [id number] 2020 00:00:00 MEDICAID PENDING PENDING 2020 00:00:00 Problems Condition Name Condition Details Condition Category Status Onset Date Resolution Date Last Treatment Date Treating Clinician Comments Source Acute recurrent frontal sinusitis Acute recurrent frontal sinusitis Disease Active 08-13 00:00: 00 Talya Elkins - Jabier ndiaye Seasonal allergies Seasonal allergies Disease Active 08-13 00:00: 00 Talya Elkins - Externtra l Splenomega ly Splenomega ly Disease Active 08-02 00:00: 00 [facility] Hyperbilir ubinemia Hyperbilir ubinemia Disease Active 08-02 00:00: 00 [facility] Acute biliary pancreatit is Acute biliary pancreatit is Disease Active 08-01 00:00: 00 [facility] Calculus of gallbladde r without biliary obstructio n Calculus of gallbladde r without biliary obstructio n Disease Active 3- 00:00: 00 [facility] Nexplanon in place Nexplanon in place Disease Active 1-25 00:00: 00 [facility] Normal labor Normal labor Disease Active 1-03 00:00: 00 [facility] 37 weeks gestation of 37 weeks gestation of Disease Active 1-03 00:00: 00 [facility] Grand multiparit y in labor and delivery Grand multiparit y in labor and delivery Disease Active 1-03 00:00: 00 [facility] Liveborn , of sosa , born in hospital by vaginal delivery Liveborn infant, of sosa , born in hospital by vaginal delivery Disease Active 1-03 00:00: 00 [facility] contractio ns contractio ns Disease Active 1- 00:00: 00 [facility] Encounter for supervisio n of high risk with insufficie nt care, antepartum Encounter for supervisio n of high risk with insufficie nt care, antepartum Disease Active 02-01 00:00: 00 [facility] H/O delivery, currently , third trimester H/O delivery, currently , third trimester Disease Active 2020-06 2-08 00:00: 00 [facility] Obesity in Obesity in Disease Active 2020-06 2-08 00:00: 00 [facility] Obesity (BMI 30-39.9) Obesity (BMI 30-39.9) Disease Active 2020-06 1-12 00:00: 00 [facility] Anemia of mother in , antepartum Anemia of mother in , antepartum Disease Active 8-24 00:00: 00 [facility] ASCUS of cervix with negative high risk HPV ASCUS of cervix with negative high risk HPV Disease Active 5-11 00:00: 00 [facility] Rubella non-immune status, antepartum Rubella non-immune status, antepartum Disease Active 10-20 00:00: 00 Overview: Formattin g of this note might be different from the original. Address pp [facility] Allergies, Adverse Reactions, Alerts Allergy Name Allergy Type Status Severity Reaction(s) Onset Date Inactive Date Treating Clinician Comments Source NO KNOWN ALLERGIE S Drug Class Active [facility] Social History Social Habit Start Date Stop Date Quantity Comments Source ASSERTION 2021-10-03 00:00:00 [facility] History SDOH Social Connections Get Together [facility] History SDOH Social Connections [facility] History SDOH Social Connections Membership [facility] History SDOH Social Connections Meetings [facility] Gender identity [facility] History of tobacco use Cigarette Smoker Talya lozoya - External Sexual orientation Armin Elkins - External History of Social function 2023-08-14 00:00:00 2023-08-14 00:00:00 Talya Elkins - External Alcohol intake 2023-07-23 00:00:00 2023-07-23 00:00:00 0 /d [facility] Exposure to SARS-CoV-2 (event) 2022-09-07 00:00:00 2022-09-17 10:45:00 Not sure [facility] History SDOH Alcohol Frequency 2022-08-02 00:00:00 2022-08-02 00:00:00 1 [facility] History SDOH Alcohol Std Drinks 2022-08-02 00:00:00 2022-08-02 00:00:00 0 [facility] History SDOH Alcohol Binge 2022-08-02 00:00:00 2022-08-02 00:00:00 1 [facility] History SDOH Social Connections Phone 2022-08-02 00:00:00 2022-08-02 00:00:00 5 [facility] History SDOH Social Connections Living 2022-08-02 00:00:00 2022-08-02 00:00:00 8 [facility] History SDOH Physical Activity DPW 2022-08-02 00:00:00 2022-08-02 00:00:00 0 [facility] History SDOH Physical Activity MPS 2022-08-02 00:00:00 2022-08-02 00:00:00 0 [facility] History SDOH Financial 2022-08-02 00:00:00 2022-08-02 00:00:00 5 [facility] History SDOH Food Worry 2022-08-02 00:00:00 2022-08-02 00:00:00 1 [facility] History SDOH Food Scarcity 2022-08-02 00:00:00 2022-08-02 00:00:00 1 [facility] History SDOH Transport Med 2022-08-02 00:00:00 2022-08-02 00:00:00 2 [facility] History SDOH Transport Non-Med 2022-08-02 00:00:00 2022-08-02 00:00:00 2 [facility] Cigarettes smoked current (pack per day) - Reported 2022-08-02 00:00:00 2022-08-02 00:00:00 [facility] Tobacco use and exposure 2022-08-02 00:00:00 2022-08-02 00:00:00 Smokeless tobacco non-user [facility] Sex Assigned At 1990 00:00:00 1990 00:00:00 Talya Elkins - External Smoking Status Start Date Stop Date Source Ex-smoker 2023-08-14 00:00:00 2023-08-14 00:00:00 Talya Elkins - External Occasional tobacco smoker 2022-08-02 00:00:00 [facility] Medications Ordered Medication Name Filled Medication Name Start Date Stop Date Current Medication? Ordering Clinician Indication Dosage Frequency Signature (SIG) Comments Components Source Cetirizine HCl 10 MG oral Capsule 08-13 00:00: 00 Yes [id number] 10mg Take 1 capsule (10 mg total) by mouth daily. Talya Zelaya Externa l Azithromyci n 250 MG oral Tablet 08-13 00:00: 00 08-19 04:59 :00 No [id number] Take 2 tablets by mouth on day 1 then 1 tablet by mouth daily for 4 days thereafter .. Talya Elkins - Jabier ndiaye diclofenac 75 mg EC tablet 07-23 00:00: 00 Yes [id number] 75mg Take 1 tablet by mouth in the morning and 1 tablet in the evening. Take with meals. [facility] acetaminoph en (TYLENOL ARTHRITIS PAIN) 650 mg CR tablet 07-23 00:00: 00 Yes [id number] 650mg Take 1 tablet by mouth every 8 (eight) hours as needed for Pain. [facility] predniSONE 20 mg tablet 07-23 00:00: 00 Yes [id number] Take 2 tablets PO daily [facility] gabapentin (NEURONTIN) 100 mg capsule 07-23 00:00: 00 Yes [id number] 100mg Take 1 capsule by mouth in the morning and 1 capsule at noon and 1 capsule in the evening. [facility] tiZANidine 2 mg capsule 09-17 00:00: 00 Yes [id number] 2mg Take 1 capsule by mouth in the morning and 1 capsule at noon and 1 capsule in the evening. [facility] ibuprofen 600 mg tablet 09-17 00:00: 00 Yes [id number] 600mg Take 1 tablet by mouth every 6 (six) hours as needed for Pain (scale 4-6) or Pain (scale 1-3). [facility] benzonatate 100 mg capsule 09-14 00:00: 00 Yes [id number] 200mg Take 2 capsules by mouth every 8 (eight) hours as needed for Cough. [facility] HYDROcodone -acetaminop hen (NORCO 5) 5-325 mg tablet 1 tablet 08-04 00:06: 19 Yes 1{tbl} 1 tablet, Oral, Q6HPRN, Starting on Sat08/03/22 at 1806, Until Discontinu ed, Routine, Pain (scale 4-6) [facility] HYDROcodone -acetaminop hen 5-325 mg tablet 08-04 00:00: 00 08-10 05:59 :00 No [id number] 1{tbl} Take 1 tablet by mouth every 6 (six) hours as needed for Pain (scale 4-6) for up to 5 days. Indication s: acute pain [facility] morpHINE (4 mg/mL) injection 4 mg 08-03 21:36: 38 Yes 4mg 4 mg, Slow IV Push, Q2HPRN, Starting on Sat08/03/22 at 1536, Until Discontinu ed, Routine, Pain (scale 7-10) [facility] (TORADOL) tablet 10 mg 08-03 21:36: 05 08-05 21:35 :05 No 10mg 10 mg, Oral, Q6HPRN, Starting on Sat08/03/22 at 1536, Until Sat08/05/22 at 1535, Routine, Pain (scale 1-3) [facility] iohexoL (OMNIPAQUE 300-50 mL)) injection 08-03 18:32: 00 08-03 22:34 :52 No PRN, Starting on Sat08/03/22 at 1232, Until Sat08/03/22 at 1634, Routine, Intra-op [facility] bupivacaine (preserv free) (SENSORCAIN E MPF) 0.25 % (2.5 mg/mL) injection 08-03 18:14: 00 08-03 22:34 :52 No PRN, Starting on Sat08/03/22 at 1214, Until Sat08/03/22 at 1634, Routine, Intra-op [facility] sodium chloride 0.9 % irrigation solution 08-03 18:14: 00 08-03 22:34 :52 No PRN, Starting on Sat08/03/22 at 1214, Until Sat08/03/22 at 1634, Intra-op [facility] magnesium sulfate in water 2 gram/50 mL (4 %) infusion 2 g 08-03 16:00: 00 08-03 17:07 :00 No 2g 2 g, IV Piggyback, Administer over 60 Minutes, ONCE, 1 dose, On Sat08/03/22 at 1000, [facility]ine [facility] enoxaparin (LOVENOX) injection 40 mg 08-02 23:00: 00 Yes 40mg 40 mg, Subcutaneo us, DAILY, First dose on Xin 08/02/22 at 1700, Until Discontinu ed, Routine [facility] KCL (KLOR-CON M20) tablet 40 mEq 08-02 22:15: 00 08-02 21:32 :00 No 40meq 40 mEq, Oral, ONCE, 1 dose, On Sat08/02/22 at 1615, Routine [facility] lactated ringers IV infusion 1,000 mL 08-02 18:15: 00 08-03 21:38 :13 No 1000mL at 150 mL/hr, 1,000 mL, IV Infusion, CONTINUOUS , Starting on Sat08/02/22 at 1215, Until Sat08/03/22 at 1538, Routine [facility] calcium gluconate 2 g in NaCl 100 mL (ISO-OSM) RTU IV infusion 2 g 08-02 18:00: 00 08-02 19:37 :00 No 2g 2 g, IV Infusion, at 200 mL/hr Administer over 30 Minutes, ONCE, 1 dose, On Sat08/02/22 at 1200, Routine [facility] diphenhydrA MINE (BENADRYL) injection 25 mg 08-02 16:58: 41 Yes 25mg 25 mg, Intravenou s, Q6HPRN, Starting on Sat08/02/22 at 1058, Until Discontinu ed, Routine, Itching [facility] D5W 0.9% NaCl (NS) IV infusion 1,000 mL 08-02 07:30: 00 08-02 13:26 :00 No 1000mL at 125 mL/hr, 1,000 mL, IV Infusion, ONCE, 1 dose, On Sat08/02/22 at 0130, [facility]ine [facility] diphenhydrA MINE (BENADRYL) injection 12.5 mg 08-02 06:32: 58 08-02 16:58 :53 No 12.5mg 12.5 mg, Intravenou s, Q6HPRN, Starting on Sat08/02/22 at 0032, Until Sat08/02/22 at 1058, Routine, Itching [facility] ondansetron (ZOFRAN (PF)) injection 4 mg 08-02 06:29: 30 Yes 4mg 4 mg, Slow IV Push, Q6HPRN, Starting on Sat08/02/22 at 0029, Until Discontinu ed, Routine, Nausea and Vomiting (N/V) [facility] morpHINE (4 mg/mL) injection 4 mg 08-02 06:29: 25 08-03 06:28 :25 No 4mg 4 mg, Slow IV Push, Q4HPRN, Starting on Sat08/02/22 at 0029, Until Sat08/03/22 at 0028, Routine, Pain (scale 7-10) [facility] ondansetron (ZOFRAN (PF)) injection 4 mg 08-02 05:30: 00 08-02 05:29 :00 No 4mg 4 mg, Slow IV Push, ONCE, 1 dose, On Sat08/01/22 at 2330, WEN [facility] morpHINE (4 mg/mL) injection 4 mg 08-02 05:30: 00 08-02 05:30 :00 No 4mg 4 mg, Slow IV Push, ONCE, 1 dose, On Sat08/01/22 at 2330, STAT [facility] piperacilli n-tazobacta m (ZOSYN) 3.375 g in NaCl 0.9% (NS) 100 mL MINI-BAG 08-02 03:45: 00 08-02 04:44 :00 No 3.375g 3.375 g, IV Piggyback, ONCE, 1 dose, On Sat08/01/22 at 2145, Administer over 30 Minutes, 100 mL
Reas on for Anti-Infec tive: Documented Infection< br>Documen lex Infection Site: Abdominal< br>Duratio n of Therapy: Other (see Comments) [facility] iopamidol (ISOVUE 370-500 mL) injection 80 mL 08-02 03:45: 00 08-02 03:45 :00 No [id number] 80mL 80 mL, Intravenou s, ONCE, 1 dose, On Sat08/01/22 at 2145, Routine [facility] FENTanyl PF (SUBLIMAZE (PF)) injection 75 mcg 08-02 02:45: 00 08-02 02:00 :00 No 75ug 75 mcg, Slow IV Push, ONCE, 1 dose, On Sat08/01/22 at 2045, STAT [facility] ondansetron (ZOFRAN (PF)) injection 4 mg 08-02 02:45: 00 08-02 01:59 :00 No 4mg 4 mg, Slow IV Push, ONCE, 1 dose, On Sat08/01/22 at 2044, WEN [facility] etonogestre L (NEXPLANON) implant 68 mg 06-27 19:45: 00 06-27 18:53 :00 No [id number] 68mg [facility] vitamin w/FA tablet 06-06 00:00: 00 09-17 00:00 :00 No [id number] 09 1{tbl} Take 1 tablet by mouth in the morning. [facility] ferrous sulfate 325 mg (65 mg iron) tablet 06-06 00:00: 00 09-17 00:00 :00 No [id number] 09 325mg Take 1 tablet by mouth in the morning and 1 tablet in the evening. [facility] docusate 100 mg capsule 06-06 00:00: 00 06-27 00:00 :00 No [id number] 09 200mg Take 2 capsules by mouth once daily as needed for Constipati on. [facility] ibuprofen 600 mg tablet 06-06 00:00: 00 06-27 00:00 :00 No [id number] 09 600mg Take 1 tablet by mouth every 6 (six) hours as needed (Pain). Take with food or milk. [facility] HYDROcodone -acetaminop hen (NORCO 5) 5-325 mg tablet 1 tablet 06-05 23:15: 04 Yes 1{tbl} 1 tablet, Oral, Q6HPRN, Starting on Sat06/05/22 at 1715, Until Discontinu ed, Routine, Pain (scale 7-10) [facility] ibuprofen (IBU) tablet 600 mg 06-05 23:15: 04 Yes 600mg 600 mg, Oral, Q6HPRN, Starting on Sat06/05/22 at 1715, Until Discontinu ed, Routine, Pain (scale 4-6) [facility] acetaminoph en (TYLENOL) tablet 650 mg 06-05 23:15: 04 Yes 650mg 650 mg, Oral, Q6HPRN, Starting on Sat06/05/22 at 1715, Until Discontinu ed, Routine, Pain (scale 1-3) [facility] diphenhydrA MINE (BENADRYL) tablet 25 mg 06-05 23:15: 04 Yes 25mg 25 mg, Oral, Q6HPRN, Starting on Sat06/05/22 at 1715, Until Discontinu ed, Routine, Sleep, Itching [facility] ondansetron (ZOFRAN (PF)) injection 4 mg 06-05 23:15: 04 Yes 4mg 4 mg, Slow IV Push, Q8HPRN, Starting on Sat06/05/22 at 1715, Until Discontinu ed, Routine, Nausea and Vomiting (N/V) [facility] simethicone (GAS RELIEF (SIMETHICON E)) chewable tablet 160 mg 06-05 23:15: 04 Yes 160mg 160 mg, Oral, PC+HSPRN, Starting on Sat06/05/22 at 1715, Until Discontinu ed, Routine, Gas [facility] docusate (COLACE) capsule 200 mg 06-05 23:15: 04 Yes 200mg 200 mg, Oral, QDAILYPRN, Starting on Sat06/05/22 at 1715, Until Discontinu ed, Routine, Constipati on [facility] magnesium hydroxide (MILK OF MAGNESIA) 400 mg/5 mL suspension 30 mL 06-05 23:15: 03 Yes 30mL 30 mL, Oral, QDAILYPRN, Starting on Sat06/05/22 at 1715, Until Discontinu ed, Routine, Constipati on [facility] benzocaine- menthol (DERMOPLAST ) 20-0.5 % topical spray 06-05 23:15: 03 Yes Topical, PRN, Starting on Sat06/05/22 at 1715, Until Discontinu ed, Routine, Perineum discomfort [facility] oxytocin (PITOCIN) 30 units in NS 500 mL IV infusion 06-05 18:42: 53 06-05 23:17 :04 No 2mU/min at 2-40 mL/hr, IV Infusion, TITRATE, Starting on Sat06/05/22 at 1242, Until Sat06/05/22 at 1717, Routine [facility] ondansetron (ZOFRAN (PF)) injection 4 mg 06-05 17:46: 06 06-05 23:17 :04 No 4mg 4 mg, Slow IV Push, Q6HPRN, Starting on Sat06/05/22 at 1146, Until Sat06/05/22 at 171, Routine, Nausea and Vomiting (N/V) [facility] FENTanyl PF (SUBLIMAZE (PF)) injection 100 mcg 06-05 17:45: 57 06-05 23:17 :04 No 100ug 100 mcg, Slow IV Push, Q1HPRN, Starting on Sat06/05/22 at 1145, Until Sat06/05/22 at 171, Routine, Pain (scale 4-6), Pain (scale 7-10) [facility] lactated ringers IV infusion 500 mL 06-05 17:42: 52 06-05 23:17 :04 No 500mL at 999 mL/hr, 500 mL, IV Infusion, PRN - SEE INSTRUCTIO NS, Starting on Sat06/05/22 at 1142, Until Sat06/05/22 at 1717, Routine [facility] D5W-LR IV infusion 1,000 mL 06-05 17:42: 52 06-05 23:17 :04 No 1000mL at 1-125 mL/hr, IV Infusion, TITRATE, Starting on Sat06/05/22 at 1142, Until Sat06/05/22 at 1717, Routine [facility] fluconazole 200 mg tablet 06-04 00:00: 00 06-05 00:00 :00 No [id number] 200mg Take 1 tablet by mouth in the morning for 1 day. [facility] iron sucrose (VENOFER) 300 mg in NaCl 0.9% (NS) 250 mL infusion 2021-06 16:00: 00 04-18 18:07 :00 No 300mg 300 mg, IV Infusion, ONCE, Administer over 2.5 Hours, On Sat04/18/22 at 1000, For 1 dose [facility] acetaminoph en (TYLENOL) tablet 650 mg 2021-06 15:06: 40 Yes 650mg 650 mg, Oral, Q6HPRN, Starting on Sat04/18/22 at 0906, Until Discontinu ed, Routine, Pain (scale 1-3), Pain (scale 4-6) [facility] acetaminoph en (TYLENOL) tablet 650 mg 2021-06 20:27: 32 04-11 20:37 :00 No 650mg 650 mg, Oral, Q6HPRN, 1 dose, Starting on Sat04/11/22 at 1427, Until Sat04/11/22 at 1437, Routine, Pain (scale 4-6) [facility] iron sucrose (VENOFER) 300 mg in NaCl 0.9% (NS) 250 mL infusion 2021-06 15:45: 00 04-11 18:03 :00 No 300mg 300 mg, IV Infusion, ONCE, Administer over 2.5 Hours, On Sat04/11/22 at 0945, For 1 dose [facility] acetaminoph en (TYLENOL) tablet 650 mg 2021-06 00:45: 00 04-05 01:03 :00 No 650mg 650 mg, Oral, ONCE, 1 dose, On Sat04/04/22 at 1945, WEN [facility] iron sucrose (VENOFER) 300 mg in NaCl 0.9% (NS) 250 mL infusion 2021-06 15:45: 00 04-04 19:03 :00 No 300mg 300 mg, IV Infusion, ONCE, Administer over 2.5 Hours, On Sat04/04/22 at 1045, For 1 dose [facility] acetaminoph en (TYLENOL) tablet 650 mg 2021-06 016 04:00: 00 03-18 03:40 :00 No 650mg 650 mg, Oral, ONCE, 1 dose, On 03/17/22 at 2300, Routine [facility] acetaminoph en (TYLENOL) tablet 1,000 mg 02-18 02:00: 00 02-18 02:11 :00 No 1000mg 1,000 mg, Oral, ONCE NOW, 1 dose, On 02/17/22 at 2100, Routine [facility] ferrous sulfate (IRON, FERROUS SULFATE,) 325 mg (65 mg iron) tablet 02-02 00:00: 00 06-06 00:00 :00 No [id number] 325mg Take 1 tablet by mouth in the morning and 1 tablet in the evening. [facility] vitamin w/FA tablet 2020-06 00:00: 00 06-06 00:00 :00 No [id number] 1{tbl} Take 1 tablet by mouth daily. [facility] ferrous sulfate 325 mg (65 mg iron) tablet 2020-06 00:00: 00 04-19 00:00 :00 No [id number] 325mg Take 1 tablet by mouth 2 (two) times daily. [facility] Immunizations Ordered Immunization Name Filled Immunization Name Date Status Comments Source TDAP 2022-04-19 00:00:00 Completed [facility] TDAP 2022-04-19 00:00:00 Completed [facility] TDAP 2022-04-19 00:00:00 Completed [facility] TDAP 2022-04-19 00:00:00 Completed [facility] TDAP 2022-04-19 00:00:00 Completed [facility] TDAP 2022-04-19 00:00:00 Completed [facility] TDAP 2022-04-19 00:00:00 Completed [facility] TDAP 2022-04-19 00:00:00 Completed [facility] TDAP 2022-04-19 00:00:00 Completed [facility] TDAP 2022-04-19 00:00:00 Completed [facility] TDAP 2022-04-19 00:00:00 Completed [facility] TDAP 2022-04-19 00:00:00 Completed [facility] TDAP 2022-04-19 00:00:00 Completed [facility] TDAP 2022-04-19 00:00:00 Completed [facility] TDAP 2022-04-19 00:00:00 Completed [facility] TDAP 2022-04-19 00:00:00 Completed [facility] TDAP 2022-04-19 00:00:00 Completed [facility] TDAP 2022-04-19 00:00:00 Completed [facility] [facility] 2022-04-19 00:00:00 Completed [facility] TDAP 2022-04-19 00:00:00 Completed [facility] TDAP 2022-04-19 00:00:00 Completed [facility] TDAP 2022-04-19 00:00:00 Completed [facility] TDAP 2022-04-19 00:00:00 Completed [facility] TDAP 2022-04-19 00:00:00 Completed [facility] TDAP 2022-04-19 00:00:00 Completed [facility] TDAP 2022-04-19 00:00:00 Completed [facility] TDAP 2022-04-19 00:00:00 Completed [facility] TDAP 2022-04-19 00:00:00 Completed [facility] TDAP 2022-04-19 00:00:00 Completed [facility] TDAP 2022-04-19 00:00:00 Completed [facility] TDAP 2021-02-09 00:00:00 Completed [facility] TDAP 2021-02-09 00:00:00 Completed [facility] TDAP 2021-02-09 00:00:00 Completed [facility] TDAP 2021-02-09 00:00:00 Completed [facility] TDAP 2021-02-09 00:00:00 Completed [facility] TDAP 2021-02-09 00:00:00 Completed [facility] TDAP 2021-02-09 00:00:00 Completed [facility] TDAP 2021-02-09 00:00:00 Completed [facility] TDAP 2021-02-09 00:00:00 Completed [facility] TDAP 2021-02-09 00:00:00 Completed [facility] TDAP 2021-02-09 00:00:00 Completed [facility] TDAP 2021-02-09 00:00:00 Completed [facility] TDAP 2021-02-09 00:00:00 Completed [facility] TDAP 2021-02-09 00:00:00 Completed [facility] TDAP 2021-02-09 00:00:00 Completed [facility] TDAP 2021-02-09 00:00:00 Completed [facility] TDAP 2021-02-09 00:00:00 Completed [facility] TDAP 2021-02-09 00:00:00 Completed [facility] TDAP 2021-02-09 00:00:00 Completed [facility] TDAP 2021-02-09 00:00:00 Completed [facility] TDAP 2021-02-09 00:00:00 Completed [facility] TDAP 2021-02-09 00:00:00 Completed [facility] TDAP 2021-02-09 00:00:00 Completed [facility] TDAP 2021-02-09 00:00:00 Completed [facility] TDAP 2021-02-09 00:00:00 Completed [facility] TDAP 2021-02-09 00:00:00 Completed [facility] TDAP 2021-02-09 00:00:00 Completed [facility] TDAP 2021-02-09 00:00:00 Completed [facility] TDAP 2021-02-09 00:00:00 Completed [facility] TDAP 2021-02-09 00:00:00 Completed [facility] TDAP 2021-02-09 00:00:00 Completed [facility] TDAP 2021-02-09 00:00:00 Completed [facility] TDAP 2021-02-09 00:00:00 Completed [facility] TDAP 2021-02-09 00:00:00 Completed [facility] TDAP 2021-02-09 00:00:00 Completed [facility] TDAP 2021-02-09 00:00:00 Completed [facility] TDAP 2021-02-09 00:00:00 Completed [facility] TDAP 2021-02-09 00:00:00 Completed [facility] TDAP 2021-02-09 00:00:00 Completed [facility] TDAP 2021-02-09 00:00:00 Completed [facility] TDAP 2021-02-09 00:00:00 Completed [facility] TDAP 2021-02-09 00:00:00 Completed [facility] TDAP 2021-02-09 00:00:00 Completed [facility] TDAP 2021-02-09 00:00:00 Completed [facility] TDAP 2021-02-09 00:00:00 Completed [facility] TDAP 2021-02-09 00:00:00 Completed [facility] TDAP 2021-02-09 00:00:00 Completed [facility] TDAP 2021-02-09 00:00:00 Completed [facility] TDAP 2021-02-09 00:00:00 Completed [facility] TDAP 2021-02-09 00:00:00 Completed [facility] TDAP 2021-02-09 00:00:00 Completed [facility] TDAP 2021-02-09 00:00:00 Completed [facility] TDAP 2021-02-09 00:00:00 Completed [facility] TDAP 2013-01-01 00:00:00 Completed [facility] TDAP 2013-01-01 00:00:00 Completed [facility] TDAP 2013-01-01 00:00:00 Completed [facility] TDAP 2013-01-01 00:00:00 Completed [facility] TDAP 2013-01-01 00:00:00 Completed [facility] TDAP 2013-01-01 00:00:00 Completed [facility] TDAP 2013-01-01 00:00:00 Completed [facility] TDAP 2013-01-01 00:00:00 Completed [facility] TDAP 2013-01-01 00:00:00 Completed [facility] TDAP 2013-01-01 00:00:00 Completed [facility] TDAP 2013-01-01 00:00:00 Completed [facility] TDAP 2013-01-01 00:00:00 Completed [facility] TDAP 2013-01-01 00:00:00 Completed [facility] TDAP 2013-01-01 00:00:00 Completed [facility] TDAP 2013-01-01 00:00:00 Completed [facility] TDAP 2013-01-01 00:00:00 Completed [facility] TDAP 2013-01-01 00:00:00 Completed [facility] TDAP 2013-01-01 00:00:00 Completed [facility] TDAP 2013-01-01 00:00:00 Completed [facility] TDAP 2013-01-01 00:00:00 Completed [facility] TDAP 2013-01-01 00:00:00 Completed [facility] TDAP 2013-01-01 00:00:00 Completed [facility] TDAP 2013-01-01 00:00:00 Completed [facility] TDAP 2013-01-01 00:00:00 Completed [facility] TDAP 2013-01-01 00:00:00 Completed [facility] TDAP 2013-01-01 00:00:00 Completed [facility] TDAP 2013-01-01 00:00:00 Completed [facility] TDAP 2013-01-01 00:00:00 Completed [facility] TDAP 2013-01-01 00:00:00 Completed [facility] TDAP 2013-01-01 00:00:00 Completed [facility] TDAP 2013-01-01 00:00:00 Completed [facility] TDAP 2013-01-01 00:00:00 Completed [facility] TDAP 2013-01-01 00:00:00 Completed [facility] TDAP 2013-01-01 00:00:00 Completed [facility] TDAP 2013-01-01 00:00:00 Completed [facility] TDAP 2013-01-01 00:00:00 Completed [facility] TDAP 2013-01-01 00:00:00 Completed [facility] TDAP 2013-01-01 00:00:00 Completed [facility] TDAP 2013-01-01 00:00:00 Completed [facility] TDAP 2013-01-01 00:00:00 Completed [facility] TDAP 2013-01-01 00:00:00 Completed [facility] TDAP 2013-01-01 00:00:00 Completed [facility] TDAP 2013-01-01 00:00:00 Completed [facility] TDAP 2013-01-01 00:00:00 Completed [facility] TDAP 2013-01-01 00:00:00 Completed [facility] TDAP 2013-01-01 00:00:00 Completed [facility] TDAP 2013-01-01 00:00:00 Completed [facility] TDAP 2013-01-01 00:00:00 Completed [facility] TDAP 2013-01-01 00:00:00 Completed [facility] TDAP 2013-01-01 00:00:00 Completed [facility] TDAP 2013-01-01 00:00:00 Completed [facility] TDAP 2013-01-01 00:00:00 Completed [facility] TDAP 2013-01-01 00:00:00 Completed [facility] Rubella 2012-08-13 00:00:00 Completed [facility] 2012-08-13 00:00:00 Completed [facility] 2012-08-13 00:00:00 Completed [facility] 2012-08-13 00:00:00 Completed [facility] 2012-08-13 00:00:00 Completed [facility] 2012-08-13 00:00:00 Completed [facility] 2012-08-13 00:00:00 Completed [facility] 2012-08-13 00:00:00 Completed [facility] 2012-08-13 00:00:00 Completed [facility] 2012-08-13 00:00:00 Completed [facility] 2012-08-13 00:00:00 Completed [facility] 2012-08-13 00:00:00 Completed [facility] 2012-08-13 00:00:00 Completed [facility] 2012-08-13 00:00:00 Completed [facility] 2012-08-13 00:00:00 Completed [facility] 2012-08-13 00:00:00 Completed [facility] 2012-08-13 00:00:00 Completed [facility] 2012-08-13 00:00:00 Completed [facility] 2012-08-13 00:00:00 Completed [facility] 2012-08-13 00:00:00 Completed [facility] 2012-08-13 00:00:00 Completed [facility] 2012-08-13 00:00:00 Completed [facility] 2012-08-13 00:00:00 Completed [facility] 2012-08-13 00:00:00 Completed [facility] 2012-08-13 00:00:00 Completed [facility] 2012-08-13 00:00:00 Completed [facility] 2012-08-13 00:00:00 Completed [facility] 2012-08-13 00:00:00 Completed [facility] 2012-08-13 00:00:00 Completed [facility] 2012-08-13 00:00:00 Completed [facility] 2012-08-13 00:00:00 Completed [facility] 2012-08-13 00:00:00 Completed [facility] 2012-08-13 00:00:00 Completed [facility] 2012-08-13 00:00:00 Completed [facility] 2012-08-13 00:00:00 Completed [facility] 2012-08-13 00:00:00 Completed [facility] 2012-08-13 00:00:00 Completed [facility] 2012-08-13 00:00:00 Completed [facility] 2012-08-13 00:00:00 Completed [facility] 2012-08-13 00:00:00 Completed [facility] 2012-08-13 00:00:00 Completed [facility] 2012-08-13 00:00:00 Completed [facility] 2012-08-13 00:00:00 Completed [facility] 2012-08-13 00:00:00 Completed [facility] 2012-08-13 00:00:00 Completed [facility] 2012-08-13 00:00:00 Completed [facility] 2012-08-13 00:00:00 Completed [facility] 2012-08-13 00:00:00 Completed [facility] 2012-08-13 00:00:00 Completed [facility] 2012-08-13 00:00:00 Completed [facility] 2012-08-13 00:00:00 Completed [facility] 2012-08-13 00:00:00 Completed [facility] 2012-08-13 00:00:00 Completed [facility] Unknown Completed [facility] TDAP Unknown Completed [facility] Unknown Completed [facility] TDAP Unknown [facility]pleted [facility] Unknown Completed [facility] TDAP Unknown Completed [facility] Unknown Completed Talya Mcgrath bold - External Tdap- (Boostrix, Adacel) Unknown Completed Talya Hartleyybold - External Vital Signs Vital Name Observation Time Observation Value Comments S ource Systolic blood pressure 2023-08-14 19:06:00 110 mm[Hg] Talya Seybo ld - External Diastolic blood pressure 2023-08-14 19:06:00 64 mm[Hg] Talya Hartleyybo ld - External Heart rate 2023-08-14 19:06:00 78 /min Deanna y Seybold - External Body temperature 2023-08-14 19:06:00 36.56 Ness Talya Seybold - External Respiratory rate 2023-08-14 19:06:00 16 /min Talya Hartleyybold - External Body height 2023-08-14 19:06:00 154.9 cm Casandra ey Seybold - External Body weight 2023-08-14 19:06:00 95.255 kg Casandra ey Seybold - External BMI 2023-08-14 19:06:00 39.68 kg/m2 Casandra ey Seybold - External Systolic blood pressure 2023-07-24 02:43:00 125 mm[Hg] [facility] Diastolic blood pressure 2023-07-24 02:43:00 80 mm[Hg] [facility] Heart rate 2023-07-24 02:43:00 86 /[facility] 2023-07-24 02:43:00 37 Ness [facility] Respiratory rate 2023-07-24 02:43:00 18 /min [facility] Body height 2023-07-24 02:43:00 154.9 cm [facility] weight 2023-07-24 02:43:00 97.07 kg [facility] BMI 2023-07-24 02:43:00 40.43 kg/m2 [facility] Oxygen saturation in Arterial blood by Pulse oximetry 2023-07-24 02:43:00 98 /min [facility] Systolic blood pressure 2022-12-23 21:00:00 106 mm[Hg] [facility] Diastolic blood pressure 2022-12-23 21:00:00 75 mm[Hg] [facility] Heart rate 2022-12-23 21:00:00 86 /min Unive [facility] Body temperature 2022-12-23 21:00:00 36.89 Ness [facility] Respiratory rate 2022-12-23 21:00:00 14 /min [facility] Body height 2022-12-23 21:00:00 154.9 cm [facility] weight 2022-12-23 21:00:[address] [facility] BMI 2022-12-23 21:00:00 37.34 kg/m2 [facility] Oxygen saturation in Arterial blood by Pulse oximetry 2022-12-23 21:00:00 96 /min [facility] Systolic blood pressure 2022-09-17 15:56:00 110 mm[Hg] [facility] Diastolic blood pressure 2022-09-17 15:56:00 73 mm[Hg] [facility] Heart rate 2022-09-17 15:56:00 67 /min Unive [facility] Body temperature 2022-09-17 15:56:00 35.56 Ness [facility] Body height 2022-09-17 15:56:00 154.9 cm [facility] weight 2022-09-17 15:56:[address] [facility] BMI 2022-09-17 15:56:00 36.88 kg/m2 [facility] Oxygen saturation in Arterial blood by Pulse oximetry 2022-09-17 15:56:00 99 /min [facility] Systolic blood pressure 2022-09-15 01:10:00 124 mm[Hg] [facility] Diastolic blood pressure 2022-09-15 01:10:00 86 mm[Hg] [facility] Heart rate 2022-09-15 01:10:00 85 /min Unive [facility] Body temperature 2022-09-15 01:10:00 37 Ness [facility] Respiratory rate 2022-09-15 01:10:00 18 /min [facility] Body height 2022-09-15 01:10:00 154.9 cm [facility] Body weight 2022-09-15 01:10:[address] [facility] BMI 2022-09-15 01:10:00 37.08 kg/m2 [facility] Oxygen saturation in Arterial blood by Pulse oximetry 2022-09-15 01:10:00 98 /min [facility] Systolic blood pressure 2022-08-13 14:43:00 127 mm[Hg] [facility] Diastolic blood pressure 2022-08-13 14:43:00 69 mm[Hg] [facility] Heart rate 2022-08-13 14:43:00 71 /min Unive [facility] Body temperature 2022-08-13 14:43:00 36.72 Ness [facility] Respiratory rate 2022-08-13 14:43:00 18 /min [facility] Body height 2022-08-13 14:43:00 154.9 cm [facility] Body weight 2022-08-13 14:43:00 86.183 kg [facility] BMI 2022-08-13 14:43:00 35.90 kg/m2 [facility] Oxygen saturation in Arterial blood by Pulse oximetry 2022-08-13 14:43:00 95 /min [facility] Systolic blood pressure 2022-08-04 17:16:00 130 mm[Hg] [facility] Diastolic blood pressure 2022-08-04 17:16:00 75 mm[Hg] [facility] Body temperature 2022-08-04 17:16:00 36.44 Ness [facility] Respiratory rate 2022-08-04 17:16:00 20 /min [facility] Oxygen saturation in Arterial blood by Pulse oximetry 2022-08-04 17:16:00 100 /min [facility] Heart rate 2022-08-04 10:00:00 85 [facility] Body weight 2022-08-04 10:00:00 86.637 kg [facility] BMI 2022-08-04 10:00:00 36.09 kg/m2 [facility] Body height 2022-08-02 06:52:00 154.9 cm [facility] Systolic blood pressure 2022-08-03 21:16:00 106 mm[Hg] [facility] Diastolic blood pressure 2022-08-03 21:16:00 50 mm[Hg] [facility] Heart rate 2022-08-03 21:16:00 84 /min Unive [facility] Respiratory rate 2022-08-03 21:16:00 13 /min [facility] Oxygen saturation in Arterial blood by Pulse oximetry 2022-08-03 21:16:00 95 /min [facility] Body temperature 2022-08-03 21:11:00 36.56 Ness [facility] Body weight 2022-08-03 09:58:00 86.637 kg [facility] BMI 2022-08-03 09:58:00 36.09 kg/m2 [facility] Body height 2022-08-02 06:52:00 154.9 cm [facility] Systolic blood pressure 2022-06-27 17:35:00 115 mm[Hg] [facility] Diastolic blood pressure 2022-06-27 17:35:00 70 mm[Hg] [facility] Heart rate 2022-06-27 17:35:00 75 /min Unive [facility] Body temperature 2022-06-27 17:35:00 36.5 Ness [facility] Body height 2022-06-27 17:35:00 154.9 cm [facility] Body weight 2022-06-27 17:35:00 81.557 kg [facility] BMI 2022-06-27 17:35:00 33.97 kg/m2 [facility] Systolic blood pressure 2022-06-06 13:45:00 115 mm[Hg] [facility] Diastolic blood pressure 2022-06-06 13:45:00 74 mm[Hg] [facility] Heart rate 2022-06-06 13:45:00 76 /min Unive [facility] Body temperature 2022-06-06 13:45:00 36.56 Ness [facility] Respiratory rate 2022-06-06 13:45:00 17 /min [facility] Oxygen saturation in Arterial blood by Pulse oximetry 2022-06-05 23:45:00 97 /min [facility] Body height 2022-06-05 18:06:00 154.9 cm [facility] Body weight 2022-06-05 18:06:00 85.276 kg [facility] BMI 2022-06-05 18:06:00 35.52 kg/m2 [facility] Systolic blood pressure 2022-06-04 22:00:00 115 mm[Hg] [facility] Diastolic blood pressure 2022-06-04 22:00:00 75 mm[Hg] [facility] Heart rate 2022-06-04 22:00:00 80 /min Unive [facility] Body temperature 2022-06-04 22:00:00 36.78 Ness [facility] Respiratory rate 2022-06-04 22:00:00 18 /min [facility] Body height 2022-06-04 22:00:00 154.9 cm [facility] Body weight 2022-06-04 22:00:00 85.276 kg [facility] BMI 2022-06-04 22:00:00 35.52 kg/m2 [facility] Heart rate 2022-06-03 22:39:00 84 /min [facility] Oxygen saturation in Arterial blood by Pulse oximetry 2022-06-03 22:39:00 100 /min [facility] Systolic blood pressure 2022-06-03 22:24:00 108 mm[Hg] [facility] Diastolic blood pressure 2022-06-03 22:24:00 64 mm[Hg] [facility] Body temperature 2022-06-03 22:24:00 36.94 Ness [facility] Respiratory rate 2022-06-03 22:24:00 18 /min [facility] Body height 2022-06-03 22:24:[address] [facility] Body weight 2022-06-03 22:24:[address] [facility] BMI 2022-06-03 22:24:00 35.52 kg/m2 [facility] Heart rate 2022-06-03 04:30[facility]00 85 [facility] by Pulse oximetry 2022-06-03 04:30:00 98 /min [facility] Systolic blood pressure 2022-06-03 03:40:00 126 mm[Hg] [facility] Diastolic blood pressure 2022-06-03 03:40:00 68 mm[Hg] [facility] Body temperature 2022-06-03 03:40:00 36.61 Ness [facility] Body height 2022-06-03 03:40:00 154.9 cm [facility] Body weight 2022-06-03 03:40:00 86.093 kg [facility] BMI 2022-06-03 03:40:00 35.86 kg/m2 [facility] Systolic blood pressure 2022-05-31 22:11:00 118 mm[Hg] [facility] Diastolic blood pressure 2022-05-31 22:11:00 73 mm[Hg] [facility] Heart rate 2022-05-31 22:11:00 66 /[facility] Body temperature 2022-05-31 22:11:00 36.56 Ness [facility] Respiratory rate 2022-05-31 22:11:00 18 /min [facility] Body height 2022-05-31 22:11:00 154.9 cm [facility] Body weight 2022-05-31 22:11:00 86.183 kg [facility] BMI 2022-05-31 22:11:00 35.90 kg/m2 [facility] Systolic blood pressure 2022-05-17 22:24:00 105 mm[Hg] [facility] Diastolic blood pressure 2022-05-17 22:24:00 68 mm[Hg] [facility] Heart rate 2022-05-17 22:24:00 76 /min Unive [facility] Body temperature 2022-05-17 22:24:00 37.06 Ness [facility] Body height 2022-05-17 22:24:[address] [facility] Body weight 2022-05-17 22:24:[address] [facility] BMI 2022-05-17 22:24:00 35.56 kg/m2 [facility] Heart rate 2022-05-06 03:00:00 82 /min Unive [facility] Body temperature 2022-05-06 03:00:00 37 Ness [facility] Respiratory rate 2022-05-06 03:00:00 18 /min [facility] [facility] Body height 2022-05-06 03:00:[address] [facility] Body weight 2022-05-06 03:00:[address] [facility] BMI 2022-05-06 03:00:00 35.45 kg/m2 [facility] Oxygen saturation in Arterial blood by Pulse oximetry 2022-05-06 03:00:00 100 /min [facility] Systolic blood pressure 2022-05-03 16:43:00 108 mm[Hg] [facility] Diastolic blood pressure 2022-05-03 16:43:00 69 mm[Hg] [facility] Heart rate 2022-05-03 16:43:00 80 /min [facility] Body temperature 2022-05-03 16:43:00 36.44 Ness [facility] Respiratory rate 2022-05-03 16:43:00 18 /min [facility] Body height 2022-05-03 16:43:[address] [facility] Body weight 2022-05-03 16:43:[address] [facility] BMI 2022-05-03 16:43:00 35.11 kg/m2 [facility] Systolic blood pressure 2022-04-19 19:13:00 110 mm[Hg] [facility] Diastolic blood pressure 2022-04-19 19:13:00 62 mm[Hg] [facility] Heart rate 2022-04-19 19:13:00 98 /min [facility] Body temperature 2022-04-19 19:13:00 36.83 Ness [facility] Respiratory rate 2022-04-19 19:13:00 18 /min [facility] Body height 2022-04-19 19:13:00 154.9 cm [facility] Body weight 2022-04-19 19:13:00 84.369 kg [facility] BMI 2022-04-19 19:13:00 35.14 kg/m2 [facility] Systolic blood pressure 2022-04-18 18:00:00 112 mm[Hg] [facility] Diastolic blood pressure 2022-04-18 18:00:00 61 mm[Hg] [facility] Heart rate 2022-04-18 18:00:00 84 /min [facility] Oxygen saturation in Arterial blood by Pulse oximetry 2022-04-18 18:00:00 99 /min [facility] Body temperature 2022-04-18 15:20:00 36.83 Ness [facility] Respiratory rate 2022-04-18 15:20:00 18 /min [facility] Body weight 2022-04-18 15:08:00 83.915 kg [facility] BMI 2022-04-18 15:08:00 34.96 kg/m2 [facility] Systolic blood pressure 2022-04-11 20:30:00 126 mm[Hg] [facility] Diastolic blood pressure 2022-04-11 20:30:00 71 mm[Hg] [facility] Heart rate 2022-04-11 20:30:00 94 /min [facility] Respiratory rate 2022-04-11 20:30:00 18 /min [facility] Oxygen saturation in Arterial blood by Pulse oximetry 2022-04-11 20:30:00 99 /min [facility] Body temperature 2022-04-11 15:00:00 36.72 Ness [facility] Heart rate 2022-04-05 02:30:00 82 /min [facility] Oxygen saturation in Arterial blood by Pulse oximetry 2022-04-05 02:30:00 100 /min [facility] Systolic blood pressure 2022-04-05 02:00:00 105 mm[Hg] [facility] Diastolic blood pressure 2022-04-05 02:00:00 51 mm[Hg] [facility] Body temperature 2022-04-05 02:00:00 36.83 Ness [facility] Respiratory rate 2022-04-05 02:00:00 18 /min [facility] Systolic blood pressure 2022-04-05 01:00:00 110 mm[Hg] [facility] Diastolic blood pressure 2022-04-05 01:00:00 73 mm[Hg] [facility] Heart rate 2022-04-05 01:00:00 89 /min [facility] Respiratory rate 2022-04-05 01:00:00 23 /min [facility] Oxygen saturation in Arterial blood by Pulse oximetry 2022-04-05 01:00:00 98 /min [facility] Body temperature 2022-04-05 00:04:00 36.83 Ness [facility] Body height 2022-04-05 00:04:00 154.9 cm [facility] Body weight 2022-04-05 00:04:00 82.101 kg [facility] BMI 2022-04-05 00:04:00 34.20 kg/m2 [facility] Systolic blood pressure 2022-04-04 20:15:00 118 mm[Hg] [facility] Diastolic blood pressure 2022-04-04 20:15:00 64 mm[Hg] [facility] Heart rate 2022-04-04 19:30:00 87 /min [facility] Oxygen saturation in Arterial blood by Pulse oximetry 2022-04-04 19:30:00 98 /min [facility] Body temperature 2022-04-04 14:30:00 36.44 Ness [facility] Respiratory rate 2022-04-04 14:30:00 18 /min [facility] Body height 2022-04-04 14:10:00 154.9 cm [facility] Body weight 2022-04-04 14:10:00 82.373 kg [facility] BMI 2022-04-04 14:10:00 34.31 kg/m2 [facility] Systolic blood pressure 2022-03-29 15:35:00 106 mm[Hg] [facility] Diastolic blood pressure 2022-03-29 15:35:00 69 mm[Hg] [facility] Heart rate 2022-03-29 15:35:00 75 /min [facility] Body temperature 2022-03-29 15:35:00 36.61 Ness [facility] Respiratory rate 2022-03-29 15:35:00 18 /min [facility] Body height 2022-03-29 15:35:00 154.9 cm [facility] Body weight 2022-03-29 15:35:00 82.827 kg [facility] BMI 2022-03-29 15:35:00 34.50 kg/m2 [facility] Systolic blood pressure 2022-03-18 02:13:00 111 mm[Hg] [facility] Diastolic blood pressure 2022-03-18 02:13:00 56 mm[Hg] [facility] Heart rate 2022-03-18 02:13:00 82 [facility] Body temperature 2022-03-18 02:13:00 36.89 Ness [facility] Respiratory rate 2022-03-18 02:13:00 18 /min [facility] Body weight 2022-03-18 02:13:00 82.872 kg [facility] BMI 2022-03-18 02:13:00 34.52 kg/m2 [facility] Oxygen saturation in Arterial blood by Pulse oximetry 2022-03-18 02:13:00 99 /min [facility] Body height 2022-03-18 01:54:00 154.9 cm [facility] Systolic blood pressure 2022-03-01 16:14:00 99 mm[Hg] [facility] Diastolic blood pressure 2022-03-01 16:14:00 66 mm[Hg] [facility] Heart rate 2022-03-01 16:14:00 82 /min [facility] Body temperature 2022-03-01 16:14:00 36.78 Ness [facility] Respiratory rate 2022-03-01 16:14:00 18 /min [facility] Body height 2022-03-01 16:14:00 154.9 cm [facility] Body weight 2022-03-01 16:14:00 80.559 kg [facility] BMI 2022-03-01 16:14:00 33.58 kg/m2 [facility] Systolic blood pressure 2022-02-18 02:58:00 103 mm[Hg] [facility] Diastolic blood pressure 2022-02-18 02:58:00 70 mm[Hg] [facility] Heart rate 2022-02-18 02:58:00 83 /min [facility] Body temperature 2022-02-18 02:58:00 36.94 Ness [facility] Respiratory rate 2022-02-18 02:58:00 16 /min [facility] Oxygen saturation in Arterial blood by Pulse oximetry 2022-02-18 02:58:00 100 /min [facility] Body height 2022-02-18 01:10:00 154.9 cm 5' 1" [facility] Body weight 2022-02-18 01:10:00 80.468 kg 177lb 6.4oz [facility] BMI 2022-02-18 01:10:00 33.54 kg/m2 [facility] Procedures Procedure Date / Time Performed Performing Clinician Source NOTICE OF PRIVACY PRACTICES 2023-07-24 02:35:29 Doctor Unassigned, [place] [facility] CONSENT/REFUSAL FOR DIAGNOSIS AND TREATMENT 2023-07-24 02:35:09 Doctor Unassigned, [place] [facility] POCT MOLECULAR STREP 2022-12-23 21:07:00 Scott Joseph [facility] XR SHOULDER 2+ VW LEFT 2022-09-17 16:40:00 FreddieMaribel [facility] XR SHOULDER 2+ VW LEFT 2022-09-17 16:40:00 Freddie Brendenyovani estrada [facility] POCT SARS-COV-2 ANTIGEN (BINAX NOW) 2022-09-15 01:24:00 Radha Cordova [facility] POCT MOLECULAR FLU 2022-09-15 01:23:00 Unknown, Attend ing [facility] POCT MOLECULAR STREP 2022-09-15 01:19:00 Unknown, Atte radha [facility] PHOSPHORUS 2022-08-04 10:39:00 Leonard Moore [facility] LIPASE 2022-08-04 10:39:00 Khalif Ritter [facility] MAGNESIUM 2022-08-04 10:39:00 Oscar [facility] HEPATIC FUNCTION PANEL (00108) (ALB,T.PRO,BILI T,BU/BC,ALT,AST,ALK PHOS) 2022-08-04 10:39:00 Oscar [facility] BASIC METABOLIC PANEL (NA, K, CL, CO2, GLUCOSE, BUN, CREATININE, CA) 2022-08-04 10:39:00 Oscar [facility] CBC WITH DIFF 2022-08-04 10:39:00 [facility] 2022-08-04 10:39:00 Oscar [facility] LIPASE 2022-08-04 10:39:00 Khalif Ritter [facility] MAGNESIUM 2022-08-04 10:39:00 [facility] (26586) (ALB,T.PRO,BILI T,BU/BC,ALT,AST,ALK PHOS) 2022-08-04 10:39:00 Oscar [facility] BASIC METABOLIC PANEL (NA, K, CL, CO2, GLUCOSE, BUN, CREATININE, CA) 2022-08-04 10:39:00 Oscar [facility] CBC WITH DIFF 2022-08-04 10:39:00 Leonard Moore [facility] TIME OR (NON-REPORTABLE) 2022-08-03 20:15:00 Casillas, [facility] [place] TIME OR (NON-REPORTABLE) 2022-08-03 20:15:00 Casillas, [facility] LAPAROSCOPIC CHOLECYSTECTOMY 2022-08-03 17:30:00 Casillas, [facility] INTRAOPERATIVE CHOLANGIOGRAM 2022-08-03 17:30:00 Casillas, [facility] PHOSPHORUS 2022-08-03 09:56:00 Oscar [facility] LACTATE DEHYDROGENASE 2022-08-03 09:56:00 Tra Moore [facility] MAGNESIUM 2022-08-03 09:56:00 Leonard Moore [facility] HEPATIC FUNCTION PANEL (74610) (ALB,T.PRO,BILI T,BU/BC,ALT,AST,ALK PHOS) 2022-08-03 09:56:00 Oscar [facility] BASIC METABOLIC PANEL (NA, K, CL, CO2, GLUCOSE, BUN, CREATININE, CA) 2022-08-03 09:56:00 Oscar [facility] CBC WITH DIFF 2022-08-03 09:56:00 Leonard Moore [facility] PHOSPHORUS 2022-08-03 09:56:00 Leonard Moore [facility] LACTATE DEHYDROGENASE 2022-08-03 09:56:00 Tra Moore [facility] MAGNESIUM 2022-08-03 09:56:00 Oscar [facility] HEPATIC FUNCTION PANEL (00901) (ALB,T.PRO,BILI T,BU/BC,ALT,AST,ALK PHOS) 2022-08-03 09:56:00 Oscar [facility] BASIC METABOLIC PANEL (NA, K, CL, CO2, GLUCOSE, BUN, CREATININE, CA) 2022-08-03 09:56:00 Oscar, [place] [facility] CBC WITH DIFF 2022-08-03 09:56:00 [facility] 2022-08-03 09:52:00 Stone [facility] LIPID PANEL (24501)(TOTAL CHOLESTEROL, TRIGLYCERIDES, HDL) 2022-08-03 09:52:00 Stone [facility] LIPASE 2022-08-03 09:52:00 Stone [facility] LIPID PANEL (52237)(TOTAL CHOLESTEROL, TRIGLYCERIDES, HDL) 2022-08-03 09:52:00 Khalif Ritter [facility] LIPASE 2022-08-02 10:57:00 Stone [facility] MAGNESIUM 2022-08-02 10:57:00 Flaco [facility] COMP. METABOLIC PANEL ([id number]) 2022-08-02 10:57:00 Stone [facility] LIPASE 2022-08-02 10:57:00 Khalif Ritter [facility] MAGNESIUM 2022-08-02 10:57:00 [facility] COMP. METABOLIC PANEL ([id number]) 2022-08-02 10:57:00 Stone [facility] US GALL BLADDER 2022-08-02 05:07:27 Gregory Davila [facility] US GALL BLADDER 2022-08-02 05:07:27 Gregory Davila [facility] CT ABDOMEN PELVIS W CONTRAST 2022-08-02 02:52:26 Gregory Davila [facility] CT ABDOMEN PELVIS W CONTRAST 2022-08-02 02:52:26 Gregory Davila [facility] POCT TEST 2022-08-02 02:09:00 Karen Davila [facility] POCT TEST 2022-08-02 02:09:00 Karen Davila [facility] TROPONIN I 2022-08-02 01:53:00 Gregory Davila [facility] COMP. METABOLIC PANEL ([id number]) 2022-08-02 01:53:00 Gregory Davila [facility] SALICYLATE 2022-08-02 01:53:00 [facility] CBC WITH DIFF 2022-08-02 01:53:00 Gregory Davila [facility] PROTHROMBIN TIME / INR 2022-08-02 01:53:00 Teodoro Davila [facility] ACTIVATED PARTIAL THRMPLAS LESLEY 2022-08-02 01:53:00 Gregory Davila [facility] URINALYSIS 2022-08-02 01:53:00 [facility] N-TERMINAL PRO-BNP 2022-08-02 01:53:00 [facility] (IMMUNOASSAY) - COMPREHENSIVE DRUG SCREEN W/O REFLEX 2022-08-02 01:53:00 Gregory Davila [facility] LIPASE 2022-08-02 01:53:00 [facility] BILI UNCONJUGATED/BILI CONJUG 2022-08-02 01:53:00 Yeni [facility] TROPONIN I 2022-08-02 01:53:00 Gregory Davila [facility] COMP. METABOLIC PANEL ([id number]) 2022-08-02 01:53:00 Gregory Davila [facility] SALICYLATE 2022-08-02 01:53:00 [facility] CBC WITH DIFF 2022-08-02 01:53:00 Gregory Davila [facility] PROTHROMBIN TIME / INR 2022-08-02 01:53:00 Teodoro Davila [facility] ACTIVATED PARTIAL THRMPLAS LESLEY 2022-08-02 01:53:00 [facility] 2022-08-02 01:53:00 [facility] N-TERMINAL PRO-BNP 2022-08-02 01:53:00 [facility] (IMMUNOASSAY) - COMPREHENSIVE DRUG SCREEN W/O REFLEX 2022-08-02 01:53:00 [facility] 2022-08-02 01:53:00 [facility] BILI UNCONJUGATED/BILI CONJUG 2022-08-02 01:53:00 Sherrie Casillas [facility] AC PANEL 21 + LACTIC ACID 2022-08-02 01:51:00 Gregory Davila [facility] AC PANEL 21 + LACTIC ACID 2022-08-02 01:51:00 Gregory Davila [facility] NOTICE OF PRIVACY PRACTICES 2022-08-02 00:48:43 Doctor Unassigned, [place] [facility] NOTICE OF PRIVACY PRACTICES 2022-08-02 00:48:43 Doctor Unassigned, [place] [facility] HOSPITAL ADMISSION 2022-08-01 06:01:00 Doctor Un assigned, [place] [facility] DISABILITY/FMLA 2022-07-27 06:01:00 Doctor Unass igned, [place] [facility] CONSENT FOR CONTRACEPTION 2022-06-27 06:01:00 Do ctor Unassigned, [place] [facility] POCT TEST 2022-06-27 00:00:00 Dilia Escobar [facility] DISABILITY/FMLA 2022-06-08 06:01:00 Doctor Unass igned, [place] [facility] CBC WITH DIFF 2022-06-06 09:47:00 Adum, Arabella Solano [facility] CBC WITH DIFF 2022-06-05 18:12:00 Adum, Arabella Solano [facility] HEPATITIS B SURFACE ANTIGEN 2022-06-05 18:12:00 Adum, Arabella Ndiaye [facility] ADC OR TATYANA ONLY - RPR 2022-06-05 18:12:00 Adum, Samir Ndiaye [facility] HIV 1/2 AG-AB WITH REFLEX 2022-06-05 18:12:00 Adum, Samir Ndiaye [facility] HB ABO GROUPING 2022-06-05 18:08:00 Adum, Arabella [facility]EN[facility] 2022-06-05 16:59:34 Docto r Unassigned, [place] [facility] CONSENT/REFUSAL FOR DIAGNOSIS AND TREATMENT 2022-06-03 21:55:56 Doctor Unassigned, [place] [facility] ASSIGNMENT OF BENEFITS 2022-06-03 03:25:22 Docto r Unassigned, [place] [facility] ASSIGNMENT OF BENEFITS 2022-05-31 23:02:03 Docto r Unassigned, [place] [facility] CONSENT/REFUSAL FOR DIAGNOSIS AND TREATMENT 2022-05-31 23:01:51 Doctor Unassigned, [place] [facility] >14 WEEKS US LIMITED 2022-05-31 22:53:41 Dilia Escobar [facility] POCT URINALYSIS W/O SPECIFIC GRAVITY 2022-05-31 00:00:00 Dilia Escobar [facility] POCT URINALYSIS W/O SPECIFIC GRAVITY 2022-05-17 00:00:00 Dilia Escobar [facility] URINALYSIS 2022-05-06 04:33:00 Sylvia Ilana [facility] ADC CLC OR LCC ONLY - WET PREP 2022-05-06 03:27:00 [facility] 2022-05-06 02:47:09 Miketo r Unassigned, [place] [facility] CONSENT/REFUSAL FOR DIAGNOSIS AND TREATMENT 2022-05-06 02:45:20 Doctor Unassigned, [place] [facility] POCT URINALYSIS W/O SPECIFIC GRAVITY 2022-05-03 00:00:00 Donell Brunson [facility] TDAP VACCINE, >11 YRS, IM 2022-04-19 19:19:11 Nagi Escobar [facility] POCT URINALYSIS W/O SPECIFIC GRAVITY 2022-04-19 19:15:00 Dilia Escoabr [facility] 1 HR GLUCOSE TOLERANCE TEST 2022-04-05 14:26:00 Dilia Escobar [facility] GLUCOSE FASTING 2022-04-05 13:19:00 Dilia Escobar [facility] CBC WITH DIFF 2022-04-05 13:19:00 Jeremiah Wolf [facility] CONSENT/REFUSAL FOR DIAGNOSIS AND TREATMENT 2022-04-04 23:41:16 Doctor Unassigned, [place] [facility] IRON PANEL 2022-04-04 15:23:00 Dilia Escobar [facility] STERILIZATION CONSENT FORM 2022-03-29 05:01:00 D octor Unassigned, [place] [facility] POCT URINALYSIS W/O SPECIFIC GRAVITY 2022-03-29 00:00:00 Dilia Escobar [facility] URINALYSIS 2022-03-18 03:24:00 Dilia Escobar [facility] ADC CLC OR LCC ONLY - WET PREP 2022-03-18 03:24:00 Dilia Escobar [facility] NOTICE OF PRIVACY PRACTICES 2022-03-18 01:50:59 Doctor Unassigned, [place] [facility] ASSIGNMENT OF BENEFITS 2022-03-18 01:50:20 Docto r Unassigned, [place] [facility] POCT URINALYSIS W/O SPECIFIC GRAVITY 2022-03-01 16:25:00 Donell Brunson [facility] INSURANCE CORRESPONDENCE 2022-03-01 05:01:00 Doc tor Unassigned, [place] [facility] EMERGENCY DEPARTMENT DOCUMENTS 2022-02-17 05:01:00 Doctor Unassigned, [place] [facility] L&D VISIT (NON-DELIVERED) 2022-02-17 05:01:00 Do ctor Unassigned, [place] [facility] Encounters Start Date/Time End Date/Time Encounter Type Admission Type Attending Clinicians Care Facility Care Department Encounter ID Source 2022-06-02 23:00:50 Outpatient X [facility] [id number] [facility] 2022-04-04 15:33:04 Outpatient P [facility] [id number] [facility] 2021-04-04 09:36[id number] 2021-04-03 17:23:54 Outpatient X [facility] [id number] [facility] 2021-04-03 05:42:59 Outpatient X [facility] [id number] [facility] 2021-04-03 05:10:21 Emergency [facility] [id number] [facility] 2024-04-06 15:29:56 2024-04-06 15:29:56 Outpatient [facility] [id number] Fidel Valerio 2024-04-02 11:08:55 2024-04-02 11:08:55 Outpatient [facility] [id number] Fidel Valerio 2024-03-24 15:00:00 2024-03-24 15:00:00 Outpatient R RICHARD-MALCOM S, ILANA RICHARD-MALCOM S, ILANA [facility] [id number] [facility] 2023-10-03 16:00:00 2023-10-03 16:00:00 Outpatient DEEPAK GIANG [id number] [facility] 2023-09-30 00:00:00 2023-09-30 00:00:00 Dilia Ayoub [facility] .2.840.114 350.1.13.10 4.2.7.2.686 [id number] [facility] 2023-09-10 00:00:00 2023-09-10 00:00:00 Outpatient DEEPAK GIANG [id number] [facility] 2023-08-14 14:00:00 2023-08-14 14:00:00 Outpatient DEEPAK GIANG [id number] [facility] 2023-07-23 20:48:00 2023-07-23 21:07:00 Emergency X LOKESH SERNA [facility] [id number] [facility] 2023-07-23 20:48:00 2023-07-23 21:07:00 Emergency Lokesh Serna [facility] .2.840.114 350.1.13.10 4.2.7.2.686 [id number] [facility] 2023-02-18 13:30:00 2023-02-18 13:30:00 Outpatient R DILIA ESCOBAR [facility] [id number] [facility] 2022-12-23 15:40:00 2022-12-23 16:00:00 Urgent Care Saadia Terri Dhaliwal Jake [facility] JULIO?[facility] [id number] 350.1.13.10 4.2.7.2.686 [id number] [facility] 2022-12-23 15:40:00 2022-12-23 15:40:00 Outpatient R JAKE SCOTT [facility] [id number] [facility] 2022-11-13 10:00:00 2022-11-13 10:00:00 Outpatient R JACINDA BUI [facility] [id number] [facility] 2022-09-17 11:11:23 2022-09-17 23:59:00 Hospital Encounter Freddie [facility] JULIO?[facility] 1..840.114 350.1.13.10 4.2.7.2.686 [id number] [facility] 2022-09-17 11:11:23 2022-09-17 23:59:00 Hospital Encounter Freddie [facility] JULIO?[facility] [id number] 350.1.13.10 4.2.7.2.686 [id number] [facility] 2022-09-17 11:11:22 2022-09-17 23:59:00 Outpatient R FREDDIE [facility] [id number] [facility] 2022-09-17 11:11:22 2022-09-17 23:59:00 Hospital Encounter Freddie [facility] JULIO?[facility] [id number] 350.1.13.10 4.2.7.2.686 [id number] [facility] 2022-09-17 11:00:00 2022-09-17 11:20:00 Urgent Care Shira Frazier Unknown, Attending [facility] OFF[facility] BUILD[facility] 1.840.114 350.1.13.10 4.2.7.2.686 [id number] [facility] 2022-09-17 00:00:00 2022-09-17 00:00:00 Letter (Out) Shira Frazier [facility] JULIO?[facility] BU[facility] 1..840.114 350.1.13.10 4.2.7.2.686 [id number] [facility] 2022-09-14 20:20:00 2022-09-14 20:43:08 Outpatient R SHIRA FRAZIER [facility] [id number] [facility] 2022-09-14 20:20:00 2022-09-14 20:40:00 Urgent Care Shira Frazier Unknown, Attending [facility] BUILDING 1.840.114 350.1.13.10 4.2.7.2.686 [id number] [facility] 2022-08-27 13:45:00 2022-08-27 13:45:00 Outpatient R SHERRIE CASILLAS [facility] [id number] [facility] 2022-08-20 15:30:00 2022-08-20 15:30:00 Outpatient R SHERRIE CASILLAS [facility] [id number] [facility] 2022-08-20 13:30:00 2022-08-20 13:30:00 Outpatient R SHERRIE CASILLAS [facility] [id number] [facility] 2022-08-13 10:30:00 2022-08-13 10:45:00 Youth Agent Visit 2, Adc Jacinda Munson [facility] BUILDING 1..840.114 350.1.13.10 4.2.7.2.686 [id number] [facility] 2022-08-13 09:30:00 2022-08-13 10:29:02 [facility] [id number] 2022-08-13 09:30:00 2022-08-13 10:29:02 Office Visit Jacinda Bui [facility] NAL BUILDING 1.0.114 350.1.13.10 4.2.7.2.686 [id number] [facility] 2022-08-07 00:00:00 2022-08-07 00:00:00 Transition of Care Paola Albarran NICOLE SULLIVAN 1.0.114 350.1.13.10 4.2.7.2.686 [id number] [facility] 2022-08-01 19:12:00 2022-08-04 14:08:00 Inpatient X KHALIF RITTER [facility] [id number] [facility] 2022-08-01 19:12:00 2022-08-04 14:08:00 Hospital Encounter Gregory Davila Mariesepideh Khalif [facility] 1.0.114 350.1.13.10 4.2.7.2.686 [id number] 080 [id number] [facility] 2022-08-03 12:14:00 2022-08-03 15:16:00 Surgery Sherrie Casillas [facility] 1..114 350.1.13.10 4.2.7.2.686 [id number] 020 [id number] [facility] 2022-08-02 00:00:00 2022-08-02 00:00:00 Patient Secure Msg Doctor Unassigned, [place] [facility] 1..114 350.1.13.10 4.2.7.2.686 [id number] 019 [id number] [facility] 2022-07-31 00:00:00 2022-07-31 00:00:00 Telephone Dilia Escobar [facility] 1.2840.114 350.1.13.10 4.2.7.2.686 [id number] 134 [id number] [facility] 2022-07-27 00:00:00 2022-07-27 00:00:00 Orders Only Doctor Unassigned, [place] [facility] 1.2840.114 350.1.13.10 4.2.7.2.686 [id number] [id number] [facility] 2022-07-20 00:00:00 2022-07-20 00:00:00 Telephone Dilia Escobar [facility] 1.2840.114 350.1.13.10 4.2.7.2.686 [id number] 134 [id number] [facility] 2022-06-27 11:15:00 2022-06-27 12:14:57 Outpatient R DILIA ESCOBAR [facility] [id number] [facility] 2022-06-27 11:15:00 2022-06-27 12:14:57 Routine Visit Dilia Escobar [facility] 1.2840.114 350.1.13.10 4.2.7.2.686 [id number] [facility] 2022-06-27 00:00:00 2022-06-27 00:00:00 Orders Only Doctor Unassigned, [place] [facility] 1.20.114 350.1.13.10 4.2.7.2.686 [id number] 009 [id number] [facility] 2022-06-08 00:00:00 2022-06-08 00:00:00 Orders Only Doctor Unassigned, [place] [facility] 1.2840.114 350.1.13.10 4.2.7.2.686 [id number] [id number] [facility] 2022-06-07 10:00:00 2022-06-07 10:00:00 Outpatient Bradford BRUNSONDONELL [facility] [id number] [facility] 2022-06-05 11:02:00 2022-06-06 19:55:00 Hospital Encounter Escobar, Dilia Jamarcus Montes De Ocahector, Arabella L [facility] 1.2.840.114 350.1.13.10 4.2.7.2.686 [id number] 083 [id number] [facility] 2022-06-05 00:00:00 2022-06-05 00:00:00 Orders Only Doctor Unassigned, [place] [facility] 1.2.840.114 350.1.13.10 4.2.7.2.686 [id number] [id number] [facility] 2022-06-04 15:45:00 2022-06-04 16:11:05 Outpatient Bradford BRUNSON [facility] [id number] [facility] 2022-06-04 15:45:00 2022-06-04 16:11:05 Routine Visit Kalpana Donell [facility] 1.2.840.114 350.1.13.10 4.2.7.2.686 [id number] 134 [id number] [facility] 2022-06-04 15:45:00 2022-06-04 16:11:05 Outpatient Bradford BRUNSON [facility] [id number] [facility] 2022-06-03 16:08:00 2022-06-03 17:50:00 Outpatient X ILANA BAKER MARISOL [facility] [id number] [facility] 2022-06-03 16:08:00 2022-06-03 17:50:00 Emergency Danilo Diallo s, Ilana [facility] 1.840.114 350.1.13.10 4.2.7.2.686 [id number] [facility] 2022-06-02 21:28:00 2022-06-02 22:39:00 Outpatient X RICHARD-MALCOM S, ILANA RICHARD-MALCOM S, ILANA [facility] [id number] [facility] 2022-06-02 21:28:00 2022-06-02 22:39:00 Emergency Richard-Malcom s, Ilana [facility] 1.2840.114 350.1.13.10 4.2.7.2.686 [id number] 083 [id number] [facility] 2022-05-31 16:00:00 2022-05-31 16:48:49 Outpatient R DILIA ESCOBAR [facility] [id number] [facility] 2022-05-31 16:00:00 2022-05-31 16:48:49 Routine Visit Dilia Escobar [facility] 1.0.114 350.1.13.10 4.2.7.2.686 [id number] [facility] 2022-05-31 10:15:00 2022-05-31 10:30:00 Youth Agent Visit 1, Adc Lab EscobarDilia [facility] 1.0.114 350.1.13.10 4.2.7.2.686 [id number] [facility] 2022-05-31 00:00:00 2022-05-31 00:00:00 Orders Only Doctor Unassigned, [place] [facility] 1.2840.114 350.1.13.10 4.2.7.2.686 [id number] 009 [id number] [facility] 2022-05-17 16:15:00 2022-05-17 16:36:14 Outpatient R DILIA ESCOBAR [facility] [id number] [facility] 2022-05-17 16:15:00 2022-05-17 16:36:14 Routine Visit Dilia Escobar [facility] 1.2.840.114 350.1.13.10 4.2.7.2.686 [id number] [facility] 2022-05-05 20:52:00 2022-05-05 23:05:00 Outpatient P RICHARD-MALCOM S, ILANA RICHARD-MALCOM S, ILANA [facility] [id number] [facility] 2022-05-05 20:52:00 2022-05-05 23:05:00 Hospital Encounter Richard-Malcom s, [facility] 1.2.840.114 350.1.13.10 4.2.7.2.686 [id number] 083 [id number] [facility] 2022-05-03 11:00:00 2022-05-03 11:00:00 Routine Visit Donell Brunson [facility] 1.2.840.114 350.1.13.10 4.2.7.2.686 [id number] 134 [id number] [facility] 2022-05-03 11:00:00 2022-05-03 10:57:45 Outpatient R DONELL BRUNSON [facility] [id number] [facility] 2022-04-19 13:15:00 2022-04-19 13:22:27 Outpatient R DILIA ESCOBAR [facility] [id number] [facility] 2022-04-19 13:15:00 2022-04-19 13:22:27 Routine Visit Dilia Escobar [facility] N[facility] BUILD[facility] 1.2.840.114 350.1.13.10 4.2.7.2.686 [id number] 134 [id number] [facility] 2022-04-18 08:59:00 2022-04-18 14:40:00 Outpatient P DILIA ESCOBAR [facility] [id number] [facility] 2022-04-18 08:59:00 2022-04-18 14:40:00 Hospital Encounter Dilia Escobar [facility] 1.2.840.114 350.1.13.10 4.2.7.2.686 [id number] 083 [id number] [facility] 2022-04-13 00:00:00 2022-04-13 00:00:00 Telephone Dilia Escobar [facility] PROFESSIO NAL BUILDING 1.2.840.114 350.1.13.10 4.2.7.2.686 [id number] 134 [id number] [facility] 2022-04-11 08:48:00 2022-04-11 14:55:00 Outpatient P DILIA ESCOBAR [facility] [id number] [facility] 2022-04-11 08:48:00 2022-04-11 14:55:00 Hospital Encounter Dilia Escobar [facility] 1.2.840.114 350.1.13.10 4.2.7.2.686 [id number] 083 [id number] [facility] 2022-04-05 08:30:00 2022-04-05 08:45:00 Youth Agent Visit 2, Adc Lab Dilia Escobar [facility] PROFESSIO NAL BUILDING 1.2.840.114 350.1.13.10 4.2.7.2.686 [id number] [facility] 2022-04-05 08:30:00 2022-04-05 08:30:00 Outpatient R SAMIR ESCOBAREN [facility] [id number] [facility] 2022-04-04 19:14:00 2022-04-04 21:37:00 Outpatient X DILIA ESCOBAR [facility] [id number] [facility] 2022-04-04 19:14:00 2022-04-04 21:37:00 Emergency [place], Jorge Diallo, Danilo Christianson Dilia Escobar [facility] 1.2840.114 350.1.13.10 4.2.7.2.686 [id number] 083 [id number] [facility] 2022-04-04 09:02:00 2022-04-04 15:30:00 Outpatient P DILIA ESCOBAR [facility] [id number] [facility] 2022-04-04 09:02:00 2022-04-04 15:30:00 Hospital Encounter Dilia Escobar [facility] 1.2840.114 350.1.13.10 4.2.7.2.686 [id number] [id number] [facility] 2022-04-02 00:00:00 2022-04-02 00:00:00 Telephone Dilia Escobar [facility] BUILDING 1.2840.114 350.1.13.10 4.2.7.2.686 [id number] 134 [id number] [facility] 2022-03-30 08:30:00 2022-03-30 08:45:00 Youth Agent Visit 2, Adc Lab Dilia Escobar [facility] NAL BUILDING 1.2840.114 350.1.13.10 4.2.7.2.686 [id number] [facility] 2022-03-30 08:30:00 2022-03-30 08:30:00 Outpatient R DILIA ESCOBAR [facility] [id number] [facility] 2022-03-30 00:00:00 2022-03-30 00:00:00 Case Management Dilia Escobar [facility] PROFESSIO NAL BUILDING 1.2.840.114 350.1.13.10 4.2.7.2.686 [id number] 134 [id number] [facility] 2022-03-29 10:45:00 2022-03-29 11:19:40 [id number] 2022-03-29 10:45:00 2022-03-29 11:19:40 [facility]ine [facility] 1..114 350.1.13.10 4.2.7.2.686 [id number] 134 [id number] [facility] 2022-03-29 00:00:00 2022-03-29 00:00:00 Orders Only Doctor Unassigned, [place] [facility] 1..114 350.1.13.10 4.2.7.2.686 [id number] [id number] [facility] 2022-03-17 20:58:00 2022-03-18 00:00:00 Outpatient X [facility] [id number] [facility] 2022-03-17 20:58:00 2022-03-18 00:00:00 Emergency [facility] 1..114 350.1.13.10 4.2.7.2.686 [id number] 083 [id number] [facility] 2022-03-17 00:00:00 2022-03-17 00:00:00 Orders Only Doctor Unassigned, [place] [facility] 1..114 350.1.13.10 4.2.7.2.686 [id number] [facility] 2022-03-08 11:00:00 2022-03-08 12:00:00 Youth Agent Visit Ultrasound, Jesse Davis [facility] SHOWROOM MANAGER [facility] 1..114 350.1.13.10 4.2.7.2.686 [id number] [facility] 2022-03-08 11:00:00 2022-03-08 11:00:00 Outpatient P [facility] [id number] [facility] 2022-03-08 11:00:00 2022-03-08 11:00:00 Outpatient P JESSE SOLO [facility] [id number] [facility] 2022-03-02 11:00:00 2022-03-02 11:00:00 Outpatient P [facility] [id number] [facility] 2022-03-02 11:00:00 2022-03-02 11:00:00 Outpatient P [facility] [id number] [facility] 2022-03-02 00:00:00 2022-03-02 00:00:00 Telephone Dilia Escobar [facility] 1.2.840.114 350.1.13.10 4.2.7.2.686 [id number] 134 [id number] [facility] 2022-03-01 11:15:00 2022-03-01 11:43:49 Outpatient R DONELL BRUNSON [facility] [id number] [facility] 2022-03-01 11:15:00 2022-03-01 11:43:49 Routine Visit Kalpana Donell [facility] 1.2.840.114 350.1.13.10 4.2.7.2.686 [id number] 134 [id number] [facility] 2022-03-01 00:00:00 2022-03-01 00:00:00 Telephone Dilia Escobar [facility] 1.2.840.114 350.1.13.10 4.2.7.2.686 [id number] [facility] 2022-03-01 00:00:00 2022-03-01 00:00:00 Orders Only Doctor Unassigned, [place] [facility] 1.2840.114 350.1.13.10 4.2.7.2.686 [id number] [facility] 2022-02-26 00:00:00 2022-02-26 00:00:00 Telephone Thuan [facility] 1.2.840.114 350.1.13.10 4.2.7.2.686 [id number] 134 [id number] [facility] 2022-02-17 19:48:00 2022-02-17 22:10:00 Outpatient X ARABELLA LAROSE [facility] [id number] [facility] 2022-02-17 19:48:00 2022-02-17 22:10:00 Emergency Paola Wolf Arabella Fina [facility] 1.2840.114 350.1.13.10 4.2.7.2.686 [id number] 083 [id number] [facility] 2022-02-16 00:00:00 2022-02-16 00:00:00 Telephone Donell Brunson [facility] BUILD[facility] 1.2.840.114 350.1.13.10 4.2.7.2.686 [id number] 134 [id number] [facility] 2022-02-16 00:00:00 2022-02-16 00:00:00 Telephone Donell Brunson [facility] BUILD[facility] 1.2.840.114 350.1.13.10 4.2.7.2.686 [id number] 134 [id number] [facility] 2022-02-13 00:00:00 2022-02-13 00:00:00 Telephone Dilia [facility] 1.2.840.114 350.1.13.10 4.2.7.2.686 [id number] 134 [id number] [facility] 2022-02-13 00:00:00 2022-02-13 00:00:00 Telephone Dilia Escobar [facility] 1.2.840.114 350.1.13.10 4.2.7.2.686 [id number] 134 [id number] [facility] 2022-02-08 00:00:00 2022-02-08 00:00:00 Telephone DonnaDonell mckeon [facility] 1.2.840.114 350.1.13.10 4.2.7.2.686 [id number] 134 [id number] [facility] 2022-02-07 00:00:00 2022-02-07 00:00:00 Jeremiah Carranza [facility] SHOWROOM MANAGER [facility] 1.840.114 350.1.13.10 4.2.7.2.686 [id number] 107 [id number] [facility] 2022-02-06 00:00:00 2022-02-06 00:00:00 Case Management Kalpana Donell [facility] 1.2.840.114 350.1.13.10 4.2.7.2.686 [id number] 134 [id number] [facility] 2022-02-03 00:00:00 2022-02-03 00:00:00 Case Management Donell Brunson [facility] 1.2840.114 350.1.13.10 4.2.7.2.686 [id number] [facility] 2022-02-02 08:45:00 2022-02-02 09:00:00 Youth Agent Visit 2, Adc Lab Dilia Escobar [facility] 1.2.840.114 350.1.13.10 4.2.7.2.686 [id number] [facility] 2022-02-02 08:45:00 2022-02-02 08:45:00 Outpatient R LUZ [facility] [id number] [facility] 2022-02-02 00:00:00 2022-02-02 00:00:00 Case Management Dilia Escobar [facility] 1.2.840.114 350.1.13.10 4.2.7.2.686 [id number] 134 [id number] [facility] 2022-02-01 14:00:00 2022-02-01 15:00:03 Initial Visit Dilia Escobar [facility] 1.2.840.114 350.1.13.10 4.2.7.2.686 [id number] 134 [id number] [facility] 2022-02-01 14:00:00 2022-02-01 15:00:03 Outpatient R LUZ [facility] [id number] [facility] 2022-02-01 00:00:00 2022-02-01 00:00:00 Orders Only Doctor Unassigned, [place] [address].2.840.114 350.1.13.10 4.2.7.2.686 [id number] [id number] [facility] 2021-05-30 10:15:00 2021-05-30 10:15:00 Outpatient JEREMIAH MEANS [facility] [id number] [facility] 2021-05-10 00:00:00 2021-05-10 00:00:00 Orders Only Doctor Unassigned, [place] [address].2.840.114 350.1.13.10 4.2.7.2.686 [id number] [id number] [facility] 2021-05-05 11:00:00 2021-05-05 11:37:32 Outpatient JEREMIAH MEANS [facility] [id number] [facility] 2021-05-05 10:53:11 2021-05-05 11:37:32 Routine Visit Jeremiah Wolf [facility] SHOWROOM MANAGER [facility] 1.2840.114 350.1.13.10 4.2.7.2.686 [id number] 107 [id number] [facility] 2021-04-14 21:03:00 2021-04-16 19:10:00 Hospital Encounter JoseMiguel [facility] 1.2.114 350.1.13.10 4.2.7.2.686 [id number] 134 [id number] [facility] 2021-04-13 10:01:27 2021-04-13 16:30:59 Routine Visit Jarred Bradley-Rmchp-N p/High Cheli Donohue [facility] SHOWROOM MANAGER [facility] 1.0.114 350.1.13.10 4.2.7.2.686 [id number] 107 [id number] [facility] 2021-04-13 10:00:00 2021-04-13 16:30:59 Outpatient R CHELI DONOHUE [facility] [id number] [facility] 2021-04-13 10:00:00 2021-04-13 10:00:00 Outpatient R [facility] [id number] [facility] 2021-04-13 10:00:00 2021-04-13 10:00:00 Outpatient R CHELI DONOHUE [facility] [id number] [facility] 2021-04-07 19:02:00 2021-04-07 20:36:00 Outpatient X ARABELLA LAROSE [facility] [id number] [facility] 2021-04-07 19:02:00 2021-04-07 20:36:00 Hospital Encounter TavonhectorArabella [facility] 1.2840.114 350.1.13.10 4.2.7.2.686 [id number] [facility] 2021-04-06 09:15:00 2021-04-06 09:31:52 Outpatient R JOSELYN WATKINS [facility] [id number] [facility] 2021-04-06 08:52:24 2021-04-06 09:31:52 Routine Visit Provider, MaryjaneRmchp Joselyn Cates [facility] SHOW[employer]OM MANAGER [facility] 1..114 350.1.13.10 4.2.7.2.686 [id number] 107 [id number] [facility] 2021-04-01 19:08:00 2021-04-03 17:20:00 Inpatient Winston VASQUEZ, REGINALDO VASQUEZ, [facility] [id number] [facility] 2021-04-01 19:08:00 2021-04-03 17:20:00 Hospital Encounter Miguel Garcia, Benja Vasquez, [facility] 1.114 350.1.13.10 4.2.7.2.686 [id number] 135 [id number] [facility] 2021-04-03 13:49:47 2021-04-03 14:19:47 Youth Agent Visit 5, [facility], [facility] 1.114 350.1.13.10 4.2.7.2.686 [id number] [facility] 2021-04-03 11:00:00 2021-04-03 11:00:00 Outpatient P [facility] [id number] [facility] 2021-04-01 00:00:00 2021-04-01 00:00:00 Orders Only Doctor Unassigned, [place] [facility] 1.114 350.1.13.10 4.2.7.2.686 [id number] [facility] 2021-03-31 09:45:00 2021-03-31 11:21:03 Outpatient R CHELI DONOHUE [facility] [id number] [facility] 2021-03-31 09:45:00 2021-03-31 11:21:03 Outpatient R CHELI DONOHUE [facility] [id number] [facility] 2021-03-31 09:24:13 2021-03-31 11:21:03 Routine Visit Risk, Pea-Rmchp Provider/Hi gh Cheli Donohue [facility] SHOWROOM MANAGER [facility] 1.2840.114 350.1.13.10 4.2.7.2.686 [id number] [facility] 2021-03-27 19:37:00 2021-03-27 22:24:00 Emergency Dilia Escobar [facility] 1.2840.114 350.1.13.10 4.2.7.2.686 [id number] [id number] [facility] 2021-03-24 00:00:00 2021-03-24 00:00:00 Orders Only Doctor Unassigned, [place] [facility] 1.2.840.114 350.1.13.10 4.2.7.2.686 [id number] [id number] [facility] 2021-03-23 15:50:59 2021-03-23 16:13:30 Routine Visit Jeremiah Wolf [facility] SHOWROOM MANAGER [facility] 1.2840.114 350.1.13.10 4.2.7.2.686 [id number] 107 [id number] [facility] 2021-03-23 16:00:00 2021-03-23 16:00:00 Outpatient JEREMIAH MEANS [facility] [id number] [facility] 2021-03-10 09:53:16 2021-03-10 10:14:28 Routine Visit Jeremiah Wolf [facility] SHOWROOM MANAGER [facility] 1..840.114 350.1.13.10 4.2.7.2.686 [id number] 107 [id number] [facility] 2021-03-10 09:30:00 2021-03-10 09:30:00 Outpatient R JEREMIAH WOLF [facility] [id number] [facility] 2021-02-23 10:29:34 2021-02-23 10:58:40 Routine Visit Jeremiah Wolf [facility] SHOWROOM MANAGER [facility] 1..840.114 350.1.13.10 4.2.7.2.686 [id number] 107 [id number] [facility] 2021-02-23 10:45:00 2021-02-23 10:45:00 Outpatient R JEREMIAH WOLF [facility] [id number] [facility] 2021-02-09 07:58:58 2021-02-09 09:03:46 Routine Visit Zach Clark [facility] SHOWROOM MANAGER [facility] & [facility]ILD [facility] 1..840.114 [id number] [facility] 2021-02-09 08:00:00 2021-02-09 08:00:00 Outpatient R ZACH CLARK [facility] [id number] [facility] 2021-01-24 00:00:00 2021-01-24 00:00:00 Telephone Jeremiah Wolf [facility] [employer] [facility] & CHILD [facility] 1..840.114 [id number] [facility] 2021-01-23 16:00:00 2021-01-23 16:00:00 Outpatient R ZACH CLARK [facility] [id number] [facility] 2021-01-17 14:30:00 2021-01-17 14:30:00 Outpatient R [facility] [id number] [facility] 2021-01-10 10:45:00 2021-01-10 10:45:00 Outpatient R ZACH CLARK [facility] [id number] [facility] 2021-01-04 10:30:00 2021-01-04 10:30:00 Outpatient R [facility] [id number] [facility] 2020-12-28 10:00:00 2020-12-28 10:00:00 Outpatient R [facility] [id number] [facility] 2020-12-26 08:30:00 2020-12-26 08:30:00 Outpatient P [facility] [id number] [facility] 2020-12-21 09:30:00 2020-12-21 09:30:00 Outpatient R [facility] [id number] [facility] 2020-12-20 11:00:00 2020-12-20 11:00:00 Outpatient R XIMENA WOLFILY [facility] [id number] [facility] 2020-12-14 13:30:00 2020-12-14 13:30:00 Outpatient R [facility] [id number] [facility] 2020-12-13 15:30:00 2020-12-13 15:30:00 Outpatient R DAHIANA CLARKOLA [facility] [id number] [facility] 2020-12-06 13:30:00 2020-12-06 13:30:00 Outpatient R [facility] [id number] [facility] 2020-11-30 08:00:00 2020-11-30 08:00:00 Outpatient R [facility] [id number] [facility] 2020-11-23 10:00:00 2020-11-23 10:00:00 Outpatient P [facility] [id number] [facility] 2020-11-22 10:45:2020-11-22 10:45:00 [place] [facility] [id number] [facility] 2020-11-16 10:00:00 2020-11-16 10:00:00 Outpatient P [facility] [id number] [facility] 2020-11-09 11:30:00 2020-11-09 11:30:00 Outpatient NÉSTOR LOPEZ SHANNON [facility] [id number] [facility] 2020-10-25 11:00:00 2020-10-25 11:00:00 Outpatient Bradford [facility] [id number] [facility] 2020-10-20 09:30:00 2020-10-20 09:30:00 Outpatient Bradford [facility] [id number] [facility] 2020-09-20 14:00:00 2020-09-20 14:00:00 Outpatient Bradford [facility] [id number] [facility] 2019-10-27 18:22:43 2019-10-27 19:15:00 Emergency X JUAN, K JUAN, K [facility] ERT [id number] [facility] Results Test Description Test Time Test Comments Results Result Co mments Source [facility] MOLECULAR [id number] 21:15:18* Test Item Value Reference Range Interpretation Comme nts POCT Molecular Strep (test c ode = 58172-3) Negative Negative Lab Interpretation (test cod e = 07781-0) Normal [facility] MOLECULAR [id number] 01:34:47* Test Item Value Reference Range Interpretation Comme nts POCT Molecular FluA (test co de = 63399-9) Negative Negative POCT Molecular FluB (test co de = 98280-8) Negative Negative Lab Interpretation (test cod e = 09644-5) Normal [facility] MOLECULAR [id number] 01:27:22* Test Item Value Reference Range Interpretation Comme nts POCT Molecular Strep (test c ode = 09651-3) Negative Negative Lab Interpretation (test cod e = 20488-1) Normal [facility] SARS-COV-2 ANTIGEN (BINAX NOW)2022-09-15 01:24:00* Test Item Value Reference Range Interpretation Comme nts POCT SARS-COV-2 ANTIGEN (test code = 28307-8) Not Detected Not Detected On board controls acceptable with C Line (test code = 3574) Yes ADDIE (test code = ADDIE) accurate developme nt and interpretation of all internal controls Lab Interpretation (test code = 90442-5) Normal [facility] UNCONJUGATED/BILI [id number] 04:04:10* Test Item Value Reference Range Interpretation Comme nts BILI CONJ (test code = 0673812477) 2.0 mg/dL 0.0-0.3 H BILI UNCON (test code = 5275931591) 1.1 mg/dL 0.1-1.1 Lab Interpretation (test cod e = 26775-5) Abnormal [facility] UNCONJUGATED/BILI [id number] 04:04:10* Test Item Value Reference Range Interpretation Comme nts BILI CONJ (test code = 9634149514) 2.0 mg/dL 0.0-0.3 H BILI UNCON (test code = 6857832737) 1.1 mg/dL 0.1-1.1 Lab Interpretation (test cod e = 87503-5) [facility] 03:17:08* Test Item Value Reference Range Interpretation Comme nts LIPASE (test code = 6054963015) 0-220 H Lab Interpretation (test cod e = 26011-3) [facility]normal [facility] 03:17:08* Test Item Value Reference Range Interpretation Comme nts LIPASE (test code = 6143652833) 0-220 H Lab Interpretation (test cod e = 93509-3) Abnormal [facility] HospitalSALICYLATE2023-03-02 02:52:18 SALICYLATE<10mg/L08/01/2022 8:52 PM [facility]ORYThe[facility] Range: ? Analgesic and Antipyretic Use ? 20- 100 mg/L ? ? Anti-Inflammatory Use ? 100-250 mg/L Toxic Range: ? Greater than 300 [facility] [id number] 02:52:18SALICYLATE<10mg/L08/01/2022 8:52 PM [facility]ORYTherapeutic Range: ? Analgesic and Antipyretic Use ? 20-100 mg/L ? ? Anti-Inflammatory Use ? 100-250 mg/L Toxic Range: ? Greater than 300 mg/L [facility] HospitalACETAMINOPHEN2023-03-02 02:52:08* Test Item Value Reference Range Interpretation Comme nts ACETAMINOP (test code = 1754407409) 10.0-30.0 L ADDIE (test code = ADDIE) Toxic: Greater huey n 200 ug/mL @ 4 hour post ingestion or greater than 50 ug/mL @ 12 hour post ingestion Lab Interpretation (test code = 59495-1) Abnormal [facility] HospitalACETAMINOPHEN2023-03-02 02:52:08* Test Item Value Reference Range Interpretation Comme nts ACETAMINOP (test code = 5842975817) 10.0-30.0 L ADDIE (test code = ADDIE) Toxic: Greater huey n 200 ug/mL @ 4 hour post ingestion or greater than 50 ug/mL @ 12 hour post ingestion Lab Interpretation (test code = 95576-5) Abnormal [facility] HospitalTROPONIN [id number] 02:37:39* Test Item Value Reference Range Interpretation Comme nts TROPONIN I (test code = 8616384872) 0.003 ng/mL <=0.034 ADDIE (test code = [...] of biotin. Lab Interpretation (test code = 01544-9) Normal [facility] HospitalTROPONIN [id number] 02:37:39* Test Item Value Reference Range Interpretation Comme nts TROPONIN I (test code = 2017094082) 0.003 ng/mL <=0.034 ADDIE (test code = [...] of biotin. Lab Interpretation (test code = 51880-7) Normal [facility] HospitalN-TERMINAL [id number] 02:34:00* Test Item Value Reference Range Interpretation Comme nts NT-proBNP (test code = 2084412029) 75 pg/mL <=125 ADDIE (test code = ADDIE) Biotin has been reported to cause a negative bias, interpret results relative to patient's use of biotin. Lab Interpretation (test code = 22052-0) Normal [facility] HospitalN-TERMINAL [id number] 02:34:00* Test Item Value Reference Range Interpretation Comme nts NT-proBNP (test code = 8350663997) 75 pg/mL <=125 ADDIE (test code = ADDIE) Biotin has been reported to cause a negative bias, interpret results relative to patient's use of biotin. Lab Interpretation (test code = 18533-3) Normal [facility] HospitalACTIVATED PARTIAL THRMPLAS [id number] 02:30:38* Test Item Value Reference Range Interpretation Comme nts APTT Patient (test code = 3173-2) 27 See_Comment [Automated message] The system which generated this result transmitted reference range: 23 - 38 Seconds. The reference range was not used to interpret this result as normal/abnormal. ADDIE (test code = ADDIE) The [facility] patient population mean normal value for aPTT is 30 seconds. Lab Interpretation (test code = 95490-0) Normal [facility] HospitalACTIVATED PARTIAL THRMPLAS [id number] 02:30:38* Test Item Value Reference Range Interpretation Comme [facility] APTT Patient (test code = 3173-2) 27 See_Comment [Automated message] The system which generated this result transmitted reference range: 23 - 38 Seconds. The reference range was not used to interpret this result as normal/abnormal. ADDIE (test code = ADDIE) The [facility] patient population mean normal value for aPTT is 30 seconds. Lab Interpretation (test code = 64644-7) Normal [facility] HospitalPROTHROMBIN TIME / [id number] 02:28:42* Test Item Value Reference Range Interpretation Comme [facility] PROTIME PATIENT (test code = 5964-2) 12.8 See_Comment [Automated [employer]] The system which generated this result transmitted reference range: 12.0 - 14.7 Seconds. The reference range was not used to interpret this result as normal/abnormal. INR (test code = 6301-6) 1.0 Normal INR <1.1; Warfarin Therapeutic range 2.0 to 3.0 or 2.5 to 3.5, depending upon the indications. Lab Interpretation (test code = 33573-8) Normal [facility] HospitalPROTHROMBIN TIME / [id number] 02:28:42* Test Item Value Reference Range Interpretation Comme [facility] PROTIME PATIENT (test code = 5964-2) 12.8 See_Comment [Automated [employer]] The system which generated this result transmitted reference range: 12.0 - 14.7 Seconds. The reference range was not used to interpret this result as normal/abnormal. INR (test code = 6301-6) 1.0 Normal INR <1.1; Warfarin Therapeutic range 2.0 to 3.0 or 2.5 to 3.5, depending upon the indications. Lab Interpretation (test code = 36007-3) Normal [facility] HospitalCOM. METABOLIC PANEL (91288)2022-08-02 02:25:20* Test Item Value Reference Range Interpretation Comme nts NA (test code = 2328994401) 140 mmol/L 135-145 K (test code = 8956995099) 3.8 mmol/L 3.5-5.0 CL (test code = 4581475056) 103 mmol/L 98-108 CO2 TOTAL (test code = 3208516725) 27 mmol/L 23-31 AGAP (test code = 3171442999) 10 2-16 BUN (test code = 3544019905) 10 mg/dL 7-23 GLUCOSE (test code = 7814383754) 89 mg/dL 70-110 CREATININE (test code = 0680173183) 0.73 mg/dL 0.50-1.04 TOTAL BILI (test code = 5643414626) 4.9 mg/dL 0.1-1.1 H CALCIUM (test code = 6107504428) 8.2 mg/dL 8.6-10.6 L T PROTEIN (test code = 8356408777) 7.0 g/dL 6.3-8.2 ALBUMIN (test code = 5237937976) 4.1 g/dL 3.5-5.0 ALK PHOS (test code = 7210491488) 270 U/L 34-122 H ALTv (test code = 1742-6) 204 U/L 5-35 H AST(SGOT) (test code = 1192890307) 93 U/L 13-40 H eGFR (test code = 0212352521) 94.3 mL/min/1.73m2 ADDIE (test code = ADDIE) [...] imaging tests). Lab Interpretation (test code = 94951-5) Abnormal [facility]. METABOLIC PANEL (74961)2022-08-02 02:25:20* Test Item Value Reference Range Interpretation Comme nts NA (test code = 3067569589) 140 mmol/L 135-145 K (test code = 5577726905) 3.8 mmol/L 3.5-5.0 CL (test code = 5301933867) 103 mmol/L 98-108 CO2 TOTAL (test code = 8896070835) 27 mmol/L 23-31 AGAP (test code = 3945657517) 10 2-16 BUN (test code = 0248474828) 10 mg/dL 7-23 GLUCOSE (test code = 8894121365) 89 mg/dL 70-110 CREATININE (test code = 7748048937) 0.73 mg/dL 0.50-1.04 TOTAL BILI (test code = 2863172274) 4.9 mg/dL 0.1-1.1 H CALCIUM (test code = 3571826330) 8.2 mg/dL 8.6-10.6 L T PROTEIN (test code = 5236521607) 7.0 g/dL 6.3-8.2 ALBUMIN (test code = 8725375447) 4.1 g/dL 3.5-5.0 ALK PHOS (test code = 9700074514) 270 U/L 34-122 H ALTv (test code = 1742-6) 204 U/L 5-35 H AST(SGOT) (test code = 6692522174) 93 U/L 13-40 H eGFR (test code = 2331313325) 94.3 mL/min/1.73m2 ADDIE (test code = ADDIE) [...] imaging tests). Lab Interpretation (test code = 65528-2) Abnormal [facility] WITH [id number] 02:10:40* Test Item Value Reference Range Interpretation Comme nts WBC (test code = 6690-2) 7.08 See_Comment [Automated [employer]] The system which generated this result transmitted reference range: 4.30 - 11.10 10*3/?L. The reference range was not used to interpret this result as normal/abnormal. RBC (test code = 789-8) 4.31 See_Comment [Automated [employer]] The system which generated this result transmitted [...] 32.7 g/dL 31.6-35.1 RDW-SD (test code = 65405-3) 49.3 fL 39.0-49.9 RDW-CV (test code = 788-0) 16.2 % 12.0-15.5 H PLT (test code = 777-3) 249 See_Comment [Automated messa ge] The system which generated this result transmitted reference range: 166 - 358 10*3/?L. The reference range was not used to interpret this result as normal/abnormal. MPV (test code = 82204-6) 11.9 fL 9.5-12.9 NRBC/100 WBC (test code = 8435976708) 0.0 See_Comment [Automated [employer] ssage] The system which generated this result transmitted reference range: 0.0 - 10.0 /100 WBCs. The reference range was not used to interpret this result as normal/abnormal. NRBC x10^3 (test code = 3671210132) See_Comment [Automated [employer]] The system which generated this result transmitted reference range: 10*3/?L. The reference range was not used to interpret this result as normal/abnormal. GRAN MAT (NEUT) % (test code = 770-8) 65.1 % IMM GRAN % (test code = 7803470106) 0.10 % LYMPH % (test code = 736-9) 24.0 % MONO % (test code = 5905-5) 5.5 % EOS % (test code = 713-8) 4.7 % BASO % (test code = 706-2) 0.6 % GRAN MAT x10^3(ANC) (test code = 4052398058) 4.61 10*3/uL 1.88-7.09 IMM GRAN x10^3 (test code = 5155619592) 0.00-0.06 LYMPH x10^3 (test code = 731-0) 1.70 10*3/uL 1.32-3.29 MONO x10^3 (test code = 742-7) 0.39 10*3/uL 0.33-0.92 EOS x10^3 (test code = 711-2) 0.33 10*3/uL 0.03-0.39 BASO x10^3 (test code = 704-7) 0.04 10*3/uL 0.01-0.07 Lab Interpretation (test code = 34996-1) Abnormal [facility] WITH [id number] 02:10:40* Test Item Value Reference Range Interpretation Comme nts WBC (test code = 6690-2) 7.08 See_Comment [Automated [employer]] The system which generated this result transmitted reference range: 4.30 - 11.10 10*3/?L. The reference range was not used to interpret this result as normal/abnormal. RBC (test code = 789-8) 4.31 See_Comment [Automated [employer] ge] The system which generated this result [...] 32.7 g/dL 31.6-35.1 RDW-SD (test code = 15168-7) 49.3 fL 39.0-49.9 RDW-CV (test code = 788-0) 16.2 % 12.0-15.5 H PLT (test code = 777-3) 249 See_Comment [Automated [employer] ge] The system which generated this result transmitted reference range: 166 - 358 10*3/?L. The reference range was not used to interpret this result as normal/abnormal. MPV (test code = 17541-9) 11.9 fL 9.5-12.9 NRBC/100 WBC (test code = 8398308044) 0.0 See_Comment [Automated me ssage] The system which generated this result transmitted reference range: 0.0 - 10.0 /100 WBCs. The reference range was not used to interpret this result as normal/abnormal. NRBC x10^3 (test code = 5768052030) See_Comment [Automated messa ge] The system which generated this result transmitted reference range: 10*3/?L. The reference range was not used to interpret this result as normal/abnormal. GRAN MAT (NEUT) % (test code = 770-8) 65.1 % IMM GRAN % (test code = 6723245869) 0.10 % LYMPH % (test code = 736-9) 24.0 % MONO % (test code = 5905-5) 5.5 % EOS % (test code = 713-8) 4.7 % BASO % (test code = 706-2) 0.6 % GRAN MAT x10^3(ANC) (test code = 7497766888) 4.61 10*3/uL 1.88-7.09 IMM GRAN x10^3 (test code = 6913210529) 0.00-0.06 LYMPH x10^3 (test code = 731-0) 1.70 10*3/uL 1.32-3.29 MONO x10^3 (test code = 742-7) 0.39 10*3/uL 0.33-0.92 EOS x10^3 (test code = 711-2) 0.33 10*3/uL 0.03-0.39 BASO x10^3 (test code = 704-7) 0.04 10*3/uL 0.01-0.07 Lab Interpretation (test code = 40309-2) [id number] 02:09:00* Test Item Value Reference Range Interpretation Comme nts POCT PREG (test code = 1605) negative On board controls acceptable with C Line (test code = 3574) present POCT PREG LOT # (test code = 3575) [id number] POCT PREG TEST DATE ( test code = 3576) 2023-09-01 Lab Interpretation (test cod e = 63438-8) Normal [facility]PO[facility] [id number] 02:09:00* Test Item Value Reference Range Interpretation Comme nts POCT PREG (test code = 1605) negative On board controls acceptable with C Line (test code = 3574) present POCT PREG LOT # (test code = 3575) [id number] POCT PREG TEST DATE ( test code = 3576) 2023-09-01 Lab Interpretation (test cod e = 34775-6) Normal [facility] HospitalPO[facility] [id number] 19:04:00* Test Item Value Reference Range Interpretation Comme nts POCT PREG (test code = 1605) Negative On board controls acceptable with C Line (test code = 3574) Yes POCT PREG LOT # (test code = 3575) POCT PREG TEST DATE ( test code = 357) [facility] HospitalCB with [id number] 11:28:52* Test Item Value Reference Range Interpretation Comme nts WBC (test code = 6690-2) See_Comment H [Automated messa ge] The system which generated this result transmitted reference range: 4.30 - 11.10 10*3/?L. The reference range was not used to interpret this result as normal/abnormal. RBC (test code = 789-8) See_Comment L [Automated messa ge] The system which generated [...] g/dL 31.6-35.1 L RDW-SD (test code = 66854-1) 61.5 fL 39.0-49.9 H RDW-CV (test code = 788-0) 20.1 % 12.0-15.5 H PLT (test code = 777-3) See_Comment L [Automated messa ge] The system which generated this result transmitted reference range: 166 - 358 10*3/?L. The reference range was not used to interpret this result as normal/abnormal. MPV (test code = 99903-9) 12.3 fL 9.5-12.9 IPF % (test code = 8201628270) 10.3 % 1.3-7.7 H Platelet count measured by fluorescence method. NRBC/100 WBC (test code = 9964801954) See_Comment [Automated [employer] ssage] The system which generated this result transmitted reference range: 0.0 - 10.0 /100 WBCs. The reference range was not used to interpret this result as normal/abnormal. NRBC x10^3 (test code = 3003745793) See_Comment [Automated [employer]] The system which generated this result transmitted reference range: 10*3/?L. The reference range was not used to interpret this result as normal/abnormal. GRAN MAT (NEUT) % (test code = 770-8) 73.1 % IMM GRAN % (test code = 4100864468) 0.60 % LYMPH % (test code = 736-9) 17.3 % MONO % (test code = 5905-5) 7.5 % EOS % (test code = 713-8) 1.1 % BASO % (test code = 706-2) 0.4 % GRAN MAT x10^3(ANC) (test code = 2757971743) 9.02 10*3/uL 1.88-7.09 H IMM GRAN x10^3 (test code = 3182484161) 0.07 10*3/uL 0.00-0.06 H LYMPH x10^3 (test code = 731-0) 2.14 10*3/uL 1.32-3.29 MONO x10^3 (test code = 742-7) 0.93 10*3/uL 0.33-0.92 H EOS x10^3 (test code = 711-2) 0.13 10*3/uL 0.03-0.39 BASO x10^3 (test code = 704-7) 0.05 10*3/uL 0.01-0.07 Lab Interpretation (test code = 19303-6) Abnormal [facility] OR TATYANA MENEZES - [id number] 07:46:31* Test Item Value Reference Range Interpretation Comme nts RPR (Qualitative) (test code = 75327-3) Nonreactive Nonreactive Lab Interpretation (test cod e = 31553-8) Normal [facility] HospitalHepatitis B Surface [id number] 21:40:59 * Test Item Value Reference Range Interpretation Comme nts HBsAg Semi-Quantitative (rashad t code = 5195-3) Negative Negative [facility] HospitalHIV 1/2 AG-AB WITH [id number] 20:00:41* Test Item Value Reference Range Interpretation Comme nts HIV Semi-quantitative (test code = 70773-3) Negative Negative ADDIE (test code = ADDIE) Non-reactive for HIV-1 antigen and HIV-1/HIV-2 antibodies. ?No laboratory evidence of HIV infection. ?Repeat in 2-4 weeks if acute HIV infection is suspected. [facility] HospitalType and Screen - ONCE [id number] 19:34:10 * Test Item Value Reference Range Interpretation Comme nts ABO & RH (test code = 20) A Positive Performed at [facility] Laboratory [facility] Blood [address] [place], [place] [address]Toll Free: [phone] No. [id number] IAT (test code = 1185) Negative Performed at [facility] Laboratory [facility] Blood [place] [address]Toll Free: [phone] No. [id number] [facility] HospitalCBC with Icpujpneqkpl2636-58-89 18:52:59* Test Item Value Reference Range Interpretation [...] 31.8 g/dL 31.6-35.1 RDW-SD (test code = 88972-4) 59.7 fL 39.0-49.9 H RDW-CV (test code = 788-0) 20.1 % 12.0-15.5 H PLT (test code = 777-3) See_Comment [Automated [employer]] The system which generated this result transmitted reference range: 166 - 358 10*3/?L. The reference range was not used to interpret this result as normal/abnormal. MPV (test code = 06499-2) 11.9 fL 9.5-12.9 IPF % (test code = 1042838280) 10.1 % 1.3-7.7 H Platelet count measured by fluorescence method. NRBC/100 WBC (test code = 4323588451) See_Comment [Automated [employer] ssage] The system which generated this result transmitted reference range: 0.0 - 10.0 /100 WBCs. The reference range was not used to interpret this result as normal/abnormal. NRBC x10^3 (test code = 7340170582) See_Comment [Automated [employer]] The system which generated this result transmitted reference range: 10*3/?L. The reference range was not used to interpret this result as normal/abnormal. GRAN MAT (NEUT) % (test code = 770-8) 77.5 % IMM GRAN % (test code = 9141994229) 0.50 % LYMPH % (test code = 736-9) 13.6 % MONO % (test code = 5905-5) 6.7 % EOS % (test code = 713-8) 1.4 % BASO % (test code = 706-2) 0.3 % GRAN MAT x10^3(ANC) (test code = 5264584462) 9.78 10*3/uL 1.88-7.09 H IMM GRAN x10^3 (test code = 5902263899) 0.06 10*3/uL 0.00-0.06 LYMPH x10^3 (test code = 731-0) 1.71 10*3/uL 1.32-3.29 MONO x10^3 (test code = 742-7) 0.84 10*3/uL 0.33-0.92 EOS x10^3 (test code = 711-2) 0.18 10*3/uL 0.03-0.39 BASO x10^3 (test code = 704-7) 0.04 10*3/uL 0.01-0.07 Lab Interpretation (test code = 14770-1) Abnormal [facility] URINALYSIS W/O SPECIFIC [id number] 22:08:00* Test Item Value Reference Range Interpretation [...] = 3257) n/a Negative - Negati ve [facility] URINALYSIS W/O SPECIFIC [id number] 22:22:00* Test Item Value Reference Range Interpretation [...] = 3257) Negative Negative - Negati ve [facility] URINALYSIS W/O SPECIFIC [id number] 16:45:00* Test Item Value Reference Range Interpretation [...] = 3257) n/a Negative - Negati ve [facility] URINALYSIS W/O SPECIFIC [id number] 19:15:00* Test Item Value Reference Range Interpretation [...] = 3257) N/A Negative - Negati ve [facility] URINALYSIS W/O SPECIFIC [id number] 15:32:00* Test Item Value Reference Range Interpretation [...] = 3257) n/a Negative - Negati ve [facility] URINALYSIS W/O SPECIFIC [id number] 16:25:00* Test Item Value Reference Range Interpretation [...] = 3257) n/a Negative - Negati ve [facility]PO[facility] URINALYS[facility] W/O SPECIFIC [id number] 16:25:00* Test Item Value Reference Range Interpretation [...] = 3257) n/a Negative - Negati ve [facility] Notes Date/Time Note Provider Source 2023-09-30 16:35:46 Name and verified. Pt stated that she [...] go to ER to be evaluated. Verbalized understanding. MEGHANA PACHECO RN 09/30/2023 4:38 PM Meghana Pacheco RN [facility] 2023-09-30 16:02:38 Pt says her cycle been heavy and been bleeding for a month now, offered appt her insurance is out of network so want to speak to nurse first. She thinks may have something to do with her control implant. Charlene Albright [facility] 2023-08-14 14:12:37 Chief Complaint Patient presents with New Patient Congestion Green mucus, headache, cough mainly at night. Symptoms since Saturday Headache Valorie Morin LVN [facility] 2023-07-23 20:58:17 Pt given printed and verbal discharge instructions regarding arthralgia of right temporomandibular joint Prescriptions provided Pt verbalized understanding of instructions, pt awake alert oriented, resp reg unlabored, skin w/d, color appropriate for race, moves all ext well,pt encouraged to follow up with pcp Advised to seek medical attention for new/prolonged/worsening of symptoms Awake, alert oriented, resp reg unlabored, skin w/d, pt leaving amb with steady gait, in no apparent distress [employer] Joleen Rodríguez RN [facility] 2023-07-23 20:41:27 Pt arrives ambulatory to ED reporting right side ear pain that started today. [employer] Shira Wolf RN [facility] 2023-07-23 20:35:00 Images from the original note were not included. 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 Travel and Exposure Screening: Symptoms Does patient have any of these symptoms?: (not recorded) Exposure Screening Has patient had contact with someone with a communicable disease in the last month?: (not recorded) Diseases exposed to:: (not recorded) Is Patient ?: (not recorded) Exposure Date: (not recorded) Chief Complaint: Chief Complaint Patient presents with Ear Pain History of Present Illness: 32 yo female resenting to the ED with acute onset of Right TMJ pain, 8/10 in intensity, radiating down to her face and to her ear, patient denies fever, denies trauma, denies dental pain or facial rash, no other symptoms or complaints. 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 Vaping Use Never used Alcohol Use No. Drug Use No. Sexual Activity Sexually active; Partners: Male; Control/Protection: None. Past Surgical History: Past Surgical History: Procedure Laterality Date INTRAOPERATIVE CHOLANGIOGRAM N/A 08/03/2022 Surgeon: Sherrie Casillas MD; Location: [facility] OR LOCATION LAPAROSCOPIC APPENDECTOMY N/A 12/01/2020 Surgeon: Galen Hewitt MD; Location: [facility] LAPAROSCOPIC CHOLECYSTECTOMY N/A 08/03/2022 Surgeon: Sherrie Casillas MD; Location: [facility] OR [facility] Review of Systems: Review of Systems Constitutional: Negative for activity change, appetite change, chills, diaphoresis, fatigue and fever. HENT: Negative for congestion, ear discharge, ear pain, rhinorrhea, sore throat and trouble swallowing. Eyes: Negative for photophobia, pain, discharge and redness. Respiratory: Negative for cough, chest tightness, shortness of breath and wheezing. Cardiovascular: Negative for chest pain, palpitations and leg swelling. Gastrointestinal: Negative for abdominal distention, abdominal pain, blood in stool, constipation, nausea and vomiting. Genitourinary: Negative for dysuria, urgency, polyuria, frequency, hematuria and flank pain. Musculoskeletal: Negative for arthralgias, joint swelling, myalgias and neck stiffness. Skin: Negative for color change, rash and wound. Neurological: Negative for dizziness, seizures, syncope, facial asymmetry, weakness, light-headedness, numbness and headaches. Psychiatric/Behavioral: Negative for agitation, confusion, hallucinations and self-injury. The patient is not nervous/anxious. Hematological: Negative for adenopathy and cold intolerance. Does not bruise/bleed easily. Endocrine: Negative for cold intolerance, polydipsia and polyuria. Physical Exam: ED Triage Vitals [07/23/232042] Weight 97.1 kg (214 lb) Actual or estimated Estimated by patient/family report Height 1.549 m (5' 1") BP 125/80 Pulse 86 Resp 18 Temp 37 ?C (98.6 ?F) Temp src SpO2 98 % Measured on Room air Physical Exam Vitals and nursing note reviewed. Constitutional: General: She is awake. She is not in acute distress. Appearance: She is well-developed and well-groomed. She is not ill-appearing, toxic-appearing or diaphoretic. HENT: Head: Normocephalic and atraumatic. Jaw: Tenderness, pain on movement and malocclusion present. No trismus or swelling. Right Ear: External ear normal. Left Ear: External ear normal. Nose: Nose normal. Mouth/Throat: Pharynx: No oropharyngeal exudate. Eyes: General: No scleral icterus. Right eye: No discharge. Left eye: No discharge. Conjunctiva/sclera: Conjunctivae normal. Pupils: Pupils are equal, round, and reactive to light. Neck: Thyroid: No thyromegaly. Vascular: No JVD. Trachea: No tracheal deviation. Cardiovascular: Rate and Rhythm: Normal rate and regular rhythm. Heart sounds: Normal heart sounds. No murmur heard. No friction rub. No gallop. Pulmonary: Effort: Pulmonary effort is normal. No respiratory distress. Breath sounds: Normal breath sounds. No stridor. No wheezing or rales. Chest: Chest wall: No tenderness. Abdominal: General: Bowel sounds are normal. There is no distension. Palpations: Abdomen is soft. There is no mass. Tenderness: There is no abdominal tenderness. There is no guarding or rebound. Musculoskeletal: General: No tenderness or deformity. Normal range of motion. Cervical back: Normal range of motion and neck supple. Lymphadenopathy: Cervical: No cervical adenopathy. Skin: General: Skin is warm and dry. Coloration: Skin is not pale. Findings: No erythema or rash. Neurological: Mental Status: She is alert and oriented to person, place, and time. Cranial Nerves: No cranial nerve deficit. Motor: No abnormal muscle tone. Coordination: Coordination normal. Deep Tendon Reflexes: Reflexes are normal and symmetric. Reflexes normal. Psychiatric: Behavior: Behavior normal. Behavior is cooperative. Thought Content: Thought content normal. Judgment: Judgment normal. Radiology: No orders to display Lab Results: Lab Results - No data to display EKG: If EKG completed, see Procedure Note. Orders and Treatments: No orders of the defined types were placed in this encounter. Orders Placed This Encounter Medications diclofenac 75 mg EC tablet acetaminophen (TYLENOL ARTHRITIS PAIN) 650 mg CR tablet predniSONE 20 mg tablet gabapentin (NEURONTIN) 100 mg capsule First Provider Eval: ED Events Date/Time Event User Comments 07/23/232043 Medical Screening Begins LOKESH SERNA MD -- 07/23/232043 First Provider Evaluation LOKESH SERNA MD -- ED COURSE Diagnosis/Impression as of 07/23/232050 Arthralgia of right temporomandibular joint Patient's condition stable findings consistent with TMJ Pain, will address her issues and will DC Her home with adequate medications to treat her condition. Procedures: Procedures MDM: Medical Decision Making Problems Addressed: Arthralgia of right temporomandibular joint: complicated acute illness or injury with systemic symptoms Amount and/or Complexity of Data Reviewed Independent Historian: Details: at bed side provided additional data regarding her case Risk OTC drugs. Prescription drug management. Flowsheet Documentation: Scoring Tools: No data recorded Disposition/Condition: ED Disposition ED Disposition Disch - Home Condition Stable Comment -- Discharge Medications: Patient's Medications START taking these medications ACETAMINOPHEN (TYLENOL ARTHRITIS PAIN) 650 MG CR TABLET Take 1 tablet by mouth every 8 (eight) hours as needed for Pain. DICLOFENAC 75 MG EC TABLET Take 1 tablet by mouth in the morning and 1 tablet in the evening. Take with meals. GABAPENTIN (NEURONTIN) 100 MG CAPSULE Take 1 capsule by mouth in the morning and 1 capsule at noon and 1 capsule in the evening. PREDNISONE 20 MG TABLET Take 2 tablets PO daily CONTINUE taking these medications which have NOT CHANGED IBUPROFEN 600 MG TABLET Take 1 tablet by mouth every 6 (six) hours as needed for Pain (scale 4-6) or Pain (scale 1-3). TIZANIDINE 2 MG CAPSULE Take 1 capsule by mouth in the morning and 1 capsule at noon and 1 capsule in the evening. START taking Modified Medications as Prescribed No medications on file STOP taking these medications No medications on file Follow-up: Contact information for follow-up Jacinda Bui FNP Specialty: HAND [employer] Relationship: PCP - General [facility] [address] [place] [address] DR. VARGAS [address] [place] [id number] Instructions: If symptoms worsen Electronically signed by: Lokesh Serna MD 07/23/232051 [facility]
[2024-05-05 21:14] LABS: SARS-CoV-2 Antigen CONTROL BLUE LINE VIS/BG OK; SARS-CoV-2 Antigen Rapid Res Negative (Negative)
--- NOTE | 2024-05-05 21:21 | ER ---
Nurse's Notes [facility] Name: Gretel Nguyen Age: 33 yrs Sex: Female : 1990 Arrival Date: 05/05/2024 Time: 19:58 Bed IW3 Private MD: Diagnosis: Streptococcal pharyngitis;Influenza due to identified novel influenza A virus Presentation: 05/05 20:30 Chief complaint: Patient states: cough, sore throat, body aches, and congestion that vc1 started yesterday. Coronavirus screen: Client denies travel out of the [place] in the last 14 days. chills, congestion, cough unrelated to allergies, fever, muscle pain, sore throat, Client presents with at least one sign or symptom that may indicate coronavirus-19. Ebola Screen: Patient negative for fever greater than or equal to 101.5 degrees Fahrenheit, and additional compatible Ebola Virus Disease symptoms Patient denies exposure to infectious person. Patient denies travel to an Ebola-affected area in the 21 days before illness onset. Initial Sepsis Screen: Does the patient meet any 2 criteria? No. Patient's initial sepsis screen is negative. Does the patient have a suspected source of infection? No. Patient's initial sepsis screen is negative. Risk Assessment: Do you want to hurt yourself or someone else? Patient reports no desire to harm self or others. Onset of symptoms was May 04, 2024. 20:30 Method Of Arrival: Ambulatory vc1 20:30 Acuity: DEREK 4 vc1 Triage Assessment: 20:37 General: Appears in no apparent distress. uncomfortable, ill, obese, well groomed, well vc1 developed, well nourished, Behavior is calm, cooperative, appropriate for age. Pain: Complains of pain in sore throat and body aches Pain does not radiate. Pain currently is 8 out of 10 on a pain scale. EENT: Reports pain when swallowing. Neuro: Level of Consciousness is awake, alert, obeys commands, Oriented to person, place, time, situation, Appropriate for age. Cardiovascular: Heart tones S1 S2 present Capillary refill < 3 seconds Patient's skin is warm and dry. Respiratory: Airway is patent Respiratory effort is even, unlabored, Respiratory pattern is regular, symmetrical, Breath sounds are clear bilaterally. GI: No deficits noted. No signs and/or symptoms were reported involving the gastrointestinal system. : No deficits noted. No signs and/or symptoms were reported regarding the genitourinary system. Derm: Skin is intact, is healthy with good turgor, Skin is dry, Skin is normal, Skin temperature is warm. Musculoskeletal: Circulation, motion, and sensation intact. Range of motion: intact in all extremities. 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 Flu vaccine is not up to date. - Infectious Disease History:: Denies. - Social history:: Smoking status: Patient denies any tobacco usage or history of. Screenin:39 [facility] ED Fall Risk Assessment (Adult) History of falling in the last 3 months, vc1 including since admission No falls in past 3 months (0 pts) Confusion or Disorientation No (0 pts) Intoxicated or Sedated No (0 pts) Impaired Gait No (0 pts) Mobility Assist Device Used No (0 pt) Altered Elimination No (0 pt) Score/Fall Risk Level 0 - 2 = Low Risk Oriented to surroundings, Maintained a safe environment, Educated pt \T\ family on fall prevention, incl call for assistance when getting out of bed. Abuse screen: Denies threats or abuse. Nutritional screening: No deficits noted. Tuberculosis screening: No symptoms or risk factors identified. Assessment: 20:30 General: see triage assessment. vc1 Vital Signs: 20:30 BP 137 / 75; Pulse 99; Resp 18; Temp 98.6; Pulse Ox 97% ; Weight 99.79 kg; Height 5 ft. vc1 1 in. ; Pain 8/10; 20:30 Body Mass Index 41.57 (99.79 kg, 154.94 cm) vc1 20:30 Pain Scale: Adult vc1 ED Course: 19:59 Patient arrived in ED. [id number] 20:01 Shanita Patterson [facility]C [facility] kb 20:01 Kd Ibarra MD is Attending Physician. kb 20:31 Triage completed. vc1 20:37 Strep Sent. vc1 20:37 Flu Sent. vc1 20:37 SARS RAPID Sent. vc1 20:39 Arm band placed on right wrist. vc1 20:40 Patient has correct armband on for positive identification. placed in lobby. Provided vc1 Education on:. 21:32 No provider procedures requiring assistance completed. Patient did not have IV access vc1 during this emergency room visit. Administered Medications: 21:31 Drug: Amoxicillin-Clavulanate PO 875 mg PO once Route: PO; lg3 21:32 Follow up: Response: No adverse reaction; Medication administered at discharge. vc1 Medication: 20:40 VIS not applicable for this client. vc1 Outcome: 21:21 Discharge ordered by . kb 21:32 Discharged to home ambulatory, vc1 21:32 Condition: stable 21:32 Discharge instructions given to patient, Instructed on discharge instructions, follow up and referral plans. medication usage, Demonstrated understanding of instructions, follow-up care, medications, Prescriptions given X 1, 21:32 Patient left the ED. vc1 Signatures: Shanita Patterson, WELD TECHNICIAN-C WELD TECHNICIAN-Angelique Cortes, RN RN lg3 Princess Mejía jj6 Dinah Pierre RN RN vc1
--- NOTE | 2024-05-05 21:21 | EDPHYS ---
Physician Documentation [facility] Name: Gretel Nguyen Age: 33 yrs Sex: Female : 1990 Arrival Date: 05/05/2024 Time: 19:58 Bed IW3 Private MD: ED Physician Kd Ibarra HPI: 05/05 21:19 This 33 yrs old Female presents to ER via Ambulatory with complaints of Cough, kb Congestion, Fever, BODY ACHES. 21:19 Patient is a 33-year-old female who presents for cough, body aches, congestion, sore kb throat that began yesterday. Reports she is checked her temperature several times but it is only gotten as high as 99. Denies vomiting diarrhea.. 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 Flu vaccine is not up to date. - Infectious Disease History:: Denies. - Social history:: Smoking status: Patient denies any tobacco usage or history of. ROS: 21:19 Constitutional: As per HPI kb Exam: 21:19 Constitutional: This is a well developed, well nourished patient who is awake, alert, kb and in no acute distress. Head/Face: Normocephalic, atraumatic. ENT: Moist Mucous membranes Cardiovascular: Regular rate Respiratory: Respirations even and unlabored. No increased work of breathing. Talking in full sentences Skin: Warm, dry with normal turgor. Normal color. MS/ Extremity: Pulses equal, no cyanosis. Neurovascular intact. Full, normal range of motion. Neuro: Awake and alert, GCS 15, oriented to person, place, time, and situation. Vital Signs: 20:30 BP 137 / 75; Pulse 99; Resp 18; Temp 98.6; Pulse Ox 97% ; Weight 99.79 kg; Height 5 ft. vc1 1 in. ; Pain 8/10; 20:30 Body Mass Index 41.57 (99.79 kg, 154.94 cm) vc1 20:30 Pain Scale: Adult vc1 MDM: 20:01 Medical Screening Exam initiated kb 21:20 Differential Diagnosis: Influenza Upper Respiratory Infection Other COVID, strep. Data kb reviewed: vital signs, nurses notes. I considered the following discharge prescriptions or medication management in the emergency department I discussed and recommended Over The Counter medications, Antivirals: At this time, antivirals are not recommended. Counseling: I had a detailed discussion with the patient and/or guardian regarding the historical points, exam findings, and any diagnostic results supporting the discharge/admit diagnosis, lab results, the need for outpatient follow up, a family practitioner, to return to the emergency department if symptoms worsen or persist or if there are any questions or concerns that arise at home. 05/05 20:30 Order name: SARS RAPID; Complete Time: 21:19 vc1 05/05 20:30 Order name: Flu; Complete Time: 21:19 vc1 05/05 20:30 Order name: Strep; Complete Time: 21:19 vc1 Administered Medications: 21:31 Drug: Amoxicillin-Clavulanate PO 875 mg PO once Route: PO; lg3 21:32 Follow up: Response: No adverse reaction; Medication administered at discharge. vc1 Disposition: 05/06 07:36 Co-signature as Attending Physician, Kd Ibarra MD I agree with the assessment sp4 and plan of care. I reviewed the patient's care provided by the Advanced Practice Provider and agree with the diagnosis and treatment plan. Disposition Summary: 05/05/24 21:21 Discharge Ordered Notes: Location: Home kb Condition: Stable kb Diagnosis - Streptococcal pharyngitis kb - Influenza due to identified novel influenza A virus kb Followup: kb - With: Emergency Department - When: As needed - Reason: Worsening of condition Followup: kb - With: Private Physician - When: 2 - 3 days - Reason: Recheck today's complaints, Continuance of care, Re-evaluation by your physician Discharge Instructions: - Discharge Summary Sheet kb - Strep Throat, Adult, [id number] kb - Influenza, Adult, [id number] kb Forms: - Medication Reconciliation Form kb - Antibiotic Education kb - Prescription Opioid Use kb - Patient Portal Instructions kb - Leadership Thank You Letter kb - Work release form rv1 Prescriptions: - Augmentin 875-125 mg Oral Tablet - take 1 tablet ORAL route every 12 hours for 10 days; 20 tablet; Refills: 0, kb Product Selection Permitted Signatures: Dispatcher [employer] Shanita Rodríguez, BAND ATTACHER-C BAND ATTACHER-Angelique Cortes, RN RN lg3 Dinah Pierre RN RN vc1 Kd Ibarra MD MD sp4
[2024-05-05] MEDS ORDERED: AMOX/K CLAV 875 MG TAB ONE (21:25)
[2024-05-06 03:24] VITALS: BP 137/75; TEMP 98.6; O2SAT 97
== END 2024-05-05 21:32 | disposition home or self-care (01) ==
LOC: ER 19:58
DX: J10.1 Influenza due to other identified influenza virus with other respiratory manifestations (principal); J02.0 Streptococcal pharyngitis; Z11.52 Encounter for screening for COVID-19
CPT/HCPCS: 36415; 87081; 87804; 87811; 99283

== ENCOUNTER 2024-06-24 14:30 | Emergency (ER) | payer OTHER ==
--- OUTSIDE RECORDS SUMMARY | 2024-06-24 14:36 | XMS REPORT | Continuity of Care Document ---
Author Name Unknown Address [address] [facility] [address] [place] [address] [facility] thconnect Address [address] [facility] [place] [address] Care Team Providers Care Hotel Housekeeper Name Role Phone JACINDA BUI Primary Care Physician Unavailab ILANA Kogn Attending Clinician ILANA Hinkle Attending Clinician DEEPAK Au Attending Clinician UnavailDilia Hernández MD Attending Clinician [phone] LOKESH SERNA Attending Clinician Unavailable Lokesh Serna MD Attending Clinician [phone] DILIA ESCOBAR Attending Clinician Unavailable Terri Cuevas Attending Clinician + [phone] Scott Verde Attending Clinician [phone] SCOTT KNUTSON Attending Clinician Unavailable JACINDA BUI Attending Clinician Unavailable Shira Frazier MD Attending Clinician [phone] SHIRA FRAZIER Attending Clinician Unavailable Unknown, Attending Attending Clinician Unavailab SHERRIE Salter Attending Clinician Unavailable SHERRIE CASILLAS Attending Clinician Unavailable 2, [facility] Attending Clinician Unavailable Kurt WHEELERP, Jacinda Attending Clinician [phone] Avis LANGE, Paola Ndiaye Attending Clinician Unavail able KHALIF RITTER Attending Clinician Unavailable Gregory Davila MD Attending Clinician [phone] Doctor Unassigned, [place] Attending Clinician U shirleneailable DONELL BRUNSON Attending Clinician Unavailable Arabella Larose MD Attending Clinician [phone] Donell Brunson PA-C Attending Clinician + [phone] Danilo Diallo MD Attending Clinician [phone], [facility] Lab Attending Clinician Unavailable Jorge Estrada Attending Clinician + [phone] Ultrasound, [facility] Attending Clinician Unavaila Jesse Acuna MD Attending Clinician + JESSE SOLO Attending Clinician Unav ailable ARABELLA LAROSE Attending Clinician Unavailable Paola Wolf DO Attending Clinician [phone] Jeremiah Mcdaniel Attending Clinician [phone] JEREMIAH WOLF Attending Clinician UnavailMiguel Danielle MD Attending Clinician [phone] Risk, Ruh-Qtlgr-Av/High Attending Clinician Unav ailable Cheli Serrano Attending Clinician [phone] CHELI DONOHUE Attending Clinician UnavailJOSELYN Campos Attending Clinician Unavaila ble Provider, Ang-Rmchp Temp Attending Clinician Miracle Joselyn Barry CNM Attending Clinician [phone] REGINALDO VASQUEZ Attending Clinician Unavailable REGINALDO VASQUEZ Attending Clinician Unavailable Benja Ahn MD Attending Clinician [phone] Reginaldo Vasquez MD Attending Clinician [phone], [facility] Room Attending Clinician Unavaila ble Risk, Pea-Rmchp Provider/High Attending Clinicia n Unavailable [place] f Zach GOODEN Attending Clinician + ZACH CLARK Attending Clinician Unavail able NÉSTOR MORGAN Attending Clinician Unavailable NÉSTOR MORGAN Attending Clinician Unavailable Armin MARTINEZ Attending Clinician Unavailable Armin MARTINEZ Attending Clinician Unavailable ILANA WARD Admitting Clinician DILIA Parikh Admitting Clinician Unavailable BENJA AHN Admitting Clinician UnavailREGINALDO Duran Admitting Clinician Unavailable KHALIF RITTER Admitting Clinician Unavailable Arabella Larose MD Admitting Clinician ARABELLA LAROSE Admitting Clinician Unavailable Dilia Escobar MD Admitting Clinician [phone] Miguel Garcia MD Admitting Clinician MIGUEL GARCIA Admitting Clinician Unavailable Benja Ahn MD Admitting Clinician [phone] Payers Payer Name Policy Type Policy Number Effective Date Expirati on Date Source [facility] [id number] 2022 00:00:00 [employer] [id number] 2024 00:00:00 [employer] 5 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 ON 9 [id number] 2023 00:00:00 [facility] [id number] 2022 00:00:00 MEDICAID [facility] [id number] 2020 00:00:00 MEDICAID PENDING PENDING 2020 00:00:00 Problems Condition Name Condition Details Condition Category Status Onset Date Resolution Date Last Treatment Date Treating Clinician Comments Source Acute recurrent frontal sinusitis Acute recurrent frontal sinusitis Disease Active 08-13 00:00: 00 Talya Elkins - Externa l Seasonal allergies Seasonal allergies Disease Active 08-13 00:00: 00 Talya Elkins - Externa l Splenomega ly Splenomega ly Disease Active 08-02 00:00: 00 [facility] Hyperbilir ubinemia Hyperbilir ubinemia Disease Active 08-02 00:00: 00 [facility] Acute biliary pancreatit is Acute biliary pancreatit is Disease Active 3- 00:00: 00 [facility] Calculus of gallbladde r without biliary obstructio n Calculus of gallbladde r without biliary obstructio n Disease Active 3- 00:00: 00 [facility] Nexplanon in place Nexplanon in place Disease Active 1-25 00:00: 00 [facility] Normal labor Normal labor Disease Active 1- 00:00: 00 [facility] 37 weeks gestation of 37 weeks gestation of Disease Active 1- 00:00: 00 [facility] Grand multiparit y in labor and delivery Grand multiparit y in labor and delivery Disease Active 1- 00:00: 00 [facility] Liveborn infant, of sosa , born in hospital by vaginal delivery Liveborn , of sosa , born in hospital by vaginal delivery Disease Active 1- 00:00: 00 [facility] contractio ns contractio ns Disease Active 1- 00:00: 00 [facility] Encounter for supervisio n of high risk with insufficie nt care, antepartum Encounter for supervisio n of high risk with insufficie nt care, antepartum Disease Active 02-01 00:00: 00 [facility] H/O delivery, currently , third trimester H/O delivery, currently , third trimester Disease Active 2020-06 2-08 00:00: 00 [facility] Obesity in Obesity in Disease Active 2020-06 2-08 00:00: 00 [facility] Obesity (BMI 30-39.9) Obesity (BMI 30-39.9) Disease Active 2020-06 1-12 00:00: 00 [facility] Anemia of mother in , antepartum Anemia of mother in , antepartum Disease Active 8-24 00:00: 00 [facility] ASCUS of cervix with negative high risk HPV ASCUS of cervix with negative high risk HPV Disease Active 10-11 00:00: 00 [facility] Rubella non-immune status, antepartum Rubella non-immune status, antepartum Disease Active 10-20 00:00: 00 Overview: Formattin g of this note might be different from the original. Address [facility] Allergies, Adverse Reactions, Alerts Allergy Name Allergy Type Status Severity Reaction(s) Onset Date Inactive Date Treating Clinician Comments Source NO KNOWN ALLERGIE S Drug Class Active [facility] Social History Social Habit Start Date Stop Date Quantity Comments Source ASSERTION 2021-10-03 00:00:00 [facility] History SDOH Social Connections Get Together [facility] History SDOH Social Connections Voodoo [facility] History SDOH Social Connections Membership [facility] History SDOH Social Connections Meetings [facility] Gender identity [facility] History of tobacco use Cigarette Smoker Talya lozoya - External Sexual orientation Armin Elkins - External History of Social function 2023-08-14 00:00:00 2023-08-14 00:00:00 Talya Elkins - External Alcohol intake 2023-07-23 00:00:00 2023-07-23 00:00:00 0 /d [facility] Exposure to SARS-CoV-2 (event) 2022-09-07 00:00:00 2022-09-17 10:45:00 Not sure [facility] History SDOH Alcohol Frequency 2022-08-02 00:00:00 2022-08-02 00:00:00 1 [facility] History SDOH Alcohol Std Drinks 2022-08-02 00:00:00 2022-08-02 00:00:00 0 [facility] History SDOH Alcohol Binge 2022-08-02 00:00:00 2022-08-02 00:00:00 1 [facility] History SDOH Social Connections Phone 2022-08-02 00:00:00 2022-08-02 00:00:00 5 [facility] History SDOH Social Connections Living 2022-08-02 00:00:00 2022-08-02 00:00:00 8 [facility] History SDOH Physical Activity DPW 2022-08-02 00:00:00 2022-08-02 00:00:00 0 [facility] History SDOH Physical Activity MPS 2022-08-02 00:00:00 2022-08-02 00:00:00 0 [facility] History SDOH Financial 2022-08-02 00:00:00 2022-08-02 00:00:00 5 [facility] History SDOH Food Worry 2022-08-02 00:00:00 2022-08-02 00:00:00 1 [facility] History SDOH Food Scarcity 2022-08-02 00:00:00 2022-08-02 00:00:00 1 [facility] History SDOH Transport Med 2022-08-02 00:00:00 2022-08-02 00:00:00 2 [facility] History SDOH Transport Non-Med 2022-08-02 00:00:00 2022-08-02 00:00:00 2 [facility] Cigarettes smoked current (pack per day) - Reported 2022-08-02 00:00:00 2022-08-02 00:00:00 [facility] Tobacco use and exposure 2022-08-02 00:00:00 2022-08-02 00:00:00 Smokeless tobacco non-user [facility] Sex Assigned At 1990 00:00:00 1990 00:00:00 Talya Elkins - External Smoking Status Start Date Stop Date Source Ex-smoker 2023-08-14 00:00:00 2023-08-14 00:00:00 Talya Elkins - External Occasional tobacco smoker 2022-08-02 00:00:00 [facility] Medications Ordered Medication Name Filled Medication Name Start Date Stop Date Current Medication? Ordering Clinician Indication Dosage Frequency Signature (SIG) Comments Components Source Cetirizine HCl 10 MG oral Capsule 08-13 00:00: 00 Yes [id number] 10mg Take 1 capsule (10 mg total) by mouth daily. Talya Zelaya Externa l Azithromyci n 250 MG oral Tablet 08-13 00:00: 00 08-19 04:59 :00 No [id number] Take 2 tablets by mouth on day 1 then 1 tablet by mouth daily for 4 days thereafter .. Talya Elkins - Jabier ndiaye diclofenac 75 mg EC tablet 07-23 00:00: 00 Yes [id number] 75mg Take 1 tablet by mouth in the morning and 1 tablet in the evening. Take with meals. [facility] acetaminoph en (TYLENOL ARTHRITIS PAIN) 650 mg CR tablet 07-23 00:00: 00 Yes [id number] 650mg Take 1 tablet by mouth every 8 (eight) hours as needed for Pain. [facility] predniSONE 20 mg tablet 07-23 00:00: 00 Yes [id number] Take 2 tablets PO daily [facility] gabapentin (NEURONTIN) 100 mg capsule 07-23 00:00: 00 Yes [id number] 100mg Take 1 capsule by mouth in the morning and 1 capsule at noon and 1 capsule in the evening. [facility] tiZANidine 2 mg capsule 09-17 00:00: 00 Yes [id number] 2mg Take 1 capsule by mouth in the morning and 1 capsule at noon and 1 capsule in the evening. [facility] ibuprofen 600 mg tablet 09-17 00:00: 00 Yes [id number] 600mg Take 1 tablet by mouth every 6 (six) hours as needed for Pain (scale 4-6) or Pain (scale 1-3). [facility] benzonatate 100 mg capsule 09-14 00:00: 00 Yes [id number] 200mg Take 2 capsules by mouth every 8 (eight) hours as needed for Cough. [facility] HYDROcodone -acetaminop hen (NORCO 5) 5-325 mg tablet 1 tablet 08-04 00:06: 19 Yes 1{tbl} 1 tablet, Oral, Q6HPRN, Starting on Sat08/03/22 at 1806, Until Discontinu ed, Routine, Pain (scale 4-6) [facility] HYDROcodone -acetaminop hen 5-325 mg tablet 08-04 00:00: 00 08-10 05:59 :00 No [id number] 1{tbl} Take 1 tablet by mouth every 6 (six) hours as needed for Pain (scale 4-6) for up to 5 days. Indication s: acute pain [facility] morpHINE (4 mg/mL) injection 4 mg 08-03 21:36: 38 Yes 4mg 4 mg, Slow IV Push, Q2HPRN, Starting on Sat08/03/22 at 1536, Until Discontinu ed, Routine, Pain (scale 7-10) [facility] ketorolac (TORADOL) tablet 10 mg 08-03 21:36: 05 08-05 21:35 :05 No 10mg 10 mg, Oral, Q6HPRN, Starting on Sat08/03/22 at 1536, Until Sat08/05/22 at 1535, Routine, Pain (scale 1-3) [facility] iohexoL (OMNIPAQUE 300-50 mL)) injection 08-03 18:32: 00 08-03 22:34 :52 No PRN, Starting on Sat08/03/22 at 1232, Until Sat08/03/22 at 1634, Routine, Intra-op [facility] bupivacaine (preserv free) (SENSORCAIN E MPF) 0.25 % (2.5 mg/mL) injection 08-03 18:14: 00 08-03 22:34 :52 No PRN, Starting on Sat08/03/22 at 1214, Until Sat08/03/22 at 1634, Routine, Intra-op [facility] sodium chloride 0.9 % irrigation solution 08-03 18:14: 00 08-03 22:34 :52 No PRN, Starting on Sat08/03/22 at 1214, Until Sat08/03/22 at 1634, Intra-op [facility] magnesium sulfate in water 2 gram/50 mL (4 %) infusion 2 g 08-03 16:00: 00 08-03 17:07 :00 No 2g 2 g, IV Piggyback, Administer over 60 Minutes, ONCE, 1 dose, On Sat08/03/22 at 1000, Routine [facility] enoxaparin (LOVENOX) injection 40 mg 08-02 23:00: 00 Yes 40mg 40 mg, Subcutaneo us, DAILY, First dose on Sat08/02/22 at 1700, Until Discontinu ed, Routine [facility] KCL (KLOR-CON M20) tablet 40 mEq 08-02 22:15: 00 08-02 21:32 :00 No 40meq 40 mEq, Oral, ONCE, 1 dose, On Sat08/02/22 at 1615, Routine [facility] lactated ringers IV infusion 1,000 mL 08-02 18:15: 00 08-03 21:38 :13 No 1000mL at 150 mL/hr, 1,000 mL, IV Infusion, CONTINUOUS , Starting on Sat08/02/22 at 1215, Until Sat08/03/22 at 1538, Routine [facility] calcium gluconate 2 g in NaCl 100 mL (ISO-OSM) RTU IV infusion 2 g 08-02 18:00: 00 08-02 19:37 :00 No 2g 2 g, IV Infusion, at 200 mL/hr Administer over 30 Minutes, ONCE, 1 dose, On Sat08/02/22 at 1200, Routine [facility] diphenhydrA MINE (BENADRYL) injection 25 mg 08-02 16:58: 41 Yes 25mg 25 mg, Intravenou s, Q6HPRN, Starting on Sat08/02/22 at 1058, Until Discontinu ed, Routine, Itching [facility] D5W 0.9% NaCl (NS) IV infusion 1,000 mL 08-02 07:30: 00 08-02 13:26 :00 No 1000mL at 125 mL/hr, 1,000 mL, IV Infusion, ONCE, 1 dose, On Sat08/02/22 at 0130, Routine [facility] diphenhydrA MINE (BENADRYL) injection 12.5 mg 08-02 06:32: 58 08-02 16:58 :53 No 12.5mg 12.5 mg, Intravenou s, Q6HPRN, Starting on Sat08/02/22 at 0032, Until Sat08/02/22 at 1058, Routine, Itching [facility] ondansetron (ZOFRAN (PF)) injection 4 mg 08-02 06:29: 30 Yes 4mg 4 mg, Slow IV Push, Q6HPRN, Starting on Sat08/02/22 at 0029, Until Discontinu ed, Routine, Nausea and Vomiting (N/V) [facility] morpHINE (4 mg/mL) injection 4 mg 08-02 06:29: 25 08-03 06:28 :25 No 4mg 4 mg, Slow IV Push, Q4HPRN, Starting on Sat08/02/22 at 0029, Until Sat08/03/22 at 0028, Routine, Pain (scale 7-10) [facility] ondansetron (ZOFRAN (PF)) injection 4 mg 08-02 05:30: 00 08-02 05:29 :00 No 4mg 4 mg, Slow IV Push, ONCE, 1 dose, On Sat08/01/22 at 2330, WEN [facility] morpHINE (4 mg/mL) injection 4 mg 08-02 05:30: 00 08-02 05:30 :00 No 4mg 4 mg, Slow IV Push, ONCE, 1 dose, On Sat08/01/22 at 2330, STAT [facility] piperacilli n-tazobacta m (ZOSYN) 3.375 g in NaCl 0.9% (NS) 100 mL MINI-BAG 08-02 03:45: 00 08-02 04:44 :00 No 3.375g 3.375 g, IV Piggyback, ONCE, 1 dose, On Sat08/01/22 at 2145, Administer over 30 Minutes, 100 mL
Reas on for Anti-Infec tive: Documented Infection< br>Documen lex Infection Site: Abdominal< br>Duratio n of Therapy: Other (see Comments) [facility] iopamidol (ISOVUE 370-500 mL) injection 80 mL 08-02 03:45: 00 08-02 03:45 :00 No [id number] 80mL 80 mL, Intravenou s, ONCE, 1 dose, On Sat08/01/22 at 2145, Routine [facility] FENTanyl PF (SUBLIMAZE (PF)) injection 75 mcg 08-02 02:45: 00 08-02 02:00 :00 No 75ug 75 mcg, Slow IV Push, ONCE, 1 dose, On Sat08/01/22 at 204, STAT [facility] ondansetron (ZOFRAN (PF)) injection 4 mg 08-02 02:45: 00 08-02 01:59 :00 No 4mg 4 mg, Slow IV Push, ONCE, 1 dose, On Sat08/01/22 at 204, WEN [facility] etonogestre L (NEXPLANON) implant 68 mg 06-27 19:45: 00 06-27 18:53 :00 No [id number] 68mg [facility] vitamin w/FA tablet 06-06 00:00: 00 09-17 00:00 :00 No [id number] 09 1{tbl} Take 1 tablet by mouth in the morning. [facility] ferrous sulfate 325 mg (65 mg iron) tablet 06-06 00:00: 00 09-17 00:00 :00 No [id number] 09 325mg Take 1 tablet by mouth in the morning and 1 tablet in the evening. [facility] docusate 100 mg capsule 06-06 00:00: 00 06-27 00:00 :00 No [id number] 09 200mg Take 2 capsules by mouth once daily as needed for Constipati on. [facility] ibuprofen 600 mg tablet 06-06 00:00: 00 06-27 00:00 :00 No [id number] 09 600mg Take 1 tablet by mouth every 6 (six) hours as needed (Pain). Take with food or milk. [facility] HYDROcodone -acetaminop hen (NORCO 5) 5-325 mg tablet 1 tablet 06-05 23:15: 04 Yes 1{tbl} 1 tablet, Oral, Q6HPRN, Starting on Sat06/05/22 at 1715, Until Discontinu ed, Routine, Pain (scale 7-10) [facility] ibuprofen (IBU) tablet 600 mg 06-05 23:15: 04 Yes 600mg 600 mg, Oral, Q6HPRN, Starting on Sat06/05/22 at 1715, Until Discontinu ed, Routine, Pain (scale 4-6) [facility] acetaminoph en (TYLENOL) tablet 650 mg 06-05 23:15: 04 Yes 650mg 650 mg, Oral, Q6HPRN, Starting on Sat06/05/22 at 1715, Until Discontinu ed, Routine, Pain (scale 1-3) [facility] diphenhydrA MINE (BENADRYL) tablet 25 mg 06-05 23:15: 04 Yes 25mg 25 mg, Oral, Q6HPRN, Starting on Sat06/05/22 at 1715, Until Discontinu ed, Routine, Sleep, Itching [facility] ondansetron (ZOFRAN (PF)) injection 4 mg 06-05 23:15: 04 Yes 4mg 4 mg, Slow IV Push, Q8HPRN, Starting on Sat06/05/22 at 1715, Until Discontinu ed, Routine, Nausea and Vomiting (N/V) [facility] simethicone (GAS RELIEF (SIMETHICON E)) chewable tablet 160 mg 06-05 23:15: 04 Yes 160mg 160 mg, Oral, PC+HSPRN, Starting on Sat06/05/22 at 1715, Until Discontinu ed, Routine, Gas [facility] docusate (COLACE) capsule 200 mg 06-05 23:15: 04 Yes 200mg 200 mg, Oral, QDAILYPRN, Starting on Sat06/05/22 at 1715, Until Discontinu ed, Routine, Constipati on [facility] magnesium hydroxide (MILK OF MAGNESIA) 400 mg/5 mL suspension 30 mL 06-05 23:15: 03 Yes 30mL 30 mL, Oral, QDAILYPRN, Starting on Sat06/05/22 at 1715, Until Discontinu ed, Routine, Constipati on [facility] benzocaine- menthol (DERMOPLAST ) 20-0.5 % topical spray 06-05 23:15: 03 Yes Topical, PRN, Starting on Sat06/05/22 at 1715, Until Discontinu ed, Routine, Perineum discomfort [facility] oxytocin (PITOCIN) 30 units in NS 500 mL IV infusion 06-05 18:42: 53 06-05 23:17 :04 No 2mU/min at 2-40 mL/hr, IV Infusion, TITRATE, Starting on Sat06/05/22 at 1242, Until Sat06/05/22 at 1717, Routine [facility] ondansetron (ZOFRAN (PF)) injection 4 mg 06-05 17:46: 06 06-05 23:17 :04 No 4mg 4 mg, Slow IV Push, Q6HPRN, Starting on Sat06/05/22 at 1146, Until Sat06/05/22 at 171, Routine, Nausea and Vomiting (N/V) [facility] FENTanyl PF (SUBLIMAZE (PF)) injection 100 mcg 06-05 17:45: 57 06-05 23:17 :04 No 100ug 100 mcg, Slow IV Push, Q1HPRN, Starting on Sat06/05/22 at 1145, Until Sat06/05/22 at 171, Routine, Pain (scale 4-6), Pain (scale 7-10) [facility] lactated ringers IV infusion 500 mL 06-05 17:42: 52 06-05 23:17 :04 No 500mL at 999 mL/hr, 500 mL, IV Infusion, PRN - SEE INSTRUCTIO NS, Starting on Sat06/05/22 at 1142, Until Sat06/05/22 at 1717, Routine [facility] D5W-LR IV infusion 1,000 mL 06-05 17:42: 52 06-05 23:17 :04 No 1000mL at 1-125 mL/hr, IV Infusion, TITRATE, Starting on Sat06/05/22 at 1142, Until Sat06/05/22 at 1717, Routine [facility] fluconazole 200 mg tablet 06-04 00:00: 00 06-05 00:00 :00 No [id number] 200mg Take 1 tablet by mouth in the morning for 1 day. [facility] iron sucrose (VENOFER) 300 mg in NaCl 0.9% (NS) 250 mL infusion 2021-06 16:00: 00 04-18 18:07 :00 No 300mg 300 mg, IV Infusion, ONCE, Administer over 2.5 Hours, On Sat04/18/22 at 1000, For 1 dose [facility] acetaminoph en (TYLENOL) tablet 650 mg 2021-06 15:06: 40 Yes 650mg 650 mg, Oral, Q6HPRN, Starting on Sat04/18/22 at 0906, Until Discontinu ed, Routine, Pain (scale 1-3), Pain (scale 4-6) [facility] acetaminoph en (TYLENOL) tablet 650 mg 2021-06 20:27: 32 04-11 20:37 :00 No 650mg 650 mg, Oral, Q6HPRN, 1 dose, Starting on Sat04/11/22 at 1427, Until Sat04/11/22 at 1437, Routine, Pain (scale 4-6) [facility] iron sucrose (VENOFER) 300 mg in NaCl 0.9% (NS) 250 mL infusion 2021-06 15:45: 00 04-11 18:03 :00 No 300mg 300 mg, IV Infusion, ONCE, Administer over 2.5 Hours, On Sat04/11/22 at 0945, For 1 dose [facility] acetaminoph en (TYLENOL) tablet 650 mg 2021-06 00:45: 00 04-05 01:03 :00 No 650mg 650 mg, Oral, ONCE, 1 dose, On Sat04/04/22 at 1945, WEN [facility] iron sucrose (VENOFER) 300 mg in NaCl 0.9% (NS) 250 mL infusion 2021-06 15:45: 00 04-04 19:03 :00 No 300mg 300 mg, IV Infusion, ONCE, Administer over 2.5 Hours, On Sat04/04/22 at 1045, For 1 dose [facility] acetaminoph en (TYLENOL) tablet 650 mg 2021-06 016 04:00: 00 03-18 03:40 :00 No 650mg 650 mg, Oral, ONCE, 1 dose, On 03/17/22 at 2300, Routine [facility] acetaminoph en (TYLENOL) tablet 1,000 mg 02-18 02:00: 00 02-18 02:11 :00 No 1000mg 1,000 mg, Oral, ONCE NOW, 1 dose, On 02/17/22 at 2100, Routine [facility] ferrous sulfate (IRON, FERROUS SULFATE,) 325 mg (65 mg iron) tablet 02-02 00:00: 00 06-06 00:00 :00 No [id number] 325mg Take 1 tablet by mouth in the morning and 1 tablet in the evening. [facility] vitamin w/FA tablet 2020-06 00:00: 00 06-06 00:00 :00 No [id number] 1{tbl} Take 1 tablet by mouth daily. [facility] ferrous sulfate 325 mg (65 mg iron) tablet 2020-06 00:00: 00 04-19 00:00 :00 No [id number] 325mg Take 1 tablet by mouth 2 (two) times daily. [facility] Immunizations Ordered Immunization Name Filled Immunization Name Date Status Comments Source TDAP 2022-04-19 00:00:00 Completed [facility] TDAP 2022-04-19 00:00:00 Completed [facility] TDAP 2022-04-19 00:00:00 Completed [facility] TDAP 2022-04-19 00:00:00 Completed [facility] TDAP 2022-04-19 00:00:00 Completed [facility] TDAP 2022-04-19 00:00:00 Completed [facility] TDAP 2022-04-19 00:00:00 Completed [facility] TDAP 2022-04-19 00:00:00 Completed [facility] TDAP 2022-04-19 00:00:00 Completed [facility] TDAP 2022-04-19 00:00:00 Completed [facility] TDAP 2022-04-19 00:00:00 Completed [facility] TDAP 2022-04-19 00:00:00 Completed [facility] TDAP 2022-04-19 00:00:00 Completed [facility] TDAP 2022-04-19 00:00:00 Completed [facility] TDAP 2022-04-19 00:00:00 Completed [facility] TDAP 2022-04-19 00:00:00 Completed [facility] TDAP 2022-04-19 00:00:00 Completed [facility] TDAP 2022-04-19 00:00:00 Completed [facility] TDAP 2022-04-19 00:00:00 Completed [facility] TDAP 2022-04-19 00:00:00 Completed [facility] TDAP 2022-04-19 00:00:00 Completed [facility] TDAP 2022-04-19 00:00:00 Completed [facility] TDAP 2022-04-19 00:00:00 Completed [facility] TDAP 2022-04-19 00:00:00 Completed [facility] TDAP 2022-04-19 00:00:00 Completed [facility] TDAP 2022-04-19 00:00:00 Completed [facility] TDAP 2022-04-19 00:00:00 Completed [facility] TDAP 2022-04-19 00:00:00 Completed [facility] TDAP 2022-04-19 00:00:00 Completed [facility] TDAP 2022-04-19 00:00:00 Completed [facility] TDAP 2021-02-09 00:00:00 Completed [facility] TDAP 2021-02-09 00:00:00 Completed [facility] TDAP 2021-02-09 00:00:00 Completed [facility] TDAP 2021-02-09 00:00:00 Completed [facility] TDAP 2021-02-09 00:00:00 Completed [facility] TDAP 2021-02-09 00:00:00 Completed [facility] TDAP 2021-02-09 00:00:00 Completed [facility] TDAP 2021-02-09 00:00:00 Completed [facility] TDAP 2021-02-09 00:00:00 Completed [facility] TDAP 2021-02-09 00:00:00 Completed [facility] TDAP 2021-02-09 00:00:00 Completed [facility] TDAP 2021-02-09 00:00:00 Completed [facility] TDAP 2021-02-09 00:00:00 Completed [facility] TDAP 2021-02-09 00:00:00 Completed [facility] TDAP 2021-02-09 00:00:00 Completed [facility] TDAP 2021-02-09 00:00:00 Completed [facility] TDAP 2021-02-09 00:00:00 Completed [facility] TDAP 2021-02-09 00:00:00 Completed [facility] TDAP 2021-02-09 00:00:00 Completed [facility] TDAP 2021-02-09 00:00:00 Completed [facility] TDAP 2021-02-09 00:00:00 Completed [facility] TDAP 2021-02-09 00:00:00 Completed [facility] TDAP 2021-02-09 00:00:00 Completed [facility] TDAP 2021-02-09 00:00:00 Completed [facility] TDAP 2021-02-09 00:00:00 Completed [facility] TDAP 2021-02-09 00:00:00 Completed [facility] TDAP 2021-02-09 00:00:00 Completed [facility] TDAP 2021-02-09 00:00:00 Completed [facility] TDAP 2021-02-09 00:00:00 Completed [facility] TDAP 2021-02-09 00:00:00 Completed [facility] TDAP 2021-02-09 00:00:00 Completed [facility] TDAP 2021-02-09 00:00:00 Completed [facility] TDAP 2021-02-09 00:00:00 Completed [facility] TDAP 2021-02-09 00:00:00 Completed [facility] TDAP 2021-02-09 00:00:00 Completed [facility] TDAP 2021-02-09 00:00:00 Completed [facility] TDAP 2021-02-09 00:00:00 Completed [facility] TDAP 2021-02-09 00:00:00 Completed [facility] TDAP 2021-02-09 00:00:00 Completed [facility] TDAP 2021-02-09 00:00:00 Completed [facility] TDAP 2021-02-09 00:00:00 Completed [facility] TDAP 2021-02-09 00:00:00 Completed [facility] TDAP 2021-02-09 00:00:00 Completed [facility] TDAP 2021-02-09 00:00:00 Completed [facility] TDAP 2021-02-09 00:00:00 Completed [facility] TDAP 2021-02-09 00:00:00 Completed [facility] TDAP 2021-02-09 00:00:00 Completed [facility] TDAP 2021-02-09 00:00:00 Completed [facility] TDAP 2021-02-09 00:00:00 Completed [facility] TDAP 2021-02-09 00:00:00 Completed [facility] TDAP 2021-02-09 00:00:00 Completed [facility] TDAP 2021-02-09 00:00:00 Completed [facility] TDAP 2021-02-09 00:00:00 Completed [facility] TDAP 2013-01-01 00:00:00 Completed [facility] TDAP 2013-01-01 00:00:00 Completed [facility] TDAP 2013-01-01 00:00:00 Completed [facility] TDAP 2013-01-01 00:00:00 Completed [facility] TDAP 2013-01-01 00:00:00 Completed [facility] TDAP 2013-01-01 00:00:00 Completed [facility] TDAP 2013-01-01 00:00:00 Completed [facility] TDAP 2013-01-01 00:00:00 Completed [facility] TDAP 2013-01-01 00:00:00 Completed [facility] TDAP 2013-01-01 00:00:00 Completed [facility] TDAP 2013-01-01 00:00:00 Completed [facility] TDAP 2013-01-01 00:00:00 Completed [facility] TDAP 2013-01-01 00:00:00 Completed [facility] TDAP 2013-01-01 00:00:00 Completed [facility] TDAP 2013-01-01 00:00:00 Completed [facility] TDAP 2013-01-01 00:00:00 Completed [facility] TDAP 2013-01-01 00:00:00 Completed [facility] TDAP 2013-01-01 00:00:00 Completed [facility] TDAP 2013-01-01 00:00:00 Completed [facility] TDAP 2013-01-01 00:00:00 Completed [facility] TDAP 2013-01-01 00:00:00 Completed [facility] TDAP 2013-01-01 00:00:00 Completed [facility] TDAP 2013-01-01 00:00:00 Completed [facility] TDAP 2013-01-01 00:00:00 Completed [facility] TDAP 2013-01-01 00:00:00 Completed [facility] TDAP 2013-01-01 00:00:00 Completed [facility] TDAP 2013-01-01 00:00:00 Completed [facility] TDAP 2013-01-01 00:00:00 Completed [facility] TDAP 2013-01-01 00:00:00 Completed [facility] TDAP 2013-01-01 00:00:00 Completed [facility] TDAP 2013-01-01 00:00:00 Completed [facility] TDAP 2013-01-01 00:00:00 Completed [facility] TDAP 2013-01-01 00:00:00 Completed [facility] TDAP 2013-01-01 00:00:00 Completed [facility] TDAP 2013-01-01 00:00:00 Completed [facility] TDAP 2013-01-01 00:00:00 Completed [facility] TDAP 2013-01-01 00:00:00 Completed [facility] TDAP 2013-01-01 00:00:00 Completed [facility] TDAP 2013-01-01 00:00:00 Completed [facility] TDAP 2013-01-01 00:00:00 Completed [facility] TDAP 2013-01-01 00:00:00 Completed [facility] TDAP 2013-01-01 00:00:00 Completed [facility] TDAP 2013-01-01 00:00:00 Completed [facility] TDAP 2013-01-01 00:00:00 Completed [facility] TDAP 2013-01-01 00:00:00 Completed [facility] TDAP 2013-01-01 00:00:00 Completed [facility] TDAP 2013-01-01 00:00:00 Completed [facility] TDAP 2013-01-01 00:00:00 Completed [facility] TDAP 2013-01-01 00:00:00 Completed [facility] TDAP 2013-01-01 00:00:00 Completed [facility] TDAP 2013-01-01 00:00:00 Completed [facility] TDAP 2013-01-01 00:00:00 Completed [facility] TDAP 2013-01-01 00:00:00 Completed [facility] 2012-08-13 00:00:00 Completed [facility] 2012-08-13 00:00:00 Completed [facility] 2012-08-13 00:00:00 Completed [facility] 2012-08-13 00:00:00 Completed [facility] 2012-08-13 00:00:00 Completed [facility] 2012-08-13 00:00:00 Completed [facility] 2012-08-13 00:00:00 Completed [facility] 2012-08-13 00:00:00 Completed [facility] 2012-08-13 00:00:00 Completed [facility] 2012-08-13 00:00:00 Completed [facility] 2012-08-13 00:00:00 Completed [facility] 2012-08-13 00:00:00 Completed [facility] 2012-08-13 00:00:00 Completed [facility] 2012-08-13 00:00:00 Completed [facility] 2012-08-13 00:00:00 Completed [facility] 2012-08-13 00:00:00 Completed [facility] 2012-08-13 00:00:00 Completed [facility] 2012-08-13 00:00:00 Completed [facility] 2012-08-13 00:00:00 Completed [facility] 2012-08-13 00:00:00 Completed [facility] 2012-08-13 00:00:00 Completed [facility] 2012-08-13 00:00:00 Completed [facility] 2012-08-13 00:00:00 Completed [facility] 2012-08-13 00:00:00 Completed [facility] 2012-08-13 00:00:00 Completed [facility] 2012-08-13 00:00:00 Completed [facility] 2012-08-13 00:00:00 Completed [facility] 2012-08-13 00:00:00 Completed [facility] 2012-08-13 00:00:00 Completed [facility] 2012-08-13 00:00:00 Completed [facility] 2012-08-13 00:00:00 Completed [facility] 2012-08-13 00:00:00 Completed [facility] 2012-08-13 00:00:00 Completed [facility] 2012-08-13 00:00:00 Completed [facility] 2012-08-13 00:00:00 Completed [facility] 2012-08-13 00:00:00 Completed [facility] 2012-08-13 00:00:00 Completed [facility] 2012-08-13 00:00:00 Completed [facility] 2012-08-13 00:00:00 Completed [facility] 2012-08-13 00:00:00 Completed [facility] 2012-08-13 00:00:00 Completed [facility] 2012-08-13 00:00:00 Completed [facility] 2012-08-13 00:00:00 Completed [facility] 2012-08-13 00:00:00 Completed [facility] 2012-08-13 00:00:00 Completed [facility] 2012-08-13 00:00:00 Completed [facility] 2012-08-13 00:00:00 Completed [facility] 2012-08-13 00:00:00 Completed [facility] 2012-08-13 00:00:00 Completed [facility] 2012-08-13 00:00:00 Completed [facility] 2012-08-13 00:00:00 Completed [facility] 2012-08-13 00:00:00 Completed [facility] 2012-08-13 00:00:00 Completed [facility] Unknown Completed [facility] TDAP Unknown Completed [facility] Unknown Completed [facility] TDAP Unknown Completed [facility] Unknown Completed [facility] TDAP Unknown Completed [facility] Unknown Completed Talya Mcgrath bold - External Tdap- (Boostrix, Adacel) Unknown Completed Talya Hartleyybold - External Vital Signs Vital Name Observation Time Observation Value Comments S ource Systolic blood pressure 2023-08-14 19:06:00 110 mm[Hg] Talya Seybo ld - External Diastolic blood pressure 2023-08-14 19:06:00 64 mm[Hg] Talya Hartleyybo ld - External Heart rate 2023-08-14 19:06:00 78 /min Deanna interiano Seybold - External Body temperature 2023-08-14 19:06:00 36.56 Ness Talya Seybold - External Respiratory rate 2023-08-14 19:06:00 16 /min Talya Hartleyybold - External Body height 2023-08-14 19:06:00 154.9 cm Casandra ey Seybold - External Body weight 2023-08-14 19:06:00 95.255 kg Casandra bean Seybold - External BMI 2023-08-14 19:06:00 39.68 kg/m2 Casandra bean Seybold - External Systolic blood pressure 2023-07-24 02:43:00 125 mm[Hg] [facility] Diastolic blood pressure 2023-07-24 02:43:00 80 mm[Hg] [facility] Heart rate 2023-07-24 02:43:00 86 /min [facility] Body [facility] 2023-07-24 02:43:00 37 Ness [facility] Respiratory rate 2023-07-24 02:43:00 18 /min [facility] Body height 2023-07-24 02:43:[address] [facility] Body weight 2023-07-24 02:43:[address] [facility] BMI 2023-07-24 02:43:00 40.43 kg/m2 [facility] Oxygen saturation in Arterial blood by Pulse oximetry 2023-07-24 02:43:00 98 /min [facility] Systolic blood pressure 2022-12-23 21:00:00 106 mm[Hg] [facility] Diastolic blood pressure 2022-12-23 21:00:00 75 mm[Hg] [facility] Heart rate 2022-12-23 21:00:00 86 /min [facility] Body temperature 2022-12-23 21:00:00 36.89 Ness [facility] Respiratory rate 2022-12-23 21:00:00 14 /min [facility] Body height 2022-12-23 21:00:00 [facility] Body weight 2022-12-23 21:00:00 89.631 kg [facility] BMI 2022-12-23 21:00:00 37.34 kg/m2 [facility] O[facility] saturation in Arterial blood by Pulse oximetry 2022-12-23 21:00:00 96 /min [facility] Systolic blood pressure 2022-09-17 15:56:00 110 mm[Hg] [facility] Diastolic blood pressure 2022-09-17 15:56:00 73 mm[Hg] [facility] Heart rate 2022-09-17 15:56:00 67 /min [facility] Body temperature 2022-09-17 15:56:00 35.56 Ness [facility] Body height 2022-09-17 15:56:00 154.9 cm [facility] Body weight 2022-09-17 15:56:00 88.542 kg [facility] BMI 2022-09-17 15:56:00 36.88 kg/m2 [facility] Oxygen saturation in Arterial blood by Pulse oximetry 2022-09-17 15:56:00 99 /min [facility] Systolic blood pressure 2022-09-15 01:10:00 124 mm[Hg] [facility] Diastolic blood pressure 2022-09-15 01:10:00 86 mm[Hg] [facility] Heart rate 2022-09-15 01:10:00 85 /min [facility] Body temperature 2022-09-15 01:10:00 37 Ness [facility] Respiratory rate 2022-09-15 01:10:00 18 /min [facility] Body height 2022-09-15 01:10:[address] [facility] Body weight 2022-09-15 01:10:[address] [facility] BMI 2022-09-15 01:10:00 37.08 kg/m2 [facility] Oxygen saturation in Arterial blood by Pulse oximetry 2022-09-15 01:10:00 98 /min [facility] Systolic blood pressure 2022-08-13 14:43:00 127 mm[Hg] [facility] Diastolic blood pressure 2022-08-13 14:43:00 69 mm[Hg] [facility] Heart rate 2022-08-13 14:43:00 71 /min [facility] Body temperature 2022-08-13 14:43:00 36.72 Ness [facility] Respiratory rate 2022-08-13 14:43:00 18 /min [facility] Body height 2022-08-13 14:43:[address] [facility] Body weight 2022-08-13 14:43:[address] [facility] BMI 2022-08-13 14:43:00 35.90 kg/m2 [facility] Oxygen saturation in Arterial blood by Pulse oximetry 2022-08-13 14:43:00 95 /min [facility] Systolic blood pressure 2022-08-04 17:16:00 130 mm[Hg] [facility] Diastolic blood pressure 2022-08-04 17:16:00 75 mm[Hg] [facility] Body temperature 2022-08-04 17:16:00 36.44 Ness [facility] Respiratory rate 2022-08-04 17:16:00 20 /min [facility] Oxygen saturation in Arterial blood by Pulse oximetry 2022-08-04 17:16:00 100 /min [facility] Heart rate 2022-08-04 10:00:00 85 /min [facility] Body weight 2022-08-04 10:00:[address] [facility] BMI 2022-08-04 10:00:00 36.09 kg/m2 [facility] Body height 2022-08-02 06:52:[address] [facility] Systolic blood pressure 2022-08-03 21:16:00 106 mm[Hg] [facility] Diastolic blood pressure 2022-08-03 21:16:00 50 mm[Hg] [facility] Heart rate 2022-08-03 21:16:00 84 /min [facility] Respiratory rate 2022-08-03 21:16:00 13 /min [facility] Oxygen saturation in Arterial blood by Pulse oximetry 2022-08-03 21:16:00 95 /min [facility] Body temperature 2022-08-03 21:11:00 36.56 Ness [facility] Body weight 2022-08-03 09:58:[address] [facility] BMI 2022-08-03 09:58:00 36.09 kg/m2 [facility] Body height 2022-08-02 06:52:[address] [facility] Systolic blood pressure 2022-06-27 17:35:00 115 mm[Hg] [facility] Diastolic blood pressure 2022-06-27 17:35:00 70 mm[Hg] [facility] Heart rate 2022-06-27 17:35:00 75 /min [facility] Body temperature 2022-06-27 17:35:00 36.5 Ness [facility] Body height 2022-06-27 17:35:00 154.9 cm [facility] Body weight 2022-06-27 17:35:[address] [facility] BMI 2022-06-27 17:35:00 33.97 kg/m2 [facility] Systolic blood pressure 2022-06-06 13:45:00 115 mm[Hg] [facility] Diastolic blood pressure 2022-06-06 13:45:00 74 mm[Hg] [facility] Heart rate 2022-06-06 13:45:00 76 /min [facility] Body temperature 2022-06-06 13:45:00 36.56 Ness [facility] Respiratory rate 2022-06-06 13:45:00 17 /min [facility] Oxygen saturation in Arterial blood by Pulse oximetry 2022-06-05 23:45:00 97 /min [facility] Body height 2022-06-05 18:06:[address] [facility] Body weight 2022-06-05 18:06:[address] [facility] BMI 2022-06-05 18:06:00 35.52 kg/m2 [facility] Systolic blood pressure 2022-06-04 22:00:00 115 mm[Hg] [facility] Diastolic blood pressure 2022-06-04 22:00:00 75 mm[Hg] [facility] Heart rate 2022-06-04 22:00:00 80 /min [facility] Body temperature 2022-06-04 22:00:00 36.78 Ness [facility] Respiratory rate 2022-06-04 22:00:00 18 /min [facility] Body height 2022-06-04 22:00:[address] [facility] Body weight 2022-06-04 22:00:[address] [facility] BMI 2022-06-04 22:00:00 35.52 kg/m2 [facility] Heart rate 2022-06-03 22:39:00 84 /min [facility] Oxygen saturation in Arterial blood by Pulse oximetry 2022-06-03 22:39:00 100 /min [facility] Systolic blood pressure 2022-06-03 22:24:00 108 mm[Hg] [facility] Diastolic blood pressure 2022-06-03 22:24:00 64 mm[Hg] [facility] Body temperature 2022-06-03 22:24:00 36.94 Ness [facility] Respiratory rate 2022-06-03 22:24:00 18 /min [facility] Body height 2022-06-03 22:24:00 154.9 cm [facility] Body weight 2022-06-03 22:24:00 85.276 kg [facility] BMI 2022-06-03 22:24:00 35.52 kg/m2 [facility] Heart rate 2022-06-03 04:30:00 85 /min [facility] Oxygen saturation in Arterial blood by Pulse oximetry 2022-06-03 04:30:00 98 /min [facility] Systolic blood pressure 2022-06-03 03:40:00 126 mm[Hg] [facility] Diastolic blood pressure 2022-06-03 03:40:00 68 mm[Hg] [facility] Body temperature 2022-06-03 03:40:00 36.61 Ness [facility] Body height 2022-06-03 03:40:[address] [facility] Body weight 2022-06-03 03:40:[address] [facility] BMI 2022-06-03 03:40:00 35.86 kg/m2 [facility] Systolic blood pressure 2022-05-31 22:11:00 118 mm[Hg] [facility] Diastolic blood pressure 2022-05-31 22:11:00 73 mm[Hg] [facility] Heart rate 2022-05-31 22:11:00 66 /min [facility] Body temperature 2022-05-31 22:11:00 36.56 Ness [facility] Respiratory rate 2022-05-31 22:11:00 18 /min [facility] Body height 2022-05-31 22:11:[address] [facility] Body weight 2022-05-31 22:11:[address] [facility] BMI 2022-05-31 22:11:00 35.90 kg/m2 [facility] Systolic blood pressure 2022-05-17 22:24:00 105 mm[Hg] [facility] Diastolic blood pressure 2022-05-17 22:24:00 68 mm[Hg] [facility] Heart rate 2022-05-17 22:24:00 76 /min [facility] Body temperature 2022-05-17 22:24:00 37.06 Ness [facility] Body height 2022-05-17 22:24:00 [facility] 2022-05-17 22:24:00 85.367 kg [facility] BMI 2022-05-17 22:24:00 35.56 kg/m2 [facility] Heart rate 2022-05-06 03:00:00 82 /min [facility] Body temperature 2022-05-06 03:00:00 37 Ness [facility] Respiratory rate 2022-05-06 03:00:00 18 /min [facility] Body height 2022-05-06 03:00:00 154.9 cm [facility] Body weight 2022-05-06 03:00:00 85.095 kg [facility] BMI 2022-05-06 03:00:00 35.45 kg/m2 [facility] Oxygen saturation in Arterial blood by Pulse oximetry 2022-05-06 03:00:00 100 /min [facility] Systolic blood pressure 2022-05-03 16:43:00 108 mm[Hg] [facility] Diastolic blood pressure 2022-05-03 16:43:00 69 mm[Hg] [facility] Heart rate 2022-05-03 16:43:00 80 /min [facility] Body temperature 2022-05-03 16:43:00 36.44 Ness [facility] Respiratory rate 2022-05-03 16:43:00 18 /min [facility] Body height 2022-05-03 16:43:00 154.9 cm [facility] Body weight 2022-05-03 16:43:00 84.278 kg [facility] BMI 2022-05-03 16:43:00 35.11 kg/m2 [facility] Systolic blood pressure 2022-04-19 19:13:00 110 mm[Hg] [facility] Diastolic blood pressure 2022-04-19 19:13:00 62 mm[Hg] [facility] Heart rate 2022-04-19 19:13:00 98 /min [facility] Body temperature 2022-04-19 19:13:00 36.83 Ness [facility] Respiratory rate 2022-04-19 19:13:00 18 /min [facility] Body height 2022-04-19 19:13:[address] [facility] Body weight 2022-04-19 19:13:[address] [facility] BMI 2022-04-19 19:13:00 35.14 kg/m2 [facility] Systolic blood pressure 2022-04-18 18:00:00 112 mm[Hg] [facility] Diastolic blood pressure 2022-04-18 18:00:00 61 mm[Hg] [facility] Heart rate 2022-04-18 18:00:00 84 /min [facility] Oxygen saturation in Arterial blood by Pulse oximetry 2022-04-18 18:00:00 99 /min [facility] Body temperature 2022-04-18 15:20:00 36.83 Ness [facility] Respiratory rate 2022-04-18 15:20:00 18 /min [facility] Body weight 2022-04-18 15:08:[address] [facility] BMI 2022-04-18 15:08:00 34.96 kg/m2 [facility] Systolic blood pressure 2022-04-11 20:30:00 126 mm[Hg] [facility] Diastolic blood pressure 2022-04-11 20:30:00 71 mm[Hg] [facility] Heart rate 2022-04-11 20:30:00 94 /min [facility] Respiratory rate 2022-04-11 20:30:00 18 /min [facility] Oxygen saturation in Arterial blood by Pulse oximetry 2022-04-11 20:30:00 99 /min [facility] Body temperature 2022-04-11 15:00:00 36.72 Ness [facility] Heart rate 2022-04-05 02:30:00 82 /min [facility] Oxygen saturation in Arterial blood by Pulse oximetry 2022-04-05 02:30:00 100 /min [facility] Systolic blood pressure 2022-04-05 02:00:00 105 mm[Hg] [facility] Diastolic blood pressure 2022-04-05 02:00:00 51 mm[Hg] [facility] Body temperature 2022-04-05 02:00:00 36.83 Ness [facility] Respiratory rate 2022-04-05 02:00:00 18 /min [facility] Systolic blood pressure 2022-04-05 01:00:00 110 mm[Hg] [facility] Diastolic blood pressure 2022-04-05 01:00:00 73 mm[Hg] [facility] Heart rate 2022-04-05 01:00:00 89 /min [facility] Respiratory rate 2022-04-05 01:00:00 23 /min [facility] Oxygen saturation in Arterial blood by Pulse oximetry 2022-04-05 01:00:00 98 /min [facility] Body temperature 2022-04-05 00:04:00 36.83 Ness [facility] Body height 2022-04-05 00:04:[address] [facility] Body weight 2022-04-05 00:04:[address] [facility] BMI 2022-04-05 00:04:00 34.20 kg/m2 [facility] Systolic blood pressure 2022-04-04 20:15:00 118 mm[Hg] [facility] Diastolic blood pressure 2022-04-04 20:15:00 64 mm[Hg] [facility] Heart rate 2022-04-04 19:30:00 87 /min [facility] Oxygen saturation in Arterial blood by Pulse oximetry 2022-04-04 19:30:00 98 /min [facility] Body temperature 2022-04-04 14:30:00 36.44 Ness [facility] Respiratory rate 2022-04-04 14:30:00 18 /min [facility] Body height 2022-04-04 14:10:00 154.9 cm [facility] Body weight 2022-04-04 14:10:[address] [facility] BMI 2022-04-04 14:10:00 34.31 kg/m2 [facility] Systolic blood pressure 2022-03-29 15:35:00 106 mm[Hg] [facility] Diastolic blood pressure 2022-03-29 15:35:00 69 mm[Hg] [facility] Heart rate 2022-03-29 15:35:00 75 /min [facility] Body temperature 2022-03-29 15:35:00 36.61 Ness [facility] Respiratory rate 2022-03-29 15:35:00 18 /min [facility] Body height 2022-03-29 15:35:[address] [facility] Body weight 2022-03-29 15:35:[address] [facility] BMI 2022-03-29 15:35:00 34.50 kg/m2 [facility] Systolic blood pressure 2022-03-18 02:13:00 111 mm[Hg] [facility] Diastolic blood pressure 2022-03-18 02:13:00 56 mm[Hg] [facility] Heart rate 2022-03-18 02:13:00 82 /min [facility] Body temperature 2022-03-18 02:13:00 36.89 Ness [facility] Respiratory rate 2022-03-18 02:13:00 18 /min [facility] Body weight 2022-03-18 02:13:[address] [facility] BMI 2022-03-18 02:13:00 34.52 kg/m2 [facility] Oxygen saturation in Arterial blood by Pulse oximetry 2022-03-18 02:13:00 99 /min [facility] Body height 2022-03-18 01:54:[address] [facility] Systolic blood pressure 2022-03-01 16:14:00 99 mm[Hg] [facility] Diastolic blood pressure 2022-03-01 16:14:00 66 mm[Hg] [facility] Heart rate 2022-03-01 16:14:00 82 /min [facility] Body temperature 2022-03-01 16:14:00 36.78 Ness [facility] Respiratory rate 2022-03-01 16:14:00 18 /min [facility] Body height 2022-03-01 16:14:[address] [facility] Body weight 2022-03-01 16:14:[address] [facility] BMI 2022-03-01 16:14:00 33.58 kg/m2 [facility] Systolic blood pressure 2022-02-18 02:58:00 103 mm[Hg] [facility] Diastolic blood pressure 2022-02-18 02:58:00 70 mm[Hg] [facility] Heart rate 2022-02-18 02:58:00 83 /min [facility] Body temperature 2022-02-18 02:58:00 36.94 Ness [facility] Respiratory rate 2022-02-18 02:58:00 16 /min [facility] Oxygen saturation in Arterial blood by Pulse oximetry 2022-02-18 02:58:00 100 /min [facility] Body height 2022-02-18 01:10:00 154.9 cm 5' 1" [facility] Body weight 2022-02-18 01:10:00 80.468 kg 177lb 6.4oz [facility] BMI 2022-02-18 01:10:00 33.54 kg/m2 [facility] Procedures Procedure Date / Time Performed Performing Clinician Source NOTICE OF PRIVACY PRACTICES 2023-07-24 02:35:29 Doctor Unassigned, [place] [facility] CONSENT/REFUSAL FOR DIAGNOSIS AND TREATMENT 2023-07-24 02:35:09 Doctor Unassigned, [place] [facility] POCT MOLECULAR STREP 2022-12-23 21:07:00 Jake Scott [facility] XR SHOULDER 2+ VW LEFT 2022-09-17 16:40:00 FreddieMaribel [facility] XR SHOULDER 2+ VW LEFT 2022-09-17 16:40:00 Freddie Maribel tra [facility] POCT SARS-COV-2 ANTIGEN (BINAX NOW) 2022-09-15 01:24:00 Radha Cordova [facility] POCT MOLECULAR FLU 2022-09-15 01:23:00 Unknown, Attend ing [facility] POCT MOLECULAR STREP 2022-09-15 01:19:00 Unknown, Atte radha [facility] PHOSPHORUS 2022-08-04 10:39:00 Leonard Moore [facility] LIPASE 2022-08-04 10:39:00 Khalif Ritter [facility] MAGNESIUM 2022-08-04 10:39:00 Oscar [facility] HEPATIC FUNCTION PANEL (74699) (ALB,T.PRO,BILI T,BU/BC,ALT,AST,ALK PHOS) 2022-08-04 10:39:00 Oscar [facility] BASIC METABOLIC PANEL (NA, K, CL, CO2, GLUCOSE, BUN, CREATININE, CA) 2022-08-04 10:39:00 Leonard Moore [facility] CBC WITH DIFF 2022-08-04 10:39:00 [facility] 2022-08-04 10:39:00 Oscar [facility] LIPASE 2022-08-04 10:39:00 Khalif Ritter [facility] MAGNESIUM 2022-08-04 10:39:00 Oscar [facility] HEPATIC FUNCTION PANEL (57934) (ALB,T.PRO,BILI T,BU/BC,ALT,AST,ALK PHOS) 2022-08-04 10:39:00 Oscar [facility] BASIC METABOLIC PANEL (NA, K, CL, CO2, GLUCOSE, BUN, CREATININE, CA) 2022-08-04 10:39:00 Oscar [facility] CBC WITH DIFF 2022-08-04 10:39:00 Leonard Moore [facility] FL TIME OR (NON-REPORTABLE) 2022-08-03 20:15:00 Casillas, [facility] FL TIME OR (NON-REPORTABLE) 2022-08-03 20:15:00 Casillas, [facility] LAPAROSCOPIC CHOLECYSTECTOMY 2022-08-03 17:30:00 Casillas, [facility] INTRAOPERATIVE CHOLANGIOGRAM 2022-08-03 17:30:00 Casillas, [facility] PHOSPHORUS 2022-08-03 09:56:00 Oscar [facility] LACTATE DEHYDROGENASE 2022-08-03 09:56:00 Tra Moore [facility] MAGNESIUM 2022-08-03 09:56:00 Oscar [facility] HEPATIC FUNCTION PANEL (68495) (ALB,T.PRO,BILI T,BU/BC,ALT,AST,ALK PHOS) 2022-08-03 09:56:00 Oscar [facility] BASIC METABOLIC PANEL (NA, K, CL, CO2, GLUCOSE, BUN, CREATININE, CA) 2022-08-03 09:56:00 Oscar [facility] CBC WITH DIFF 2022-08-03 09:56:00 Leonard Moore [facility] PHOSPHORUS 2022-08-03 09:56:00 Oscar [facility] LACTATE DEHYDROGENASE 2022-08-03 09:56:00 Tra Moore [facility] MAGNESIUM 2022-08-03 09:56:00 Oscar [facility] HEPATIC FUNCTION PANEL (85163) (ALB,T.PRO,BILI T,BU/BC,ALT,AST,ALK PHOS) 2022-08-03 09:56:00 Oscar [facility] BASIC METABOLIC PANEL (NA, K, CL, CO2, GLUCOSE, BUN, CREATININE, CA) 2022-08-03 09:56:00 Leonard Moore [facility] CBC WITH DIFF 2022-08-03 09:56:00 [facility] LIPASE 2022-08-03 09:52:00 [facility] LIPID PANEL (82505)(TOTAL CHOLESTEROL, TRIGLYCERIDES, HDL) 2022-08-03 09:52:00 Stone [facility] LIPASE 2022-08-03 09:52:00 Khalif Ritter [facility] LIPID PANEL (54328)(TOTAL CHOLESTEROL, TRIGLYCERIDES, HDL) 2022-08-03 09:52:00 [facility] LIPASE 2022-08-02 10:57:00 [facility] MAGNESIUM 2022-08-02 10:57:00 [facility] COMP. METABOLIC PANEL (31139) 2022-08-02 10:57:00 [facility] LIPASE 2022-08-02 10:57:00 Khalif Ritter [facility] MAGNESIUM 2022-08-02 10:57:00 [facility] COMP. METABOLIC PANEL (40469) 2022-08-02 10:57:00 [facility] US GALL BLADDER 2022-08-02 05:07:27 Gregory Davila [facility] US GALL BLADDER 2022-08-02 05:07:27 Gregory Davila [facility] CT ABDOMEN PELVIS W CONTRAST 2022-08-02 02:52:26 Gregory Davila [facility] CT ABDOMEN PELVIS W CONTRAST 2022-08-02 02:52:26 Gregory Davila [facility] POCT TEST 2022-08-02 02:09:00 Karen Davila [facility] POCT TEST 2022-08-02 02:09:00 Karen Davila [facility] TROPONIN I 2022-08-02 01:53:00 Gregory Davila [facility] COMP. METABOLIC PANEL ([id number]) 2022-08-02 01:53:00 Gregory Davila [facility] SALICYLATE 2022-08-02 01:53:00 Gregory Davila [facility] CBC WITH DIFF 2022-08-02 01:53:[address] [facility] PROTHROMBIN TIME / INR 2022-08-02 01:53:00 Teodoro Davila [facility] ACTIVATED PARTIAL THRMPLAS LESLEY 2022-08-02 01:53:00 Gregory Davila [facility] URINALYSIS 2022-08-02 01:53:00 [facility] N-TERMINAL PRO-BNP 2022-08-02 01:53:00 [facility] (IMMUNOASSAY) - COMPREHENSIVE DRUG SCREEN W/O REFLEX 2022-08-02 01:53:00 Gregory Davila [facility] LIPASE 2022-08-02 01:53:00 Gregory [facility]ila [facility] BILI UNCONJUGATED/BILI CONJUG 2022-08-02 01:53:00 Yeni [facility] TROPONIN I 2022-08-02 01:53:00 Gregory [facility]ila [facility] COMP. METABOLIC PANEL (75636) 2022-08-02 01:53:00 Gregory Davila [facility] SALICYLATE 2022-08-02 01:53:00 Gregory Davila [facility] CBC WITH DIFF 2022-08-02 01:53:[address] [facility] PROTHROMBIN TIME / INR 2022-08-02 01:53:00 Teodoro Davila [facility] ACTIVATED PARTIAL THRMPLAS LESLEY 2022-08-02 01:53:00 [facility] 2022-08-02 01:53:00 [facility] N-TERMINAL PRO-BNP 2022-08-02 01:53:00 [facility]INE [facility]UG (IMMUNOASSAY) - COMPREHENSIVE DRUG SCREEN W/O REFLEX 2022-08-02 01:53:00 Gregory Davila [facility] LIPASE 2022-08-02 01:53:00 Gregory Davila [facility] BILI UNCONJUGATED/BILI CONJUG 2022-08-02 01:53:00 Sherrie Casillas [facility] AC PANEL 21 + LACTIC ACID 2022-08-02 01:51:00 Gregory Davila [facility] AC PANEL 21 + LACTIC ACID 2022-08-02 01:51:00 Gregory Davila [facility] NOTICE OF PRIVACY PRACTICES 2022-08-02 00:48:43 Doctor Unassigned, [place] [facility] NOTICE OF PRIVACY PRACTICES 2022-08-02 00:48:43 Doctor Unassigned, [place] [facility] HOSPITAL ADMISSION 2022-08-01 06:01:00 Doctor Un assigned, [place] [facility] DISABILITY/FMLA 2022-07-27 06:01:00 Doctor Unass igned, [place] [facility] CONSENT FOR CONTRACEPTION 2022-06-27 06:01:00 Do ctor Unassigned, [place] [facility] POCT TEST 2022-06-27 00:00:00 Dilia Escobar [facility] DISABILITY/FMLA 2022-06-08 06:01:00 Doctor Unass igned, [place] [facility] CBC WITH DIFF 2022-06-06 09:47:00 Adum, Arabella Solano [facility] CBC WITH DIFF 2022-06-05 18:12:00 Adum, Arabella Solano [facility] HEPATITIS B SURFACE ANTIGEN 2022-06-05 18:12:00 Adum, Arabella Ndiaye [facility] ADC OR TATYANA ONLY - RPR 2022-06-05 18:12:00 Adum, Sherin Ndiaye [facility] HIV 1/2 AG-AB WITH REFLEX 2022-06-05 18:12:00 Adum, Sherin Ndiaye [facility] HB ABO GROUPING 2022-06-05 18:08:00 [facility]um[facility] 2022-06-05 16:59:34 Docto r Unassigned, [place] [facility] CONSENT/REFUSAL FOR DIAGNOSIS AND TREATMENT 2022-06-03 21:55:56 Doctor Unassigned, [place] [facility] ASSIGNMENT OF BENEFITS 2022-06-03 03:25:22 Docto r Unassigned, [place] [facility] ASSIGNMENT OF BENEFITS 2022-05-31 23:02:03 Docto r Unassigned, [place] [facility] CONSENT/REFUSAL FOR DIAGNOSIS AND TREATMENT 2022-05-31 23:01:51 Doctor Unassigned, [place] [facility] >14 WEEKS US LIMITED 2022-05-31 22:53:41 Dilia Escobar [facility] POCT URINALYSIS W/O SPECIFIC GRAVITY 2022-05-31 00:00:00 Dilia Escobar [facility] POCT URINALYSIS W/O SPECIFIC GRAVITY 2022-05-17 00:00:00 Dilia Escobar [facility] URINALYSIS 2022-05-06 04:33:00 Shauna Wardsol [facility] ADC CLC OR LCC ONLY - WET PREP 2022-05-06 03:27:00 Shauna Wardsol [facility] ASSIGNMENT OF BENEFITS 2022-05-06 02:47:09 Arben r Unassigned, [place] [facility] CONSENT/REFUSAL FOR DIAGNOSIS AND TREATMENT 2022-05-06 02:45:20 Doctor Unassigned, [place] [facility] POCT URINALYSIS W/O SPECIFIC GRAVITY 2022-05-03 00:00:00 Donell Brunson [facility] TDAP VACCINE, >11 YRS, IM 2022-04-19 19:19:11 Nagi Escobar [facility] POCT URINALYSIS W/O SPECIFIC GRAVITY 2022-04-19 19:15:00 Dilia Escobar [facility] 1 HR GLUCOSE TOLERANCE TEST 2022-04-05 14:26:00 Dilia Escobar [facility] GLUCOSE FASTING 2022-04-05 13:19:[address] [facility] CBC WITH DIFF 2022-04-05 13:19:00 Jeremiah [facility] CONSENT/REFUSAL FOR DIAGNOSIS AND TREATMENT 2022-04-04 23:41:16 Doctor Unassigned, [place] [facility] IRON PANEL 2022-04-04 15:23:00 Dilia Escobar [facility] STERILIZATION CONSENT FORM 2022-03-29 05:01:00 D octiesha Unassigned, [place] [facility] POCT URINALYSIS W/O SPECIFIC GRAVITY 2022-03-29 00:00:00 Dilia Escobar [facility] URINALYSIS 2022-03-18 03:24:00 Dilia Escobar [facility] ADC CLC OR LCC ONLY - WET PREP 2022-03-18 03:24:00 Dilia Escobar [facility] NOTICE OF PRIVACY PRACTICES 2022-03-18 01:50:59 Doctor Unassigned, [place] [facility] ASSIGNMENT OF BENEFITS 2022-03-18 01:50:20 Docto r Unassigned, [place] [facility] POCT URINALYSIS W/O SPECIFIC GRAVITY 2022-03-01 16:25:00 Donell Brunson [facility] INSURANCE CORRESPONDENCE 2022-03-01 05:01:00 Doc tor Unassigned, [place] [facility] EMERGENCY DEPARTMENT DOCUMENTS 2022-02-17 05:01:00 Doctor Unassigned, [place] [facility] L&D VISIT (NON-DELIVERED) 2022-02-17 05:01:00 Do ctor Unassigned, [place] [facility] Encounters Start Date/Time End Date/Time Encounter Type Admission Type Attending Clinicians Care Facility Care Department Encounter ID Source 2022-06-02 23:00:50 Outpatient X [facility] [id number] [facility] 2022-04-04 15:33:04 Outpatient P [facility] [id number] [facility] 2021-04-04 09:36:18 [id number] 2021-04-03 17:23:54 Outpatient X [facility] [id number] [facility] 2021-04-03 05:42:59 Outpatient X [facility] [id number] [facility] 2021-04-03 05:10:21 Emergency [facility] [id number] [facility] 2024-04-06 15:29:56 2024-04-06 15:29:56 Outpatient [facility] [id number] Fidel Valerio 2024-04-02 11:08:55 2024-04-02 11:08:55 Outpatient [facility] [id number] Fidel Valerio 2024-03-24 15:00:00 2024-03-24 15:00:00 Outpatient R RICHARD-MALCOM S, ILANA RICHARD-MALCOM S, ILANA [facility] [id number] [facility] 2023-10-03 16:00:00 2023-10-03 16:00:00 Outpatient DEEPAK GIANG [id number] [facility] 2023-09-30 00:00:00 2023-09-30 00:00:00 Telephone Dilia Escobar [facility] 1.2.840.114 350.1.13.10 4.2.7.2.686 [id number] [facility] 2023-09-10 00:00:00 2023-09-10 00:00:00 Outpatient NANY GIANGTHIA TALYA BUTLER [id number] [facility] 2023-08-14 14:00:00 2023-08-14 14:00:00 Outpatient DEEPAK GIANG [id number] [facility] 2023-07-23 20:48:00 2023-07-23 21:07:00 Emergency X LOKESH SERNA [facility] ERT [id number] [facility] 2023-07-23 20:48:00 2023-07-23 21:07:00 Emergency Lokesh Serna [facility] ..840.114 350.1.13.10 4.2.7.2.686 [id number] [facility] 2023-02-18 13:30:00 2023-02-18 13:30:00 Outpatient R DILIA ESCOBAR [facility] [id number] [facility] 2022-12-23 15:40:00 2022-12-23 16:00:00 Urgent Care SaadiaKeelytara Dhaliwal Jake [facility] JULIO?[facility] 1.2.840.114 350.1.13.10 4.2.7.2.686 [id number] [facility] 2022-12-23 15:40:00 2022-12-23 15:40:00 Outpatient R JAKE SCOTT [facility] [id number] [facility] 2022-11-13 10:00:00 2022-11-13 10:00:00 Outpatient R DEVORA BUIICA [facility] [id number] [facility] 2022-09-17 11:11:23 2022-09-17 23:59:00 Hospital Encounter Freddie [facility] 1.2.840.114 350.1.13.10 4.2.7.2.686 [id number] [facility] 2022-09-17 11:11:23 2022-09-17 23:59:00 Hospital Encounter Freddie [facility] JULIO[facility] 1.2.840.114 350.1.13.10 4.2.7.2.686 [id number] [facility] 2022-09-17 11:11:22 2022-09-17 23:59:00 Outpatient R FREDDIE [place] [id number] [facility] 2022-09-17 11:11:22 2022-09-17 23:59:00 Hospital Encounter Freddie [facility] JULIO?[facility] 1.2.840.114 350.1.13.10 4.2.7.2.686 [id number] [facility] 2022-09-17 11:00:00 2022-09-17 11:20:00 Urgent Care Shira Frazier Unknown, Attending [facility] 1..840.114 350.1.13.10 4.2.7.2.686 [id number] [facility] 2022-09-17 00:00:00 2022-09-17 00:00:00 Letter (Out) [facility] 1..840.114 350.1.13.10 4.2.7.2.686 [id number] [facility] 2022-09-14 20:20:00 2022-09-14 20:43:08 Outpatient R SHIRA FRAZIER [facility] [id number] [facility] 2022-09-14 20:20:00 2022-09-14 20:40:00 Urgent Care Shira Frazier Unknown, Attending [facility] 1.840.114 350.1.13.10 4.2.7.2.686 [id number] [facility] 2022-08-27 13:45:00 2022-08-27 13:45:00 [id number] 2022-08-20 15:30:00 2022-08-20 15:30:00 Outpatient R SHERRIE CASILLAS [facility] [id number] [facility] 2022-08-20 13:30:00 2022-08-20 13:30:00 Outpatient R SHERRIE CASILLAS [facility] [id number] [facility] 2022-08-13 10:30:00 2022-08-13 10:45:00 [employer] Technician Visit 2, Adc Lab Jacinda Bui [facility] 1..840.114 350.1.13.10 4.2.7.2.686 [id number] [facility] 2022-08-13 09:30:00 2022-08-13 10:29:02 Outpatient R JOSETTE BUISSICA [facility] [id number] [facility] 2022-08-13 09:30:00 2022-08-13 10:29:02 Office Visit Jacinda Bui [facility] 1.2840.114 350.1.13.10 4.2.7.2.686 [id number] [facility] 2022-08-07 00:00:00 2022-08-07 00:00:00 Transition of Care Paola Albarran NICOLE [facility] 1.2840.114 350.1.13.10 4.2.7.2.686 [id number] [facility] 2022-08-01 19:12:00 2022-08-04 14:08:00 Inpatient X KHALIF RITTER [facility] [id number] [facility] 2022-08-01 19:12:00 2022-08-04 14:08:00 Hospital Encounter Gregory Davila Joseph [facility] 1.840.114 350.1.13.10 4.2.7.2.686 [id number] [facility] 2022-08-03 12:14:00 2022-08-03 15:16:00 Surgery Sherrie Casillas [facility] 1.20.114 350.1.13.10 4.2.7.2.686 [id number] [facility] 2022-08-02 00:00:00 2022-08-02 00:00:00 Patient Secure Msg Doctor Unassigned, [place] [facility] 1.20.114 350.1.13.10 4.2.7.2.686 [id number] [facility] 2022-07-31 00:00:00 2022-07-31 00:00:00 Telephone Dilia Escobar [facility] 1.2840.114 350.1.13.10 4.2.7.2.686 [id number] [facility] 2022-07-27 00:00:00 2022-07-27 00:00:00 Orders Only Doctor Unassigned, [place] [facility] 1.2840.114 350.1.13.10 4.2.7.2.686 [id number] [facility] 2022-07-20 00:00:00 2022-07-20 00:00:00 Telephone Dilia Escobar [facility] 1.2840.114 350.1.13.10 4.2.7.2.686 [id number] [facility] 2022-06-27 11:15:00 2022-06-27 12:14:57 Outpatient R DILIA ESCOBAR [facility] [id number] [facility] 2022-06-27 11:15:00 2022-06-27 12:14:57 Routine Visit Dilia Escobar [facility] 1.2840.114 350.1.13.10 4.2.7.2.686 [id number] [facility] 2022-06-27 00:00:00 2022-06-27 00:00:00 Orders Only Doctor Unassigned, [place] [facility] 1.20.114 350.1.13.10 4.2.7.2.686 [id number] [facility] 2022-06-08 00:00:00 2022-06-08 00:00:00 Orders Only Doctor Unassigned, [place] [facility] 1.2.840.114 350.1.13.10 4.2.7.2.686 [id number] [facility] 2022-06-07 10:00:00 2022-06-07 10:00:00 Outpatient SHANE DUMONTCY [facility] [id number] [facility] 2022-06-05 11:02:00 2022-06-06 19:55:00 Hospital Encounter Escobar, Dilia Larose, Arabella L [facility] 1.840.114 350.1.13.10 4.2.7.2.686 [id number] [facility] 2022-06-05 00:00:00 2022-06-05 00:00:00 Orders Only Doctor Unassigned, [place] [facility] 1.2840.114 350.1.13.10 4.2.7.2.686 [id number] [facility] 2022-06-04 15:45:00 2022-06-04 16:11:05 Outpatient Bradford BRUNSON DONELL [facility] [id number] [facility] 2022-06-04 15:45:00 2022-06-04 16:11:05 Routine Visit Donell Brunson [facility] 1.2840.114 350.1.13.10 [id number] [id number] [facility] 2022-06-04 15:45:00 2022-06-04 16:11:05 Outpatient Bradford BRUNSON [facility] [id number] [facility] 2022-06-03 16:08:00 2022-06-03 17:50:00 Outpatient X LALO S, ILANA MAY S, ILANA [facility] [id number] [facility] 2022-06-03 16:08:00 2022-06-03 17:50:00 Emergency Yoel, Danilo E Richard-Malcom s, Ilana [facility] 1.2840.114 350.1.13.10 4.2.7.2.686 [id number] [facility] 2022-06-02 21:28:00 2022-06-02 22:39:00 Outpatient X RICHARD-MALCOM S, ILANA RICHARD-MALCOM S, ILANA [facility] [id number] [facility] 2022-06-02 21:28:00 2022-06-02 22:39:00 Emergency Richard-Malcom s, Ilana [facility] 1.2840.114 350.1.13.10 4.2.7.2.686 [id number] [facility] 2022-05-31 16:00:00 2022-05-31 16:48:49 Outpatient R DILIA ESCOBAR [facility] [id number] [facility] 2022-05-31 16:00:00 2022-05-31 16:48:49 Routine Visit Dilia Escobar [facility] 1.20.114 350.1.13.10 4.2.7.2.686 [id number] [facility] 2022-05-31 10:15:00 2022-05-31 10:30:00 Medtronics Technician Visit 1, Adc Lab Dilia Escobar [facility] 1.2840.114 350.1.13.10 4.2.7.2.686 [id number] [facility] 2022-05-31 00:00:00 2022-05-31 00:00:00 Orders Only Doctor Unassigned, [place] [facility] 1.2840.114 350.1.13.10 4.2.7.2.686 [id number] [facility] 2022-05-17 16:15:00 2022-05-17 16:36:14 Outpatient R DILIA ESCOBAR [facility] [id number] [facility] 2022-05-17 16:15:00 2022-05-17 16:36:14 Routine Visit Dilia Escobar [facility] PROFESSIO NAL [facility]ILDING 1.2.840.114 350.1.13.10 4.2.7.2.686 [id number] [facility] 2022-05-05 20:52:00 2022-05-05 23:05:00 Outpatient P RICHARD-MALCOM S, ILANA RICHARD-MALCOM S, ILANA [facility] [id number] [facility] 2022-05-05 20:52:00 2022-05-05 23:05:00 Hospital Encounter Richard-Malcom s, Rady [facility] 1.2.840.114 350.1.13.10 4.2.7.2.686 [id number] [facility] 2022-05-03 11:00:00 2022-05-03 11:00:00 Routine Visit Donell Brunson [facility] 1.2.840.114 350.1.13.10 4.2.7.2.686 [id number] [facility] 2022-05-03 11:00:00 2022-05-03 10:57:45 Outpatient R DONELL BRUNSON [facility] [id number] [facility] 2022-04-19 13:15:00 2022-04-19 13:22:27 Outpatient R DILIA ESCOBAR [facility] [id number] [facility] 2022-04-19 13:15:00 2022-04-19 13:22:27 [facility] 1.2.840.114 350.1.13.10 4.2.7.2.686 [id number] [facility] 2022-04-18 08:59:00 2022-04-18 14:40:00 Outpatient P DILIA ESCOBAR [facility] [id number] [facility] 2022-04-18 08:59:00 2022-04-18 14:40:00 Hospital Encounter Dilia Escobar [facility] 1.2.840.114 350.1.13.10 4.2.7.2.686 [id number] [facility] 2022-04-13 00:00:00 2022-04-13 00:00:00 Telephone Dilia Escobar [facility] PROFESSIO NAL BUILDING 1.2.840.114 350.1.13.10 4.2.7.2.686 [id number] [facility] 2022-04-11 08:48:00 2022-04-11 14:55:00 Outpatient P DILIA ESCOBAR [facility] [id number] [facility] 2022-04-11 08:48:00 2022-04-11 14:55:00 Hospital Encounter Dilia Escobar [facility] 1.2.840.114 350.1.13.10 4.2.7.2.686 [id number] [facility] 2022-04-05 08:30:00 2022-04-05 08:45:00 Medtronics Technician Visit 2, Adc Lab Dilia Escobar [facility] PROFESSIO NAL BUILDING 1.2.840.114 350.1.13.10 4.2.7.2.686 [id number] [facility] 2022-04-05 08:30:00 2022-04-05 08:30:00 Outpatient R DILIA ESCOBAR [facility] [id number] [facility] 2022-04-04 19:14:00 2022-04-04 21:37:00 Outpatient X DILIA ESCOBAR [facility] [id number] [facility] 2022-04-04 19:14:00 2022-04-04 21:37:00 Emergency Krebs, Jorge Diallo, Danilo Christianson Dilia Escobar [facility] 1.2.840.114 350.1.13.10 4.2.7.2.686 [id number] [facility] 2022-04-04 09:02:00 2022-04-04 15:30:00 Outpatient P DILIA ESCOBAR [facility] [id number] [facility] 2022-04-04 09:02:00 2022-04-04 15:30:00 Hospital Encounter Dilia Escboar [facility] 1.2.840.114 350.1.13.10 4.2.7.2.686 [id number] [facility] 2022-04-02 00:00:00 2022-04-02 00:00:00 Telephone Dilia Escobar [facility] BUILDING 1.2.840.114 350.1.13.10 4.2.7.2.686 [id number] [facility] 2022-03-30 08:30:00 2022-03-30 08:45:00 Medtronics Technician Visit 2, Adc Lab Dilia Escobar [facility] BUILD[facility] 1.2.840.114 350.1.13.10 4.2.7.2.686 [id number] [facility] 2022-03-30 08:30:00 2022-03-30 08:30:00 Outpatient R DILIA ESCOBAR [facility] [id number] [facility] 2022-03-30 00:00:00 2022-03-30 00:00:00 Case Management Dilia Escobar [facility] BUILDING 1.2.840.114 350.1.13.10 4.2.7.2.686 [id number] [facility] 2022-03-29 10:45:00 2022-03-29 11:19:40 Outpatient R DILIA ESCOBAR [facility] [id number] [facility] 2022-03-29 10:45:00 2022-03-29 11:19:40 Routine Visit Dilia Escobar [facility] PROFESSIO [facility] 1..114 350.1.13.10 4.2.7.2.686 [id number] [facility] 2022-03-29 00:00:00 2022-03-29 00:00:00 Orders Only Doctor Unassigned, [place] [facility] 1..114 350.1.13.10 4.2.7.2.686 [id number] [facility] 2022-03-17 20:58:00 2022-03-18 00:00:00 Outpatient X LUZ [facility] [id number] [facility] 2022-03-17 20:58:00 2022-03-18 00:00:00 Emergency Dilia Escobar [facility] 1..114 350.1.13.10 4.2.7.2.686 [id number] [facility] 2022-03-17 00:00:00 2022-03-17 00:00:00 Orders Only Doctor Unassigned, [place] [facility] 1..114 350.1.13.10 4.2.7.2.686 [id number] [facility] 2022-03-08 11:00:00 2022-03-08 12:00:00 Medtronics Technician Visit Ultrasound, Jesse Davis [facility] SALES AND SERVICE AGENT [facility] 1..114 350.1.13.10 4.2.7.2.686 [id number] [facility] 2022-03-08 11:00:00 2022-03-08 11:00:00 Outpatient P [facility] [id number] [facility] 2022-03-08 11:00:00 2022-03-08 11:00:00 Outpatient P JESSE SOLO [facility] [id number] [facility] 2022-03-02 11:00:00 2022-03-02 11:00:00 Outpatient P [facility] [id number] [facility] 2022-03-02 11:00:00 2022-03-02 11:00:00 Outpatient P [facility] [id number] [facility] 2022-03-02 00:00:00 2022-03-02 00:00:00 Telephone Dilia Escobar [facility] 1.2.840.114 350.1.13.10 4.2.7.2.686 [id number] [facility] 2022-03-01 11:15:00 2022-03-01 11:43:49 Outpatient R ANANTISSAC DONELL [facility] [id number] [facility] 2022-03-01 11:15:00 2022-03-01 11:43:49 Routine Visit Kalpana Donell [facility] 1.2.840.114 350.1.13.10 4.2.7.2.686 [id number] [facility] 2022-03-01 00:00:00 2022-03-01 00:00:00 Telephone Dilia Escobar [facility] 1.2.840.114 350.1.13.10 4.2.7.2.686 [id number] [facility] 2022-03-01 00:00:00 2022-03-01 00:00:00 Orders Only Doctor Unassigned, [place] [facility] 1.2840.114 350.1.13.10 4.2.7.2.686 [id number] [facility] 2022-02-26 00:00:00 2022-02-26 00:00:00 Telephone Arabella Larose [facility] 1.2840.114 350.1.13.10 4.2.7.2.686 [id number] [facility] 2022-02-17 19:48:00 2022-02-17 22:10:00 Outpatient X ARABELLA LAROSE [facility] [id number] [facility] 2022-02-17 19:48:00 2022-02-17 22:10:00 Emergency Paola Wolf Vivian L [facility] 1.2840.114 350.1.13.10 4.2.7.2.686 [id number] [facility] 2022-02-16 00:00:00 2022-02-16 00:00:00 Telephone Donell Brunson [facility] 1.2840.114 350.1.13.10 4.2.7.2.686 [id number] [facility] 2022-02-16 00:00:00 2022-02-16 00:00:00 Telephone Donell Brunson [facility] 1.2.840.114 350.1.13.10 4.2.7.2.686 [id number] [facility] 2022-02-13 00:00:00 2022-02-13 00:00:00 Telephone Dilia Escobar [facility] 1.2840.114 350.1.13.10 4.2.7.2.686 [id number] [facility] 2022-02-13 00:00:00 2022-02-13 00:00:00 Telephone Dilia Escobar [facility] 1.2.840.114 350.1.13.10 4.2.7.2.686 [id number] [facility] 2022-02-08 00:00:00 2022-02-08 00:00:00 Telephone WillieDonell mooney [facility] 1.2.840.114 350.1.13.10 4.2.7.2.686 [id number] [facility] 2022-02-07 00:00:00 2022-02-07 00:00:00 Jeremiah Carranza [facility] SALES AND SERVICE AGENT [facility] 1.2840.114 350.1.13.10 4.2.7.2.686 [id number] [facility] 2022-02-06 00:00:00 2022-02-06 00:00:00 Case Management Kalpana Donell [facility] 1.2.840.114 350.1.13.10 4.2.7.2.686 [id number] [facility] 2022-02-03 00:00:00 2022-02-03 00:00:00 Case Management Donell Brunson [facility] 1.2840.114 350.1.13.10 4.2.7.2.686 [id number] [facility] 2022-02-02 08:45:00 2022-02-02 09:00:00 Medtronics Technician Visit 2, Adc Lab Dilia Escobar [facility] 1.2840.114 350.1.13.10 4.2.7.2.686 [id number] [facility] 2022-02-02 08:45:00 2022-02-02 08:45:00 Outpatient R LUZ [facility] [id number] [facility] 2022-02-02 00:00:00 2022-02-02 00:00:00 Case Management Dilia Escobar [facility] 1.2.840.114 350.1.13.10 4.2.7.2.686 [id number] [facility] 2022-02-01 14:00:00 2022-02-01 15:00:03 Initial Visit Dilia Escobar [facility] 1.2.840.114 350.1.13.10 4.2.7.2.686 [id number] [facility] 2022-02-01 14:00:00 2022-02-01 15:00:03 Outpatient R LUZ [facility] [id number] [facility] 2022-02-01 00:00:00 2022-02-01 00:00:00 Orders Only Doctor Unassigned, [place] [address].2.840.114 350.1.13.10 4.2.7.2.686 [id number] [facility] 2021-05-30 10:15:00 2021-05-30 10:15:00 Outpatient JEREMIAH MEANS [facility] [id number] [facility] 2021-05-10 00:00:00 2021-05-10 00:00:00 Orders Only Doctor Unassigned, [place] [facility] 1.2.840.114 350.1.13.10 4.2.7.2.686 [id number] [facility] 2021-05-05 11:00:00 2021-05-05 11:37:32 Outpatient JEREMIAH MEANS [facility] [id number] [facility] 2021-05-05 10:53:11 2021-05-05 11:37:32 Routine Visit Jeremiah Wolf [facility] SALES AND SERVICE AGENT [facility] MATERNAL & CHILD [facility] 1.2.114 350.1.13.10 4.2.7.2.686 [id number] [facility] 2021-04-14 21:03:00 2021-04-16 19:10:00 Hospital Encounter Jose Miguel [facility] 1..114 350.1.13.10 4.2.7.2.686 [id number] [facility] 2021-04-13 10:01:27 2021-04-13 16:30:59 Routine Visit Jarred-Rmchp-N p/High Cheli Donohue [facility] SALES AND SERVICE AGENT [facility] MATERNAL & CHILD [facility] 1..114 350.1.13.10 4.2.7.2.686 [id number] [facility] 2021-04-13 10:00:00 2021-04-13 16:30:59 Outpatient CHELI MENDEZ [facility] [id number] [facility] 2021-04-13 10:00:00 2021-04-13 10:00:00 Outpatient Bradford [facility] [id number] [facility] 2021-04-13 10:00:00 2021-04-13 10:00:00 Outpatient CHELI MENDEZ [facility] [id number] [facility] 2021-04-07 19:02:00 2021-04-07 20:36:00 Outpatient X ARABELLA LAROSE [facility] [id number] [facility] 2021-04-07 19:02:00 2021-04-07 20:36:00 Hospital Encounter Arabella Larose [facility] 1..114 350.1.13.10 4.2.7.2.686 [id number] [facility] 2021-04-06 09:15:00 2021-04-06 09:31:52 Outpatient R JOSELYN WATKINS [facility] [id number] [facility] 2021-04-06 08:52:24 2021-04-06 09:31:52 Routine Visit Provider, MaryjaneRmchp Joselyn Cates [facility] SALES AND SERVICE AGENT [facility] 1.114 350.1.13.10 4.2.7.2.686 [id number] [facility] 2021-04-01 19:08:00 2021-04-03 17:20:00 Inpatient Winston VASQUEZ, REGINALDO VASQUEZ, [facility] [id number] [facility] 2021-04-01 19:08:00 2021-04-03 17:20:00 Hospital Encounter Miguel Garcia, Benja Vasquez, [facility] 1.114 350.1.13.10 4.2.7.2.686 [id number] [facility] 2021-04-03 13:49:47 2021-04-03 14:19:47 Medtronics Technician Visit 5, [facility] .114 350.1.13.10 4.2.7.2.686 [id number] [facility] 2021-04-03 11:00:00 2021-04-03 11:00:00 Outpatient P [facility] [id number] [facility] 2021-04-01 00:00:00 2021-04-01 00:00:00 Orders Only Doctor Unassigned, [place] [facility] 1.114 350.1.13.10 4.2.7.2.686 [id number] [facility] 2021-03-31 09:45:00 2021-03-31 11:21:03 Outpatient CHELI MENDEZ [facility] [id number] [facility] 2021-03-31 09:45:00 2021-03-31 11:21:03 Outpatient CHELI MENDEZ [facility] [id number] [facility] 2021-03-31 09:24:13 2021-03-31 11:21:03 Routine Visit , Pea-Rmchp Provider/Hi gh Cheli Donohue [facility] SALES AND SERVICE AGENT [facility] 1.2.840.114 350.1.13.10 4.2.7.2.686 [id number] [facility] 2021-03-27 19:37:00 2021-03-27 22:24:00 Emergency Dilia Escobar [facility] 1.2.840.114 350.1.13.10 4.2.7.2.686 [id number] [facility] 2021-03-24 00:00:00 2021-03-24 00:00:00 Orders Only Doctor Unassigned, [place] [facility] 1.2.840.114 350.1.13.10 4.2.7.2.686 [id number] [facility] 2021-03-23 15:50:59 2021-03-23 16:13:30 Routine Visit Jeremiah Wolf [facility] SALES AND SERVICE AGENT [facility] MATERNAL & CHILD [facility] 1.840.114 350.1.13.10 4.2.7.2.686 [id number] [facility] 2021-03-23 16:00:00 2021-03-23 16:00:00 Outpatient JEREMIAH MEANS [facility] [id number] [facility] 2021-03-10 09:53:16 2021-03-10 10:14:28 Routine Visit Jeremiah Wolf [facility] SALES AND SERVICE AGENT [facility] MATERNAL & CHILD [facility] ..840.114 350.1.13.10 4.2.7.2.686 [id number] [facility] 2021-03-10 09:30:00 2021-03-10 09:30:00 Outpatient R JEREMIAH WOLF [facility] [id number] [facility] 2021-02-23 10:29:34 2021-02-23 10:58:40 Routine Visit Jeremiah Wolf [facility] SALES AND SERVICE AGENT [facility] MATERNAL & CHILD [facility] ..840.114 350.1.13.10 4.2.7.2.686 [id number] [facility] 2021-02-23 10:45:00 2021-02-23 10:45:00 Outpatient R JEREMIAH WOLF [facility] [id number] [facility] 2021-02-09 07:58:58 2021-02-09 09:03:46 Routine Visit Zach Clark [facility] SALES AND SERVICE AGENT [facility] MATERNAL & CHILD [facility] ..840.114 350.1.13.10 4.2.7.2.686 [id number] [facility] 2021-02-09 08:00:00 2021-02-09 08:00:00 Outpatient R ZACH CLARK [facility] [id number] [facility] 2021-01-24 00:00:00 2021-01-24 00:00:00 Telephone Jeremiah Wolf [facility] SALES AND SERVICE AGENT [facility] & CHILD [facility] ..840.114 350.1.13.10 4.2.7.2.686 [id number] [facility] 2021-01-23 16:00:00 2021-01-23 16:00:00 Outpatient R ZACH CLARK [facility] [id number] [facility] 2021-01-17 14:30:00 2021-01-17 14:30:00 Outpatient R [facility] [id number] [facility] 2021-01-10 10:45:00 2021-01-10 10:45:00 Outpatient R VANNESAZACH HICKS [facility] [id number] [facility] 2021-01-04 10:30:00 2021-01-04 10:30:00 Outpatient R [facility] [id number] [facility] 2020-12-28 10:00:00 2020-12-28 10:00:00 Outpatient R [facility] [id number] [facility] 2020-12-26 08:30:00 2020-12-26 08:30:00 Outpatient P [facility] [id number] [facility] 2020-12-21 09:30:00 2020-12-21 09:30:00 Outpatient R [facility] [id number] [facility] 2020-12-20 11:00:00 2020-12-20 11:00:00 Outpatient R JEREMIAH WOLF [facility] [id number] [facility] 2020-12-14 13:30:00 2020-12-14 13:30:00 Outpatient R [facility] [id number] [facility] 2020-12-13 15:30:00 2020-12-13 15:30:00 Outpatient R VANNESAZACH HICKS [facility] [id number] [facility] 2020-12-06 13:30:00 2020-12-06 13:30:00 Outpatient R [facility] [id number] [facility] 2020-11-30 08:00:00 2020-11-30 08:00:00 Outpatient R [facility] [id number] [facility] 2020-11-23 10:00:00 2020-11-23 10:00:00 Outpatient P [facility] [id number] [facility] 2020-11-22 10:45:00 2020-11-22 10:45:00 Outpatient Bradford WOLFJEREMIAH [facility] [id number] [facility] 2020-11-16 10:00:00 2020-11-16 10:00:00 Outpatient P [facility] [id number] [facility] 2020-11-09 11:30:00 2020-11-09 11:30:00 Outpatient NÉSTOR LOPEZ SHANNON [facility] [id number] [facility] 2020-10-25 11:00:00 2020-10-25 11:00:00 Outpatient Bradford WOLF JEREMIAH [facility] [id number] [facility] 2020-10-20 09:30:00 2020-10-20 09:30:00 Outpatient Bradford WOLF JEREMIAH [facility] [id number] [facility] 2020-09-20 14:00:00 2020-09-20 14:00:00 Outpatient Bradford WOLF JEREMIAH [facility] [id number] [facility] 2019-10-27 18:22:43 2019-10-27 19:15:00 Emergency X JUAN, K JUAN, K [facility] ERT [id number] [facility] Results Test Description Test Time Test Comments Results Result Co mments Source [facility] MOLECULAR [id number] 21:15:18* Test Item Value Reference Range Interpretation Comme nts POCT Molecular Strep (test c ode = 58585-7) Negative Negative Lab Interpretation (test cod e = 03206-6) Normal [facility] MOLECULAR [id number] 01:34:47* Test Item Value Reference Range Interpretation Comme nts POCT Molecular FluA (test co de = 98732-0) Negative Negative POCT Molecular FluB (test co de = 85473-1) Negative Negative Lab Interpretation (test cod e = 21989-4) Normal [facility] MOLECULAR [id number] 01:27:22* Test Item Value Reference Range Interpretation Comme nts POCT Molecular Strep (test c ode = 40185-4) Negative Negative Lab Interpretation (test cod e = 65155-0) [facility]BINAX [facility]2022-09-15 01:24:00* Test Item Value Reference Range Interpretation Comme nts POCT SARS-COV-2 ANTIGEN (test code = 75584-0) Not Detected Not Detected On board controls acceptable with C Line (test code = 3574) Yes ADDIE (test code = ADDIE) accurate developme nt and interpretation of all internal controls Lab Interpretation (test code = 79426-8) Normal [facility] [place] UNCONJUGATED/BILI [id number] 04:04:10* Test Item Value Reference Range Interpretation Comme nts BILI CONJ (test code = 6714947942) 2.0 mg/dL 0.0-0.3 H BILI UNCON (test code = 3710804773) 1.1 mg/dL 0.1-1.1 Lab Interpretation (test cod e = 88465-3) Abnormal [facility] [place] UNCONJUGATED/BILI [id number] 04:04:10* Test Item Value Reference Range Interpretation Comme nts BILI CONJ (test code = 2654615501) 2.0 mg/dL 0.0-0.3 H BILI UNCON (test code = 8115015438) 1.1 mg/dL 0.1-1.1 Lab Interpretation (test cod e = 20511-6) [facility]* Test Item Value Reference Range Interpretation Comme nts LIPASE (test code = 2324605272) 0-220 H Lab Interpretation (test cod e = 13179-2) [facility]:17:08* Test Item Value Reference Range Interpretation Comme nts LIPASE (test code = 9384097570) 0-220 H Lab Interpretation (test cod e = 38962-9) [facility] 02:52:18 SALICYLATE<10mg/L08/01/2022 8:[address]ORYTherapeutic Range: ? Analgesic and Antipyretic Use ? 20- 100 mg/L ? ? Anti-Inflammatory Use ? 100-250 mg/L Toxic Range: ? Greater than 300 mg/LUnMethod[facility] HospitalSALICYLATE2023-03-02 02:52:18SALICYLATE<10mg/L08/01/2022 8:[address]ORYTherapeutic Range: ? Analgesic and Antipyretic Use ? 20-100 mg/L ? ? Anti-Inflammatory Use ? 100-250 mg/L Toxic Range: ? Greater than 300 mg/L [facility]ACETAMINOPHEN2023-03-02 02:52:08* Test Item Value Reference Range Interpretation Comme nts ACETAMINOP (test code = 7125609766) 10.0-30.0 L ADDIE (test code = ADDIE) Toxic: Greater huey n 200 ug/mL @ 4 hour post ingestion or greater than 50 ug/mL @ 12 hour post ingestion Lab Interpretation (test code = 32413-1) Abnormal [facility] HospitalACETAMINOPHEN2023-03-02 02:52:08* Test Item Value Reference Range Interpretation Comme nts ACETAMINOP (test code = 9346159257) 10.0-30.0 L ADDIE (test code = ADDIE) Toxic: Greater huey n 200 ug/mL @ 4 hour post ingestion or greater than 50 ug/mL @ 12 hour post ingestion Lab Interpretation (test code = 96722-8) Abnormal [facility] HospitalTROPONIN [id number] 02:37:39* Test Item Value Reference Range Interpretation Comme nts TROPONIN I (test code = 6604632724) 0.003 ng/mL <=0.034 ADDIE (test code = [...] of biotin. Lab Interpretation (test code = 13154-3) Normal [facility] HospitalTROPONIN [id number] 02:37:39* Test Item Value Reference Range Interpretation Comme nts TROPONIN I (test code = 4383919135) 0.003 ng/mL <=0.034 ADDIE (test code = [...] of biotin. Lab Interpretation (test code = 60599-4) Normal [facility] HospitalN-TERMINAL [id number] 02:34:00* Test Item Value Reference Range Interpretation Comme nts NT-proBNP (test code = 1459939015) 75 pg/mL <=125 ADDIE (test code = ADDIE) Biotin has been reported to cause a negative bias, interpret results relative to patient's use of biotin. Lab Interpretation (test code = 21123-8) Normal [facility] HospitalN-TERMINAL [id number] 02:34:00* Test Item Value Reference Range Interpretation Comme nts NT-proBNP (test code = 6960103146) 75 pg/mL <=125 ADDIE (test code = ADDIE) Biotin has been reported to cause a negative bias, interpret results relative to patient's use of biotin. Lab Interpretation (test code = 11416-7) Normal [facility] HospitalACTIVATED PARTIAL THRMPLAS [id number] 02:30:38* Test Item Value Reference Range Interpretation Comme nts APTT Patient (test code = 3173-2) 27 See_Comment [Automated message] The system which generated this result transmitted reference range: 23 - 38 Seconds. The reference range was not used to interpret this result as normal/abnormal. ADDIE (test code = ADDIE) The [facility] patient population mean normal value for aPTT is 30 seconds. Lab Interpretation (test code = 51255-0) Normal [facility] HospitalACTIV[facility]IAL THRMPLAS [id number] 02:30:38* Test Item Value Reference Range Interpretation Comme [facility] APTT Patient (test code = 3173-2) 27 See_Comment [Automated message] The system which generated this result transmitted reference range: 23 - 38 Seconds. The reference range was not used to interpret this result as normal/abnormal. ADDIE (test code = ADDIE) The [facility] patient population mean normal value for aPTT is 30 seconds. Lab Interpretation (test code = 61675-0) Normal [facility] HospitalPROTHROMBIN TIME / [id number] 02:28:42* Test Item Value Reference Range Interpretation Comme [facility] PROTIME PATIENT (test code = 5964-2) 12.8 See_Comment [Automated [employer]] The system which generated this result transmitted reference range: 12.0 - 14.7 Seconds. The reference range was not used to interpret this result as normal/abnormal. INR (test code = 6301-6) 1.0 Normal INR <1.1; Warfarin Therapeutic range 2.0 to 3.0 or 2.5 to 3.5, depending upon the indications. Lab Interpretation (test code = 81297-5) Normal [facility] HospitalPROTHROMBIN TIME / [id number] 02:28:42* Test Item Value Reference Range Interpretation Comme [facility] PROTIME PATIENT (test code = 5964-2) 12.8 See_Comment [Automated [employer]] The system which generated this result transmitted reference range: 12.0 - 14.7 Seconds. The reference range was not used to interpret this result as normal/abnormal. INR (test code = 6301-6) 1.0 Normal INR <1.1; Warfarin Therapeutic range 2.0 to 3.0 or 2.5 to 3.5, depending upon the indications. Lab Interpretation (test code = 70359-4) Normal [facility] HospitalCOMP. METABOLIC PANEL ([id number])2022-08-02 02:25:20* Test Item Value Reference Range Interpretation Comme [facility] NA (test code = 6302918822) 140 mmol/L 135-145 K (test code = 3679317342) 3.8 mmol/L 3.5-5.0 CL (test code = 1086077754) 103 mmol/L 98-108 CO2 TOTAL (test code = 0172032369) 27 mmol/L 23-31 AGAP (test code = 2247798164) 10 2-16 BUN (test code = 7599880931) 10 mg/dL 7-23 GLUCOSE (test code = 1169803506) 89 mg/dL 70-110 CREATININE (test code = 2418940492) 0.73 mg/dL 0.50-1.04 TOTAL BILI (test code = 0937735811) 4.9 mg/dL 0.1-1.1 H CALCIUM (test code = 0404871723) 8.2 mg/dL 8.6-10.6 L T PROTEIN (test code = 6144828576) 7.0 g/dL 6.3-8.2 ALBUMIN (test code = 7404971759) 4.1 g/dL 3.5-5.0 ALK PHOS (test code = 6429132563) 270 U/L 34-122 H ALTv (test code = 1742-6) 204 U/L 5-35 H AST(SGOT) (test code = 1815679167) 93 U/L 13-40 H eGFR (test code = 3728212278) 94.3 mL/min/1.73m2 ADDIE (test code = ADDIE) [...] imaging tests). Lab Interpretation (test code = 72818-9) Abnormal [facility] HospitalCOM. METABOLIC PANEL ([id number])2022-08-02 02:25:20* Test Item Value Reference Range Interpretation Comme nts NA (test code = 9091961020) 140 mmol/L 135-145 K (test code = 0083541542) 3.8 mmol/L 3.5-5.0 CL (test code = 2402276028) 103 mmol/L 98-108 CO2 TOTAL (test code = 2237651862) 27 mmol/L 23-31 AGAP (test code = 5407337646) 10 2-16 BUN (test code = 5810806790) 10 mg/dL 7-23 GLUCOSE (test code = 1723027856) 89 mg/dL 70-110 CREATININE (test code = 5021580466) 0.73 mg/dL 0.50-1.04 TOTAL BILI (test code = 4104167866) 4.9 mg/dL 0.1-1.1 H CALCIUM (test code = 5111856438) 8.2 mg/dL 8.6-10.6 L T PROTEIN (test code = 6362392726) 7.0 g/dL 6.3-8.2 ALBUMIN (test code = 7526592604) 4.1 g/dL 3.5-5.0 ALK PHOS (test code = 6445769309) 270 U/L 34-122 H ALTv (test code = 1742-6) 204 U/L 5-35 H AST(SGOT) (test code = 0000326846) 93 U/L 13-40 H eGFR (test code = 1308225433) 94.3 mL/min/1.73m2 ADDIE (test code = ADDIE) [...] imaging tests). Lab Interpretation (test code = 91796-7) Abnormal [facility] WITH [id number] 02:10:40* Test Item Value Reference Range Interpretation Comme nts WBC (test code = 6690-2) 7.08 See_Comment [Automated [employer]] The system which generated this result transmitted reference range: 4.30 - 11.10 10*3/?L. The reference range was not used to interpret this result as normal/abnormal. RBC (test code = 789-8) 4.31 See_Comment [Automated [employer]] The system which generated this result transmitted [...] 32.7 g/dL 31.6-35.1 RDW-SD (test code = 90579-6) 49.3 fL 39.0-49.9 RDW-CV (test code = 788-0) 16.2 % 12.0-15.5 H PLT (test code = 777-3) 249 See_Comment [Automated [employer]] The system which generated this result transmitted reference range: 166 - 358 10*3/?L. The reference range was not used to interpret this result as normal/abnormal. MPV (test code = 07680-7) 11.9 fL 9.5-12.9 NRBC/100 WBC (test code = 6257872352) 0.0 See_Comment [[employer]ated [employer]] The system which generated this result transmitted reference range: 0.0 - 10.0 /100 WBCs. The reference range was not used to interpret this result as normal/abnormal. NRBC x10^3 (test code = 1378969850) See_Comment [Automated [employer]] The system which generated this result transmitted reference range: 10*3/?L. The reference range was not used to interpret this result as normal/abnormal. GRAN MAT (NEUT) % (test code = 770-8) 65.1 % IMM GRAN % (test code = 4003892239) 0.10 % LYMPH % (test code = 736-9) 24.0 % MONO % (test code = 5905-5) 5.5 % EOS % (test code = 713-8) 4.7 % BASO % (test code = 706-2) 0.6 % GRAN MAT x10^3(ANC) (test code = 1620021415) 4.61 10*3/uL 1.88-7.09 IMM GRAN x10^3 (test code = 8148939700) 0.00-0.06 LYMPH x10^3 (test code = 731-0) 1.70 10*3/uL 1.32-3.29 MONO x10^3 (test code = 742-7) 0.39 10*3/uL 0.33-0.92 EOS x10^3 (test code = 711-2) 0.33 10*3/uL 0.03-0.39 BASO x10^3 (test code = 704-7) 0.04 10*3/uL 0.01-0.07 Lab Interpretation (test code = 73670-6) Abnormal [facility] WITH [id number] 02:10:40* Test Item Value Reference Range Interpretation Comme nts WBC (test code = 6690-2) 7.08 See_Comment [[employer]ated [employer]] The system which generated this result transmitted reference range: 4.30 - 11.10 10*3/?L. The reference range was not used to interpret this result as normal/abnormal. RBC (test code = 789-8) 4.31 See_Comment [Automated [employer]] The system which generated this result transmitted [...] 32.7 g/dL 31.6-35.1 RDW-SD (test code = 01558-4) 49.3 fL 39.0-49.9 RDW-CV (test code = 788-0) 16.2 % 12.0-15.5 H PLT (test code = 777-3) 249 See_Comment [Automated [employer]] The system which generated this result transmitted reference range: 166 - 358 10*3/?L. The reference range was not used to interpret this result as normal/abnormal. MPV (test code = 82283-4) 11.9 fL 9.5-12.9 NRBC/100 WBC (test code = 4019147951) 0.0 See_Comment [Automated [employer]] The system which generated this result transmitted reference range: 0.0 - 10.0 /100 WBCs. The reference range was not used to interpret this result as normal/abnormal. NRBC x10^3 (test code = 4162147895) See_Comment [Automated [employer]] The system which generated this result transmitted reference range: 10*3/?L. The reference range was not used to interpret this result as normal/abnormal. GRAN MAT (NEUT) % (test code = 770-8) 65.1 % IMM GRAN % (test code = 9269796916) 0.10 % LYMPH % (test code = 736-9) 24.0 % MONO % (test code = 5905-5) 5.5 % EOS % (test code = 713-8) 4.7 % BASO % (test code = 706-2) 0.6 % GRAN MAT x10^3(ANC) (test code = 4484609597) 4.61 10*3/uL 1.88-7.09 IMM GRAN x10^3 (test code = 6169584727) 0.00-0.06 LYMPH x10^3 (test code = 731-0) 1.70 10*3/uL 1.32-3.29 MONO x10^3 (test code = 742-7) 0.39 10*3/uL 0.33-0.92 EOS x10^3 (test code = 711-2) 0.33 10*3/uL 0.03-0.39 BASO x10^3 (test code = 704-7) 0.04 10*3/uL 0.01-0.07 Lab Interpretation (test code = 56273-7) [facility] [id number] 02:09:00* Test Item Value Reference Range Interpretation Comme nts POCT PREG (test code = 1605) negative On board controls acceptable with C Line (test code = 3574) present POCT PREG LOT # (test code = 3575) [id number] POCT PREG TEST DATE ( test code = 3576) 2023-09-01 Lab Interpretation (test cod e = 32603-5) [facility] [id number] 02:09:00* Test Item Value Reference Range Interpretation Comme nts POCT PREG (test code = 1605) negative On board controls acceptable with C Line (test code = 3574) present POCT PREG LOT # (test code = 3575) [id number] POCT PREG TEST DATE ( test code = 3576) 2023-09-01 Lab Interpretation (test cod e = 77294-1) Normal [facility] HospitalPOKS [id number] 19:04:00* Test Item Value Reference Range Interpretation Comme nts POCT PREG (test code = 1605) Negative On board controls acceptable with C Line (test code = 3574) Yes POCT PREG LOT # (test code = 3575) POCT PREG TEST DATE ( test code = 357) [facility] with [id number] 11:28:52* Test Item Value Reference Range Interpretation Comme [facility] WBC (test code = 6690-2) See_Comment H [...] g/dL 31.6-35.1 L RDW-SD (test code = 42586-6) 61.5 fL 39.0-49.9 H RDW-CV (test code = 788-0) 20.1 % 12.0-15.5 H PLT (test code = 777-3) See_Comment L [Automated [employer]] The system which generated this result transmitted reference range: 166 - 358 10*3/?L. The reference range was not used to interpret this result as normal/abnormal. MPV (test code = 29419-0) 12.3 fL 9.5-12.9 IPF % (test code = 8221330120) 10.3 % 1.3-7.7 H Platelet count measured by fluorescence method. NRBC/100 WBC (test code = 7282182787) See_Comment [[employer]] The system which generated this result transmitted reference range: 0.0 - 10.0 /100 WBCs. The reference range was not used to interpret this result as normal/abnormal. NRBC x10^3 (test code = 6405959802) See_Comment [Automated [employer]] The system which generated this result transmitted reference range: 10*3/?L. The reference range was not used to interpret this result as normal/abnormal. GRAN MAT (NEUT) % (test code = 770-8) 73.1 % IMM GRAN % (test code = 1177127400) 0.60 % LYMPH % (test code = 736-9) 17.3 % MONO % (test code = 5905-5) 7.5 % EOS % (test code = 713-8) 1.1 % BASO % (test code = 706-2) 0.4 % GRAN MAT x10^3(ANC) (test code = 7619434685) 9.02 10*3/uL 1.88-7.09 H IMM GRAN x10^3 (test code = 3361452776) 0.07 10*3/uL 0.00-0.06 H LYMPH x10^3 (test code = 731-0) 2.14 10*3/uL 1.32-3.29 MONO x10^3 (test code = 742-7) 0.93 10*3/uL 0.33-0.92 H EOS x10^3 (test code = 711-2) 0.13 10*3/uL 0.03-0.39 BASO x10^3 (test code = 704-7) 0.05 10*3/uL 0.01-0.07 Lab Interpretation (test code = 63199-6) Abnormal [facility] OR [place] ONLY - [id number] 07:46:31* Test Item Value Reference Range Interpretation Comme nts RPR (Qualitative) (test code = 45931-2) Nonreactive Nonreactive Lab Interpretation (test cod e = 53875-1) Normal [facility] HospitalHepatitis B Surface [id number] 21:40:59 * Test Item Value Reference Range Interpretation Comme nts HBsAg Semi-Quantitative (rashad t code = 5195-3) Negative Negative [facility] HospitalHIV 1/2 AG-AB WITH [id number] 20:00:41* Test Item Value Reference Range Interpretation Comme nts HIV Semi-quantitative (test code = 18626-0) Negative Negative ADDIE (test code = ADDIE) Non-reactive for HIV-1 antigen and HIV-1/HIV-2 antibodies. ?No laboratory evidence of HIV infection. ?Repeat in 2-4 weeks if acute HIV infection is suspected. [facility] HospitalType and Screen - ONCE [id number] 19:34:10 * Test Item Value Reference Range Interpretation Comme nts ABO & RH (test code = 20) A Positive Performed at [facility] Laboratory Services - [facility] Blood [address] [place], [place] [address]Toll Free: [phone] No. [id number] IAT (test code = 1185) Negative Performed at [facility] Laboratory [facility] - [facility] Blood [place] [address]Toll Free: [phone] No. [id number] [facility] HospitalCBC with [id number] 18:52:59* Test Item Value Reference Range Interpretation [...] 31.8 g/dL 31.6-35.1 RDW-SD (test code = 78720-2) 59.7 fL 39.0-49.9 H RDW-CV (test code = 788-0) 20.1 % 12.0-15.5 H PLT (test code = 777-3) See_Comment [[employer]ated [employer]] The system which generated this result transmitted reference range: 166 - 358 10*3/?L. The reference range was not used to interpret this result as normal/abnormal. MPV (test code = 65989-1) 11.9 fL 9.5-12.9 IPF % (test code = 8579700693) 10.1 % 1.3-7.7 H Platelet count measured by fluorescence method. NRBC/100 WBC (test code = 5448819589) See_Comment [[employer]] The system which generated this result transmitted reference range: 0.0 - 10.0 /100 WBCs. The reference range was not used to interpret this result as normal/abnormal. NRBC x10^3 (test code = 7805557779) See_Comment [Automated [employer]] The system which generated this result transmitted reference range: 10*3/?L. The reference range was not used to interpret this result as normal/abnormal. GRAN MAT (NEUT) % (test code = 770-8) 77.5 % IMM GRAN % (test code = 1883954516) 0.50 % LYMPH % (test code = 736-9) 13.6 % MONO % (test code = 5905-5) 6.7 % EOS % (test code = 713-8) 1.4 % BASO % (test code = 706-2) 0.3 % GRAN MAT x10^3(ANC) (test code = 2238103287) 9.78 10*3/uL 1.88-7.09 H IMM GRAN x10^3 (test code = 4430296205) 0.06 10*3/uL 0.00-0.06 LYMPH x10^3 (test code = 731-0) 1.71 10*3/uL 1.32-3.29 MONO x10^3 (test code = 742-7) 0.84 10*3/uL 0.33-0.92 EOS x10^3 (test code = 711-2) 0.18 10*3/uL 0.03-0.39 BASO x10^3 (test code = 704-7) 0.04 10*3/uL 0.01-0.07 Lab Interpretation (test code = 55248-6) Abnormal [facility] URINALYSIS W/O SPECIFIC [id number] 22:08:00* Test Item Value Reference Range Interpretation [...] = 3257) n/a Negative - Negati ve [facility] URINALYSIS W/O SPECIFIC [id number] 22:22:00* Test Item Value Reference Range Interpretation [...] = 3257) Negative Negative - Negati ve [facility] URINALYSIS W/O SPECIFIC [id number] 16:45:00* Test Item Value Reference Range Interpretation [...] = 3257) n/a Negative - Negati ve [facility] URINALYSIS W/O SPECIFIC [id number] 19:15:00* Test Item Value Reference Range Interpretation [...] = 3257) N/A Negative - Negati ve [facility] URINALYSIS W/O SPECIFIC [id number] 15:32:00* Test Item Value Reference Range Interpretation [...] = 3257) n/a Negative - Negati ve [facility] URINALYSIS W/O SPECIFIC [id number] 16:25:00* Test Item Value Reference Range Interpretation [...] = 3257) n/a Negative - Negati ve [facility] HospitalPOCT URINALYSIS W/O SPECIFIC [id number] 16:25:00* Test Item Value Reference Range Interpretation [...] = 3257) n/a Negative - Negati ve [facility]
--- NOTE | 2024-06-24 14:47 | EDPHYS ---
Physician Documentation [facility] Name: Gretel Nguyen Age: 33 yrs Sex: Female : 1990 Arrival Date: 06/24/2024 Time: 14:30 Bed IW2 Private MD: ED Physician Ned Reyes HPI: 06/24 14:55 This 33 yrs old Female presents to ER via Ambulatory with complaints of ms3 Numbness Of Hand. 14:55 Gretel Nguyen, a 33-year-old female, presents to the Emergency Department with a ms3 three-week history of tingling in her right hand. She reports that the symptoms have not been as severe as when they first began, but they have persisted. The tingling sensation is primarily in her right hand and has not improved with warm water. Gretel has a history of anemia during her pregnancies but no other significant medical issues. . Historical: - Allergies: 14:42 No Known Allergies; ld1 - PMHx: 14:42 Anemia; ld1 - PSHx: 14:42 Appendectomy; Cholecystectomy; ld1 - Immunization history:: Adult Immunizations up to date. - Infectious Disease History:: Denies. - Social history:: Smoking status: Patient denies any tobacco usage or history of. ROS: 14:55 Constitutional: Negative for fever, and chills. Cardiovascular: Negative for chest ms3 pain, and palpitations. Respiratory: Negative for shortness of breath, cough, wheezing, and pleuritic chest pain, Abdomen/GI: Negative for abdominal pain, nausea, vomiting, diarrhea, and constipation, 14:55 MS/extremity: Positive for Hand tingling/ pain, Exam: 14:55 Constitutional: This is a well developed, well nourished patient who is awake, alert, ms3 and in no acute distress. Cardiovascular: Regular rate and rhythm with a normal S1 and S2. No gallops, murmurs, or rubs. Normal PMI, no JVD. No pulse deficits. Respiratory: Lungs have equal breath sounds bilaterally, clear to auscultation and percussion. No rales, rhonchi or wheezes noted. No increased work of breathing, no retractions or nasal flaring. Abdomen/GI: Soft, non-tender, with normal bowel sounds. No distension or tympany. No guarding or rebound. No evidence of tenderness throughout. MS/ Extremity: Pulses equal, no cyanosis. Neurovascular intact. Full, normal range of motion. Vital Signs: 14:43 BP 125 / 76; Pulse 67; Resp 18; Temp 97(TE); Pulse Ox 98% on R/A; Weight 83.91 kg; ld1 Height 5 ft. 4 in. ; Pain 0/10; 14:43 Body Mass Index 31.75 (83.91 kg, 162.56 cm) ld1 14:43 Pain Scale: Adult ld1 MDM: 14:46 Medical Screening Exam initiated ms3 14:55 Differential diagnosis: There is no report of color changes such as purple or white ms3 discoloration, which could suggest Raynaud's phenomenon. Possible causes of her symptoms discussed include carpal tunnel syndrome and cubital tunnel syndrome. Data reviewed: vital signs, nurses notes, and as a result, I will discharge patient. Counseling: I had a detailed discussion with the patient and/or guardian regarding the historical points, exam findings, and any diagnostic results supporting the discharge/admit diagnosis, the need for outpatient follow up. Special discussion: I discussed with the patient/guardian in detail that at this point there is no indication for admission to the hospital. It is understood, however, that if the symptoms persist or worsen the patient needs to return immediately for re-evaluation. ED course: Discussed physical exam findings with patient. Patient to follow-up primary care physician 2 to 3 days. Patient understands agrees plan. All questions were answered. Return precautions discussed include worsening symptoms, or any other concerns for. 06/24 14:46 Order name: Wrist Splint; Complete Time: 14:55 ms3 Administered Medications: No medications were administered Disposition Summary: 06/24/24 14:47 Discharge Ordered Notes: Location: Home ms3 Condition: Stable ms3 Diagnosis - Pain in right hand ms3 Followup: ms3 - With: Private Physician - When: 2 - 3 days - Reason: Recheck today's complaints Discharge Instructions: - Discharge Summary Sheet ms3 - Musculoskeletal Pain ms3 - Carpal Tunnel Syndrome, Gwez-el-Dddi ms3 - Hand Exercises ms3 Forms: - Work release form ll1 - Medication Reconciliation Form ms3 - Antibiotic Education ms3 - Prescription Opioid Use ms3 - Patient Portal Instructions ms3 - Leadership Thank You Letter ms3 Prescriptions: - Ibuprofen 600 mg Oral Tablet - take 1 tablet ORAL route every 6 hours As needed take with food; 30 tablet; ms3 Refills: 0, Product Selection Permitted Signatures: Ned Reyes DO DO ms3 Kimberly Reyes, RN RN ld1
--- NOTE | 2024-06-24 14:47 | ER ---
Nurse's Notes [facility] Name: Gretel Nguyen Age: 33 yrs Sex: Female : 1990 Arrival Date: 06/24/2024 Time: 14:30 Bed IW2 Private MD: Diagnosis: Pain in right hand Presentation: 06/24 14:43 Chief complaint: Patient states: Tingling feeling to both hands X 3 weeks. Coronavirus ld1 screen: At this time, the client does not indicate any symptoms associated with coronavirus-19. Ebola Screen: No symptoms or risks identified at this time. Initial Sepsis Screen: Does the patient meet any 2 criteria? No. Patient's initial sepsis screen is negative. Does the patient have a suspected source of infection? No. Patient's initial sepsis screen is negative. Risk Assessment: Do you want to hurt yourself or someone else? Patient reports no desire to harm self or others. Onset of symptoms was June 24, 2024. 14:43 Method Of Arrival: Ambulatory ld1 14:43 Acuity: DEREK 4 ld1 Triage Assessment: 14:43 General: Appears in no apparent distress. comfortable, Behavior is calm, cooperative, ld1 appropriate for age. Pain: Denies pain. EENT: No signs and/or symptoms were reported regarding the EENT system. Neuro: Level of Consciousness is awake, alert, obeys commands, Oriented to person, place, time, situation. Cardiovascular: Capillary refill < 3 seconds Patient's skin is warm and dry. Respiratory: Airway is patent Respiratory effort is even, unlabored. GI: Abdomen is round non-distended. : No signs and/or symptoms were reported regarding the genitourinary system. Derm: No signs and/or symptoms reported regarding the dermatologic system. Musculoskeletal: No signs and/or symptoms reported regarding the musculoskeletal system. Historical: - Allergies: 14:42 No Known Allergies; ld1 - PMHx: 14:42 Anemia; ld1 - PSHx: 14:42 Appendectomy; Cholecystectomy; ld1 - Immunization history:: Adult Immunizations up to date. - Infectious Disease History:: Denies. - Social history:: Smoking status: Patient denies any tobacco usage or history of. Screenin:44 [facility] ED Fall Risk Assessment (Adult) History of falling in the last 3 months, ld1 including since admission No falls in past 3 months (0 pts) Confusion or Disorientation No (0 pts) Intoxicated or Sedated No (0 pts) Impaired Gait No (0 pts) Mobility Assist Device Used No (0 pt) Altered Elimination No (0 pt) Score/Fall Risk Level 0 - 2 = Low Risk Oriented to surroundings, Maintained a safe environment, Educated pt \T\ family on fall prevention, incl call for assistance when getting out of bed, Assessed \T\ reinforced patient's understanding of fall precautions, Provided non-skid footwear, Hourly rounding (assess needs \T\ fall precautionary measures) done, Used ambulatory aids as needed (educated on \T\ assisted with), Used gait belt as appropriate. Abuse screen: Denies threats or abuse. Denies injuries from another. Nutritional screening: No deficits noted. Tuberculosis screening: No symptoms or risk factors identified. Assessment: 14:44 Reassessment: See triage assessment. ld1 Vital Signs: 14:43 BP 125 / 76; Pulse 67; Resp 18; Temp 97(TE); Pulse Ox 98% on R/A; Weight 83.91 kg; ld1 Height 5 ft. 4 in. ; Pain 0/10; 14:43 Body Mass Index 31.75 (83.91 kg, 162.56 cm) ld1 14:43 Pain Scale: Adult ld1 ED Course: 14:32 Patient arrived in ED. mr 14:33 Ned Reyes DO is Attending Physician. ms3 14:43 Arm band placed on right wrist. ld1 14:44 Triage completed. ld1 14:44 Patient has correct armband on for positive identification. Call light in reach. Pulse ld1 ox on. NIBP on. Door closed. Noise minimized. Warm blanket given. 14:44 No provider procedures requiring assistance completed. Patient did not have IV access ld1 during this emergency room visit. Administered Medications: No medications were administered Medication: 14:44 VIS not applicable for this client. ld1 Outcome: 14:47 Discharge ordered by . ms3 14:55 Discharged to home ambulatory, ld1 14:55 Condition: stable 14:55 Discharge instructions given to patient, Instructed on discharge instructions, follow up and referral plans. Prescriptions given X 1, 14:56 Patient left the ED. ld1 Signatures: Veena Pedroza, Reg Reg mr Reyes DO Ned DO ms3 Kimberly Reyes, RN RN ld1
[2024-06-24 15:20] VITALS: BP 125/76; TEMP 97; O2SAT 98
== END 2024-06-24 14:56 | disposition home or self-care (01) ==
LOC: ER 14:30
DX: M79.641 Pain in right hand (principal)
CPT/HCPCS: 99283

== ENCOUNTER 2024-09-04 09:24 | Emergency (ER) | payer OTHER ==
--- OUTSIDE RECORDS SUMMARY | 2024-09-04 09:32 | XMS REPORT | Continuity of Care Document ---
Author Name Unknown Address [address] [facility] [place] [address] Organization [facility] [place] Address [address] [address] [facility] [place] [address] Care Team Providers Care Senior Solutions Engineer Name Role Phone JACINDA BUI Primary Care Physician Unavailab Erica Louise Attending Clinician Unavail ILANA Rutherford Attending Clinician ILANA Hinkle Attending Clinician DEEPAK Au Attending Clinician UnavailDilia Hernández MD Attending Clinician [phone] LOKESH SERNA Attending Clinician Unavailable Lokesh Serna MD Attending Clinician [phone] DILIA ESCOBAR Attending Clinician Unavailable Terri Cuevas Attending Clinician + [phone] Scott Verde Attending Clinician [phone] SCOTT KNUTSON Attending Clinician Unavailable JACINDA BUI Attending Clinician Unavailable Shira Frazier MD Attending Clinician [phone] SHIRA FRAZIER Attending Clinician Unavailable Unknown, Attending Attending Clinician Unavailab SHERRIE Salter Attending Clinician Unavailable SHERRIE CASILLAS Attending Clinician Unavailable 2, [facility] Attending Clinician Unavailable Hao SANTOS, Jacinda Attending Clinician [phone] Avis LANGE, Paola Ndiaye Attending Clinician Unavail able KHALIF RITTER Attending Clinician Unavailable Gregory Davila MD Attending Clinician [phone] Doctor Unassigned, Hector Attending Clinician U shirleneailDONELL Hamlin Attending Clinician Unavailable Arabella Larose MD Attending Clinician [phone] Donell Brunson PA-C Attending Clinician + [phone] Danilo Diallo MD Attending Clinician [phone], [facility] Attending Clinician Unavailable Jorge Estrada Attending Clinician + [phone] Ultrasound, [facility] Attending Clinician Unavaila kayleigh Solo MD, Jesse Clifford Attending Clinician + JESSE SOLO Attending Clinician Unav ailable ARABELLA LAROSE Attending Clinician Unavailable Paola Wolf DO Attending Clinician [phone] Jeremiah Mcdaniel Attending Clinician +[phone] JEREMIAH WOLF Attending Clinician UnavailMigeul Danielle MD Attending Clinician [phone] Risk, Naf-Tcjei-Nb/High Attending Clinician Unav ailable Cheli Serrano Attending Clinician [phone] CHELI DONOHUE Attending Clinician UnavailJOSELYN Campos Attending Clinician Unavaila ble Provider, Ang-Rmchp Temp Attending Clinician Miracle Joselyn Barry CNM Attending Clinician [phone] REGINALDO VASQUEZ Attending Clinician Unavailable REGINALDO VASQUEZ Attending Clinician Unavailable Benja Ahn MD Attending Clinician [phone] Reginaldo Vasquez MD Attending Clinician [phone], [facility] Attending Clinician Unavaila ble Risk, Pea-Rmchp Provider/High Attending Clinicia n Unavailable Zach Sandoval Attending Clinician + ZACH CLARK Attending Clinician Unavail able NÉSTOR MORGAN Attending Clinician Unavailable NÉSTOR MORGAN Attending Clinician Unavailable Armin MARTINEZ Attending Clinician Unavailable Armin MARTINEZ Attending Clinician Unavailable ILANA FALK Admitting Clinician DILIA Parikh Admitting Clinician Unavailable BENJA AHN Admitting Clinician UnavailREGINALDO Duran Admitting Clinician Unavailable KHALIF RITTER Admitting Clinician Unavailable Arabella Larose MD Admitting Clinician [phone] ARABELLA LAROSE Admitting Clinician Unavailable Luz KNOTT, Dilia Ricketts Admitting Clinician Miguel Garcia MD Admitting Clinician MIGUEL GARCIA Admitting Clinician Unavailable Benja Ahn MD Admitting Clinician [phone] Payers Payer Name Policy Type Policy Number Effective Date Expirati on Date Source [facility] [id number] 2022 00:00:00 [employer] [id number] 2024 00:00:00 [employer] [employer] 94 ON 9 [id number] 2023 00:00:00 [facility] [id number] 2022 00:00:00 MEDICAID [place] [id number] 2020 00:00:00 MEDICAID PENDING PENDING 2020 00:00:00 Problems Condition Name Condition Details Condition Category Status Onset Date Resolution Date Last Treatment Date Treating Clinician Comments Source Acute recurrent frontal sinusitis Acute recurrent frontal sinusitis Disease Active 08-13 00:00: 00 Talya ndiaye Seasonal allergies Seasonal allergies Disease Active 08-13 00:00: 00 Talya Zelaya Externtra ndiaye Splenomega ly Splenomega ly Disease Active 08-02 00:00: 00 [facility] Hyperbilir ubinemia Hyperbilir ubinemia Disease Active 08-02 00:00: 00 [facility] Acute biliary pancreatit is Acute biliary pancreatit is Disease Active 3- 00:00: 00 [facility] Calculus of gallbladde r without biliary obstructio n Calculus of gallbladde r without biliary obstructio n Disease Active 3- 00:00: 00 [facility] Nexplanon in place Nexplanon in place Disease Active 1-25 00:00: 00 [facility] Normal labor Normal labor Disease Active 1-03 00:00: 00 [facility] 37 weeks gestation of 37 weeks gestation of Disease Active 1- 00:00: 00 [facility] Grand multiparit y in labor and delivery Grand multiparit y in labor and delivery Disease Active 1- 00:00: 00 [facility] Liveborn , of sosa , born in hospital by vaginal delivery Liveborn infant, of sosa , born in hospital by vaginal delivery Disease Active 1- 00:00: 00 [facility] contractio ns contractio ns Disease Active 1- 00:00: 00 [facility] Encounter for supervisio n of high risk with insufficie nt care, antepartum Encounter for supervisio n of high risk with insufficie nt care, antepartum Disease Active 9 00:00: 00 [facility] H/O delivery, currently , third trimester H/O delivery, currently , third trimester Disease Active 2020-06 2-08 00:00: 00 [facility] Obesity in Obesity in Disease Active 2020-06 2-08 00:00: 00 [facility] Obesity (BMI 30-39.9) Obesity (BMI 30-39.9) Disease Active 2020-06 1-12 00:00: 00 [facility] Anemia of mother in , antepartum Anemia of mother in , antepartum Disease Active 8-24 00:00: 00 [facility] ASCUS of cervix with negative high risk HPV ASCUS of cervix with negative high risk HPV Disease Active 10-11 00:00: 00 [facility] Rubella non-immune status, antepartum Rubella non-immune status, antepartum Disease Active 10-20 00:00: 00 Overview: Formattin g of this note might be different from the original. Address [facility] Allergies, Adverse Reactions, Alerts Allergy Name Allergy Type Status Severity Reaction(s) Onset Date Inactive Date Treating Clinician Comments Source NO KNOWN ALLERGIE S Drug Class Active [facility] Social History Social Habit Start Date Stop Date Quantity Comments Source ASSERTION 2021-10-03 00:00:00 [facility] History SDOH Social Connections Get Together [facility] History SDOH Social Connections Judaism [facility] History SDOH Social Connections Membership [facility] History SDOH Social Connections Meetings [facility] Gender identity [facility] History of tobacco use Cigarette Smoker Talya lozoya - External Sexual orientation K richy Elkins - External History of Social function 2023-08-14 00:00:00 2023-08-14 00:00:00 Talya Elkins - External Alcohol intake 2023-07-23 00:00:00 2023-07-23 00:00:00 0 /d [facility] Exposure to SARS-CoV-2 (event) 2022-09-07 00:00:00 2022-09-17 10:45:00 Not sure [facility] History SDOH Alcohol Frequency 2022-08-02 00:00:00 2022-08-02 00:00:00 1 [facility] History SDOH Alcohol Std Drinks 2022-08-02 00:00:00 2022-08-02 00:00:00 0 [facility] History SDOH Alcohol Binge 2022-08-02 00:00:00 2022-08-02 00:00:00 1 [facility] History SDOH Social Connections Phone 2022-08-02 00:00:00 2022-08-02 00:00:00 5 [facility] History SDOH Social Connections Living 2022-08-02 00:00:00 2022-08-02 00:00:00 8 [facility] History SDOH Physical Activity DPW 2022-08-02 00:00:00 2022-08-02 00:00:00 0 [facility] History SDOH Physical Activity MPS 2022-08-02 00:00:00 2022-08-02 00:00:00 0 [facility] History SDOH Financial 2022-08-02 00:00:00 2022-08-02 00:00:00 5 [facility] History SDOH Food Worry 2022-08-02 00:00:00 2022-08-02 00:00:00 1 [facility] History SDOH Food Scarcity 2022-08-02 00:00:00 2022-08-02 00:00:00 1 [facility] History SDOH Transport Med 2022-08-02 00:00:00 2022-08-02 00:00:00 2 [facility] History SDOH Transport Non-Med 2022-08-02 00:00:00 2022-08-02 00:00:00 2 [facility] Cigarettes smoked current (pack per day) - Reported 2022-08-02 00:00:00 2022-08-02 00:00:00 [facility] Tobacco use and exposure 2022-08-02 00:00:00 2022-08-02 00:00:00 Smokeless tobacco non-user [facility] Sex Assigned At 1990 00:00:00 1990 00:00:00 Talya Elkins - External Smoking Status Start Date Stop Date Source Ex-smoker 2023-08-14 00:00:00 2023-08-14 00:00:00 Talya Elkins - External Occasional tobacco smoker 2022-08-02 00:00:00 [facility] Medications Ordered Medication Name Filled Medication Name Start Date Stop Date Current Medication? Ordering Clinician Indication Dosage Frequency Signature (SIG) Comments Components Source Cetirizine HCl 10 MG oral Capsule 08-13 00:00: 00 Yes [id number] 10mg Take 1 capsule (10 mg total) by mouth daily. Talya Elkins - Externa l Azithromyci n 250 MG oral Tablet 08-13 00:00: 00 08-19 04:59 :00 No [id number] Take 2 tablets by mouth on day 1 then 1 tablet by mouth daily for 4 days thereafter .. Talya Elkins - Jabier ndiaye diclofenac 75 mg EC tablet 07-23 00:00: 00 Yes [id number] 75mg Take 1 tablet by mouth in the morning and 1 tablet in the evening. Take with meals. [facility] acetaminoph en (TYLENOL ARTHRITIS PAIN) 650 mg CR tablet 07-23 00:00: 00 Yes [id number] 650mg Take 1 tablet by mouth every 8 (eight) hours as needed for Pain. [facility] predniSONE 20 mg tablet 07-23 00:00: 00 Yes [id number] Take 2 tablets PO daily [facility] gabapentin (NEURONTIN) 100 mg capsule 07-23 00:00: 00 Yes [id number] 100mg Take 1 capsule by mouth in the morning and 1 capsule at noon and 1 capsule in the evening. [facility] tiZANidine 2 mg capsule 09-17 00:00: 00 Yes [id number] 2mg Take 1 capsule by mouth in the morning and 1 capsule at noon and 1 capsule in the evening. [facility] ibuprofen 600 mg tablet 09-17 00:00: 00 Yes [id number] 600mg Take 1 tablet by mouth every 6 (six) hours as needed for Pain (scale 4-6) or Pain (scale 1-3). [facility] benzonatate 100 mg capsule 09-14 00:00: 00 Yes [id number] 200mg Take 2 capsules by mouth every 8 (eight) hours as needed for Cough. [facility] HYDROcodone -acetaminop hen (NORCO 5) 5-325 mg tablet 1 tablet 08-04 00:06: 19 Yes 1{tbl} 1 tablet, Oral, Q6HPRN, Starting on Sat08/03/22 at 1806, Until Discontinu ed, Routine, Pain (scale 4-6) [facility] HYDROcodone -acetaminop hen 5-325 mg tablet 08-04 00:00: 00 08-10 05:59 :00 No [id number] 1{tbl} Take 1 tablet by mouth every 6 (six) hours as needed for Pain (scale 4-6) for up to 5 days. Indication s: acute pain [facility] morpHINE (4 mg/mL) injection 4 mg 08-03 21:36: 38 Yes 4mg 4 mg, Slow IV Push, Q2HPRN, Starting on Sat08/03/22 at 1536, Until Discontinu ed, Routine, Pain (scale 7-10) [facility] ketorolac (TORADOL) tablet 10 mg 08-03 21:36: 05 08-05 21:35 :05 No 10mg 10 mg, Oral, Q6HPRN, Starting on Sat08/03/22 at 1536, Until Sat08/05/22 at 1535, Routine, Pain (scale 1-3) [facility] iohexoL (OMNIPAQUE 300-50 mL)) injection 08-03 18:32: 00 08-03 22:34 :52 No PRN, Starting on Sat08/03/22 at 1232, Until Sat08/03/22 at 1634, Routine, Intra-op [facility] bupivacaine (preserv free) (SENSORCAIN E MPF) 0.25 % (2.5 mg/mL) injection 08-03 18:14: 00 08-03 22:34 :52 No PRN, Starting on Sat08/03/22 at 1214, Until Sat08/03/22 at 1634, Routine, Intra-op [facility] sodium chloride 0.9 % irrigation solution 08-03 18:14: 00 08-03 22:34 :52 No PRN, Starting on Sat08/03/22 at 1214, Until Sat08/03/22 at 1634, Intra-op [facility] magnesium sulfate in water 2 gram/50 mL (4 %) infusion 2 g 08-03 16:00: 08-03 17:07 :00 No 2g 2 g, IV Piggyback, Administer over 60 Minutes, ONCE, 1 dose, On Sat08/03/22 at 1000, Routine [facility] enoxaparin (LOVENOX) injection 40 mg 08-02 23:00: 00 Yes 40mg 40 mg, Subcutaneo us, DAILY, First dose on Xin 08/02/22 at 1700, Until Discontinu ed, Routine [facility] KCL (KLOR-CON M20) tablet 40 mEq 08-02 22:15: 00 08-02 21:32 :00 No 40meq 40 mEq, Oral, ONCE, 1 dose, On Sat08/02/22 at 1615, Routine [facility] lactated ringers IV infusion 1,000 mL 08-02 18:15: 00 08-03 21:38 :13 No 1000mL at 150 mL/hr, 1,000 mL, IV Infusion, CONTINUOUS , Starting on Sat08/02/22 at 1215, Until Sat08/03/22 at 1538, Routine [facility] calcium gluconate 2 g in NaCl 100 mL (ISO-OSM) RTU IV infusion 2 g 08-02 18:00: 00 08-02 19:37 :00 No 2g 2 g, IV Infusion, at 200 mL/hr Administer over 30 Minutes, ONCE, 1 dose, On Sat08/02/22 at 1200, Routine [facility] diphenhydrA MINE (BENADRYL) injection 25 mg 08-02 16:58: 41 Yes 25mg 25 mg, Intravenou s, Q6HPRN, Starting on Sat08/02/22 at 1058, Until Discontinu ed, Routine, Itching [facility] D5W 0.9% NaCl (NS) IV infusion 1,000 mL 08-02 07:30: 00 08-02 13:26 :00 No 1000mL at 125 mL/hr, 1,000 mL, IV Infusion, ONCE, 1 dose, On Sat08/02/22 at 0130, Routine [facility] diphenhydrA MINE (BENADRYL) injection 12.5 mg 08-02 06:32: 58 08-02 16:58 :53 No 12.5mg 12.5 mg, Intravenou s, Q6HPRN, Starting on Sat08/02/22 at 0032, Until Sat08/02/22 at 1058, Routine, Itching [facility] ondansetron (ZOFRAN (PF)) injection 4 mg 08-02 06:29: 30 Yes 4mg 4 mg, Slow IV Push, Q6HPRN, Starting on Sat08/02/22 at 0029, Until Discontinu ed, Routine, Nausea and Vomiting (N/V) [facility] morpHINE (4 mg/mL) injection 4 mg 08-02 06:29: 25 08-03 06:28 :25 No 4mg 4 mg, Slow IV Push, Q4HPRN, Starting on Sat08/02/22 at 0029, Until Sat08/03/22 at 0028, Routine, Pain (scale 7-10) [facility] ondansetron (ZOFRAN (PF)) injection 4 mg 08-02 05:30: 00 08-02 05:29 :00 No 4mg 4 mg, Slow IV Push, ONCE, 1 dose, On Sat08/01/22 at 2330, WEN [facility] morpHINE (4 mg/mL) injection 4 mg 08-02 05:30: 00 08-02 05:30 :00 No 4mg 4 mg, Slow IV Push, ONCE, 1 dose, On Sat08/01/22 at 2330, STAT [facility] piperacilli n-tazobacta m (ZOSYN) 3.375 g in NaCl 0.9% (NS) 100 mL MINI-BAG 08-02 03:45: 00 08-02 04:44 :00 No 3.375g 3.375 g, IV Piggyback, ONCE, 1 dose, On Sat08/01/22 at 2145, Administer over 30 Minutes, 100 mL
Reas on for Anti-Infec tive: Documented Infection< br>Documen lex Infection Site: Abdominal< br>Duratio n of Therapy: Other (see Comments) [facility] iopamidol (ISOVUE 370-500 mL) injection 80 mL 08-02 03:45: 00 08-02 03:45 :00 No [id number] 80mL 80 mL, Intravenou s, ONCE, 1 dose, On Sat08/01/22 at 2145, Routine [facility] FENTanyl PF (SUBLIMAZE (PF)) injection 75 mcg 08-02 02:45: 00 08-02 02:00 :00 No 75ug 75 mcg, Slow IV Push, ONCE, 1 dose, On Sat08/01/22 at 2045, STAT [facility] ondansetron (ZOFRAN (PF)) injection 4 mg 08-02 02:45: 00 08-02 01:59 :00 No 4mg 4 mg, Slow IV Push, ONCE, 1 dose, On Sat08/01/22 at 2045, WEN [facility] etonogestre L (NEXPLANON) implant 68 mg 06-27 19:45: 00 06-27 18:53 :00 No [id number] 68mg [facility] vitamin w/FA tablet 06-06 00:00: 00 09-17 00:00 :00 No [id number] 09 1{tbl} Take 1 tablet by mouth in the morning. [facility] ferrous sulfate 325 mg (65 mg iron) tablet 06-06 00:00: 00 09-17 00:00 :00 No [id number] 09 325mg Take 1 tablet by mouth in the morning and 1 tablet in the evening. [facility] docusate 100 mg capsule 06-06 00:00: 00 06-27 00:00 :00 No [id number] 09 200mg Take 2 capsules by mouth once daily as needed for Constipati on. [facility] ibuprofen 600 mg tablet 06-06 00:00: 00 06-27 00:00 :00 No [id number] 09 600mg Take 1 tablet by mouth every 6 (six) hours as needed (Pain). Take with food or milk. [facility] HYDROcodone -acetaminop hen (NORCO 5) 5-325 mg tablet 1 tablet 06-05 23:15: 04 Yes 1{tbl} 1 tablet, Oral, Q6HPRN, Starting on Sat06/05/22 at 1715, Until Discontinu ed, Routine, Pain (scale 7-10) [facility] ibuprofen (IBU) tablet 600 mg 06-05 23:15: 04 Yes 600mg 600 mg, Oral, Q6HPRN, Starting on Sat06/05/22 at 1715, Until Discontinu ed, Routine, Pain (scale 4-6) [facility] acetaminoph en (TYLENOL) tablet 650 mg 06-05 23:15: 04 Yes 650mg 650 mg, Oral, Q6HPRN, Starting on Sat06/05/22 at 1715, Until Discontinu ed, Routine, Pain (scale 1-3) [facility] diphenhydrA MINE (BENADRYL) tablet 25 mg 06-05 23:15: 04 Yes 25mg 25 mg, Oral, Q6HPRN, Starting on Sat06/05/22 at 1715, Until Discontinu ed, Routine, Sleep, Itching [facility] ondansetron (ZOFRAN (PF)) injection 4 mg 06-05 23:15: 04 Yes 4mg 4 mg, Slow IV Push, Q8HPRN, Starting on Sat06/05/22 at 1715, Until Discontinu ed, Routine, Nausea and Vomiting (N/V) [facility] simethicone (GAS RELIEF (SIMETHICON E)) chewable tablet 160 mg 06-05 23:15: 04 Yes 160mg 160 mg, Oral, PC+HSPRN, Starting on Sat06/05/22 at 1715, Until Discontinu ed, Routine, Gas [facility] docusate (COLACE) capsule 200 mg 06-05 23:15: 04 Yes 200mg 200 mg, Oral, QDAILYPRN, Starting on Sat06/05/22 at 1715, Until Discontinu ed, Routine, Constipati on [facility] magnesium hydroxide (MILK OF MAGNESIA) 400 mg/5 mL suspension 30 mL 06-05 23:15: 03 Yes 30mL 30 mL, Oral, QDAILYPRN, Starting on Sat06/05/22 at 1715, Until Discontinu ed, Routine, Constipati on [facility] benzocaine- menthol (DERMOPLAST ) 20-0.5 % topical spray 06-05 23:15: 03 Yes Topical, PRN, Starting on Sat06/05/22 at 1715, Until Discontinu ed, Routine, Perineum discomfort [facility] oxytocin (PITOCIN) 30 units in NS 500 mL IV infusion 06-05 18:42: 53 06-05 23:17 :04 No 2mU/min at 2-40 mL/hr, IV Infusion, TITRATE, Starting on Sat06/05/22 at 1242, Until Sat06/05/22 at 1717, Routine [facility] ondansetron (ZOFRAN (PF)) injection 4 mg 06-05 17:46: 06 06-05 23:17 :04 No 4mg 4 mg, Slow IV Push, Q6HPRN, Starting on Sat06/05/22 at 1146, Until Sat06/05/22 at 1717, Routine, Nausea and Vomiting (N/V) [facility] FENTanyl PF (SUBLIMAZE (PF)) injection 100 mcg 06-05 17:45: 57 06-05 23:17 :04 No 100ug 100 mcg, Slow IV Push, Q1HPRN, Starting on Sat06/05/22 at 1145, Until Sat06/05/22 at 1717, Routine, Pain (scale 4-6), Pain (scale 7-10) [facility] lactated ringers IV infusion 500 mL 06-05 17:42: 52 06-05 23:17 :04 No 500mL at 999 mL/hr, 500 mL, IV Infusion, PRN - SEE INSTRUCTIO NS, Starting on Sat06/05/22 at 1142, Until Sat06/05/22 at 1717, Routine [facility] D5W-LR IV infusion 1,000 mL 06-05 17:42: 52 06-05 23:17 :04 No 1000mL at 1-125 mL/hr, IV Infusion, TITRATE, Starting on Sat06/05/22 at 1142, Until Sat06/05/22 at 1717, Routine [facility] fluconazole 200 mg tablet 06-04 00:00: 00 06-05 00:00 :00 No [id number] 200mg Take 1 tablet by mouth in the morning for 1 day. [facility] iron sucrose (VENOFER) 300 mg in NaCl 0.9% (NS) 250 mL infusion 2021-06 16:00: 00 04-18 18:07 :00 No 300mg 300 mg, IV Infusion, ONCE, Administer over 2.5 Hours, On Sat04/18/22 at 1000, For 1 dose [facility] acetaminoph en (TYLENOL) tablet 650 mg 2021-06 15:06: 40 Yes 650mg 650 mg, Oral, Q6HPRN, Starting on Sat04/18/22 at 0906, Until Discontinu ed, Routine, Pain (scale 1-3), Pain (scale 4-6) [facility] acetaminoph en (TYLENOL) tablet 650 mg 2021-06 20:27: 32 04-11 20:37 :00 No 650mg 650 mg, Oral, Q6HPRN, 1 dose, Starting on Sat04/11/22 at 1427, Until Sat04/11/22 at 1437, Routine, Pain (scale 4-6) [facility] iron sucrose (VENOFER) 300 mg in NaCl 0.9% (NS) 250 mL infusion 2021-06 15:45: 00 04-11 18:03 :00 No 300mg 300 mg, IV Infusion, ONCE, Administer over 2.5 Hours, On Sat04/11/22 at 0945, For 1 dose [facility] acetaminoph en (TYLENOL) tablet 650 mg 2021-06 00:45: 00 04-05 01:03 :00 No 650mg 650 mg, Oral, ONCE, 1 dose, On Sat04/04/22 at 1945, WEN [facility] iron sucrose (VENOFER) 300 mg in NaCl 0.9% (NS) 250 mL infusion 2021-06 15:45: 00 04-04 19:03 :00 No 300mg 300 mg, IV Infusion, ONCE, Administer over 2.5 Hours, On Sat04/04/22 at 1045, For 1 dose [facility] acetaminoph en (TYLENOL) tablet 650 mg 2021-06 016 04:00: 00 03-18 03:40 :00 No 650mg 650 mg, Oral, ONCE, 1 dose, On 03/17/22 at 2300, Routine [facility] acetaminoph en (TYLENOL) tablet 1,000 mg 02-18 02:00: 00 02-18 02:11 :00 No 1000mg 1,000 mg, Oral, ONCE NOW, 1 dose, On 02/17/22 at 2100, Routine [facility] ferrous sulfate (IRON, FERROUS SULFATE,) 325 mg (65 mg iron) tablet 02-02 00:00: 00 06-06 00:00 :00 No [id number] 325mg Take 1 tablet by mouth in the morning and 1 tablet in the evening. [facility] vitamin w/FA tablet 2020-06 00:00: 00 06-06 00:00 :00 No [id number] 1{tbl} Take 1 tablet by mouth daily. [facility] ferrous sulfate 325 mg (65 mg iron) tablet 2020-06 00:00: 00 04-19 00:00 :00 No [id number] 325mg Take 1 tablet by mouth 2 (two) times daily. [facility] Immunizations Ordered Immunization Name Filled Immunization Name Date Status Comments Source TDAP 2022-04-19 00:00:00 Completed [facility] TDAP 2022-04-19 00:00:00 Completed [facility] TDAP 2022-04-19 00:00:00 Completed [facility] TDAP 2022-04-19 00:00:00 Completed [facility] TDAP 2022-04-19 00:00:00 Completed [facility] TDAP 2022-04-19 00:00:00 Completed [facility] TDAP 2022-04-19 00:00:00 Completed [facility] TDAP 2022-04-19 00:00:00 Completed [facility] TDAP 2022-04-19 00:00:00 Completed [facility] TDAP 2022-04-19 00:00:00 Completed [facility] TDAP 2022-04-19 00:00:00 Completed [facility] TDAP 2022-04-19 00:00:00 Completed [facility] TDAP 2022-04-19 00:00:00 Completed [facility] TDAP 2022-04-19 00:00:00 Completed [facility] TDAP 2022-04-19 00:00:00 Completed [facility] TDAP 2022-04-19 00:00:00 Completed [facility] TDAP 2022-04-19 00:00:00 Completed [facility] TDAP 2022-04-19 00:00:00 Completed [facility] TDAP 2022-04-19 00:00:00 Completed [facility] [facility] TDAP 2022-04-19 00:00:00 Completed [facility] TDAP 2022-04-19 00:00:00 Completed [facility] TDAP 2022-04-19 00:00:00 Completed [facility] TDAP 2022-04-19 00:00:00 Completed [facility] TDAP 2022-04-19 00:00:00 Completed [facility] TDAP 2022-04-19 00:00:00 Completed [facility] TDAP 2022-04-19 00:00:00 Completed [facility] TDAP 2022-04-19 00:00:00 Completed [facility] TDAP 2022-04-19 00:00:00 Completed [facility] TDAP 2022-04-19 00:00:00 Completed [facility] TDAP 2022-04-19 00:00:00 Completed [facility] TDAP 2021-02-09 00:00:00 Completed [facility] TDAP 2021-02-09 00:00:00 Completed [facility] TDAP 2021-02-09 00:00:00 Completed [facility] TDAP 2021-02-09 00:00:00 Completed [facility] TDAP 2021-02-09 00:00:00 Completed [facility] TDAP 2021-02-09 00:00:00 Completed [facility] TDAP 2021-02-09 00:00:00 Completed [facility] TDAP 2021-02-09 00:00:00 Completed [facility] TDAP 2021-02-09 00:00:00 Completed [facility] TDAP 2021-02-09 00:00:00 Completed [facility] TDAP 2021-02-09 00:00:00 Completed [facility] TDAP 2021-02-09 00:00:00 Completed [facility] TDAP 2021-02-09 00:00:00 Completed [facility] TDAP 2021-02-09 00:00:00 Completed [facility] TDAP 2021-02-09 00:00:00 Completed [facility] TDAP 2021-02-09 00:00:00 Completed [facility] TDAP 2021-02-09 00:00:00 Completed [facility] TDAP 2021-02-09 00:00:00 Completed [facility] TDAP 2021-02-09 00:00:00 Completed [facility] TDAP 2021-02-09 00:00:00 Completed [facility] TDAP 2021-02-09 00:00:00 Completed [facility] TDAP 2021-02-09 00:00:00 Completed [facility] TDAP 2021-02-09 00:00:00 Completed [facility] TDAP 2021-02-09 00:00:00 Completed [facility] TDAP 2021-02-09 00:00:00 Completed [facility] TDAP 2021-02-09 00:00:00 Completed [facility] TDAP 2021-02-09 00:00:00 Completed [facility] TDAP 2021-02-09 00:00:00 Completed [facility] TDAP 2021-02-09 00:00:00 Completed [facility] TDAP 2021-02-09 00:00:00 Completed [facility] TDAP 2021-02-09 00:00:00 Completed [facility] TDAP 2021-02-09 00:00:00 Completed [facility] TDAP 2021-02-09 00:00:00 Completed [facility] TDAP 2021-02-09 00:00:00 Completed [facility] TDAP 2021-02-09 00:00:00 Completed [facility] TDAP 2021-02-09 00:00:00 Completed [facility] TDAP 2021-02-09 00:00:00 Completed [facility] TDAP 2021-02-09 00:00:00 Completed [facility] TDAP 2021-02-09 00:00:00 Completed [facility] TDAP 2021-02-09 00:00:00 Completed [facility] TDAP 2021-02-09 00:00:00 Completed [facility] TDAP 2021-02-09 00:00:00 Completed [facility] TDAP 2021-02-09 00:00:00 Completed [facility] TDAP 2021-02-09 00:00:00 Completed [facility] TDAP 2021-02-09 00:00:00 Completed [facility] TDAP 2021-02-09 00:00:00 Completed [facility] TDAP 2021-02-09 00:00:00 Completed [facility] TDAP 2021-02-09 00:00:00 Completed [facility] TDAP 2021-02-09 00:00:00 Completed [facility] TDAP 2021-02-09 00:00:00 Completed [facility] TDAP 2021-02-09 00:00:00 Completed [facility] TDAP 2021-02-09 00:00:00 Completed [facility] TDAP 2021-02-09 00:00:00 Completed [facility] TDAP 2013-01-01 00:00:00 Completed [facility] TDAP 2013-01-01 00:00:00 Completed [facility] TDAP 2013-01-01 00:00:00 Completed [facility] TDAP 2013-01-01 00:00:00 Completed [facility] TDAP 2013-01-01 00:00:00 Completed [facility] TDAP 2013-01-01 00:00:00 Completed [facility] TDAP 2013-01-01 00:00:00 Completed [facility] TDAP 2013-01-01 00:00:00 Completed [facility] TDAP 2013-01-01 00:00:00 Completed [facility] TDAP 2013-01-01 00:00:00 Completed [facility] TDAP 2013-01-01 00:00:00 Completed [facility] TDAP 2013-01-01 00:00:00 Completed [facility] TDAP 2013-01-01 00:00:00 Completed [facility] TDAP 2013-01-01 00:00:00 Completed [facility] TDAP 2013-01-01 00:00:00 Completed [facility] TDAP 2013-01-01 00:00:00 Completed [facility] TDAP 2013-01-01 00:00:00 Completed [facility] TDAP 2013-01-01 00:00:00 Completed [facility] TDAP 2013-01-01 00:00:00 Completed [facility] TDAP 2013-01-01 00:00:00 Completed [facility] TDAP 2013-01-01 00:00:00 Completed [facility] TDAP 2013-01-01 00:00:00 Completed [facility] TDAP 2013-01-01 00:00:00 Completed [facility] TDAP 2013-01-01 00:00:00 Completed [facility] TDAP 2013-01-01 00:00:00 Completed [facility] TDAP 2013-01-01 00:00:00 Completed [facility] TDAP 2013-01-01 00:00:00 Completed [facility] TDAP 2013-01-01 00:00:00 Completed [facility] TDAP 2013-01-01 00:00:00 Completed [facility] TDAP 2013-01-01 00:00:00 Completed [facility] TDAP 2013-01-01 00:00:00 Completed [facility] TDAP 2013-01-01 00:00:00 Completed [facility] TDAP 2013-01-01 00:00:00 Completed [facility] TDAP 2013-01-01 00:00:00 Completed [facility] TDAP 2013-01-01 00:00:00 Completed [facility] TDAP 2013-01-01 00:00:00 Completed [facility] TDAP 2013-01-01 00:00:00 Completed [facility] TDAP 2013-01-01 00:00:00 Completed [facility] TDAP 2013-01-01 00:00:00 Completed [facility] TDAP 2013-01-01 00:00:00 Completed [facility] TDAP 2013-01-01 00:00:00 Completed [facility] TDAP 2013-01-01 00:00:00 Completed [facility] TDAP 2013-01-01 00:00:00 Completed [facility] TDAP 2013-01-01 00:00:00 Completed [facility] TDAP 2013-01-01 00:00:00 Completed [facility] TDAP 2013-01-01 00:00:00 Completed [facility] TDAP 2013-01-01 00:00:00 Completed [facility] TDAP 2013-01-01 00:00:00 Completed [facility] TDAP 2013-01-01 00:00:00 Completed [facility] TDAP 2013-01-01 00:00:00 Completed [facility] TDAP 2013-01-01 00:00:00 Completed [facility] TDAP 2013-01-01 00:00:00 Completed [facility] TDAP 2013-01-01 00:00:00 Completed [facility] Rubella 2012-08-13 00:00:00 Completed [facility] 2012-08-13 00:00:00 Completed [facility] 2012-08-13 00:00:00 Completed [facility] 2012-08-13 00:00:00 Completed [facility] 2012-08-13 00:00:00 Completed [facility] 2012-08-13 00:00:00 Completed [facility] 2012-08-13 00:00:00 Completed [facility] 2012-08-13 00:00:00 Completed [facility] 2012-08-13 00:00:00 Completed [facility] 2012-08-13 00:00:00 Completed [facility] 2012-08-13 00:00:00 Completed [facility] 2012-08-13 00:00:00 Completed [facility] 2012-08-13 00:00:00 Completed [facility] 2012-08-13 00:00:00 Completed [facility] 2012-08-13 00:00:00 Completed [facility] 2012-08-13 00:00:00 Completed [facility] 2012-08-13 00:00:00 Completed [facility] 2012-08-13 00:00:00 Completed [facility] 2012-08-13 00:00:00 Completed [facility] 2012-08-13 00:00:00 Completed [facility] 2012-08-13 00:00:00 Completed [facility] 2012-08-13 00:00:00 Completed [facility] 2012-08-13 00:00:00 Completed [facility] 2012-08-13 00:00:00 Completed [facility] 2012-08-13 00:00:00 Completed [facility] 2012-08-13 00:00:00 Completed [facility] 2012-08-13 00:00:00 Completed [facility] 2012-08-13 00:00:00 Completed [facility] 2012-08-13 00:00:00 Completed [facility] 2012-08-13 00:00:00 Completed [facility] 2012-08-13 00:00:00 Completed [facility] 2012-08-13 00:00:00 Completed [facility] 2012-08-13 00:00:00 Completed [facility] 2012-08-13 00:00:00 Completed [facility] 2012-08-13 00:00:00 Completed [facility] 2012-08-13 00:00:00 Completed [facility] 2012-08-13 00:00:00 Completed [facility] 2012-08-13 00:00:00 Completed [facility] 2012-08-13 00:00:00 Completed [facility] 2012-08-13 00:00:00 Completed [facility] 2012-08-13 00:00:00 Completed [facility] 2012-08-13 00:00:00 Completed [facility] 2012-08-13 00:00:00 Completed [facility] 2012-08-13 00:00:00 Completed [facility] 2012-08-13 00:00:00 Completed [facility] 2012-08-13 00:00:00 Completed [facility] 2012-08-13 00:00:00 Completed [facility] 2012-08-13 00:00:00 Completed [facility] 2012-08-13 00:00:00 Completed [facility] 2012-08-13 00:00:00 Completed [facility] 2012-08-13 00:00:00 Completed [facility] 2012-08-13 00:00:00 Completed [facility] 2012-08-13 00:00:00 Completed [facility] Unknown Completed [facility] TDAP Unknown Completed [facility] Unknown Completed [facility] TDAP Unknown Completed [facility] Unknown Completed [facility] TDAP Unknown Completed [facility] Unknown Completed Talya stewart - External Tdap- (Boostrix, Adacel) Unknown Completed Talya Seybold - External Vital Signs Vital Name Observation Time Observation Value Comments S ource Systolic blood pressure 2023-08-14 19:06:00 110 mm[Hg] Talya Seybo ld - External Diastolic blood pressure 2023-08-14 19:06:00 64 mm[Hg] Talya Seybo ld - External Heart rate 2023-08-14 19:06:00 78 /min Kelse y Seybold - External Body temperature 2023-08-14 19:06:00 36.56 Ness Talya Seybold - External Respiratory rate 2023-08-14 19:06:00 16 /min Talya Seybold - External Body height 2023-08-14 19:06:00 154.9 cm Casandra ey Seybold - External Body weight 2023-08-14 19:06:00 95.255 kg Casandra ey Seybold - External BMI 2023-08-14 19:06:00 39.68 kg/m2 Casandra ey Seybold - External Systolic blood pressure 2023-07-24 02:43:00 125 mm[Hg] [facility] Diastolic blood pressure 2023-07-24 02:43:00 80 mm[Hg] [facility] Heart rate 2023-07-24 02:43:00 86 /min [facility] 2023-07-24 02:43:00 37 Ness [facility] Respiratory rate 2023-07-24 02:43:00 18 /min [facility] Body height 2023-07-24 02:43:00 154.9 cm [facility] Body weight 2023-07-24 02:43:00 97.07 kg [facility] BMI 2023-07-24 02:43:00 40.43 kg/m2 [facility] Oxygen saturation in Arterial blood by Pulse oximetry 2023-07-24 02:43:00 98 /min [facility] Systolic blood pressure 2022-12-23 21:00:00 106 mm[Hg] [facility] Diastolic blood pressure 2022-12-23 21:00:00 75 mm[Hg] [facility] Heart rate 2022-12-23 21:00:00 86 /min [facility] Body temperature 2022-12-23 21:00:00 36.89 Ness [facility] Respiratory rate 2022-12-23 21:00:00 14 /min [facility] Body height 2022-12-23 21:00:00 154.9 cm [facility] Body weight 2022-12-23 21:00:00 89.631 kg [facility] BMI 2022-12-23 21:00:00 37.34 kg/m2 [facility] Oxygen saturation in Arterial blood by Pulse oximetry 2022-12-23 21:00:00 96 /min [facility] Systolic blood pressure 2022-09-17 15:56:00 110 mm[Hg] [facility] Diastolic blood pressure 2022-09-17 15:56:00 73 mm[Hg] [facility] Heart rate 2022-09-17 15:56:00 67 /min [facility] Body temperature 2022-09-17 15:56:00 35.56 Ness [facility] Body height 2022-09-17 15:56:00 154.9 cm [facility] Body weight 2022-09-17 15:56:00 88.542 kg [facility] BMI 2022-09-17 15:56:00 36.88 kg/m2 [facility] Oxygen saturation in Arterial blood by Pulse oximetry 2022-09-17 15:56:00 99 /min [facility] Systolic blood pressure 2022-09-15 01:10:00 124 mm[Hg] [facility] Diastolic blood pressure 2022-09-15 01:10:00 86 mm[Hg] [facility] Heart rate 2022-09-15 01:10:00 85 /min [facility] Body temperature 2022-09-15 01:10:00 37 Ness [facility] Respiratory rate 2022-09-15 01:10:00 18 /min [facility] Body height 2022-09-15 01:10:00 154.9 cm [facility] Body weight 2022-09-15 01:10:00 89.018 kg [facility] BMI 2022-09-15 01:10:00 37.08 kg/m2 [facility] Oxygen saturation in Arterial blood by Pulse oximetry 2022-09-15 01:10:00 98 /min [facility] Systolic blood pressure 2022-08-13 14:43:00 127 mm[Hg] [facility] Diastolic blood pressure 2022-08-13 14:43:00 69 mm[Hg] [facility] Heart rate 2022-08-13 14:43:00 71 /min [facility] Body temperature 2022-08-13 14:43:00 36.72 Ness [facility] Respiratory rate 2022-08-13 14:43:00 18 /min [facility] Body height 2022-08-13 14:43:00 154.9 cm [facility] Body weight 2022-08-13 14:43:00 86.183 kg [facility] BMI 2022-08-13 14:43:00 35.90 kg/m2 [facility] Oxygen saturation in Arterial blood by Pulse oximetry 2022-08-13 14:43:00 95 /min [facility] Systolic blood pressure 2022-08-04 17:16:00 130 mm[Hg] [facility] Diastolic blood pressure 2022-08-04 17:16:00 75 mm[Hg] [facility] Body temperature 2022-08-04 17:16:00 36.44 Ness [facility] Respiratory rate 2022-08-04 17:16:00 20 /min [facility] Oxygen saturation in Arterial blood by Pulse oximetry 2022-08-04 17:16:00 100 /min [facility] Heart rate 2022-08-04 10:00:00 85 /min [facility] 2022-08-04 10:00:00 86.637 kg [facility] BMI 2022-08-04 10:00:00 36.09 kg/m2 [facility] Body height 2022-08-02 06:52:00 154.9 cm [facility] Systolic blood pressure 2022-08-03 21:16:00 106 mm[Hg] [facility] Diastolic blood pressure 2022-08-03 21:16:00 50 mm[Hg] [facility] Heart rate 2022-08-03 21:16:00 84 /min [facility] Respiratory rate 2022-08-03 21:16:00 13 /min [facility] Oxygen saturation in Arterial blood by Pulse oximetry 2022-08-03 21:16:00 95 /min [facility] Body temperature 2022-08-03 21:11:00 36.56 Ness [facility] Body weight 2022-08-03 09:58:00 86.637 kg [facility] BMI 2022-08-03 09:58:00 36.09 kg/m2 [facility] Body height 2022-08-02 06:52:00 154.9 cm [facility] Systolic blood pressure 2022-06-27 17:35:00 115 mm[Hg] [facility] Diastolic blood pressure 2022-06-27 17:35:00 70 mm[Hg] [facility] Heart rate 2022-06-27 17:35:00 75 /min [facility] Body temperature 2022-06-27 17:35:00 36.5 Ness [facility] Body height 2022-06-27 17:35:00 154.9 cm [facility] Body weight 2022-06-27 17:35:00 81.557 kg [facility] BMI 2022-06-27 17:35:00 33.97 kg/m2 [facility] Systolic blood pressure 2022-06-06 13:45:00 115 mm[Hg] [facility] Diastolic blood pressure 2022-06-06 13:45:00 74 mm[Hg] [facility] Heart rate 2022-06-06 13:45:00 76 /min [facility] Body temperature 2022-06-06 13:45:00 36.56 Ness [facility] Respiratory rate 2022-06-06 13:45:00 17 /min [facility] Oxygen saturation in Arterial blood by Pulse oximetry 2022-06-05 23:45:00 97 /min [facility] Body height 2022-06-05 18:06:00 154.9 cm [facility] Body weight 2022-06-05 18:06:00 85.276 kg [facility] BMI 2022-06-05 18:06:00 35.52 kg/m2 [facility] Systolic blood pressure 2022-06-04 22:00:00 115 mm[Hg] [facility] Diastolic blood pressure 2022-06-04 22:00:00 75 mm[Hg] [facility] Heart rate 2022-06-04 22:00:00 80 /min [facility] Body temperature 2022-06-04 22:00:00 36.78 Ness [facility] Respiratory rate 2022-06-04 22:00:00 18 /min [facility] Body height 2022-06-04 22:00:00 154.9 cm [facility] Body weight 2022-06-04 22:00:00 85.276 kg [facility] BMI 2022-06-04 22:00:00 35.52 kg/m2 [facility] Heart rate 2022-06-03 22:39:00 84 /min [facility] Oxygen saturation in Arterial blood by Pulse oximetry 2022-06-03 22:39:00 100 /min [facility] Systolic blood pressure 2022-06-03 22:24:00 108 mm[Hg] [facility] Diastolic blood pressure 2022-06-03 22:24:00 64 mm[Hg] [facility] Body temperature 2022-06-03 22:24:00 36.94 Ness [facility] Respiratory rate 2022-06-03 22:24:00 18 /min [facility] Body height 2022-06-03 22:24:00 154.9 cm [facility] Body weight 2022-06-03 22:24:00 85.276 kg [facility] BMI 2022-06-03 22:24:00 35.52 kg/m2 [facility] Heart rate 2022-06-03 04:30:00 85 /min [facility] Oxygen saturation in Arterial blood by Pulse oximetry 2022-06-03 04:30:00 98 /min [facility] Systolic blood pressure 2022-06-03 03:40:00 126 mm[Hg] [facility] Diastolic blood pressure 2022-06-03 03:40:00 68 mm[Hg] [facility] Body temperature 2022-06-03 03:40:00 36.61 Ness [facility] Body height 2022-06-03 03:40:00 154.9 cm [facility] Body weight 2022-06-03 03:40:00 86.093 kg [facility] BMI 2022-06-03 03:40:00 35.86 kg/m2 [facility] Systolic blood pressure 2022-05-31 22:11:00 118 mm[Hg] [facility] Diastolic blood pressure 2022-05-31 22:11:00 73 mm[Hg] [facility] Heart rate 2022-05-31 22:11:00 66 /min [facility] Body temperature 2022-05-31 22:11:00 36.56 Ness [facility] Respiratory rate 2022-05-31 22:11:00 18 /min [facility] Body height 2022-05-31 22:11:00 154.9 cm [facility] Body weight 2022-05-31 22:11:00 86.183 kg [facility] BMI 2022-05-31 22:11:00 35.90 kg/m2 [facility] Systolic blood pressure 2022-05-17 22:24:00 105 mm[Hg] [facility] Diastolic blood pressure 2022-05-17 22:24:00 68 mm[Hg] [facility] Heart rate 2022-05-17 22:24:00 76 /min [facility] Body temperature 2022-05-17 22:24:00 37.06 Ness [facility] Body height 2022-05-17 22:24:00 154.9 cm [facility] Body weight 2022-05-17 22:24:00 85.367 kg [facility] BMI 2022-05-17 22:24:00 35.56 kg/m2 [facility] Heart rate 2022-05-06 03:00:00 82 /min [facility] Body temperature 2022-05-06 03:00:00 37 Ness [facility] Respiratory rate 2022-05-06 03:00:00 18 /min [facility] Body height 2022-05-06 03:00:00 154.9 cm [facility] Body weight 2022-05-06 03:00:00 85.095 kg [facility] BMI 2022-05-06 03:00:00 35.45 kg/m2 [facility] Oxygen saturation in Arterial blood by Pulse oximetry 2022-05-06 03:00:00 100 /min [facility] Systolic blood pressure 2022-05-03 16:43:00 108 mm[Hg] [facility] Diastolic blood pressure 2022-05-03 16:43:00 69 mm[Hg] [facility] Heart rate 2022-05-03 16:43:00 80 /min [facility] Body temperature 2022-05-03 16:43:00 36.44 Ness [facility] Respiratory rate 2022-05-03 16:43:00 18 /min [facility] Body height 2022-05-03 16:43:00 154.9 cm [facility] Body weight 2022-05-03 16:43:00 84.278 kg [facility] BMI 2022-05-03 16:43:00 35.11 kg/m2 [facility] Systolic blood pressure 2022-04-19 19:13:00 110 mm[Hg] [facility] Diastolic blood pressure 2022-04-19 19:13:00 62 mm[Hg] [facility] Heart rate 2022-04-19 19:13:00 98 /min [facility] Body temperature 2022-04-19 19:13:00 36.83 Ness [facility] Respiratory rate 2022-04-19 19:13:00 18 /min [facility] Body height 2022-04-19 19:13:00 154.9 cm [facility] Body weight 2022-04-19 19:13:00 84.369 kg [facility] BMI 2022-04-19 19:13:00 35.14 kg/m2 [facility] Systolic blood pressure 2022-04-18 18:00:00 112 mm[Hg] [facility] Diastolic blood pressure 2022-04-18 18:00:00 61 mm[Hg] [facility] Heart rate 2022-04-18 18:00:00 84 /min [facility] Oxygen saturation in Arterial blood by Pulse oximetry 2022-04-18 18:00:00 99 /min [facility] Body temperature 2022-04-18 15:20:00 36.83 Ness [facility] Respiratory rate 2022-04-18 15:20:00 18 /min [facility] Body weight 2022-04-18 15:08:00 83.915 kg [facility] BMI 2022-04-18 15:08:00 34.96 kg/m2 [facility] Systolic blood pressure 2022-04-11 20:30:00 126 mm[Hg] [facility] Diastolic blood pressure 2022-04-11 20:30:00 71 mm[Hg] [facility] Heart rate 2022-04-11 20:30:00 94 /min [facility] Respiratory rate 2022-04-11 20:30:00 18 /min [facility] Oxygen saturation in Arterial blood by Pulse oximetry 2022-04-11 20:30:00 99 /min [facility] Body temperature 2022-04-11 15:00:00 36.72 Ness [facility] Heart rate 2022-04-05 02:30:00 82 /min [facility] Oxygen saturation in Arterial blood by Pulse oximetry 2022-04-05 02:30:00 100 /min [facility] Systolic blood pressure 2022-04-05 02:00:00 105 mm[Hg] [facility] Diastolic blood pressure 2022-04-05 02:00:00 51 mm[Hg] [facility] Body temperature 2022-04-05 02:00:00 36.83 Ness [facility] Respiratory rate 2022-04-05 02:00:00 18 /min [facility] Systolic blood pressure 2022-04-05 01:00:00 110 mm[Hg] [facility] Diastolic blood pressure 2022-04-05 01:00:00 73 mm[Hg] [facility] Heart rate 2022-04-05 01:00:00 89 /min [facility] Respiratory rate 2022-04-05 01:00:00 23 /min [facility] Oxygen saturation in Arterial blood by Pulse oximetry 2022-04-05 01:00:00 98 /min [facility] Body temperature 2022-04-05 00:04:00 36.83 Ness [facility] Body height 2022-04-05 00:04:00 154.9 cm [facility] Body weight 2022-04-05 00:04:00 82.101 kg [facility] BMI 2022-04-05 00:04:00 34.20 kg/m2 [facility] Systolic blood pressure 2022-04-04 20:15:00 118 mm[Hg] [facility] Diastolic blood pressure 2022-04-04 20:15:00 64 mm[Hg] [facility] Heart rate 2022-04-04 19:30:00 87 /min [facility] Oxygen saturation in Arterial blood by Pulse oximetry 2022-04-04 19:30:00 98 /min [facility] Body temperature 2022-04-04 14:30:00 36.44 Ness [facility] Respiratory rate 2022-04-04 14:30:00 18 /min [facility] Body height 2022-04-04 14:10:00 154.9 cm [facility] Body weight 2022-04-04 14:10:00 82.373 kg [facility] BMI 2022-04-04 14:10:00 34.31 kg/m2 [facility] Systolic blood pressure 2022-03-29 15:35:00 106 mm[Hg] [facility] Diastolic blood pressure 2022-03-29 15:35:00 69 mm[Hg] [facility] Heart rate 2022-03-29 15:35:00 75 /min [facility] Body temperature 2022-03-29 15:35:00 36.61 Ness [facility] Respiratory rate 2022-03-29 15:35:00 18 /min [facility] Body height 2022-03-29 15:35:00 154.9 cm [facility] Body weight 2022-03-29 15:35:00 82.827 kg [facility] BMI 2022-03-29 15:35:00 34.50 kg/m2 [facility] Systolic blood pressure 2022-03-18 02:13:00 111 mm[Hg] [facility] Diastolic blood pressure 2022-03-18 02:13:00 56 mm[Hg] [facility] Heart rate 2022-03-18 02:13:00 82 /min [facility] Body temperature 2022-03-18 02:13:00 36.89 Ness [facility] Respiratory rate 2022-03-18 02:13:00 18 /min [facility] Body weight 2022-03-18 02:13:00 82.872 kg [facility] BMI 2022-03-18 02:13:00 34.52 kg/m2 [facility] Oxygen saturation in Arterial blood by Pulse oximetry 2022-03-18 02:13:00 99 /min [facility] Body height 2022-03-18 01:54:00 154.9 cm [facility] Systolic blood pressure 2022-03-01 16:14:00 99 mm[Hg] [facility] Diastolic blood pressure 2022-03-01 16:14:00 66 mm[Hg] [facility] Heart rate 2022-03-01 16:14:00 82 /min [facility] Body temperature 2022-03-01 16:14:00 36.78 Ness [facility] Respiratory rate 2022-03-01 16:14:00 18 /min [facility] Body height 2022-03-01 16:14:00 154.9 cm [facility] Body weight 2022-03-01 16:14:00 80.559 kg [facility] BMI 2022-03-01 16:14:00 33.58 kg/m2 [facility] Systolic blood pressure 2022-02-18 02:58:00 103 mm[Hg] [facility] Diastolic blood pressure 2022-02-18 02:58:00 70 mm[Hg] [facility] Heart rate 2022-02-18 02:58:00 83 /min [facility] Body temperature 2022-02-18 02:58:00 36.94 Ness [facility] Respiratory rate 2022-02-18 02:58:00 16 /min [facility] Oxygen saturation in Arterial blood by Pulse oximetry 2022-02-18 02:58:00 100 /min [facility] Body height 2022-02-18 01:10:00 154.9 cm 5' 1" [facility] Body weight 2022-02-18 01:10:00 80.468 kg 177lb 6.4oz [facility] BMI 2022-02-18 01:10:00 33.54 kg/m2 [facility] Procedures Procedure Date / Time Performed Performing Clinician Source NOTICE OF PRIVACY PRACTICES 2023-07-24 02:35:29 Doctor Unassigned, Hector [facility] CONSENT/REFUSAL FOR DIAGNOSIS AND TREATMENT 2023-07-24 02:35:09 Doctor Unassigned, Hector [facility] POCT MOLECULAR STREP 2022-12-23 21:07:00 Jake Scott [facility] XR SHOULDER 2+ VW LEFT 2022-09-17 16:40:00 Freddie Maribel tra [facility] XR SHOULDER 2+ VW LEFT 2022-09-17 16:40:00 Maribel Frazier [facility] POCT SARS-COV-2 ANTIGEN (BINAX NOW) 2022-09-15 01:24:00 Radha Cordova [facility] POCT MOLECULAR FLU 2022-09-15 01:23:00 Unknown, Attend ing [facility] POCT MOLECULAR STREP 2022-09-15 01:19:00 Unknown, Atte radha [facility] PHOSPHORUS 2022-08-04 10:39:00 Leonard Moore [facility] LIPASE 2022-08-04 10:39:00 Khalif Ritter [facility] MAGNESIUM 2022-08-04 10:39:00 [facility] (84522[facility] (ALB,T.PRO,BILI T,BU/BC,ALT,AST,ALK PHOS) 2022-08-04 [facility] (NA, K, CL, CO2, GLUCOSE, BUN, CREATININE, CA) 2022-08-04 10:39:00 Oscar [facility] CBC WITH DIFF 2022-08-04 10:39:00 [facility] 2022-08-04 10:39:00 Oscar [facility] LIPASE 2022-08-04 10:39:00 Khalif Ritter [facility] MAGNESIUM 2022-08-04 [facility]:39[facility] (99706[facility] (ALB,T.PRO,BILI T,BU/BC,ALT,AST,ALK PHOS) 2022-08-04 10:39:00 Oscar [facility] BASIC METABOLIC PANEL (NA, K, CL, CO2, GLUCOSE, BUN, CREATININE, CA) 2022-08-04 10:39:00 Oscar [facility] CBC WITH DIFF 2022-08-04 10:39:00 Leonard Moore [facility] FL TIME OR (NON-REPORTABLE) 2022-08-03 20:15:00 Casillas, [facility] FL TIME OR (NON-REPORTABLE) 2022-08-03 20:15:00 Casillas, [facility] LAPAROSCOPIC CHOLECYSTECTOMY 2022-08-03 17:30:00 Casillas, [facility] INTRAOPERATIVE CHOLANGIOGRAM 2022-08-03 17:30:00 Casillas, [facility] PHOSPHORUS 2022-08-03 09:56:00 Leonard Moore [facility] LACTATE DEHYDROGENASE 2022-08-03 09:56:00 Tra Moore [facility] MAGNESIUM 2022-08-03 09:56:00 Oscar [facility] HEPATIC FUNCTION PANEL (30930) (ALB,T.PRO,BILI T,BU/BC,ALT,AST,ALK PHOS) 2022-08-03 09:56:00 Oscar [facility] BASIC METABOLIC PANEL (NA, K, CL, CO2, GLUCOSE, BUN, CREATININE, CA) 2022-08-03 09:56:00 Oscar [facility] CBC WITH DIFF 2022-08-03 09:56:00 Leonard Moore [facility] PHOSPHORUS 2022-08-03 09:56:00 Oscar [facility] LACTATE DEHYDROGENASE 2022-08-03 09:56:00 Tra Moore [facility] MAGNESIUM 2022-08-03 09:56:00 Oscar [facility] HEPATIC FUNCTION PANEL ([id number]) (ALB,T.PRO,BILI T,BU/BC,ALT,AST,ALK PHOS) 2022-08-03 09:56:00 Oscar [facility] BASIC METABOLIC PANEL (NA, K, CL, CO2, GLUCOSE, BUN, CREATININE, CA) 2022-08-03 09:56:00 Leonard Moore [facility] CBC WITH DIFF 2022-08-03 09:56:00 [facility] LIP[facility] 2022-08-03 09:52:00 Stone [facility] LIPID PANEL (70484)(TOTAL CHOLESTEROL, TRIGLYCERIDES, HDL) 2022-08-03 09:52:00 Stone [facility] LIPASE 2022-08-03 09:52:00 Stone [facility] LIPID PANEL (16911)(TOTAL CHOLESTEROL, TRIGLYCERIDES, HDL) 2022-08-03 09:52:00 Stone [facility] LIPASE 2022-08-02 10:57:00 Stone [facility] MAGNESIUM 2022-08-02 10:57[facility] COMP. METABOLIC PANEL (86165) 2022-08-02 10:57:00 Stone [facility] LIPASE 2022-08-02 10:57:00 Khalif Ritter [facility] MAGNESIUM 2022-08-02 10:57:00 [facility] COMP. METABOLIC PANEL ([id number]) 2022-08-02 10:57:00 Khalif Ritter [facility] US GALL BLADDER 2022-08-02 05:07:27 [facility] GALL [facility] 2022-08-02 05:07:27 Gregory Davila [facility] CT ABDOMEN PELVIS W CONTRAST 2022-08-02 02:52:26 Gregory Davila [facility] CT ABDOMEN PELVIS W CONTRAST 2022-08-02 02:52:26 Gregory Davila [facility] POCT TEST 2022-08-02 02:09:00 Karen Davila [facility] POCT TEST 2022-08-02 02:09:00 Karen Davila [facility] BILI UNCONJUGATED/BILI CONJUG 2022-08-02 01:53:00 Casillas [facility] TROPONIN I 2022-08-02 01:53:00 Gregory [facility] COMP. METABOLIC PANEL ([id number]) 2022-08-02 01:53:00 Gregory Davila [facility] SALICYLATE 2022-08-02 01:53:00 Gregory Davila [facility] CBC WITH DIFF 2022-08-02 01:53:00 Gregory Davila [facility] PROTHROMBIN TIME / INR 2022-08-02 01:53:00 Teodoro Davila [facility] ACTIVATED PARTIAL THRMPLAS LESLEY 2022-08-02 01:53[facility]00 [facility] 2022-08-02 01:53:00 Gregory Davila [facility] N-TERMINAL PRO-BNP 2022-08-02 01:53:00 Gregory Davila [facility] URINE DRUG (IMMUNOASSAY) - COMPREHENSIVE DRUG SCREEN W/O REFLEX 2022-08-02 01:53:00 Gregory Davila [facility] LIPASE 2022-08-02 01:53:00 Gregory Davila [facility] BILI UNCONJUGATED/BILI CONJUG 2022-08-02 01:53:00 Yeni [facility] TROPONIN I 2022-08-02 01:53:00 Gregory Davila [facility] COMP. METABOLIC PANEL ([id number]) 2022-08-02 01:53:00 Gregory Davila [facility] SALICYLATE 2022-08-02 01:53:00 Gregory Davila [facility] CBC WITH DIFF 2022-08-02 01:53:00 Gregory Davila [facility] PROTHROMBIN TIME / INR 2022-08-02 01:53:00 Teodoro Davila [facility] ACTIVATED PARTIAL THRMPLAS LESLEY 2022-08-02 01:53:00 Gregory Davila [facility] URINALYSIS 2022-08-02 01:53:00 Gregory Davila [facility] N-TERMINAL PRO-BNP 2022-08-02 01:53:00 Gregory Davila [facility] URINE DRUG (IMMUNOASSAY) - COMPREHENSIVE DRUG SCREEN W/O REFLEX 2022-08-02 01:53:00 Gregory Davila [facility] LIPASE 2022-08-02 01:53:00 Gregory Davila [facility] AC PANEL 21 + LACTIC ACID 2022-08-02 01:51:00 Gregory Davila [facility] AC PANEL 21 + LACTIC ACID 2022-08-02 01:51:00 Gregory Davila [facility] NOTICE OF PRIVACY PRACTICES 2022-08-02 00:48:43 Doctor Unassigned, Hector [facility] NOTICE OF PRIVACY PRACTICES 2022-08-02 00:48:43 Doctor Unassigned, Hector [facility] HOSPITAL ADMISSION 2022-08-01 06:01:00 Doctor Un assigned, Hector [facility] DISABILITY/FMLA 2022-07-27 06:01:00 Doctor Unass igned, Hector [facility] CONSENT FOR CONTRACEPTION 2022-06-27 06:01:00 Do ctor Unassigned, Hector [facility] POCT TEST 2022-06-27 00:00:00 Dilia Escobar [facility] DISABILITY/FMLA 2022-06-08 06:01:00 Doctor Unass igned, Hector [facility] CBC WITH DIFF 2022-06-06 09:47:00 Adum, Arabella Solano [facility] CBC WITH DIFF 2022-06-05 18:12:00 Adum, Arabella Ndiaye [facility] HEPATITIS B SURFACE ANTIGEN 2022-06-05 18:12:00 Adum, Arabella Ndiaye [facility] ADC OR TATYANA ONLY - RPR 2022-06-05 18:12:00 Adum, Samir Ndiaye [facility] HIV 1/2 AG-AB WITH REFLEX 2022-06-05 18:12:00 Adum, Samir Ndiaye [facility] HB ABO GROUPING 2022-06-05 18:08:00 [facility]um[facility] 2022-06-05 16:59:34 Docto r Unassigned, Hector [facility] CONSENT/REFUSAL FOR DIAGNOSIS AND TREATMENT 2022-06-03 21:55:56 Doctor Unassigned, Hector [facility] ASSIGNMENT OF BENEFITS 2022-06-03 03:25:22 Docto r Unassigned, Hector [facility] ASSIGNMENT OF BENEFITS 2022-05-31 23:02:03 Docto r Unassigned, Hector [facility] CONSENT/REFUSAL FOR DIAGNOSIS AND TREATMENT 2022-05-31 23:01:51 Doctor Unassigned, Hector [facility] >14 WEEKS US LIMITED 2022-05-31 22:53:41 Dilia Escobar [facility] POCT URINALYSIS W/O SPECIFIC GRAVITY 2022-05-31 00:00:00 Dilia Escobar [facility] POCT URINALYSIS W/O SPECIFIC GRAVITY 2022-05-17 00:00:00 Dilia Escobar [facility] URINALYSIS 2022-05-06 04:33:00 Sylvia Ilana [facility] ADC CLC OR LCC ONLY - WET PREP 2022-05-06 03:27:00 Sylvia Ilana [facility] ASSIGNMENT OF BENEFITS 2022-05-06 02:47:09 Arben r Unassigned, Hector [facility] CONSENT/REFUSAL FOR DIAGNOSIS AND TREATMENT 2022-05-06 02:45:20 Doctor Unassigned, Hector [facility] POCT URINALYSIS W/O SPECIFIC GRAVITY 2022-05-03 00:00:00 Donell Brunson [facility] TDAP VACCINE, >11 YRS, IM 2022-04-19 19:19:11 Nagi Escobar [facility] POCT URINALYSIS W/O SPECIFIC GRAVITY 2022-04-19 19:15:00 Dilia Escobar [facility] 1 HR GLUCOSE TOLERANCE TEST 2022-04-05 14:26:00 Dilia Escobar [facility] GLUCOSE FASTING 2022-04-05 13:19:00 Dilia Escobar [facility] CBC WITH DIFF 2022-04-05 13:19:[address] [facility] CONSENT/REFUSAL FOR DIAGNOSIS AND TREATMENT 2022-04-04 23:41:16 Doctor Unassigned, Hector [facility] IRON PANEL 2022-04-04 15:23:00 Dilia Escobar [facility] STERILIZATION CONSENT FORM 2022-03-29 05:01:00 D octor Unassigned, Hector [facility] POCT URINALYSIS W/O SPECIFIC GRAVITY 2022-03-29 00:00:00 Dilia Escobar [facility] URINALYSIS 2022-03-18 03:24:00 Dilia Escobar [facility] ADC CLC OR LCC ONLY - WET PREP 2022-03-18 03:24:00 Dilia Escobar [facility] NOTICE OF PRIVACY PRACTICES 2022-03-18 01:50:59 Doctor Unassigned, Hector [facility] ASSIGNMENT OF BENEFITS 2022-03-18 01:50:20 Docto r Unassigned, Hector [facility] POCT URINALYSIS W/O SPECIFIC GRAVITY 2022-03-01 16:25:00 Donell Brunson [facility] INSURANCE CORRESPONDENCE 2022-03-01 05:01:00 Doc tor Unassigned, Hector [facility] EMERGENCY DEPARTMENT DOCUMENTS 2022-02-17 05:01:00 Doctor Unassigned, Hector [facility] L&D VISIT (NON-DELIVERED) 2022-02-17 05:01:00 Do ctor Unassigned, Hector [facility] Encounters Start Date/Time End Date/Time Encounter Type Admission Type Attending Clinicians Care Facility Care Department Encounter ID Source 2024-08-06 09:37:01 Outpatient Erica Pittman [facility] [id number] [facility] 2022-06-02 23:00:50 Outpatient X [facility] [id number] [facility] 2022-04-04 15:33:04 Outpatient P [facility] [id number] [facility] 2021-04-04 09:36:18 Emergency [facility] [id number] [facility] 2021-04-03 17:23:54 Outpatient X [facility] [id number] [facility] 2021-04-03 05:42:59 Outpatient X [facility] [id number] [facility] 2021-04-03 05:10:21 Emergency [facility] [id number] [facility] 2024-04-06 15:29:56 2024-04-06 15:29:56 Outpatient [facility] [id number] Fidel Valerio 2024-04-02 11:08:55 2024-04-02 11:08:55 Outpatient [facility] [id number] Fidel Valerio 2024-03-24 15:00:00 2024-03-24 15:00:00 Outpatient R RICHARD-MALCOM S, ILANA RICHARD-MALCOM S, ILANA [facility] [id number] [facility] 2023-10-03 16:00:00 2023-10-03 16:00:00 Outpatient DEEPAK GIANG [id number] [facility] 2023-09-30 00:00:00 2023-09-30 00:00:00 Telephone Dilia Escobar [facility] [id number] [id number] [id number] [facility] 2023-09-10 00:00:00 2023-09-10 00:00:00 Outpatient DEEPAK GIANG [id number] [facility] 2023-08-14 14:00:00 2023-08-14 14:00:00 Outpatient DEEPAK GIANG [id number] [facility] 2023-07-23 20:48:00 2023-07-23 21:07:00 Emergency X LOKESH SERNA [facility] ERT [id number] [facility] 2023-07-23 20:48:00 2023-07-23 21:07:00 Emergency Lokesh Serna [facility] [id number] 350.1.13.10 [id number] [id number] [facility] 2023-02-18 13:30:00 2023-02-18 13:30:00 Outpatient Bradford ESCOABRSAMIREN [facility] [id number] [facility] 2022-12-23 15:40:00 2022-12-23 16:00:00 [facility] [id number] 350.1.13.10 4.2.7.2.686 [id number] [facility] 2022-12-23 15:40:00 2022-12-23 15:40:00 Outpatient Bradford [facility] [id number] [facility] 2022-11-13 10:00:00 2022-11-13 10:00:00 Outpatient JACINDA SNEED [facility] [id number] [facility] 2022-09-17 11:11:23 2022-09-17 23:59:00 Hospital Encounter Freddie [facility] JULIO?[facility] [id number] 350.1.13.10 4.2.7.2.686 [id number] [facility] 2022-09-17 11:11:23 2022-09-17 23:59:00 Hospital Encounter Freddie [facility] JULIO?[facility] [id number] 350.1.13.10 4.2.7.2.686 [id number] [facility] 2022-09-17 11:11:22 2022-09-17 23:59:00 Outpatient R FREDDIE [facility] [id number] [facility] 2022-09-17 11:11:22 2022-09-17 23:59:00 [facility] [id number] 350.1.13.10 4.2.7.2.686 [id number] [facility] 2022-09-17 11:00:00 2022-09-17 11:20:00 Urgent Care Shira Frazier Unknown, Attending [facility] [id number] 350.1.13.10 4.2.7.2.686 [id number] [facility] 2022-09-17 00:00:00 2022-09-17 00:00:00 Letter (Out) Shira Frazier [facility] JULIO?[facility] [id number] 350.1.13.10 4.2.7.2.686 [id number] [facility] 2022-09-14 20:20:00 2022-09-14 20:43:08 Outpatient R SHIRA FRAZIER [facility] [id number] [facility] 2022-09-14 20:20:00 2022-09-14 20:40:00 Urgent Care Shira Frazier, Attending [facility] [id number] 350.1.13.10 4.2.7.2.686 [id number] [facility] 2022-08-27 13:45:00 2022-08-27 13:45:00 Outpatient R [facility] [id number] [facility] 2022-08-20 15:30:00 2022-08-20 15:30:00 Outpatient R SHERRIE CASILLAS [facility] [id number] [facility] 2022-08-20 13:30:00 2022-08-20 13:30:00 Outpatient R SHERRIE [facility]ILLAS [facility] [id number] [facility] 2022-08-13 10:30:00 2022-08-13 10:45:00 Swaging Machine Operator Visit 2, Adc Lab Henrry Buissica [facility] [id number] 350.1.13.10 4.2.7.2.686 [id number] [facility] 2022-08-13 09:30:00 2022-08-13 10:29:02 Outpatient R HAO [facility] [id number] [facility] 2022-08-13 09:30:00 2022-08-13 10:29:02 Office Visit Henrry Buissica [facility] [id number] 350.1.13.10 4.2.7.2.686 [id number] [facility] 2022-08-07 00:00:00 2022-08-07 00:00:00 Transition of Care Paola [facility]bar[facility] [id number] 350.1.13.10 4.2.7.2.686 [id number] [facility] 2022-08-01 19:12:00 2022-08-04 14:08:00 Inpatient X KHALIF RITTER [facility] [id number] [facility] Services 2022-08-01 19:12:00 2022-08-04 14:08:00 Hospital Encounter Gregory Davila Joseph [facility] 1.2840.114 350.1.13.10 4.2.7.2.686 [id number] [facility] 2022-08-03 12:14:00 2022-08-03 15:16:00 Surgery Sherrie Casillas [facility] 1.2840.114 350.1.13.10 4.2.7.2.686 [id number] [facility] 2022-08-02 00:00:00 2022-08-02 00:00:00 Patient Secure Msg Doctor Unassigned, Hector [facility] 1.2.840.114 350.1.13.10 4.2.7.2.686 [id number] [facility] 2022-07-31 00:00:00 2022-07-31 00:00:00 Telephone EscobarDilia [facility] BU[facility] 1.2.840.114 350.1.13.10 4.2.7.2.686 [id number] [facility] 2022-07-27 00:00:00 2022-07-27 00:00:00 Orders Only Doctor Unassigned, Hector [facility] 1.2.840.114 350.1.13.10 4.2.7.2.686 [id number] [id number] [facility] 2022-07-20 00:00:00 2022-07-20 00:00:00 Telephone Luz Dilia [facility] 1.2840.114 350.1.13.10 4.2.7.2.686 [id number] 134 [id number] [facility] 2022-06-27 11:15:00 2022-06-27 12:14:57 Outpatient R DILIA ESCOBAR [facility] [id number] [facility] 2022-06-27 11:15:00 2022-06-27 12:14:57 Routine Visit Dilia Escobar [facility] BUILDING 1.2840.114 350.1.13.10 4.2.7.2.686 [id number] 134 [id number] [facility] 2022-06-27 00:00:00 2022-06-27 00:00:00 Orders Only Doctor Unassigned, Hector [facility] 1.2.840.114 350.1.13.10 4.2.7.2.686 [id number] [id number] [facility] 2022-06-08 00:00:00 2022-06-08 00:00:00 Orders Only Doctor Unassigned, Hector [facility] 1.2.840.114 350.1.13.10 4.2.7.2.686 [id number] 009 [id number] [facility] 2022-06-07 10:00:00 2022-06-07 10:00:00 Outpatient Bradford [facility] [id number] [facility] 2022-06-05 11:02:00 2022-06-06 19:55:00 Hospital Encounter Dilia Escobar Vivian L [facility] 1.2.840.114 350.1.13.10 4.2.7.2.686 [id number] [id number] [facility] 2022-06-05 00:00:00 2022-06-05 00:00:00 Orders Only Doctor Unassigned, Hector [facility] 1.2.840.114 350.1.13.10 4.2.7.2.686 [id number] [facility] 2022-06-04 15:45:00 2022-06-04 16:11:05 [facility] [id number] 2022-06-04 15:45:00 2022-06-04 16:11:05 Routine Visit Donell Brun[facility] 1.2840.114 350.1.13.10 4.2.7.2.686 [id number] 134 [id number] [facility] 2022-06-04 15:45:00 2022-06-04 16:11:05 Outpatient Bradford BR[facility]SON [facility] [id number] [facility] 2022-06-03 16:08:00 2022-06-03 17:50:00 Outpatient X RICHARD-MALCOM S, ILANA RICHARD-MALCOM S, ILANA [facility] [id number] [facility] 2022-06-03 16:08:00 2022-06-03 17:50:00 Emergency Danilo Diallo Richard-Malcom s, Ilana [facility] 1.2.840.114 350.1.13.10 4.2.7.2.686 [id number] [facility] 2022-06-02 21:28:00 2022-06-02 22:39:00 Outpatient X RICHARD-MALCOM S, ILANA RICHARD-MALCOM S, ILANA [facility] [id number] [facility] 2022-06-02 21:28:00 2022-06-02 22:39:00 Emergency Richard-Malcom s, [facility] 1.2.840.114 350.1.13.10 4.2.7.2.686 [id number] [id number] [facility] 2022-05-31 16:00:00 2022-05-31 16:48:49 Routine Visit Samir Escobaren Jamarcus [facility] 1.2.840.114 350.1.13.10 4.2.7.2.686 [id number] 134 [id number] [facility] 2022-05-31 16:00:00 2022-05-31 16:48:49 Outpatient R ESCOBAR DILIA [facility] [id number] [facility] 2022-05-31 10:15:00 2022-05-31 10:30:00 Swaging Machine Operator Visit 1, Adc Lab EscobarDilia [facility] 1.2.840.114 350.1.13.10 4.2.7.2.686 [id number] [facility] 2022-05-31 00:00:00 2022-05-31 00:00:00 Orders Only Doctor Unassigned, Hector [facility] 1.2.840.114 350.1.13.10 4.2.7.2.686 [id number] [facility] 2022-05-17 16:15:00 2022-05-17 16:36:14 Outpatient R DILIA ESCOBAR [facility] [id number] [facility] 2022-05-17 16:15:00 2022-05-17 16:36:14 Routine Visit Dilia [facility] 1.2.840.114 350.1.13.10 4.2.7.2.686 [id number] [facility] 2022-05-05 20:52:00 2022-05-05 23:05:00 Outpatient P RICHARD-MALCOM S, ILANA RICHARD-MALCOM S, ILANA [facility] [id number] [facility] 2022-05-05 20:52:00 2022-05-05 23:05:00 Hospital Encounter Richard-Malcom s, Ilana [facility] 1.2.840.114 350.1.13.10 4.2.7.2.686 [id number] [facility] 2022-05-03 11:00:00 2022-05-03 11:00:00 [facility]ine [facility] 1.2.840.114 350.1.13.10 4.2.7.2.686 [id number] 134 [id number] [facility] 2022-05-03 11:00:00 2022-05-03 10:57:45 Outpatient R DONELL BRUNSON [facility] [id number] [facility] 2022-04-19 13:15:00 2022-04-19 13:22:27 Outpatient R DILIA ESCOBAR [facility] [id number] [facility] 2022-04-19 13:15:00 2022-04-19 13:22:27 [facility] 1.2.840.114 350.1.13.10 4.2.7.2.686 [id number] 134 [id number] [facility] 2022-04-18 08:59:00 2022-04-18 14:40:00 Outpatient P DILIA ESCOBAR [facility] [id number] [facility] 2022-04-18 08:59:00 2022-04-18 14:40:00 Hospital Encounter Dilia Escobar [facility] 1.2.840.114 350.1.13.10 4.2.7.2.686 [id number] [facility] 2022-04-13 00:00:00 2022-04-13 00:00:00 Telephone Dilia Escobar [facility] BUILDING 1.2.840.114 350.1.13.10 4.2.7.2.686 [id number] 134 [id number] [facility] 2022-04-11 08:48:00 2022-04-11 14:55:00 Outpatient P DILIA ESCOBAR [facility] [id number] [facility] 2022-04-11 08:48:00 2022-04-11 14:55:00 Hospital Encounter Dilia Escobar [facility] 1.2.840.114 350.1.13.10 4.2.7.2.686 [id number] [id number] [facility] 2022-04-05 08:30:00 2022-04-05 08:45:00 Swaging Machine Operator Visit 2, Adc Lab Dilia Escobar [facility] N[facility] BUILD[facility] 1.2.840.114 350.1.13.10 4.2.7.2.686 [id number] [facility] 2022-04-05 08:30:00 2022-04-05 08:30:00 Outpatient R DILIA ESCOBAR [facility] [id number] [facility] 2022-04-04 19:14:00 2022-04-04 21:37:00 Outpatient X DILIA ESCOBAR [facility] [id number] [facility] 2022-04-04 19:14:00 2022-04-04 21:37:00 Emergency [place], Jorge Diallo, [facility]ilo [facility] 1.2.840.114 350.1.13.10 4.2.7.2.686 [id number] [facility] 2022-04-04 09:02:00 2022-04-04 15:30:00 Outpatient P DILIA ESCOBAR [facility] [id number] [facility] 2022-04-04 09:02:00 2022-04-04 15:30:00 Hospital Encounter Dilia Escobar [facility] 1.2.840.114 350.1.13.10 4.2.7.2.686 [id number] [facility] 2022-04-02 00:00:00 2022-04-02 00:00:00 Telephone Dilia Escobar [facility]ESS[facility] NAL BUILDING 1.2.840.114 350.1.13.10 4.2.7.2.686 [id number] 134 [id number] [facility] 2022-03-30 08:30:00 2022-03-30 08:45:00 Swaging Machine Operator Visit 2, Adc Lab Luz [facility] NAL BUILDING 1.2.840.114 350.1.13.10 4.2.7.2.686 [id number] [facility] 2022-03-30 08:30:00 2022-03-30 08:30:00 Outpatient R DILIA ESCOBAR [facility] [id number] [facility] 2022-03-30 00:00:00 2022-03-30 00:00:00 Case Management Dilia Escobar [facility] BUILDING 1.2840.114 350.1.13.10 4.2.7.2.686 [id number] 134 [id number] [facility] 2022-03-29 10:45:00 2022-03-29 11:19:40 Outpatient R DILIA ESCOBAR [facility] [id number] [facility] 2022-03-29 10:45:00 2022-03-29 11:19:40 Routine Visit Dilia Escobar [facility] 1.2840.114 350.1.13.10 4.2.7.2.686 [id number] 134 [id number] [facility] 2022-03-29 00:00:00 2022-03-29 00:00:00 Orders Only Doctor Unassigned, Hector [facility] 1.2840.114 350.1.13.10 4.2.7.2.686 [id number] [facility] 2022-03-17 20:58:00 2022-03-18 00:00:00 [facility] [id number] [facility] 2022-03-17 20:58:00 2022-03-18 00:00:00 Emergency Dilia Escobar [facility] 1.2840.114 350.1.13.10 4.2.7.2.686 [id number] [facility] 2022-03-17 00:00:00 2022-03-17 00:00:00 Orders Only Doctor Unassigned, Hector [facility] 1.2840.114 350.1.13.10 4.2.7.2.686 [id number] [facility] 2022-03-08 11:00:00 2022-03-08 12:00:00 Swaging Machine Operator Visit Ultrasound, Jarred-Mfmillicent Jesse Solo Ikuvbogie [facility] DOCUMENT PROCESSOR [facility]NAL [facility] 1..840.114 350.1.13.10 4.2.7.2.686 [id number] [facility] 2022-03-08 11:00:00 2022-03-08 11:00:00 Outpatient P [facility] [id number] [facility] 2022-03-08 11:00:00 2022-03-08 11:00:00 Outpatient P JESSE SOLO [facility] [id number] [facility] 2022-03-02 11:00:00 2022-03-02 11:00:00 Outpatient P [facility] [id number] [facility] 2022-03-02 11:00:00 2022-03-02 11:00:00 Outpatient P [facility] [id number] [facility] 2022-03-02 00:00:00 2022-03-02 00:00:00 Telephone Dilia Escobar [facility] 1..840.114 350.1.13.10 4.2.7.2.686 [id number] 134 [id number] [facility] 2022-03-01 11:15:00 2022-03-01 11:43:49 Outpatient R BOY DONELL [facility] [id number] [facility] 2022-03-01 11:15:00 2022-03-01 11:43:49 Routine Visit Donell Brunson [facility] 1..840.114 350.1.13.10 4.2.7.2.686 [id number] 134 [id number] [facility] 2022-03-01 00:00:00 2022-03-01 00:00:00 Telephone Dilia Escobar [facility] 1..840.114 350.1.13.10 4.2.7.2.686 [id number] 134 [id number] [facility] 2022-03-01 00:00:00 2022-03-01 00:00:00 Orders Only Doctor Unassigned, Hector [facility] 1.2840.114 350.1.13.10 4.2.7.2.686 [id number] [id number] [facility] 2022-02-26 00:00:00 2022-02-26 00:00:00 Telephone Arabella Larose [facility] 1.284.114 350.1.13.10 4.2.7.2.686 [id number] 134 [id number] [facility] 2022-02-17 19:48:00 2022-02-17 22:10:00 Outpatient X ARABELLA LAROSE [facility] [id number] [facility] 2022-02-17 19:48:00 2022-02-17 22:10:00 Emergency Paola Wolf Vivian Fina [facility] 1.284.114 350.1.13.10 4.2.7.2.686 [id number] [id number] [facility] 2022-02-16 00:00:00 2022-02-16 00:00:00 Telephone Donell Brunson [facility] 1.2840.114 350.1.13.10 4.2.7.2.686 [id number] 134 [id number] [facility] 2022-02-16 00:00:00 2022-02-16 00:00:00 Telephone Donell Brunson [facility] 1.2840.114 350.1.13.10 4.2.7.2.686 [id number] 134 [id number] [facility] 2022-02-13 00:00:00 2022-02-13 00:00:00 Telephone Escobar, Dilia [facility] 1.2.840.114 350.1.13.10 4.2.7.2.686 [id number] 134 [id number] [facility] 2022-02-13 00:00:00 2022-02-13 00:00:00 Telephone Dilia Escobar [facility] 1.2.840.114 350.1.13.10 4.2.7.2.686 [id number] 134 [id number] [facility] 2022-02-08 00:00:00 2022-02-08 00:00:00 Telephone Boy Donell [facility] 1.2.840.114 350.1.13.10 4.2.7.2.686 [id number] 134 [id number] [facility] 2022-02-07 00:00:00 2022-02-07 00:00:00 Jeremiah Carranza [facility] DOCUMENT PROCESSOR [facility] 1.2.840.114 350.1.13.10 4.2.7.2.686 [id number] [facility] 2022-02-06 00:00:00 2022-02-06 00:00:00 Case Management Donell Brunson [facility] 1.2.840.114 350.1.13.10 4.2.7.2.686 [id number] 134 [id number] [facility] 2022-02-03 00:00:00 2022-02-03 00:00:00 Case Management Donell Brunson [facility] 1.2.840.114 350.1.13.10 4.2.7.2.686 [id number] [facility] 2022-02-02 08:45:00 2022-02-02 09:00:00 Swaging Machine Operator Visit 2, Adc Lab Escobar, Dilia [facility] 1.2.840.114 350.1.13.10 4.2.7.2.686 [id number] [facility] 2022-02-02 08:45:00 2022-02-02 08:45:00 Outpatient R [facility] [id number] [facility] 2022-02-02 00:00:00 2022-02-02 00:00:00 Case Management Dilia Escobar [facility] 1.2.840.114 350.1.13.10 4.2.7.2.686 [id number] 134 [id number] [facility] 2022-02-01 14:00:00 2022-02-01 15:00:03 Initial Visit Dilia Escobar [facility] 1.2.840.114 350.1.13.10 4.2.7.2.686 [id number] 134 [id number] [facility] 2022-02-01 14:00:00 2022-02-01 15:00:03 Outpatient R LUZ [facility] [id number] [facility] 2022-02-01 00:00:00 2022-02-01 00:00:00 Orders Only Doctor Unassigned, Hector [facility] 1.2840.114 350.1.13.10 4.2.7.2.686 [id number] [facility] 2021-05-30 10:15:00 2021-05-30 10:15:00 Outpatient R JEREMIAH WOLF [facility] [id number] [facility] 2021-05-10 00:00:00 2021-05-10 00:00:00 Orders Only Doctor Unassigned, Hector [facility] 1.2840.114 350.1.13.10 4.2.7.2.686 [id number] [facility] 2021-05-05 11:00:00 2021-05-05 11:37:32 Outpatient R JEREMIAH WOLF [facility] [id number] [facility] 2021-05-05 10:53:11 2021-05-05 11:37:32 Routine Visit Jeremiah Wolf [facility] DOCUMENT PROCESSOR [facility] & CHILD [facility] 1.2.840.114 350.1.13.10 4.2.7.2.686 [id number] [facility] 2021-04-14 21:03:00 2021-04-16 19:10:00 Hospital Encounter Jose Miguel [facility] 1.2.840.114 350.1.13.10 4.2.7.2.686 [id number] 134 [id number] [facility] 2021-04-13 10:01:27 2021-04-13 16:30:59 Routine Visit Risk, Ang-Rmchp-N p/High Cheli Donohue [facility] DOCUMENT PROCESSOR [facility] MATERNAL & CHILD [facility] 1.2.840.114 350.1.13.10 4.2.7.2.686 [id number] 107 [id number] [facility] 2021-04-13 10:00:00 2021-04-13 16:30:59 Outpatient CHELI MENDEZ [facility] [id number] [facility] 2021-04-13 10:00:00 2021-04-13 10:00:00 Outpatient R [facility] [id number] [facility] 2021-04-13 10:00:00 2021-04-13 10:00:00 Outpatient R CHELI DONOHUE [facility] [id number] [facility] 2021-04-07 19:02:00 2021-04-07 20:36:00 Outpatient X ARABELLA LAROSE [facility] [id number] [facility] 2021-04-07 19:02:00 2021-04-07 20:36:00 Hospital Encounter Arabella Larose [facility] 1.84.114 350.1.13.10 4.2.7.2.686 [id number] [facility] 2021-04-06 09:15:00 2021-04-06 09:31:52 Outpatient R JOSELYN WATKINS [facility] [id number] [facility] 2021-04-06 08:52:24 2021-04-06 09:31:52 Routine Visit Provider, Joselyn Cespedes [facility] DOCUMENT PROCESSOR [facility] 1..114 350.1.13.10 4.2.7.2.686 [id number] 107 [id number] [facility] 2021-04-01 19:08:00 2021-04-03 17:20:00 Inpatient X EDSON, REGINALDO VASQUEZ, [facility] [id number] [facility] 2021-04-01 19:08:00 2021-04-03 17:20:00 Hospital Encounter Miguel Garcia, Benja Vasquez, [facility] 1.84.114 350.1.13.10 4.2.7.2.686 [id number] 135 [id number] [facility] 2021-04-03 13:49:47 2021-04-03 14:19:47 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, [facility] Us Room Benja Ahn Chasey [facility] 1..114 350.1.13.10 4.2.7.2.686 [id number] [facility] 2021-04-03 11:00:00 2021-04-03 11:00:00 Outpatient P [facility] [id number] [facility] 2021-04-01 00:00:00 2021-04-01 00:00:00 Orders Only Doctor Unassigned, Hector [facility] 1.2840.114 350.1.13.10 4.2.7.2.686 [id number] [facility] 2021-03-31 09:45:00 2021-03-31 11:21:03 Outpatient CHELI MENDEZ [facility] [id number] [facility] 2021-03-31 09:45:00 2021-03-31 11:21:03 Outpatient CHELI MENDEZ [facility] [id number] [facility] 2021-03-31 09:24:13 2021-03-31 11:21:03 Routine Visit Cong Bradley-Rmchp Provider/Hi Cheli Figueroa [facility] DOCUMENT PROCESSOR [facility] MATERNAL & CHILD [facility] 1.2840.114 350.1.13.10 4.2.7.2.686 [id number] [facility] 2021-03-27 19:37:00 2021-03-27 22:24:00 Emergency Dilia Escobar [facility] 1.2.840.114 350.1.13.10 4.2.7.2.686 [id number] [facility] 2021-03-24 00:00:00 2021-03-24 00:00:00 Orders Only Doctor Unassigned, Hector [facility] 1.2840.114 350.1.13.10 4.2.7.2.686 [id number] [facility] 2021-03-23 15:50:59 2021-03-23 16:13:30 Routine Visit Jeremiah Wolf [facility] DOCUMENT PROCESSOR [facility] MATERNAL & CHILD HEALTH [facility] 1.2.840.114 350.1.13.10 4.2.7.2.686 [id number] [facility] 2021-03-23 16:00:00 2021-03-23 16:00:00 Outpatient R JEREMIAH WOLF [facility] [id number] [facility] 2021-03-10 09:53:16 2021-03-10 10:14:28 Routine Visit Jeremiah Wolf [facility] DOCUMENT PROCESSOR [facility] & CHILD [facility] 1..840.114 350.1.13.10 4.2.7.2.686 [id number] [facility] 2021-03-10 09:30:00 2021-03-10 09:30:00 Outpatient R JEREMIAH WOLF [facility] [id number] [facility] 2021-02-23 10:29:34 2021-02-23 10:58:40 Routine Visit Jeremiah Wolf [facility] DOCUMENT PROCESSOR [facility] & CHILD [facility] 1..840.114 350.1.13.10 4.2.7.2.686 [id number] 107 [id number] [facility] 2021-02-23 10:45:00 2021-02-23 10:45:00 Outpatient R JEREMIAH WOLF [facility] [id number] [facility] 2021-02-09 07:58:58 2021-02-09 09:03:46 Routine Visit Zach Clark [facility] DOCUMENT PROCESSOR [facility] & CHILD [facility] 1..840.114 350.1.13.10 4.2.7.2.686 [id number] [facility] 2021-02-09 08:00:00 2021-02-09 08:00:00 Outpatient R ZACH CLARK [facility] [id number] [facility] 2021-01-24 00:00:00 2021-01-24 00:00:00 Telephone Jeremiah Wolf [facility] DOCUMENT PROCESSOR [facility] 1..840.114 [id number] [facility] 2021-01-23 16:00:00 2021-01-23 16:00:00 Outpatient R ZACH CLARK [facility] [id number] [facility] 2021-01-17 14:30:00 2021-01-17 14:30:00 Outpatient R [facility] [id number] [facility] 2021-01-10 10:45:00 2021-01-10 10:45:00 Outpatient R ZACH CLARK [facility] [id number] [facility] 2021-01-04 10:30:00 2021-01-04 10:30:00 Outpatient R [facility] [id number] [facility] 2020-12-28 10:00:00 2020-12-28 10:00:00 Outpatient R [facility] [id number] [facility] 2020-12-26 08:30:00 2020-12-26 08:30:00 Outpatient P [facility] [id number] [facility] 2020-12-21 09:30:00 2020-12-21 09:30:00 Outpatient R [facility] [id number] [facility] 2020-12-20 11:00:00 2020-12-20 11:00:00 Outpatient R JEREMIAH WOLF [facility] [id number] [facility] 2020-12-14 13:30:00 2020-12-14 13:30:00 Outpatient R [facility] [id number] [facility] 2020-12-13 15:30:00 2020-12-13 15:30:00 Outpatient R ROX ZACH [facility] [id number] [facility] 2020-12-06 13:30:00 2020-12-06 13:30:00 Outpatient R [facility] [id number] [facility] 2020-11-30 08:00:00 2020-11-30 08:00:00 Outpatient R [facility] [id number] [facility] 2020-11-23 10:00:00 2020-11-23 10:00:00 Outpatient P [facility] [id number] [facility] 2020-11-22 10:45:00 2020-11-22 10:45:00 Outpatient JEREMIAH MEANS [facility] [id number] [facility] 2020-11-16 10:00:00 2020-11-16 10:00:00 Outpatient P [facility] [id number] [facility] 2020-11-09 11:30:00 2020-11-09 11:30:00 Outpatient NÉSTOR LOPEZ SHANNON [facility] [id number] [facility] 2020-10-25 11:00:00 2020-10-25 11:00:00 Outpatient JEREMIAH MEANS [facility] [id number] [facility] 2020-10-20 09:30:00 2020-10-20 09:30:00 Outpatient JEREMIAH MEANS [facility] [id number] [facility] 2020-09-20 14:00:00 2020-09-20 14:00:00 Outpatient JEREMIAH MEANS [facility] [id number] [facility] 2019-10-27 18:22:43 2019-10-27 19:15:00 Emergency X JUAN, K JUAN, K [facility] ERT [id number] [facility] Results Test Description Test Time Test Comments Results Result Co mments Source [facility] MOLECULAR [id number] 21:15:18* Test Item Value Reference Range Interpretation Comme nts POCT Molecular Strep (test c ode = 21112-7) Negative Negative Lab Interpretation (test cod e = 93063-2) Normal [facility] MOLECULAR [id number] 01:34:47* Test Item Value Reference Range Interpretation Comme nts POCT Molecular FluA (test co de = 98493-2) Negative Negative POCT Molecular FluB (test co de = 66757-8) Negative Negative Lab Interpretation (test cod e = 35008-3) Normal [facility] MOLECULAR [id number] 01:27:22* Test Item Value Reference Range Interpretation Comme nts POCT Molecular Strep (test c ode = 67025-2) Negative Negative Lab Interpretation (test cod e = 78562-6) Normal [facility] SARS-COV-2 ANTIGEN (BINAX NOW)2022-09-15 01:24:00* Test Item Value Reference Range Interpretation Comme nts POCT SARS-COV-2 ANTIGEN (test code = 18210-3) Not Detected Not Detected On board controls acceptable with C Line (test code = 3574) Yes ADDIE (test code = ADDIE) accurate developme nt and interpretation of all internal controls Lab Interpretation (test code = 59581-8) Normal [facility] UNCONJUGATED/BILI [id number] 04:04:10* Test Item Value Reference Range Interpretation Comme nts BILI CONJ (test code = 8572263722) 2.0 mg/dL 0.0-0.3 H BILI UNCON (test code = 0532242731) 1.1 mg/dL 0.1-1.1 Lab Interpretation (test cod e = 62212-5) Abnormal [facility] UNCONJUGATED/BILI [id number] 04:04:10* Test Item Value Reference Range Interpretation Comme nts BILI CONJ (test code = 6305071279) 2.0 mg/dL 0.0-0.3 H BILI UNCON (test code = 2352097996) 1.1 mg/dL 0.1-1.1 Lab Interpretation (test cod e = 71614-3) [facility] 03:17:08* Test Item Value Reference Range Interpretation Comme nts LIPASE (test code = 6958197715) 0-220 H Lab Interpretation (test cod e = 68076-0) [facility]normal [facility] 03:17:08* Test Item Value Reference Range Interpretation Comme nts LIPASE (test code = 7455152968) 0-220 H Lab Interpretation (test cod e = 20361-8) Abnormal [facility] CenterSALICYLATE2023-03-02 02:52:18 SALICYLATE<10mg/L08/01/2022 8:52 PM [facility]ATORYTherapeutic Range: ? Analgesic and Antipyretic Use ? 20- 100 mg/L ? ? Anti-Inflammatory Use ? 100-250 mg/L Toxic Range: ? Greater than 300 mg/LUnSt. [facility] CenterSALICYLATE2023-03-02 02:52:18SALICYLATE<10mg/L08/01/2022 8:52 PM [facility] LABOR[facility]ORYTherapeutic Range: ? Analgesic and Antipyretic Use ? 20-100 mg/L ? ? Anti-Inflammatory Use ? 100-250 mg/L Toxic Range: ? Greater than 300 mg/L [facility] CenterACETAMINOPHEN2023-03-02 02:52:08* Test Item Value Reference Range Interpretation Comme nts ACETAMINOP (test code = 4225102593) 10.0-30.0 L ADDIE (test code = ADDIE) Toxic: Greater huey n 200 ug/mL @ 4 hour post ingestion or greater than 50 ug/mL @ 12 hour post ingestion Lab Interpretation (test code = 14420-9) [facility]normal [facility] CenterACETAMINOPHEN2023-03-02 02:52:08* Test Item Value Reference Range Interpretation Comme nts ACETAMINOP (test code = 8401939231) 10.0-30.0 L ADDIE (test code = ADDIE) Toxic: Greater huey n 200 ug/mL @ 4 hour post ingestion or greater than 50 ug/mL @ 12 hour post ingestion Lab Interpretation (test code = 35780-0) Abnormal [facility] CenterTROPONIN [id number] 02:37:39* Test Item Value Reference Range Interpretation Comme nts TROPONIN I (test code = 7869297359) 0.003 ng/mL <=0.034 ADDIE (test code = [...] of biotin. Lab Interpretation (test code = 20123-3) Normal [facility] CenterTROPONIN [id number] 02:37:39* Test Item Value Reference Range Interpretation Comme nts TROPONIN I (test code = 2632449250) 0.003 ng/mL <=0.034 ADDIE (test code = [...] of biotin. Lab Interpretation (test code = 11978-1) Normal [facility] CenterN-TERMINAL [id number] 02:34:00* Test Item Value Reference Range Interpretation Comme nts NT-proBNP (test code = 8153878891) 75 pg/mL <=125 ADDIE (test code = ADDIE) Biotin has been reported to cause a negative bias, interpret results relative to patient's use of biotin. Lab Interpretation (test code = 90908-5) Normal [facility] CenterN-TERMINAL [id number] 02:34:00* Test Item Value Reference Range Interpretation Comme nts NT-proBNP (test code = 7705493559) 75 pg/mL <=125 ADDIE (test code = ADDIE) Biotin has been reported to cause a negative bias, interpret results relative to patient's use of biotin. Lab Interpretation (test code = 75575-1) Normal [facility] CenterACTIVATED PARTIAL THRMPLAS [id number] 02:30:38* Test Item Value Reference Range Interpretation Comme [facility] APTT Patient (test code = 3173-2) 27 See_Comment [Automated message] The system which generated this result transmitted reference range: 23 - 38 Seconds. The reference range was not used to interpret this result as normal/abnormal. ADDIE (test code = ADDIE) The [facility] patient population mean normal value for aPTT is 30 seconds. Lab Interpretation (test code = 63482-9) Normal [facility] CenterACTIVATED PARTIAL THRMPLAS [id number] 02:30:38* Test Item Value Reference Range Interpretation Comme [facility] APTT Patient (test code = 3173-2) 27 See_Comment [Automated message] The system which generated this result transmitted reference range: 23 - 38 Seconds. The reference range was not used to interpret this result as normal/abnormal. ADDIE (test code = ADDIE) The [facility] patient population mean normal value for aPTT is 30 seconds. Lab Interpretation (test code = 38114-1) Normal [facility] CenterPROTHROMBIN TIME / [id number] 02:28:42* Test Item Value Reference Range Interpretation Comme [facility] PROTIME PATIENT (test code = 5964-2) 12.8 See_Comment [Automated Papirusa ge] The system which generated this result transmitted reference range: 12.0 - 14.7 Seconds. The reference range was not used to interpret this result as normal/abnormal. INR (test code = 6301-6) 1.0 Normal INR <1.1; Warfarin Therapeutic range 2.0 to 3.0 or 2.5 to 3.5, depending upon the indications. Lab Interpretation (test code = 55253-5) Normal [facility] CenterPROTHROMBIN TIME / [id number] 02:28:42* Test Item Value Reference Range Interpretation Comme [facility] PROTIME PATIENT (test code = 5964-2) 12.8 See_Comment [Automated messa ge] The system which generated this result transmitted reference range: 12.0 - 14.7 Seconds. The reference range was not used to interpret this result as normal/abnormal. INR (test code = 6301-6) 1.0 Normal INR <1.1; Warfarin Therapeutic range 2.0 to 3.0 or 2.5 to 3.5, depending upon the indications. Lab Interpretation (test code = 85943-9) Normal [facility]. METABOLIC PANEL (15070)2022-08-02 02:25:20* Test Item Value Reference Range Interpretation Comme nts NA (test code = 2661833046) 140 mmol/L 135-145 K (test code = 0836633904) 3.8 mmol/L 3.5-5.0 CL (test code = 6323697801) 103 mmol/L 98-108 CO2 TOTAL (test code = 8610610881) 27 mmol/L 23-31 AGAP (test code = 3474084688) 10 2-16 BUN (test code = 0808785992) 10 mg/dL 7-23 GLUCOSE (test code = 2413804729) 89 mg/dL 70-110 CREATININE (test code = 8103338173) 0.73 mg/dL 0.50-1.04 TOTAL BILI (test code = 0441703910) 4.9 mg/dL 0.1-1.1 H CALCIUM (test code = 8968024038) 8.2 mg/dL 8.6-10.6 L T PROTEIN (test code = 2902502205) 7.0 g/dL 6.3-8.2 ALBUMIN (test code = 9358917615) 4.1 g/dL 3.5-5.0 ALK PHOS (test code = 7045339577) 270 U/L 34-122 H ALTv (test code = 1742-6) 204 U/L 5-35 H AST(SGOT) (test code = 6897837550) 93 U/L 13-40 H eGFR (test code = 5101768980) 94.3 mL/min/1.73m2 ADDIE (test code = ADDIE) [...] imaging tests). Lab Interpretation (test code = 94349-7) Abnormal [facility]. METABOLIC PANEL (32175)2022-08-02 02:25:20* Test Item Value Reference Range Interpretation Comme nts NA (test code = 8310881964) 140 mmol/L 135-145 K (test code = 7768901097) 3.8 mmol/L 3.5-5.0 CL (test code = 6886436187) 103 mmol/L 98-108 CO2 TOTAL (test code = 5322097632) 27 mmol/L 23-31 AGAP (test code = 5284129463) 10 2-16 BUN (test code = 3356662279) 10 mg/dL 7-23 GLUCOSE (test code = 0837340685) 89 mg/dL 70-110 CREATININE (test code = 2093805936) 0.73 mg/dL 0.50-1.04 TOTAL BILI (test code = 8503995484) 4.9 mg/dL 0.1-1.1 H CALCIUM (test code = 4301298924) 8.2 mg/dL 8.6-10.6 L T PROTEIN (test code = 6641020570) 7.0 g/dL 6.3-8.2 ALBUMIN (test code = 0752560848) 4.1 g/dL 3.5-5.0 ALK PHOS (test code = 5647372327) 270 U/L 34-122 H ALTv (test code = 1742-6) 204 U/L 5-35 H AST(SGOT) (test code = 5293477435) 93 U/L 13-40 H eGFR (test code = 4825145243) 94.3 mL/min/1.73m2 ADDIE (test code = ADDIE) [...] imaging tests). Lab Interpretation (test code = 39129-2) Abnormal [facility] WITH [id number] 02:10:40* Test Item Value Reference Range Interpretation Comme nts WBC (test code = 6690-2) 7.08 See_Comment [Automated HealthyOut] The system which generated this result transmitted reference range: 4.30 - 11.10 10*3/?L. The reference range was not used to interpret this result as normal/abnormal. RBC (test code = 789-8) 4.31 See_Comment [Automated [employer]] The system which generated this result transmitted [...] 32.7 g/dL 31.6-35.1 RDW-SD (test code = 20203-2) 49.3 fL 39.0-49.9 RDW-CV (test code = 788-0) 16.2 % 12.0-15.5 H PLT (test code = 777-3) 249 See_Comment [Automated messa ge] The system which generated this result transmitted reference range: 166 - 358 10*3/?L. The reference range was not used to interpret this result as normal/abnormal. MPV (test code = 14793-9) 11.9 fL 9.5-12.9 NRBC/100 WBC (test code = 5728323448) 0.0 See_Comment [Automated ChupaMobile ssage] The system which generated this result transmitted reference range: 0.0 - 10.0 /100 WBCs. The reference range was not used to interpret this result as normal/abnormal. NRBC x10^3 (test code = 8889160141) See_Comment [Automated messa ge] The system which generated this result transmitted reference range: 10*3/?L. The reference range was not used to interpret this result as normal/abnormal. GRAN MAT (NEUT) % (test code = 770-8) 65.1 % IMM GRAN % (test code = 0207052567) 0.10 % LYMPH % (test code = 736-9) 24.0 % MONO % (test code = 5905-5) 5.5 % EOS % (test code = 713-8) 4.7 % BASO % (test code = 706-2) 0.6 % GRAN MAT x10^3(ANC) (test code = 6601880984) 4.61 10*3/uL 1.88-7.09 IMM GRAN x10^3 (test code = 1642045784) 0.00-0.06 LYMPH x10^3 (test code = 731-0) 1.70 10*3/uL 1.32-3.29 MONO x10^3 (test code = 742-7) 0.39 10*3/uL 0.33-0.92 EOS x10^3 (test code = 711-2) 0.33 10*3/uL 0.03-0.39 BASO x10^3 (test code = 704-7) 0.04 10*3/uL 0.01-0.07 Lab Interpretation (test code = 98667-2) Abnormal [facility] WITH [id number] 02:10:40* Test Item Value Reference Range Interpretation Comme nts WBC (test code = 6690-2) 7.08 See_Comment [Automated Papirusa ge] The system which generated this result transmitted reference range: 4.30 - 11.10 10*3/?L. The reference range was not used to interpret this result as normal/abnormal. RBC (test code = 789-8) 4.31 See_Comment [Automated Papirusa ge] The system which generated this result [...] 32.7 g/dL 31.6-35.1 RDW-SD (test code = 08228-4) 49.3 fL 39.0-49.9 RDW-CV (test code = 788-0) 16.2 % 12.0-15.5 H PLT (test code = 777-3) 249 See_Comment [Automated Papirusa ge] The system which generated this result transmitted reference range: 166 - 358 10*3/?L. The reference range was not used to interpret this result as normal/abnormal. MPV (test code = 90946-0) 11.9 fL 9.5-12.9 NRBC/100 WBC (test code = 8496516296) 0.0 See_Comment [Automated me ssage] The system which generated this result transmitted reference range: 0.0 - 10.0 /100 WBCs. The reference range was not used to interpret this result as normal/abnormal. NRBC x10^3 (test code = 4157409937) See_Comment [Automated messa ge] The system which generated this result transmitted reference range: 10*3/?L. The reference range was not used to interpret this result as normal/abnormal. GRAN MAT (NEUT) % (test code = 770-8) 65.1 % IMM GRAN % (test code = 5401515183) 0.10 % LYMPH % (test code = 736-9) 24.0 % MONO % (test code = 5905-5) 5.5 % EOS % (test code = 713-8) 4.7 % BASO % (test code = 706-2) 0.6 % GRAN MAT x10^3(ANC) (test code = 8674508668) 4.61 10*3/uL 1.88-7.09 IMM GRAN x10^3 (test code = 1364932014) 0.00-0.06 LYMPH x10^3 (test code = 731-0) 1.70 10*3/uL 1.32-3.29 MONO x10^3 (test code = 742-7) 0.39 10*3/uL 0.33-0.92 EOS x10^3 (test code = 711-2) 0.33 10*3/uL 0.03-0.39 BASO x10^3 (test code = 704-7) 0.04 10*3/uL 0.01-0.07 Lab Interpretation (test code = 68368-8) [facility]normal [facility] CenterPO[facility] [id number] 02:09:00* Test Item Value Reference Range Interpretation Comme nts POCT PREG (test code = 1605) negative On board controls acceptable with C Line (test code = 3574) present POCT PREG LOT # (test code = 3575) [id number] POCT PREG TEST DATE ( test code = 3576) 2023-09-01 Lab Interpretation (test cod e = 88089-4) Normal [facility] [id number] 02:09:00* Test Item Value Reference Range Interpretation Comme nts POCT PREG (test code = 1605) negative On board controls acceptable with C Line (test code = 3574) present POCT PREG LOT # (test code = 3575) [id number] POCT PREG TEST DATE ( test code = 3576) 2023-09-01 Lab Interpretation (test cod e = 61524-2) Normal [facility] [id number] 19:04:00* Test Item Value Reference Range Interpretation Comme nts POCT PREG (test code = 1605) Negative On board controls acceptable with C Line (test code = 3574) Yes POCT PREG LOT # (test code = 3575) POCT PREG TEST DATE ( test code = 3576) [facility] with [id number] 11:28:52* Test Item Value Reference Range Interpretation [...] g/dL 31.6-35.1 L RDW-SD (test code = 19992-9) 61.5 fL 39.0-49.9 H RDW-CV (test code = 788-0) 20.1 % 12.0-15.5 H PLT (test code = 777-3) See_Comment L [Automated Papirusa ge] The system which generated this result transmitted reference range: 166 - 358 10*3/?L. The reference range was not used to interpret this result as normal/abnormal. MPV (test code = 21754-2) 12.3 fL 9.5-12.9 IPF % (test code = 1107310132) 10.3 % 1.3-7.7 H Platelet count measured by fluorescence method. NRBC/100 WBC (test code = 4009984180) See_Comment [Automated [employer] ssage] The system which generated this result transmitted reference range: 0.0 - 10.0 /100 WBCs. The reference range was not used to interpret this result as normal/abnormal. NRBC x10^3 (test code = 1359795904) See_Comment [Automated Papirusa ge] The system which generated this result transmitted reference range: 10*3/?L. The reference range was not used to interpret this result as normal/abnormal. GRAN MAT (NEUT) % (test code = 770-8) 73.1 % IMM GRAN % (test code = 1010181150) 0.60 % LYMPH % (test code = 736-9) 17.3 % MONO % (test code = 5905-5) 7.5 % EOS % (test code = 713-8) 1.1 % BASO % (test code = 706-2) 0.4 % GRAN MAT x10^3(ANC) (test code = 8554432021) 9.02 10*3/uL 1.88-7.09 H IMM GRAN x10^3 (test code = 4506131244) 0.07 10*3/uL 0.00-0.06 H LYMPH x10^3 (test code = 731-0) 2.14 10*3/uL 1.32-3.29 MONO x10^3 (test code = 742-7) 0.93 10*3/uL 0.33-0.92 H EOS x10^3 (test code = 711-2) 0.13 10*3/uL 0.03-0.39 BASO x10^3 (test code = 704-7) 0.05 10*3/uL 0.01-0.07 Lab Interpretation (test code = 66160-7) Abnormal [facility] CenterADC [facility] ONLY - [id number] 07:46:31* Test Item Value Reference Range Interpretation Comme nts RPR (Qualitative) (test code = 36151-5) Nonreactive Nonreactive Lab Interpretation (test cod e = 43900-6) Normal [facility] CenterHepatitis B Surface [id number] 21:40:59 * Test Item Value Reference Range Interpretation Comme nts HBsAg Semi-Quantitative (rashad t code = 5195-3) Negative Negative [facility] CenterHIV 1/2 AG-AB WITH [id number] 20:00:41* Test Item Value Reference Range Interpretation Comme nts HIV Semi-quantitative (test code = 08082-5) Negative Negative ADDIE (test code = ADDIE) Non-reactive for HIV-1 antigen and HIV-1/HIV-2 antibodies. ?No laboratory evidence of HIV infection. ?Repeat in 2-4 weeks if acute HIV infection is suspected. [facility] CenterType and Screen - ONCE [id number] 19:34:10 * Test Item Value Reference Range Interpretation Comme nts ABO & RH (test code = 20) A Positive Performed at [facility] Laboratory [facility] Blood [address] [place] [address] Free: [phone] No. [id number] IAT (test code = 1185) Negative Performed at [facility] Laboratory [facility] - [facility] Blood [address] [place], [place] [address]Toll Free: [phone] No. [id number] [facility] CenterCBC with [id number] 18:52:59* Test Item Value Reference Range Interpretation Comme nts WBC (test code = 6690-2) See_Comment H [Automated messa ge] The system which generated this result transmitted reference range: 4.30 - 11.10 10*3/?L. The reference range was not used to interpret this result as normal/abnormal. RBC (test code = 789-8) See_Comment [Automated Papirusa ge] The system which generated this result [...] 31.8 g/dL 31.6-35.1 RDW-SD (test code = 58036-5) 59.7 fL 39.0-49.9 H RDW-CV (test code = 788-0) 20.1 % 12.0-15.5 H PLT (test code = 777-3) See_Comment [Automated Papirusa ge] The system which generated this result transmitted reference range: 166 - 358 10*3/?L. The reference range was not used to interpret this result as normal/abnormal. MPV (test code = 93697-2) 11.9 fL 9.5-12.9 IPF % (test code = 6772287741) 10.1 % 1.3-7.7 H Platelet count measured by fluorescence method. NRBC/100 WBC (test code = 3669463031) See_Comment [Automated [employer] ssage] The system which generated this result transmitted reference range: 0.0 - 10.0 /100 WBCs. The reference range was not used to interpret this result as normal/abnormal. NRBC x10^3 (test code = 1813002133) See_Comment [Automated Papirusa ge] The system which generated this result transmitted reference range: 10*3/?L. The reference range was not used to interpret this result as normal/abnormal. GRAN MAT (NEUT) % (test code = 770-8) 77.5 % IMM GRAN % (test code = 9030661520) 0.50 % LYMPH % (test code = 736-9) 13.6 % MONO % (test code = 5905-5) 6.7 % EOS % (test code = 713-8) 1.4 % BASO % (test code = 706-2) 0.3 % GRAN MAT x10^3(ANC) (test code = 4418871442) 9.78 10*3/uL 1.88-7.09 H IMM GRAN x10^3 (test code = 3399779134) 0.06 10*3/uL 0.00-0.06 LYMPH x10^3 (test code = 731-0) 1.71 10*3/uL 1.32-3.29 MONO x10^3 (test code = 742-7) 0.84 10*3/uL 0.33-0.92 EOS x10^3 (test code = 711-2) 0.18 10*3/uL 0.03-0.39 BASO x10^3 (test code = 704-7) 0.04 10*3/uL 0.01-0.07 Lab Interpretation (test code = 71320-2) Abnormal [facility] URINALYSIS W/O SPECIFIC [id number] 22:08:00* Test Item Value Reference Range Interpretation [...] = 3257) n/a Negative - Negati ve [facility] URINALYSIS W/O SPECIFIC [id number] 22:22:00* Test Item Value Reference Range Interpretation [...] = 3257) Negative Negative - Negati ve [facility] URINALYSIS W/O SPECIFIC [id number] 16:45:00* Test Item Value Reference Range Interpretation [...] = 3257) n/a Negative - Negati ve [facility] URINALYSIS W/O SPECIFIC [id number] 19:15:00* Test Item Value Reference Range Interpretation [...] = 3257) N/A Negative - Negati ve [facility] URINALYSIS W/O SPECIFIC [id number] 15:32:00* Test Item Value Reference Range Interpretation [...] = 3257) n/a Negative - Negati ve [facility] CenterPOCT [facility] W/O SPECIFIC [id number] 16:25:00* Test Item Value Reference Range Interpretation [...] = 3257) n/a Negative - Negati ve [facility] CenterPOCT URINALYS[facility] W/O SPECIFIC [id number] 16:25:00* Test Item Value Reference Range Interpretation [...] = 3257) n/a Negative - Negati ve [facility] Notes Date/Time Note Provider [...] RN 09/30/2023 4:38 PM Meghana Pacheco RN [facility] 2023-09-30 16:02:38 Pt says her cycle been heavy and been bleeding for a month now, offered appt her insurance is out of network so want to speak to nurse first. She thinks may have something to do with her control implant. Charlene Albright [facility] 2023-08-14 14:12:37 Chief Complaint Patient presents with New Patient Congestion Green mucus, headache, cough mainly at night. Symptoms since Saturday Headache Valorie Morin LVN [facility] 2023-07-23 20:58:17 Pt given printed and verbal [...] with steady gait, in no apparent distress MS INVESTIGATOR Joleen Rodríguez RN [facility] 2023-07-23 20:41:27 Pt arrives ambulatory to ED reporting right side ear pain that started today. MS INVESTIGATOR Shira Wolf RN [facility] 2023-07-23 20:35:00 Images from the original note were not included. 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 History provided by: Patient manager university used: No Past Medical History/Immunizations: Past Medical History: Diagnosis Date Absence of menstruation 06/28/2016 Acute biliary pancreatitis 08/01/2022 Anemia During , not on meds Chlamydia Chlamydia trachomatis infection of lower genitourinary sites 2013 treated Depression 09/01/2006 resolved Gonorrhea 2012 gonorrhea, [...] N/A 08/03/2022 Surgeon: Sherrie Casillas MD; Location: [facility] OR LOCATION LAPAROSCOPIC APPENDECTOMY N/A 12/01/2020 Surgeon: Galen Hewitt MD; Location: [facility] LAPAROSCOPIC CHOLECYSTECTOMY N/A 08/03/2022 Surgeon: Sherrie Casillas MD; Location: [facility] OR [facility] Review of Systems: Review of Systems [...] information for follow-up Jacinda Bui FNP Specialty: RIB CL[employer] 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
--- NOTE | 2024-09-04 10:03 | EDPHYS ---
Physician Documentation [facility] Name: Gretel Nguyen Age: 34 yrs Sex: Female : 1990 Arrival Date: 09/04/2024 Time: 09:24 Bed IW2 Private MD: ED Physician Rd Spence HPI: 09/04 09:56 This 34 yrs old Female presents to ER via Ambulatory with complaints of rn Congestion. 09:56 The patient or guardian reports cough, flu symptoms. Onset: The symptoms/episode rn began/occurred 1 week(s) ago. Severity of symptoms: At their worst the symptoms were mild, in the emergency department the symptoms are unchanged. Associated signs and symptoms: Pertinent positives: fever, rhinorrhea. The patient has not experienced similar symptoms in the past. Patient reports 1 week of upper respiratory symptoms. Reports fever and chills, cough, runny nose, sinus pressure and headache. Reports myalgias and generalized malaise. Has not been tested but has already been symptomatic for about a week and not improving. Denies shortness of breath or chest pain. No chronic lung problems. Non-smoker.. 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 - Infectious Disease History:: Denies. - Social history:: Smoking status: Patient denies any tobacco usage or history of. - Family history:: not pertinent. - Hospitalizations: : No recent hospitalization is reported. ROS: 09:56 Constitutional: Positive for subjective fever and chills Eyes: Negative for injury, rn pain, redness, and discharge, ENT: Positive for runny nose and congestion with sinus pressure Neck: Negative for injury, pain, and swelling, Cardiovascular: Negative for chest pain, palpitations, and edema, Respiratory: Positive for mild cough, negative for shortness of breath or hemoptysis Abdomen/GI: Negative for abdominal pain, nausea, vomiting, diarrhea, and constipation, MS/Extremity: Negative for injury and deformity, Neuro: Positive for headache, negative for focal weakness or numbness Exam: 09:56 Constitutional: This is a well developed, well nourished patient who is awake, alert, rn and in no acute distress. Head/Face: Normocephalic, atraumatic. ENT: Mild pharyngeal erythema. No stridor. Clear nasal drainage. Maxillary sinus pressure to palpation. Neck: Neck supple, no meningismus or masses Cardiovascular: Regular rate and rhythm. No pulse deficits. Respiratory: No increased work of breathing, no retractions or nasal flaring. Neuro: Awake and alert, GCS 15, oriented to person, place, time, and situation. Cranial nerves II-XII grossly intact. Normal gait. Vital Signs: 09:50 BP 132 / 80; Pulse 66; Resp 17; Temp 98.7; Pulse Ox 97% ; Weight 104.33 kg; Height 5 jl7 ft. 1 in. ; Pain 7/10; 09:50 Body Mass Index 43.46 (104.33 kg, 154.94 cm) [facility] 09:50 Pain Scale: Adult 7 MDM: 09:27 Medical Screening Exam initiated rn 09:56 Differential Diagnosis: Influenza Upper Respiratory Infection Sinusitis Pharyngitis rn Viral Syndrome. Data reviewed: vital signs, nurses notes, and as a result, I will discharge patient. Counseling: I had a detailed discussion with the patient and/or guardian regarding the historical points, exam findings, and any diagnostic results supporting the discharge/admit diagnosis, the need for outpatient follow up, to return to the emergency department if symptoms worsen or persist or if there are any questions or concerns that arise at home. Special discussion: I discussed with the patient/guardian in detail that at this point there is no indication for admission to the hospital. It is understood, however, that if the symptoms persist or worsen the patient needs to return immediately for re-evaluation. ED course: Patient symptomatic for a week without improving symptoms. No indication for viral testing at this time as will not change outcome and too late for Tamiflu and antivirals. Decision made to treat with antibiotics for likely sinusitis and sinus headache. No oxygen requirement and patient afebrile at this time. No labored breathing. Return precautions given and understood.. Administered Medications: No medications were administered Disposition Summary: 09/04/24 10:02 Discharge Ordered Notes: Location: Home rn Problem: new rn Symptoms: are unchanged rn Condition: Stable rn Diagnosis - Acute sinusitis, unspecified rn Followup: rn - With: Private Physician - When: As needed - Reason: Recheck today's complaints, Re-evaluation by your physician Discharge Instructions: - Discharge Summary Sheet rn - Sinusitis, Adult rn Forms: - Medication Reconciliation Form rn - Antibiotic pattern checker - Prescription Opioid Use rn - Patient Portal Instructions rn - Leadership Thank You Letter rn - Work release form jl7 Prescriptions: - Augmentin 875-125 mg Oral Tablet - take 1 tablet ORAL route every 12 hours for 10 days; 20 tablet; Refills: 0, rn Product Selection Permitted Signatures: Dispatcher [employer] EDMS Rd Spence MD MD rn Leal, Jahala, RN RN jl7 Corrections: (The following items were deleted from the chart) 09:56 09:50 Chest Pa And Lat (2 Views)+RAD.RAD.BRZ ordered. EDMS EDMS 10:03 09:50 COVID-19 Ag + Flu A+B Ag+[id number].LAB.[email or web address] ordered. EDMS EDMS
--- NOTE | 2024-09-04 10:03 | ER ---
Nurse's Notes [facility] Name: Gretel Nguyen Age: 34 yrs Sex: Female : 1990 Arrival Date: 09/04/2024 Time: 09:24 Bed IW2 Private MD: Diagnosis: Acute sinusitis, unspecified Presentation: 09/04 09:50 Chief complaint: Patient states: Nasal congestion, sinus congestion, productive cough, jl7 body aches x 1 week, sinus congestion worse today. Coronavirus screen: Client presents with at least one sign or symptom that may indicate coronavirus-19. Ebola Screen: No symptoms or risks identified at this time. Resp Distress? No respiratory distress is noted at this time. Initial Sepsis Screen: Does the patient meet any 2 criteria? No. Patient's initial sepsis screen is negative. Does the patient have a suspected source of infection? No. Patient's initial sepsis screen is negative. Risk Assessment: Do you want to hurt yourself or someone else? Patient reports no desire to harm self or others. Onset of symptoms was August 28, 2024. 09:50 Method Of Arrival: Ambulatory [facility] 09:50 Acuity: DEREK 3 jl7 Triage Assessment: 09:54 General: Appears in no apparent distress. uncomfortable, Behavior is calm, cooperative, jl7 appropriate for age. Pain: Complains of pain in headache. Respiratory: not auscultated. 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 - Infectious Disease History:: Denies. - Social history:: Smoking status: Patient denies any tobacco usage or history of. - Family history:: not pertinent. - Hospitalizations: : No recent hospitalization is reported. Screenin:15 [facility] ED Fall Risk Assessment (Adult) History of falling in the last 3 months, jl7 including since admission No falls in past 3 months (0 pts) Confusion or Disorientation No (0 pts) Intoxicated or Sedated No (0 pts) Impaired Gait No (0 pts) Mobility Assist Device Used No (0 pt) Altered Elimination No (0 pt) Score/Fall Risk Level 0 - 2 = Low Risk Oriented to surroundings, Maintained a safe environment. Abuse screen: Denies threats or abuse. Denies injuries from another. Nutritional screening: No deficits noted. Tuberculosis screening: No symptoms or risk factors identified. Vital Signs: 09:50 BP 132 / 80; Pulse 66; Resp 17; Temp 98.7; Pulse Ox 97% ; Weight 104.33 kg; Height 5 jl7 ft. 1 in. ; Pain 7/10; 09:50 Body Mass Index 43.46 (104.33 kg, 154.94 cm) jl7 09:50 Pain Scale: Adult jl7 ED Course: 09:25 Patient arrived in ED. mr 09:27 Rd Spence MD is Attending Physician. rn 09:52 Triage completed. jl7 09:54 Arm band placed on right wrist. jl7 10:15 Patient has correct armband on for positive identification. Provided Education on: jl7 discharge. 10:15 No provider procedures requiring assistance completed. Patient did not have IV access jl7 during this emergency room visit. Administered Medications: No medications were administered Medication: 10:16 VIS not applicable for this client. jl7 Outcome: 10:02 Discharge ordered by . rn 10:15 Discharged to home ambulatory, jl7 10:15 Condition: stable 10:15 Discharge instructions given to patient, Instructed on discharge instructions, follow up and referral plans. medication usage, Demonstrated understanding of instructions, follow-up care, medications, Prescriptions given X 1, 10:16 Patient left the ED. jl7 Signatures: Veena Pedroza, Reg Reg mr Rd Spence MD MD rn Leal, Jahala, RN RN jl7 Corrections: (The following items were deleted from the chart) 09:53 09:50 Onset of symptoms was September 28, 2024 jl7 jl7
[2024-09-04 10:21] VITALS: BP 132/80; TEMP 98.7; O2SAT 97
== END 2024-09-04 10:16 | disposition home or self-care (01) ==
LOC: ER 09:24
DX: J01.90 Acute sinusitis, unspecified (principal)
CPT/HCPCS: 99283